=== PATIENT | female | born 1955 | race Caucasian/White ===

== ENCOUNTER 2020-10-19 23:10 | Inpatient (IN) | payer OTHER, SELFPAY ==
[2020-10-19 23:35] VITALS: BMI 30.2
--- NOTE | 2020-10-19 23:38 | P.HP_ITS ---
Providers/Chief Complaint Admitting Physician: Alexys Lopez MD Primary Care Provider: Maxine Pulido DO Chief Complaint: covid+ History of Present Illness Sj Singh is a 65 year old female who presented to our hospital from [facility] for chief complaint of worsening symptoms of COVID-19. 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 She has not noticed any diarrhea, she is endorsing constipation. She has not noticed orthopnea, PND, chest pain she is endorsing worsening of shortness of breath on exertion. She went to her PCP who recommended Z-Issac and prednisone which she completed. At [facility] she was given Levaquin for UTI which caused allergic reaction and was given ceftriaxone afterwards she was given normal saline, Decadron, she was saturating 75% on room air in the ER did well with 4 L nasal cannula to keep her saturation above 90. When she was evaluated in room 269 she was saturating well on 40 nasal cannula was experiencing excessive bouts of cough did not complain of active chest pain. Clinically no signs of fluid overload. I have requested D-dimer, troponin set. EKG at the other facility revealed T wave inversion lead I aVL, BNP 3000, potassium was repleted Magnesium 1.7 BNP 3000 TSH 1.9 Brown-colored urine White count UA 51-100 RBC greater than 100 3+ bacteria Yeast budding present 1+ glucose Proteinuria Sodium 135 Potassium 3.2 Creatinine 0.4 Bicarb 24 White count 10.6 Hemoglobin 13.1 Platelets 113 Absolute lymphocyte count 0.7 Chest x-ray revealed decreased lung volume with moderate ground glass attenuation/infiltrate of both lungs no large pleural effusion or pneumothorax noted Review of Systems Const: Reports: chills, body aches, change in appetite, fatigue and malaise Eyes: Denies: change in vision ENMT: Denies: throat pain Card: Reports: dyspnea on exertion; Denies: chest pain Resp: Reports: dyspnea, non-productive cough and chest congestion GI: Reports: constipation; Denies: abdominal pain : Denies: flank pain Musc: Denies: neck pain Skin/Breast: Denies: rash Neuro: Denies: headache(s) Psych: Denies: anxiety Endo: Denies: polyuria Damaso/Lymph: Denies: easy bruising All/Imm: Denies: urticaria PFSH Acute PFSH: Medical History Diabetes GERD (gastroesophageal reflux disease) Hypertension Hypothyroidism Surgical History H/O cataract removal with insertion of prosthetic lens H/O cystoscopy History of anterior repair with culdoplasty Family History (Updated 10/20/20 @ 00:39 by Alexys Lopez MD) Other Family history non-contributory Social History (Updated 10/20/20 @ 00:41 by Alexys Lopez MD) Smoking and tobacco status: never smoked Alcohol intake: never Substance/Drug Use: never Housing: House Physical Exam Narrative: EXAM NARRATIVE: Middle-age female who appears more than stated age Clinically looks dehydrated Currently on 4 L nasal cannula saturating over 90% Currently experiencing multiple bouts of cough, dry cough Expiratory wheezing diffuse more pronounced in the base of the lungs bilaterally S1, S2 no tachycardia or heart failure signs No extremity no edema gangrene ulcer Awake alert oriented x3 GCS 15 No neurological deficit Skin without any signs of ischemia gangrene or ulcer Irritable mood due to excessive coughing A&P Assessment and plan (1) UTI (urinary tract infection): Status: Acute (2) Hypoxia: Status: Acute (3) COVID-19: Status: Acute (4) Yeast UTI: Status: Acute Additional A&P Information Acute hypoxic respiratory failure secondary to COVID-19 pneumonia Start Decadron and remdesivir currently doing well on 4 L nasal cannula, BNP 3000 however clinically does not show signs of fluid overload, chest x-ray shows bibasilar groundglass opacities Ventolin as needed use We will check procalcitonin, D-dimer, ferritin and CRP Jose Silva for cough along Robitussin Yeast UTI Patient is not complaining of signs of UTI however complaining of black-colored urine She has been given Diflucan x1 I would continue ceftriaxone until tomorrow and probably will need to be discontinued afterwards, repeat UA Type 2 diabetes Keep her on moderate sliding scale to prevent steroid-induced hyperglycemia Hypothyroidism: Continue home regimen of levothyroxine High BNP This could be seen with PE, fluid overload, CHF however clinically does not look fluid overloaded, no previous history of coronary disease or CHF, will check D- dimer, EKG showing T wave inversion lead I aVL, we will keep her on telemetry for now patient is chest pain-free Full code Consistent carb diet DVT prophylaxis Lovenox 30mg twice daily because of hypercoagulable state of COVID-19 DIC pattern Attestations Medical Necessity Statement*: Anticipating stay in the hospital cross more than 2 midnights currently need management for COVID-19 pneumonia worsening symptoms and UTI Time Spent in Patient Care: (>than 50% of time spent in counselling and/or direct pt care on unit) . 50mins Coding Level of Care Code Acute Director Rehabilitation Program for [facility] Diagnoses UTI (urinary tract infection) N39.0 Hypoxia R09.02 COVID-19 U07.1 Yeast UTI B37.49
[2020-10-20] VITALS (28 sets, daily range): BP systolic 109–163; BP diastolic 66–99; PULSE 62–119; RESP 13–23; TEMP 37–37.2; O2SAT 85–98
--- NOTE | 2020-10-20 00:46 | ECG_ITS ---
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1955 Requested By: Alexys Lopez Order Number: [id number] Reading MD: ALEXYS BOWMAN Measurements Intervals [place] Rate: 99 P: 81 VA: 137 QRS: -38 QRSD: 99 T: 145 QT: 348 QTc: 448 Interpretive Statements SINUS RHYTHM MARKED LEFT AXIS DEVIATION [QRS AXIS < -30] PATTERN CONSISTENT WITH PULMONARY DISEASE LEFT VENTRICULAR HYPERTROPHY AND ST-T CHANGE [VOLTAGE CRITERIA PLUS ST/T ABNORMALITY] POSSIBLE SEPTAL MYOCARDIAL INFARCTION [30 ms Q WAVE IN V1/V2], PROBABLY OLD No previous ECG available for comparison Electronically Signed On 10-20-2020 18:54:55 MANAGER DRUG by ALEXYS BOWMAN [id number]
[2020-10-20] MEDS: remdesivir 200 MG in sodium chloride 0.9% (100 ml) 100 ML 100 MG IV (00:55)
[2020-10-20] MEDS: enoxaparin 30 mg/0.3 mL Syringe SUBCUT (01:43)
[2020-10-20] MEDS: lanolin oint 7 gm 1 APPLIC TOPICAL (01:47)
[2020-10-20 02:23] LABS: Troponin(5th) Baseline 663 ng/L (0-10)
--- NOTE | 2020-10-20 02:35 | USCV_ITS ---
Sj Singh Age: 65 Gender: F : 1955 Exam Date: 10/20/2020 14:45 Ordering Phys: Alexys Lopez MD Technologist: Diana Villalba [place] [facility] [place]: NSTEMI BP: 148 / 88 HR: 79 Rhythm: Sinus Technical Quality: Adequate MEASUREMENTS (Male / Female) Normal Values 2D ECHO LV Diastolic Diameter PLAX 4.4 cm 4.2 - 5.9 / 3.9 - 5.3 cm LV Systolic Diameter PLAX 3.7 cm LV Chamber Size 4.3 cm IVS Diastolic Thickness 1.6 cm 0.6 - 1.0 / 0.6 - 0.9 cm IVS Systolic Thickness 1.7 cm LVPW Diastolic Thickness 1.2 cm 0.6 - 1.0 / 0.6 - 0.9 cm LVPW Systolic Thickness 1.4 cm RV Chamber Size 3.4 cm LVOT Diameter 2.0 cm LV Ejection Fraction 2D Teich 33.8 % LV Ejection Fraction MOD 2C 63.4 % LV Ejection Fraction 2C AL 64.9 % LA Diameter 4.4 cm LA Width 3.9 cm LA Height 5.2 cm RA Width 3.3 cm RA Height 5.1 cm Aorta at Sinotubular Diameter 2.5 cm M-MODE LV Diastolic Diameter MM 5.9 cm 4.2 - 5.9 / 3.9 - 5.3 cm LV Systolic Diameter MM 4.5 cm LV Ejection Fraction MM Teich 48.3 % IVS Diastolic Thickness MM 1.0 cm 0.6 - 1.0 / 0.6 - 0.9 cm IVS Systolic Thickness MM 1.5 cm LVPW Diastolic Thickness MM 1.1 cm 0.6 - 1.0 / 0.6 - 0.9 cm LVPW Systolic Thickness MM 1.6 cm RV Diastolic Diameter MM 1.5 cm Aortic Annulus Diameter 2.9 cm LA Ao Ratio MM 1.6 MV E Point Septal Separation 0.5 cm DOPPLER AV Peak Velocity 88.0 cm/s LVOT Peak Velocity 64.0 cm/s AV Area Cont Eq vti 2.8 cm squared AV Area Cont Eq pk 2.2 cm squared MV Area PHT 5.9 cm squared Mitral E to A Ratio 1.2 MV E' Velocity 49.5 cm/s Mitral E to MV E' Ratio 20.1 Mitral E to LV E' Lateral Ratio 18.9 Mitral E to LV E' Septal Ratio 21.4 TR Peak Velocity 248.0 cm/s TR Peak Gradient 24.6 mmHg TR Mean Velocity 197.2 cm/s TR Mean Gradient 16.3 mmHg TR Velocity Time Integral 74.8 cm Right Atrial Pressure 15.0 mmHg Pulmonary Artery Systolic Pressu 39.6 mmHg PV Peak Velocity 55.0 cm/s RV Acceleration Time 0.1 s RV Ejection Time 0.3 s RV AcT/ET 0.2 FINDINGS Left Ventricle Normal left ventricular cavity size. Mildly decreased left ventricular systolic function. Global left ventricular hypokinesis. Left ventricular ejection fraction is estimated at 50 %. Grade II/IV diastolic dysfunction, moderately elevated filling pressures. Right Ventricle Normal right ventricular size. Moderate pulmonary hypertension, PASP 45 mmHg. Right Atrium The right atrium is normal in size. Left Atrium Mitral Valve Moderately thickened mitral valve. Mild mitral annular calcification. Severe mitral valve regurgitation. Aortic Valve Structurally normal aortic valve without significant sclerosis or stenosis. There is no aortic regurgitation. Tricuspid Valve [id number]-[id number] tricuspid valve regurgitation. Pulmonic Valve Structurally normal pulmonic valve without significant stenosis. There is no pulmonic regurgitation. Pericardium Normal pericardium without effusion. Aorta Normal ascending aorta dimension. CONCLUSIONS 1-Normal left ventricular cavity size. Mildly decreased left ventricular systolic function. Global left ventricular hypokinesis. Left ventricular ejection fraction is estimated at 50 %. Grade II/IV diastolic dysfunction, moderately elevated filling pressures. 2-Moderately increased left atrial size. 3-Normal right ventricular size. Moderate pulmonary hypertension, PASP 45 mmHg. 4-Moderately thickened mitral valve. Mild mitral annular calcification. Severe mitral valve regurgitation. 8-Gmmf-xu-moderate tricuspid valve regurgitation. 6-There is no pericardial effusion. 7-Right atrial pressure is around 20 mm of mercury. 8-There are no prior echocardiogram studies to compare. Alexys Zafar MD (Electronically Signed) Final Date: 20 October 2020 16:41 S
--- NOTE | 2020-10-20 02:46 | ECG_ITS ---
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: : 1955 Requested By: Alexys Lopez Order Number: [id number] Reading MD: ALEXYS BOWMAN Measurements Intervals [place] Rate: 95 P: 62 [place]: 126 QRS: -37 QRSD: 153 T: 146 QT: 368 QTc: 463 Interpretive Statements SINUS RHYTHM MARKED LEFT AXIS DEVIATION [QRS AXIS < -30] INTRAVENTRICULAR CONDUCTION DELAY [130+ ms QRS DURATION] Compared to ECG 10/20/2020 02:37:30 Intraventricular conduction delay now present Left ventricular hypertrophy no longer present ST (T wave) deviation no longer present Myocardial infarct finding no longer present Electronically Signed On 10-20-2020 18:55:48 DELIVERY MERCHANDISER by ALEXYS BOWMAN [email or web address]/[id number]
[2020-10-20] MEDS: clopidogrel 300 mg Tablet PO (03:27)
[2020-10-20] MEDS: aspirin 325 mg EC Tablet PO (03:27)
[2020-10-20] MEDS: metoprolol succinate ER (24 HR) 25 mg Tablet PO (03:27)
[2020-10-20] MEDS: acetaminophen 325 mg Tablet PO ×3 (03:27→20:16)
[2020-10-20] MEDS: enoxaparin 80 mg/0.8 mL Syringe SUBCUT ×2 (03:27→14:42)
[2020-10-20 03:50] LABS: Basophils % 0.5 %; Eosinophils # 0.1 10^3/uL (0.0-0.8); Eosinophils % 0.9 %; Lymphocytes # 0.6 10^3/uL (0.8-4.8); Lymphocytes % 7.1 %; Mean Corpuscular HGB Conc 31.4 g/dL (30.0-36.0); Mean Corpuscular Hemoglobin 28.4 pg (28.0-34.0); Mean Corpuscular Volume 90.4 fL (81-99); Mean Platelet Volume 11.3 fL (7.4-10.4); Monocytes # 0.4 10^3/uL (0.2-0.9); Monocytes % 4.6 %; Neutrophils # 7.64 10^3/uL (1.8-7.7); Nucleated Red Blood Cells % 0 %; Platelet Count 93 10^3/cmm (130-400); Red Blood Count 3.87 10^6/uL (4.1-5.3); Red Cell Distribution Width 12.6 % (12.1-15.1); White Blood Count 8.9 10^3/uL (4.0-10.0)
[2020-10-20 04:13] LABS: Alanine Aminotransferase 28 U/L (0-33); Albumin Level 2.7 g/dL (3.5-5.2); Alkaline Phosphatase 129 IU/L (35-105); Anion Gap 14.3 (5-19); Aspartate Amino Transferase 29 U/L (0-32); Blood Urea Nitrogen 13 mg/dL (8-23); Calcium 8.6 mg/dL (8.5-10.5); Carbon Dioxide 27 mmol/L (22-29); Chloride 101 mmol/L (98-107); Creatine Phosphokinase 73 U/L (26-192); Ferritin 587 ng/mL (15-150); Globulin 2.8 g/dL (1.3-4.6); Glomerular Filtration Rate 160.2 mL/min (90-130); Glucose 185 mg/dL (65-115); Lactate Dehydrogenase 604 U/L (135-214); Osmolality Calculated 293 mOsm/kg (285-295); Potassium 3.3 mmol/L (3.5-5.1); Sodium 139 mmol/L (136-145); Total Bilirubin 0.4 mg/dL (0.15-1.2); Total Protein 5.5 g/dL (6.6-8.7)
[2020-10-20 04:15] LABS: D Dimer >= 20.00 ug/mIFEU (0-0.59)
[2020-10-20 04:18] LABS: Troponin 5 2HR 673.4 ng/L (0-10); Troponin 5 2HR Delta 10.4 ABS# (0-10)
--- NOTE | 2020-10-20 04:22 | CTR_ITS ---
PROCEDURE INFORMATION: Exam: CT Angiography Chest With Contrast Exam date and time: 10/20/2020 4:26 AM Age: 65 years old Clinical indication: Patient HX: Cough. Covid+. D dimer of 20. ; Additional info: Pe TECHNIQUE: Imaging protocol: Computed tomographic angiography of the chest with intravenous contrast. 3D rendering (Not supervised by radiologist): MIP and/or 3D reconstructed images were created by the technologist. Radiation optimization: All CT scans at this facility use at least one of these dose optimization techniques: automated exposure control; mA and/or kV adjustment per patient size (includes targeted exams where dose is matched to clinical indication); or iterative reconstruction. Contrast material: OMNI 350; Contrast volume: 78 ml; Contrast route: INTRAVENOUS (IV); COMPARISON: No relevant prior studies available. RADIATION DOSE METRICS: Total DLP (mGy-cm): 490.95 FINDINGS: Pulmonary arteries: There are partial filling defects seen within segmental branches of the right lower lobe pulmonary artery. Aorta: Unremarkable. No aortic aneurysm. No aortic dissection. Lungs: There are patchy ground-glass opacities and some consolidation seen bilaterally, findings compatible with a patchy bilateral pneumonitis. Pleural space: Unremarkable. No pneumothorax. No pleural effusion. Heart: Unremarkable. No cardiomegaly. No pericardial effusion. Lymph nodes: Unremarkable. No enlarged lymph nodes. Stomach and bowel: There is a moderate hiatal hernia present containing a portion of the proximal stomach. It measures 6 cm transverse dimension. Bones/joints: Unremarkable. No acute fracture. Soft tissues: Unremarkable. CT/CT angio chest PE protcl [id number] IMPRESSION: 1. There are partial filling defect seen within segmental branches of the right lower lobe pulmonary artery compatible with nonocclusive pulmonary emboli. 2. Patchy ground-glass opacities and consolidation seen bilaterally, findings compatible with patchy bilateral pneumonitis. Imaging features can be seen with COVID-19 pneumonia, though are nonspecific and can occur with a variety of infectious and noninfectious processes. (Reference: Apolinar) 3. Moderate hiatal hernia containing a portion of the proximal stomach. REFERENCES: rosalva Knight al., Radiological Society of [place] Expert Consensus Statement on Reporting Chest CT Findings Related to COVID-19. Endorsed by the Society of Thoracic Radiology, the [place] [employer], and RSNA. Published February 01, 2020. Radiation Dose CTDIVOL = (mGy): DLP = 490.95 (mGy-cm)
[2020-10-20 04:52] LABS: Add Urine Microscopic? YES; Bilirubin Urine Neg (Negative); Blood Urine 3+ (Negative); Glucose Urine UA Norm (Normal); Ketones Urine 2+ (Negative); Leukocyte Esterase Urine 2+ (Negative); Nitrate Urine Negative (Negative); Protein Urine 2+ (Negative); Specific Gravity, Urine 1.014 (1.005-1.030); Urine Appearance Cloudy (CLEAR); Urine Color Amber (Yellow); Urobilinogen Urine Norm (Negative); pH Urine 7 (5-7)
[2020-10-20] MEDS: iohexol 350 mg/mL 100 mL Btl IV (04:54)
[2020-10-20 05:29] LABS: Add Urine Culture? Yes; Bacteria Urine 4+ /hpf; Mucus Urine 2+ /hpf; RBC Urine TOO NUMEROUS TO CNT /hpf (0-2); WBC Urine TOO NUMEROUS TO CNT /hpf (0-5)
[2020-10-20] MEDS: potassium chloride ER 20 mEq Tablet 40 MEQ PO ×2 (05:49→09:32)
[2020-10-20] MEDS: levothyroxine 88 mcg Tablet PO (05:49)
[2020-10-20 06:46] LABS: Glucose Point of Care 186 mg/dL (70-110)
--- NOTE | 2020-10-20 06:46 | ECG_ITS ---
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: : 1955 Requested By: Alexys Lopez Order Number: [id number] Reading MD: ALEXYS BOWMAN Measurements Intervals [place] Rate: 87 P: 2 TN: 145 QRS: -21 QRSD: 105 T: 176 QT: 377 QTc: 454 Interpretive Statements SINUS RHYTHM LEFT VENTRICULAR HYPERTROPHY AND ST-T CHANGE [VOLTAGE CRITERIA PLUS ST/T ABNORMALITY] POSSIBLE SEPTAL MYOCARDIAL INFARCTION [30 ms Q WAVE IN V1/V2], PROBABLY OLD Compared to ECG 10/20/2020 02:38:36 Left ventricular hypertrophy now present ST (T wave) deviation now present Myocardial infarct finding now present Left-axis deviation no longer present Intraventricular conduction delay no longer present Electronically Signed On 10-20-2020 18:55:43 EMERGENCY MEDICINE PHYSICIAN by ALEXYS BOWMAN [email or web address].e[employer]/store/[id number]
[2020-10-20 07:49] LABS: Erythrocyte Sedimentation Rate 14 mm/hr (0-15)
[2020-10-20] MEDS: albuterol 8 gm MDI 2 PUFF INHALATION (08:15)
[2020-10-20 08:19] LABS: NT Pro B Type Natriuretic Pept 2488 pg/mL (0-125); Procalcitonin 0.08 ng/mL (0-0.5)
[2020-10-20 08:22] LABS: Platelet Count 93 10^3/cmm (130-400)
--- NOTE | 2020-10-20 08:25 | PC.NURSE ---
Addendum entered by Amber Griffith RN 10/20/20 09:08: observed pt's dark, bloody urine at bedside. When asked about the color of her urine, the pt informed the RN, charger operator helper, and MD at bedside of black urine a couple of weeks prior to being admitted to the hospital. Pt did not seek care for black urine. Prior to black urine, pt stated her urine was dark nataliya. Pt was unaware of dark bloody urine output after roe catheter was placed. MD assessed bloody urine output and stated concern of trauma during roe placement. No new orders or consults at this time. Will continue to monitor the patient. Original Note: Pt transferred to VICU from [facility] unit. Pt transported in bed on non-rebreather with RT and RN at bedside. Pt placed on bus driver/monitor, pulse ox (99% on NRB and placed on 45%/35L HHFNC), and BP monitoring. Pt stable at this time with no c/o chest pain. EKG ordered due to elevated troponins and d-dimer. MD at bedside to assess and speak with pt. Pt complains of no pain at this time. MD ordered roe catheter for accurate I&O's. This RN and Sissy Montgomery, research instructor, went to place roe catheter and pt stated she has a history of bladder prolapse for years. MD notified and aware. MD stated to place roe if possible and suggested consult of urology due to prolapsed bladder. This RN and charger operator helper were able to place roe catheter with pt's prolapsed bladder. Blood return was observed after placement of roe. MD aware and assessed at bedside. No other new orders obtained at this time. Will continue to monitor the pt.
[2020-10-20 08:27] LABS: INR 1.36 (0.8-1.2)
[2020-10-20 08:28] LABS: Fibrinogen 214 mg/dL (174-498); Lactate (Lactic Acid level) 1.2 mmol/L (0.5-2.2); Partial Thromboplastin Time 39.7 SECONDS (23.9-36.7)
--- NOTE | 2020-10-20 08:34 | P.PN_ITS ---
Subjective Subjective: Interval history: Patient desaturated to 80s on 6 L by nasal cannula. She was transferred to VICU and started on high flow heated oxygen, 35 L 40% and her sats improved to high 90s. She denies chest pain or abdominal pain. She is diabetic for many years but denies previous history of heart disease. She stopped smoking many many years ago. She was found to have PE and her troponin significantly elevated and up to 800s this morning. Echocardiogram is pending. There is some minimal ST-T changes in the lateral leads but otherwise no evidence of ST elevation. Patient shows no evidence of lower extremity swelling. Erickson catheter was placed with approximately 500 mL very dark nataliya-colored urine out. She has 3+ blood on her UA with significant pyuria. No blood clots appreciated. Patient has bladder prolapse. Her platelets are 93 and hemoglobin 11. INR 1.36. Her kidney function is normal. Ferritin, LDH and D-dimer are elevated and suggestive of acute Covid 19 viral syndrome. Vitals/I&O/Wt Last Vital Signs Temp 98.8 F 10/20/20 04:00 Pulse 94 10/20/20 06:00 Resp 17 10/20/20 04:00 BP 148/88 10/20/20 04:00 Pulse Ox 91 10/20/20 04:00 10/19/20 10/20/20 10/20/20 22:59 06:59 14:59 Intake Total 100 / 100 Output Total 100 / 100 Balance -100 / -100 100 / 100 Weight last 48 hrs Weight 79.742 kg Physical Exam Const: COMMON NORMALS: no acute distress and patient oriented x3 Resp: COMMON NORMALS: normal respiratory effort and clear to auscultation bilaterally AUSCULTATION: clear to auscultation bilaterally Cardio: COMMON NORMALS: regular rate, regular rhythm and S2 normal heart sound present RATE: regular rate RHYTHM: regular rhythm HEART SOUNDS: S2 normal heart sound present OTHER: No lower extremity edema GI: COMMON NORMALS: Normal to inspection, nondistended, normoactive bowel sounds present, Soft to palpation and non-tender PALPATION: Yes Soft to palpation Neuro: COMMON NORMALS: patient oriented x3 and no focal motor deficits Data : 10/20/20 07:44 10/20/20 03:35 A&P Assessment and plan (1) UTI (urinary tract infection): Status: Acute (2) Yeast UTI: Status: Acute (3) Acute respiratory failure with hypoxia: Status: Acute (4) Pneumonia due to COVID-19 virus: Status: Acute (5) Diabetes mellitus type 2 in nonobese: Status: Acute (6) Acute myocarditis: And/or stress-induced cardiomyopathy. Non-ST elevation TN cannot be completely ruled out. Status: Acute (7) Thrombocytopenia: This is likely related to underlying infection. Status: Acute (8) Pulmonary embolism: Status: Acute Additional A&P Information Acute hypoxic respiratory failure secondary to COVID-19 pneumonia Start Decadron and remdesivir currently doing well on 4 L nasal cannula, BNP 3000 however clinically does not show signs of fluid overload, chest x-ray shows bibasilar groundglass opacities Ventolin as needed use We will check procalcitonin, D-dimer, ferritin and CRP Tessalon Perles for cough along Robitussin Yeast UTI Patient is not complaining of signs of UTI however complaining of black-colored urine She has been given Diflucan x1 I would continue ceftriaxone until tomorrow and probably will need to be discontinued afterwards, repeat UA Type 2 diabetes Keep her on moderate sliding scale to prevent steroid-induced hyperglycemia Hypothyroidism: Continue home regimen of levothyroxine High BNP This could be seen with PE, fluid overload, CHF however clinically does not look fluid overloaded, no previous history of coronary disease or CHF, will check D- dimer, EKG showing T wave inversion lead I aVL, we will keep her on telemetry for now patient is chest pain-free Full code Consistent carb diet DVT prophylaxis Lovenox 30mg twice daily because of hypercoagulable state of [place] VID-19 DIC pattern PLAN: Continue therapeutic anticoagulation, Plavix and aspirin. Continue ceftriaxone. We will need to call [facility] in several days to find out culture results. Continue dexamethasone and remdesivir as well as oxygen support. Awaiting echocardiogram and cardiology evaluation. There is no need for urgent cardiac intervention at this point. Will avoid IV fluids for now. Attestations Medical Necessity Statement*: Patient is critically ill requiring close ICU monitoring and treatment. Critical Care Time: Critical Care Time (min): 30 Coding Level of Care Code Acute Bioprocessing Manufacturing Technician for [facility] Fwd Diagnoses UTI (urinary tract infection) N39.0 Yeast UTI B37.49 Acute respiratory failure with hypoxia J96.01 Pneumonia due to COVID-19 virus U07.1; J12.89 Diabetes mellitus type 2 in nonobese E11.9 Acute myocarditis I40.9 Thrombocytopenia D69.6 Pulmonary embolism I26.99
[2020-10-20 08:35] LABS: Troponin 5 6HR 809.8 ng/L (0-10); Troponin 5 6HR Delta 146.8 ng/L (0-12)
--- NOTE | 2020-10-20 08:40 | PC.NURSE ---
Assumed patient care, introduced self, lab work drawn per doctors orders, patient short of breath, RT into see patient oxygen saturation 80% on high flow NC, increased per RT, Dr. Nayak notified and new orders for patient to be transferred to [facility]. Transferred via stretcher and bedside report given to Amber Griffith. Patient belongings taken with transfer including cell phone and junior underwriter, clothes, purse, package of incontinent briefs, kleenax box.
--- NOTE | 2020-10-20 08:52 | PC.RESP ---
Therapist walked into the room and checked vitals. Patient was sating 80% on 6LPM HFNC with a heart rate of 93 BPM. Therapist turned up O2 to 12LPM and patient sats only came up to 85% at this time. THerapist proceeded to give breathing treatment, then called Dr. Nayak. stated that she needs to be transferred to VICU at this time. Patient was transferred to VICU on a 15L NRB. sats were 98% with a heart rate of 91 BPM.
--- NOTE | 2020-10-20 08:55 | ECG_ITS ---
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 Measurements Intervals [place] Rate: 81 P: 12 MA: 141 QRS: -24 QRSD: 97 T: 120 QT: 383 QTc: 446 Interpretive Statements SINUS RHYTHM BORDERLINE LEFT AXIS DEVIATION [QRS AXIS < -20] LEFT VENTRICULAR HYPERTROPHY AND ST-T CHANGE [VOLTAGE CRITERIA PLUS ST/T ABNORMALITY] INTERPRETATION BASED ON A DEFAULT AGE OF 40 YEARS Compared to ECG 10/20/2020 06:44:52 Myocardial infarct finding no longer present ST (T wave) deviation still present Electronically Signed On 10-23-2020 19:55:53 LEI MAKER by Gilma Whipple M.D. [id number]
[2020-10-20 09:00] LABS: Glucose Point of Care 182 mg/dL (70-110)
[2020-10-20] MEDS: cefTRIAXone 1,000 MG in sodium chloride 0.9% (plus) 50 ML 100 MG IV (09:31)
[2020-10-20] MEDS: sennosides-docusate Tablet 1 TAB PO (09:32)
[2020-10-20] MEDS: aspirin 81 mg EC Tablet PO (09:32)
[2020-10-20] MEDS: clopidogrel 75 mg Tablet PO (09:32)
[2020-10-20] MEDS: dexamethasone 4 mg Tablet 6 MG PO (09:32)
[2020-10-20] MEDS: lisinopril 10 mg Tablet PO (11:25)
[2020-10-20 11:48] LABS: Glucose Point of Care 160 mg/dL (70-110)
[2020-10-20] MEDS: ondansetron 2 mg/ML SDV 2 mL 4 MG IVP (13:50)
--- NOTE | 2020-10-20 16:50 | PM.CONSULT ---
Providers/Reason For Consult Consulting Physican/Specialty*: Cardiology Reason for Consult*: Non-STEMI, acute heart failure, respiratory failure Attending Physician: Yifan Nayak MD Primary Care Provider: Maxine Pulido DO History of Present Illness History of Present Illness Sj Singh is a 65 year old female past medical history significant for pretension hyperlipidemia hypothyroidism was admitted with chest pain respiratory failure noted to be Covid positive. CTA of the chest was consistent with nonocclusive pulmonary embolism and groundglass appearance suspicious for Covid pneumonia. Patient continues to be short of breath and during investigation noted to have high cardiac markers consistent with non-ST elevation ID. Twelve-lead EKG was suggestive of ischemia in the high lateral wall. Echocardiogram is consistent with low normal ejection fraction, severe MR moderate TR and moderate pulmonary hypertension. Patient has global hypokinesis with possible regional lateral wall more hypokinetic than the rest of the freitas. I have been asked to assist in her care. Review of Systems Const: Reports: chills, body aches, change in appetite, fatigue and malaise Eyes: Denies: change in vision ENMT: Denies: throat pain Card: Reports: dyspnea on exertion; Denies: chest pain Resp: Reports: dyspnea, non-productive cough and chest congestion GI: Reports: constipation; Denies: abdominal pain : Denies: flank pain Musc: Denies: neck pain Skin/Breast: Denies: rash Neuro: Denies: headache(s) Psych: Denies: anxiety Endo: Denies: polyuria Dmaaso/Lymph: Denies: easy bruising All/Imm: Denies: urticaria Meds/Allergies Home Medications and Allergies Home Medications Medication Instructions Recorded Confirmed Last Taken Type acetaminophen [Tylenol Extra 1,000 mg PO PRN 10/20/20 10/20/20 Unknown History Strength] albuterol sulfate [ProAir HFA] 2 puff INHALATION Q6H PRN 10/20/20 10/20/20 Unknown History aspirin [Aspir-81] 81 mg PO DAILY@10/20/20 10/20/20 Unknown History cholecalciferol (vitamin D3) 25 mcg PO DAILY@10/20/20 10/20/20 Unknown History [Vitamin D3] cyclobenzaprine 5 - 10 mg PO TID PRN 10/20/20 10/20/20 Unknown History empagliflozin [Jardiance] 25 mg PO DAILY@10/20/20 10/20/20 Unknown History ibuprofen 800 mg PO PRN 10/20/20 10/20/20 Unknown History levothyroxine [Euthyrox] 88 mcg PO DAILY@10/20/20 10/20/20 Unknown History lisinopril 10 mg PO DAILY@10/20/20 10/20/20 Unknown History metformin 1,000 mg PO BID@10/20/20 10/20/20 Unknown History montelukast 10 mg PO DAILY@10/20/20 10/20/20 Unknown History multivitamin 1 tab PO DAILY@10/20/20 10/20/20 Unknown History omeprazole 40 mg PO DAILY@10/20/20 10/20/20 Unknown History simvastatin 40 mg PO DAILY@10/20/20 10/20/20 Unknown History Allergies Allergy/AdvReac Type Severity Reaction Status Date / Time Penicillins Allergy Severe ALGY-Hives Verified 10/20/20 10:03 levofloxacin [From Levaquin] Allergy ALGY-Rash Verified 10/20/20 10:03 Current Medications Current Medications Generic Name Dose Route Start Last Admin Trade Name Freq PRN Reason Stop Dose Admin Acetaminophen 325 - 650 mg 10/19/20 23:39 10/20/20 11:25 Acetaminophen 325 Mg Tablet PO 650 mg Q4H PRN Administration MILD PAIN OR INCREASE TEMP Albuterol Sulfate 2 puff 10/19/20 23:39 10/20/20 08:15 Albuterol 8 Gm Mdi INHALATION 2 puff Q4H.RESPIRATORY PRN Administration SHORTNESS OF BREATH Aspirin 81 mg 10/20/20 09:00 10/20/20 09:32 Aspirin 81 Mg Ec Tablet PO 81 mg DAILY MARIO Administration Clopidogrel Bisulfate 75 mg 10/20/20 09:00 10/20/20 09:32 Clopidogrel 75 Mg Tablet PO 75 mg DAILY MARIO Administration Dexamethasone 6 mg 10/20/20 09:00 10/20/20 09:32 Dexamethasone 4 Mg Tablet PO 6 mg DAILY MARIO Administration Enoxaparin Sodium 80 mg 10/20/20 15:30 10/20/20 14:42 Enoxaparin 80 Mg/0.8 Ml Syringe SUBCUT 80 mg Q12H MARIO Administration Ceftriaxone Sodium 1,000 mg/ 50 mls @ 100 mls/hr 10/20/20 08:15 10/20/20 10:32 Sodium Chloride IV Infused Q24H MARIO Infusion Protocol Insulin Aspart 0 unit 10/20/20 08:00 10/20/20 12:48 Insulin Aspart 100 Unit/1 Ml SUBCUT 4 unit WM&BEDTIME MARIO Administration Protocol Lanolin 1 applic 10/20/20 00:27 10/20/20 01:47 Lanolin Oint 7 Gm TOPICAL 1 dose PRN PRN Administration DRYNESS Levothyroxine Sodium 88 mcg 10/20/20 06:00 10/20/20 05:49 Levothyroxine 88 Mcg Tablet PO 88 mcg QAM MARIO Administration Lisinopril 10 mg 10/20/20 09:45 10/20/20 11:25 Lisinopril 10 Mg Tablet PO 10 mg DAILY MARIO Administration Metoprolol Succinate 25 mg 10/20/20 02:40 10/20/20 03:27 Metoprolol Succinate Er (24 Hr) 25 Mg Tablet PO 25 mg DAILY MARIO Administration Ondansetron HCl 4 mg 10/20/20 13:34 10/20/20 13:50 Ondansetron 2 Mg/Ml Sdv 2 Ml IVP 4 mg Q6H PRN Administration NAUSEA AND VOMITING Senna/Docusate Sodium 1 tab 10/20/20 09:00 10/20/20 09:32 Sennosides-Docusate Tablet PO 1 tab DAILY MARIO Administration PFSH Acute PFSH: Medical History Diabetes GERD (gastroesophageal reflux disease) Hypertension Hypothyroidism Surgical History H/O cataract removal with insertion of prosthetic lens H/O cystoscopy History of anterior repair with culdoplasty Family History Other Family history non-contributory Social History Smoking and tobacco status: never smoked Alcohol intake: never Substance/Drug Use: never Housing: House Vitals/I&O/Wt Last Vital Signs Temp 98.9 F 10/20/20 16:00 Pulse 76 10/20/20 15:11 Resp 18 10/20/20 15:11 BP 117/73 10/20/20 15:00 Pulse Ox 94 10/20/20 15:11 10/20/20 10/20/20 10/20/20 06:59 14:59 22:59 Intake Total 630 / 630 Output Total 100 / 100 Balance -100 / -100 630 / 630 Weight last 48 hrs Weight 175 lb 12.8 oz Physical Exam Narrative: EXAM NARRATIVE: Please note that I have not examined the patient personally history and physical examination is as per our colleagues note Urinary Catheter Management^: Erickson: Cath Placed During This Visit: yes Urinary Catheter Date of Insertion: 10/20/20 Urinary Catheter Time of Insertion: 08:45 A&P Assessment and plan (1) Pneumonia due to COVID-19 virus: Status: Acute (2) Non-ST elevation ID (NSTEMI): Patient presentation is most consistent with non-ST elevation ID mostly high lateral wall possible circumflex territory. She has been complicated with Covid pneumonia. For now we will continue to manage her medically until unless she is unstable such as arrhythmia or ST elevation ID. We agree to continue full dose anticoagulation with Lovenox, beta-abraham, statin, LA inhibitor aspirin and Plavix. Status: Acute (3) Systolic congestive heart failure with reduced left ventricular function, NYHA class 3: Patient is in decompensated acute systolic heart failure therefore recommend starting IV Lasix 40 mg IV twice a day, manage potassium to keep it around 4.0. We will start her on 20 mEq p.o. twice daily. Status: Acute (4) Hypoxia: Mixed picture due to Covid pneumonia and congestive heart failure Status: Acute (5) Pulmonary embolism: It is nonocclusive and small however she is on anticoagulation. Recommend continuing it. Status: Acute Qualifiers: Pulmonary embolism type: unspecified Chronicity: unspecified Acute cor pulmonale presence: without acute cor pulmonale Qualified Code(s): I26.99 - Other pulmonary embolism without acute cor pulmonale (6) Mitral valve regurgitation: Appear to be functional. We will continue to diurese hopefully it will improve Status: Acute Qualifiers: Cardiac valve disease etiology: nonrheumatic Qualified Code(s): I34.0 - Nonrheumatic mitral (valve) insufficiency (7) Tricuspid regurgitation: Secondary to high left side pressure once diuresed well and resolve with Covid pneumonia along with improvement in pulmonary pressure hopefully it will also improve. Status: Acute Qualifiers: Cardiac valve disease etiology: nonrheumatic Qualified Code(s): I36.1 - Nonrheumatic tricuspid (valve) insufficiency Consult Attestations Medical Necessity Statement: Expecting her stay to cross more than 2 midnights. Coding Level of Care Code New Pt Acute Savings Teller for [facility] Fwd Patient Type New History Comprehensive Exam Comprehensive Medical Decision Making High Complexity Diagnoses Pneumonia due to COVID-19 virus U07.1; J12.89 Non-ST elevation ID (NSTEMI) I21.4 Systolic congestive heart failure with reduced left ventricular function, NYHA class 3 I50.20 Hypoxia R09.02 Pulmonary embolism I26.99 Pulmonary embolism type: unspecified Chronicity: unspecified Acute cor pulmonale presence: without acute cor pulmonale Mitral valve regurgitation I34.0 Cardiac valve disease etiology: nonrheumatic Tricuspid regurgitation I36.1 Cardiac valve disease etiology: nonrheumatic
[2020-10-20 16:57] LABS: Glucose Point of Care 127 mg/dL (70-110)
[2020-10-20] MEDS: potassium chloride ER 20 mEq Tablet PO (17:34)
[2020-10-20] MEDS: FUROsemide 10 mg/mL SDV 4mL 40 MG IVP (17:34)
[2020-10-20] MEDS: remdesivir 100 MG in sodium chloride 0.9% (100 ml) 100 ML IV (17:46)
[2020-10-20] MEDS: atorvastatin 40 mg Tablet 80 MG PO (20:16)
[2020-10-20 20:22] LABS: Glucose Point of Care 198 mg/dL (70-110)
[2020-10-21] VITALS (28 sets, daily range): BP systolic 90–157; BP diastolic 56–98; PULSE 64–101; RESP 10–27; TEMP 36.6–36.9; O2SAT 89–99; BMI 29.7; BMI 30.2
[2020-10-21] MEDS: guaiFENesin-dextromethorphan UDC 10 mL PO ×2 (00:18→18:20)
[2020-10-21] MEDS: enoxaparin 80 mg/0.8 mL Syringe SUBCUT ×2 (04:09→14:37)
[2020-10-21] MEDS: acetaminophen 325 mg Tablet PO ×2 (04:14→12:41)
[2020-10-21] MEDS: ondansetron 2 mg/ML SDV 2 mL 4 MG IVP ×2 (04:14→13:04)
[2020-10-21] MEDS: FUROsemide 10 mg/mL SDV 4mL 40 MG IVP ×2 (04:32→16:57)
[2020-10-21] MEDS: levothyroxine 88 mcg Tablet PO (05:28)
[2020-10-21 07:52] LABS: Glucose Point of Care 208 mg/dL (70-110)
[2020-10-21] MEDS: dexamethasone 4 mg Tablet 6 MG PO (08:23)
[2020-10-21] MEDS: cefTRIAXone 1,000 MG in sodium chloride 0.9% (plus) 50 ML 100 MG IV (08:23)
[2020-10-21] MEDS: aspirin 81 mg EC Tablet PO (08:23)
[2020-10-21] MEDS: potassium chloride ER 20 mEq Tablet PO ×2 (08:23→17:08)
[2020-10-21] MEDS: sennosides-docusate Tablet 1 TAB PO (08:23)
[2020-10-21] MEDS: clopidogrel 75 mg Tablet PO (08:23)
[2020-10-21] MEDS: lisinopril 10 mg Tablet PO (08:24)
[2020-10-21] MEDS: albuterol 8 gm MDI 2 PUFF INHALATION ×2 (08:28→20:11)
[2020-10-21 09:40] LABS: Basophils % 0.3 %; Hematocrit 34.8 % (37.0-47.0); Hemoglobin 11.5 g/dL (11.5-15.3); Lymphocytes # 0.6 10^3/uL (0.8-4.8); Mean Corpuscular Hemoglobin 30.9 pg (28.0-34.0); Mean Corpuscular Volume 93.5 fL (81-99); Mean Platelet Volume 12.5 fL (7.4-10.4); Monocytes # 0.5 10^3/uL (0.2-0.9); Monocytes % 7.3 %; Neutrophils # 5.68 10^3/uL (1.8-7.7); Neutrophils % 81.5 %; Nucleated Red Blood Cells % 0 %; Platelet Count 133 10^3/cmm (130-400); Red Blood Count 3.72 10^6/uL (4.1-5.3); Red Cell Distribution Width 12.9 % (12.1-15.1)
[2020-10-21 09:44] LABS: Alanine Aminotransferase 78 U/L (0-33); Albumin Level 2.9 g/dL (3.5-5.2); Alkaline Phosphatase 183 IU/L (35-105); Aspartate Amino Transferase 51 U/L (0-32); Blood Urea Nitrogen 22 mg/dL (8-23); Calcium 9.1 mg/dL (8.5-10.5); Carbon Dioxide 24 mmol/L (22-29); Chloride 98 mmol/L (98-107); Globulin 3.1 g/dL (1.3-4.6); Glomerular Filtration Rate 160.2 mL/min (90-130); Glucose 194 mg/dL (65-115); Osmolality Calculated 293 mOsm/kg (285-295); Sodium 137 mmol/L (136-145); Total Bilirubin 0.4 mg/dL (0.15-1.2)
--- NOTE | 2020-10-21 09:50 | P.PN_ITS ---
Subjective Subjective: Interval history: Patient reports feeling much better this morning. Denies chest pain or abdominal pain. Her breathing is much improved. She had no bowel movement yet. She had good urinary output. Her oxygen requirement improved. She is on 50 L 50%. Her CBC shows improvement. Discussed with patient's brother at patient's request and updated. Patient was seen by Dr. Zafar yesterday. Patient met criteria for non-ST elevation [place]. Patient's picture was suggestive of heart failure and patient was given Lasix with good diuresis. Vitals/I&O/Wt Last Vital Signs Temp 98.9 F 10/20/20 16:00 Pulse 101 H 10/21/20 08:30 Resp 22 H 10/21/20 08:30 BP 147/85 10/21/20 04:00 Pulse Ox 96 10/21/20 08:30 10/20/20 10/21/20 10/21/20 22:59 06:59 14:59 Intake Total 240 / 870 100 / 970 Output Total 1100 / 1100 950 / 2050 Balance -860 / -230 -850 / -1080 Weight last 48 hrs Weight 78.426 kg Weight 79.742 kg Physical Exam Const: COMMON NORMALS: no acute distress and patient oriented x3 Resp: COMMON NORMALS: normal respiratory effort OTHER: Bibasilar Rales. Cardio: COMMON NORMALS: regular rate, regular rhythm and S2 normal heart sound present RATE: regular rate RHYTHM: regular rhythm HEART SOUNDS: S2 normal heart sound present OTHER: No lower extremity edema GI: COMMON NORMALS: Normal to inspection, nondistended, normoactive bowel sounds present, Soft to palpation and non-tender PALPATION: Yes Soft to palpation Neuro: COMMON NORMALS: patient oriented x3 and no focal motor deficits Urinary Catheter Management^: Erickson: Cath Placed During This Visit: yes Reason for Continuing Indwelling Catheter: Accurate Measurement of Urinary Output in Critically Ill Patients Urinary Catheter Date of Insertion: 10/20/20 Urinary Catheter Time of Insertion: 08:45 Data : 10/21/20 07:45 10/21/20 07:45 Micro: Microbiology 10/19/20 04:15 Urine Culture - Preliminary Urine,Clean Catch A&P Assessment and plan (1) UTI (urinary tract infection): Status: Acute (2) Yeast UTI: Status: Acute (3) Acute respiratory failure with hypoxia: Status: Acute (4) Pneumonia due to COVID-19 virus: Status: Acute (5) Diabetes mellitus type 2 in nonobese: Status: Acute (6) Acute myocarditis: And/or stress-induced cardiomyopathy. Non-ST elevation [place] cannot be completely ruled out. Status: Acute (7) Thrombocytopenia: This is likely related to underlying infection. Status: Acute (8) Pulmonary embolism: Status: Acute Qualifiers: Pulmonary embolism type: unspecified Chronicity: unspecified Acute cor pulmonale presence: without acute cor pulmonale Qualified Code(s): I26.99 - Other pulmonary embolism without acute cor pulmonale (9) Non-ST elevation [place] (NSTEMI): Appears to be type II Status: Acute (10) Systolic congestive heart failure with reduced left ventricular function, NYHA class 3: Status: Acute (11) Mitral valve regurgitation: Status: Acute Qualifiers: Cardiac valve disease etiology: nonrheumatic Qualified Code(s): I34.0 - Nonrheumatic mitral (valve) insufficiency (12) Tricuspid regurgitation: Status: Acute Qualifiers: Cardiac valve disease etiology: nonrheumatic Qualified Code(s): I36.1 - Nonrheumatic tricuspid (valve) insufficiency Additional A&P Information Acute hypoxic respiratory failure secondary to COVID-19 pneumonia Start Decadron and remdesivir currently doing well on 4 L nasal cannula, BNP 3000 however clinically does not show signs of fluid overload, chest x-ray shows bibasilar groundglass opacities Ventolin as needed use We will check procalcitonin, D-dimer, ferritin and CRP Tessalon Ricardo for cough along Robitussin Yeast UTI Patient is not complaining of signs of UTI however complaining of black-colored urine She has been given Diflucan x1 I would continue ceftriaxone until tomorrow and probably will need to be d iscontinued afterwards, repeat UA Type 2 diabetes Keep her on moderate sliding scale to prevent steroid-induced hyperglycemia Hypothyroidism: Continue home regimen of levothyroxine High BNP This could be seen with PE, fluid overload, CHF however clinically does not look fluid overloaded, no previous history of coronary disease or CHF, will check D- dimer, EKG showing T wave inversion lead I aVL, we will keep her on telemetry for now patient is chest pain-free Full code Consistent carb diet DVT prophylaxis Lovenox 30mg twice daily because of hypercoagulable state of COVID-19 DIC pattern PLAN: Continue current monitoring and treatment including therapeutic anticoagulation. Appreciate Dr. Zafar's help. Adjust oxygen as tolerated. Attestations Medical Necessity Statement*: Patient with acute hypoxic respiratory failure requires close ICU monitoring and treatment. 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 Instructor for [facility] Fwd Diagnoses UTI (urinary tract infection) N39.0 Yeast UTI B37.49 Acute respiratory failure with hypoxia J96.01 Pneumonia due to COVID-19 virus U07.1; J12.89 Diabetes mellitus type 2 in nonobese E11.9 Acute myocarditis I40.9 Thrombocytopenia D69.6 Pulmonary embolism I26.99 Pulmonary embolism type: unspecified Chronicity: unspecified Acute cor pulmonale presence: without acute cor pulmonale Non-ST elevation [place] (NSTEMI) I21.4 Systolic congestive heart failure with reduced left ventricular function, NYHA class 3 I50.20 Mitral valve regurgitation I34.0 Cardiac valve disease etiology: nonrheumatic Tricuspid regurgitation I36.1 Cardiac valve disease etiology: nonrheumatic
[2020-10-21] MEDS: bisacodyl 5 mg Tablet 10 MG PO (10:42)
[2020-10-21 11:48] LABS: Glucose Point of Care 258 mg/dL (70-110)
--- NOTE | 2020-10-21 15:06 | P.PN_ITS ---
Subjective Subjective: Interval history: Patient is feeling better had good urine output denies any chest pain. No significant overnight event. As per Dr. Nayak overall there is good improvement Vitals/I&O/Wt Last Vital Signs Temp 97.8 F 10/21/20 12:00 Pulse 80 10/21/20 14:00 Resp 18 10/21/20 14:00 BP 148/83 10/21/20 14:00 Pulse Ox 95 10/21/20 14:00 10/21/20 10/21/20 10/21/20 06:59 14:59 22:59 Intake Total 100 / 970 950 / 950 Output Total 950 / 2050 950 / 950 Balance -850 / -1080 0 / 0 Weight last 48 hrs Weight 172 lb 14.4 oz Weight 175 lb 12.8 oz Physical Exam Narrative: EXAM NARRATIVE: Please note that I have not examined the patient personally history and physical examination is as per our colleagues note Urinary Catheter Management^: Erickson: Cath Placed During This Visit: yes Reason for Continuing Indwelling Catheter: Accurate Measurement of Urinary Output in Critically Ill Patients Urinary Catheter Date of Insertion: 10/20/20 Urinary Catheter Time of Insertion: 08:45 Data : 10/21/20 07:45 10/21/20 07:45 Micro: Microbiology 10/21/20 08:30 Gram Stain - Final Sputum - Expectorated Sputum 10/19/20 04:15 Urine Culture - Preliminary Urine,Clean Catch A&P Assessment and plan (1) Pneumonia due to COVID-19 virus: Status: Acute (2) Non-ST elevation [place] (NSTEMI): Patient presentation is most consistent with non-ST elevation [place] mostly high lateral wall possible circumflex territory. She has been complicated with Covid pneumonia. For now we will continue to manage her medically until unless she is unstable such as arrhythmia or ST elevation [place]. We agree to continue full dose anticoagulation with Lovenox, beta-abraham, statin, LA inhibitor aspirin and Plavix. Stable denies any chest pain no arrhythmia continue medical management for now once Covid negative will recommend left and right heart cath Status: Acute (3) Systolic congestive heart failure with reduced left ventricular function, NYHA class 3: Patient is in decompensated acute systolic heart failure therefore recommend starting IV Lasix 40 mg IV twice a day, manage potassium to keep it around 4.0. We will start her on 20 mEq p.o. twice daily. Continue IV Lasix 40 mg twice daily for 1 more day will see tomorrow if we can back off to once a day once reach euvolemic status Status: Acute (4) Hypoxia: Improved Status: Acute (5) Pulmonary embolism: It is nonocclusive and small however she is on anticoagulation. Recommend continuing it. Status: Acute Qualifiers: Pulmonary embolism type: unspecified Chronicity: unspecified Acute cor pulmonale presence: without acute cor pulmonale Qualified Code(s): I26.99 - Other pulmonary embolism without acute cor pulmonale (6) Mitral valve regurgitation: Appear to be functional. We will continue to diurese hopefully it will i mprove Status: Acute Qualifiers: Cardiac valve disease etiology: nonrheumatic Qualified Code(s): I34.0 - Nonrheumatic mitral (valve) insufficiency (7) Tricuspid regurgitation: Secondary to high left side pressure once diuresed well and resolve with Covid pneumonia along with improvement in pulmonary pressure hopefully it will also improve. Status: Acute Qualifiers: Cardiac valve disease etiology: nonrheumatic Qualified Code(s): I36.1 - Nonrheumatic tricuspid (valve) insufficiency Attestations Medical Necessity Statement*: Require continuation hospitalization for above defined care Coding Level of Care Code Established Pt Acute Customer Leader for [facility] Fwd Patient Type Established History Detailed Exam Detailed Medical Decision Making Moderate Complexity Diagnoses Pneumonia due to COVID-19 virus U07.1; J12.89 Non-ST elevation [place] (NSTEMI) I21.4 Systolic congestive heart failure with reduced left ventricular function, NYHA class 3 I50.20 Hypoxia R09.02 Pulmonary embolism I26.99 Pulmonary embolism type: unspecified Chronicity: unspecified Acute cor pulmonale presence: without acute cor pulmonale Mitral valve regurgitation I34.0 Cardiac valve disease etiology: nonrheumatic Tricuspid regurgitation I36.1 Cardiac valve disease etiology: nonrheumatic
[2020-10-21 16:46] LABS: Glucose Point of Care 294 mg/dL (70-110)
[2020-10-21] MEDS: pantoprazole DR 40 mg Tablet PO (17:12)
[2020-10-21] MEDS: bisacodyl 5 mg Tablet PO (17:53)
[2020-10-21] MEDS: remdesivir 100 MG in sodium chloride 0.9% (100 ml) 100 ML IV (17:54)
[2020-10-21] MEDS: benzonatate 100 mg Capsule 200 MG PO (17:54)
[2020-10-21] MEDS: magnesium hydroxide 30 mL UDC PO (18:10)
[2020-10-21 20:55] LABS: Glucose Point of Care 156 mg/dL (70-110)
[2020-10-21] MEDS: atorvastatin 40 mg Tablet 80 MG PO (20:55)
--- NOTE | 2020-10-21 20:55 | PC.NURSE ---
Patients oxygen sats started dropping into the lower 80's. RT notified and patient was placed on HHFNC 35L 35%. Tolerating well.
[2020-10-22] VITALS (31 sets, daily range): BP systolic 87–151; BP diastolic 48–104; PULSE 67–107; RESP 9–30; TEMP 36.6–37.2; O2SAT 89–97
--- NOTE | 2020-10-22 02:30 | PC.NURSE ---
Patient up on side of bed coughing. Tessalon pearls given. Patient watching TV with no additional complaints voiced.
[2020-10-22] MEDS: benzonatate 100 mg Capsule 200 MG PO ×3 (02:53→17:01)
[2020-10-22] MEDS: enoxaparin 80 mg/0.8 mL Syringe SUBCUT ×2 (03:13→14:53)
[2020-10-22 04:16] LABS: Basophils % 0.1 %; Hematocrit 35.8 % (37.0-47.0); Hemoglobin 11.6 g/dL (11.5-15.3); Lymphocytes # 0.8 10^3/uL (0.8-4.8); Lymphocytes % 8.6 %; Mean Corpuscular HGB Conc 32.4 g/dL (30.0-36.0); Mean Corpuscular Hemoglobin 29.4 pg (28.0-34.0); Mean Corpuscular Volume 90.6 fL (81-99); Mean Platelet Volume 11.7 fL (7.4-10.4); Monocytes # 0.7 10^3/uL (0.2-0.9); Monocytes % 7.2 %; Neutrophils # 7.45 10^3/uL (1.8-7.7); Neutrophils % 82.3 %; Nucleated Red Blood Cells % 0 %; Platelet Count 200 10^3/cmm (130-400); Red Blood Count 3.95 10^6/uL (4.1-5.3); Red Cell Distribution Width 12.7 % (12.1-15.1); White Blood Count 9.1 10^3/uL (4.0-10.0)
[2020-10-22 04:43] LABS: Alanine Aminotransferase 65 U/L (0-33); Alkaline Phosphatase 166 IU/L (35-105); Anion Gap 14.9 (5-19); Aspartate Amino Transferase 32 U/L (0-32); Blood Urea Nitrogen 26 mg/dL (8-23); Calcium 9.3 mg/dL (8.5-10.5); Carbon Dioxide 27 mmol/L (22-29); Chloride 100 mmol/L (98-107); Glomerular Filtration Rate 123.8 mL/min (90-130); Glucose 163 mg/dL (65-115); Osmolality Calculated 294 mOsm/kg (285-295); Potassium 3.9 mmol/L (3.5-5.1); Sodium 138 mmol/L (136-145); Total Bilirubin 0.4 mg/dL (0.15-1.2)
[2020-10-22] MEDS: albuterol 8 gm MDI 2 PUFF INHALATION ×3 (05:00→14:49)
[2020-10-22] MEDS: levothyroxine 88 mcg Tablet PO (06:29)
[2020-10-22] MEDS: FUROsemide 10 mg/mL SDV 4mL 40 MG IVP ×2 (06:29→16:38)
[2020-10-22 07:38] LABS: Glucose Point of Care 160 mg/dL (70-110)
[2020-10-22] MEDS: cefTRIAXone 1,000 MG in sodium chloride 0.9% (plus) 50 ML 100 MG IV (08:00)
[2020-10-22] MEDS: dexamethasone 4 mg Tablet 6 MG PO (08:02)
[2020-10-22] MEDS: pantoprazole DR 40 mg Tablet PO ×2 (08:02→17:01)
[2020-10-22] MEDS: aspirin 81 mg EC Tablet PO (08:02)
[2020-10-22] MEDS: sennosides-docusate Tablet 1 TAB PO (08:02)
[2020-10-22] MEDS: lisinopril 10 mg Tablet PO (08:03)
[2020-10-22] MEDS: ondansetron 2 mg/ML SDV 2 mL 4 MG IVP (08:03)
[2020-10-22] MEDS: potassium chloride ER 20 mEq Tablet PO ×2 (08:03→17:01)
[2020-10-22] MEDS: bisacodyl 5 mg Tablet PO ×2 (08:03→20:50)
[2020-10-22] MEDS: clopidogrel 75 mg Tablet PO (08:03)
[2020-10-22] MEDS: polyethylene glycol 3350 Pkt 17 gm PO ×2 (08:33→18:30)
[2020-10-22] MEDS: insulin glargine 100 units/1 mL 20 UNIT SUBCUT (08:34)
--- NOTE | 2020-10-22 10:10 | P.PN_ITS ---
Subjective Subjective: Interval history: Patient overall reports getting better day by day but at times reports she gets anxious and short of breath. She is comfortable this morning. Her oxygen requirement slightly worsened and she is on 40 L at 45% heated high flow. She denies chest or abdominal pain. Her urine cleared up and she had approximately 1 L out there of urinary output overnight. Urine culture is showing yeast. Urine culture from outside facility is growing Aerococcus. Possibility of endocarditis were entertained and I have discussed with Dr. Zafar. Dr. Zafar reports that echocardiogram windows where good and there was no evidence of structural destruction of the mitral valve and that her regurgitation is likely because of dilated cardiomyopathy. Dr. Zafar will review imaging 1 more time but at this point THOMPSON is not recommended. I have called [facility] and discussed with Osbaldo who reviewed patient's labs and reports that no blood cultures were drawn and urine is growing Aerococcus. Vitals/I&O/Wt Last Vital Signs Temp 98.4 F 10/22/20 08:00 Pulse 104 H 10/22/20 09:00 Resp 15 10/22/20 09:00 BP 108/65 10/22/20 09:00 Pulse Ox 94 10/22/20 09:00 10/21/20 10/22/20 10/22/20 22:59 06:59 14:59 Intake Total 480 / 1430 333 / 1763 540 / 540 Output Total 2450 / 3400 900 / 4300 Balance -1970 / -1970 -567 / -2537 540 / 540 Weight last 48 hrs Weight 79.832 kg Weight 79.832 kg Weight 78.426 kg Physical Exam Const: COMMON NORMALS: no acute distress and patient oriented x3 Resp: COMMON NORMALS: normal respiratory effort OTHER: Bibasilar Rales. Cardio: COMMON NORMALS: regular rate, regular rhythm and S2 normal heart sound present RATE: regular rate RHYTHM: regular rhythm HEART SOUNDS: S2 normal heart sound present OTHER: No lower extremity edema GI: COMMON NORMALS: Normal to inspection, nondistended, normoactive bowel sounds present, Soft to palpation and non-tender PALPATION: Yes Soft to palpation Neuro: COMMON NORMALS: patient oriented x3 and no focal motor deficits Urinary Catheter Management^: Erickson: Cath Placed During This Visit: yes Reason for Continuing Indwelling Catheter: Accurate Measurement of Urinary Output in Critically Ill Patients Urinary Catheter Date of Insertion: 10/20/20 Urinary Catheter Time of Insertion: 08:45 Data : 10/22/20 03:30 10/22/20 03:30 Micro: Microbiology 10/21/20 08:30 Gram Stain - Final Sputum - Expectorated Sputum Sputum Culture - Preliminary 10/19/20 04:15 Urine Culture - Preliminary Urine,Clean Catch Yeast species A&P Assessment and plan (1) UTI (urinary tract infection): With culture growing Aerococcus Status: Acute (2) Yeast UTI: Status: Acute (3) Acute respiratory failure with hypoxia: Status: Acute (4) Pneumonia due to COVID-19 virus: Status: Acute (5) Diabetes mellitus type 2 in nonobese: Status: Acute (6) Acute myocarditis: And/or stress-induced cardiomyopathy. Non-ST elevation [place] cannot be completely ruled out. Status: Acute (7) Thrombocytopenia: This is likely related to underlying infection. Status: Acute (8) Pulmonary embolism: Status: Acute Qualifiers: Pulmonary embolism type: unspecified Chronicity: unspecified Acute cor pulmonale presence: without acute cor pulmonale Qualified Code(s): I26.99 - Other pulmonary embolism without acute cor pulmonale (9) Non-ST elevation [place] (NSTEMI): Appears to be type II Status: Acute (10) Systolic congestive heart failure with reduced left ventricular function, NYHA class 3: Status: Acute (11) Mitral valve regurgitation: Status: Acute Qualifiers: Cardiac valve disease etiology: nonrheumatic Qualified Code(s): I34.0 - Nonrheumatic mitral (valve) insufficiency (12) Tricuspid regurgitation: Status: Acute Qualifiers: Cardiac valve disease etiology: nonrheumatic Qualified Code(s): I36.1 - Nonrheumatic tricuspid (valve) insufficiency Additional A&P Information Acute hypoxic respiratory failure secondary to COVID-19 pneumonia Start Decadron and remdesivir currently doing well on 4 L nasal cannula, BNP 3000 however clinically does not show signs of fluid overload, chest x-ray shows bibasilar groundglass opacities Ventolin as needed use We will check procalcitonin, D-dimer, ferritin and CRP Tessalon Ricardo for cough along Robitussin Yeast UTI Patient is not complaining of signs of UTI however complaining of black-colored urine She has been given Diflucan x1 I would continue ceftriaxone until tomorrow and probably will need to be discontinued afterwards, repeat UA Type 2 diabetes Keep her on moderate sliding scale to prevent steroid-induced hyperglycemia Hypothyroidism: Continue home regimen of levothyroxine High BNP This could be seen with PE, fluid overload, CHF however clinically does not look fluid overloaded, no previous history of coronary disease or CHF, will check D- dimer, EKG showing T wave inversion lead I aVL, we will keep her on telemetry for now patient is chest pain-free Full code Consistent carb diet DVT prophylaxis Lovenox 30mg twice daily because of hypercoagulable state of COVID-19 DIC pattern PLAN: Continue current monitoring and treatment including therapeutic anticoagulation and Lasix. Will request blood cultures and continue close monitoring of vitals. Will start patient on hydroxyzine as needed for episodes of anxiety. Repeat chest x-ray in a.m. Keep Erickson catheter in. Attestations Medical Necessity Statement*: Patient with pneumonia as well as NJ and CHF requires close ICU monitoring and treatment. Time Spent in Patient Care: 16 - 35 minutes Coding Level of Care Code Acute Protection Officer for Chg Fwd Diagnoses UTI (urinary tract infection) N39.0 Yeast UTI B37.49 Acute respiratory failure with hypoxia J96.01 Pneumonia due to COVID-19 virus U07.1; J12.89 Diabetes mellitus type 2 in nonobese E11.9 Acute myocarditis I40.9 Thrombocytopenia D69.6 Pulmonary embolism I26.99 Pulmonary embolism type: unspecified Chronicity: unspecified Acute cor pulmonale presence: without acute cor pulmonale Non-ST elevation [place] (NSTEMI) I21.4 Systolic congestive heart failure with reduced left ventricular function, NYHA class 3 I50.20 Mitral valve regurgitation I34.0 Cardiac valve disease etiology: nonrheumatic Tricuspid regurgitation I36.1 Cardiac valve disease etiology: nonrheumatic
[2020-10-22 11:58] LABS: Glucose Point of Care 250 mg/dL (70-110)
[2020-10-22] MEDS: guaiFENesin-dextromethorphan UDC 10 mL PO (14:53)
[2020-10-22 16:14] LABS: Glucose Point of Care 283 mg/dL (70-110)
[2020-10-22] MEDS: remdesivir 100 MG in sodium chloride 0.9% (100 ml) 100 ML IV (17:02)
--- NOTE | 2020-10-22 18:25 | PC.PT ---
Patient has been instructed in progressive written home exercise program, verbalizes understanding of same, and requests to continue these independently; discharge physical therapy
--- NOTE | 2020-10-22 19:00 | PC.NURSE ---
Report received, care assumed,Monitor alarms, plan of care et previous orders reviewed. Patient currently sitting on side of bed on heated high flow O2, see RT flow sheet for details. Patient is able to answer all orientation questions et participate in exam. Please see physical assessment et vital sign flow sheets for details.
--- NOTE | 2020-10-22 19:54 | PM.PN ---
Subjective Subjective: Interval history: Patient continues to improve Vitals/I&O/Wt Last Vital Signs Temp 98.9 F 10/22/20 16:00 Pulse 90 10/22/20 18:00 Resp 22 H 10/22/20 18:00 BP 126/85 10/22/20 18:00 Pulse Ox 92 10/22/20 18:00 10/22/20 10/22/20 10/22/20 06:59 14:59 22:59 Intake Total 333 / 1763 780 / 780 700 / 1480 Output Total 900 / 4300 1050 / 1050 800 / 1850 Balance -567 / -2537 -270 / -270 -100 / -370 Weight last 48 hrs Weight 177 lb 4.8 oz Weight 176 lb Weight 176 lb Weight 172 lb 14.4 oz Physical Exam Narrative: EXAM NARRATIVE: Please note that I have not examined the patient Urinary Catheter Management^: Erickson: Cath Placed During This Visit: yes Reason for Continuing Indwelling Catheter: Accurate Measurement of Urinary Output in Critically Ill Patients Urinary Catheter Date of Insertion: 10/20/20 Urinary Catheter Time of Insertion: 08:45 Data : 10/22/20 03:30 10/22/20 03:30 Micro: Microbiology 10/22/20 11:30 Blood Culture - Preliminary Blood SPECIMEN COLLECTED 10/22/20 11:12 Blood Culture - Preliminary Blood SPECIMEN COLLECTED 10/21/20 08:30 Gram Stain - Final Sputum - Expectorated Sputum Sputum Culture - Preliminary 10/19/20 04:15 Urine Culture - Preliminary Urine,Clean Catch Yeast species A&P Assessment and plan (1) Systolic congestive heart failure with reduced left ventricular function, NYHA class 3: Stable and improving patient has been switched to p.o. diuretics. Status: Acute (2) Non-ST elevation [place] (NSTEMI): Continue current regimen. Once improved and recovered from Covid may will ask for right and left heart cath. Status: Acute (3) Mitral valve regurgitation: Most likely functional patient is growing bacteria continue antibiotics no significant at this point no vegetation was visualized. Status: Acute Qualifiers: Cardiac valve disease etiology: nonrheumatic Qualified Code(s): I34.0 - Nonrheumatic mitral (valve) insufficiency (4) Tricuspid regurgitation: Secondary to mitral regurg Status: Acute Qualifiers: Cardiac valve disease etiology: nonrheumatic Qualified Code(s): I36.1 - Nonrheumatic tricuspid (valve) insufficiency Attestations Medical Necessity Statement*: Require continuation hospitalization for above defined care. Coding Level of Care Code Established Pt Acute Labeling Machine Operator for Manas Sánchez Patient Type Established History Detailed Exam Detailed Medical Decision Making Moderate Complexity Diagnoses Systolic congestive heart failure with reduced left ventricular function, NYHA class 3 I50.20 Non-ST elevation [place] (NSTEMI) I21.4 Mitral valve regurgitation I34.0 Cardiac valve disease etiology: nonrheumatic Tricuspid regurgitation I36.1 Cardiac valve disease etiology: nonrheumatic
[2020-10-22] MEDS: atorvastatin 40 mg Tablet 80 MG PO (20:50)
[2020-10-22 20:59] LABS: Glucose Point of Care 199 mg/dL (70-110)
[2020-10-22] MEDS: magnesium hydroxide 30 mL UDC PO (22:39)
--- NOTE | 2020-10-22 23:52 | PC.NURSE ---
Patient has prolapsed bladder.
[2020-10-23] VITALS (35 sets, daily range): BP systolic 97–134; BP diastolic 53–89; PULSE 67–98; RESP 5–43; TEMP 36.4–37.1; O2SAT 91–98
[2020-10-23] MEDS: albuterol 8 gm MDI 2 PUFF INHALATION ×4 (02:10→15:07)
[2020-10-23] MEDS: enoxaparin 80 mg/0.8 mL Syringe SUBCUT ×2 (04:12→15:30)
[2020-10-23] MEDS: FUROsemide 10 mg/mL SDV 4mL 40 MG IVP ×2 (04:34→16:36)
[2020-10-23 04:53] LABS: Basophils % 0.1 %; Hematocrit 35.6 % (37.0-47.0); Hemoglobin 11.2 g/dL (11.5-15.3); Lymphocytes # 0.7 10^3/uL (0.8-4.8); Lymphocytes % 8.3 %; Mean Corpuscular HGB Conc 31.5 g/dL (30.0-36.0); Mean Corpuscular Hemoglobin 28.6 pg (28.0-34.0); Mean Platelet Volume 11.4 fL (7.4-10.4); Monocytes # 0.8 10^3/uL (0.2-0.9); Monocytes % 8.8 %; Neutrophils # 7.21 10^3/uL (1.8-7.7); Neutrophils % 81.6 %; Nucleated Red Blood Cells % 0 %; Platelet Count 221 10^3/cmm (130-400); Red Blood Count 3.91 10^6/uL (4.1-5.3); Red Cell Distribution Width 12.9 % (12.1-15.1); White Blood Count 8.8 10^3/uL (4.0-10.0)
[2020-10-23] MEDS: levothyroxine 88 mcg Tablet PO (05:18)
[2020-10-23 05:20] LABS: Alanine Aminotransferase 60 U/L (0-33); Albumin Level 2.7 g/dL (3.5-5.2); Alkaline Phosphatase 142 IU/L (35-105); Anion Gap 13.2 (5-19); Aspartate Amino Transferase 37 U/L (0-32); Blood Urea Nitrogen 20 mg/dL (8-23); Calcium 9.2 mg/dL (8.5-10.5); Carbon Dioxide 28 mmol/L (22-29); Chloride 99 mmol/L (98-107); Globulin 2.9 g/dL (1.3-4.6); Glomerular Filtration Rate 160.2 mL/min (90-130); Glucose 118 mg/dL (65-115); Magnesium 2.2 mg/dL (1.7-2.3); Osmolality Calculated 286 mOsm/kg (285-295); Potassium 4.2 mmol/L (3.5-5.1); Sodium 136 mmol/L (136-145); Total Bilirubin 0.4 mg/dL (0.15-1.2); Total Protein 5.6 g/dL (6.6-8.7)
--- NOTE | 2020-10-23 06:00 | XR_ITS ---
WS: [id number] XR chest 1V portable [id number] REASON FOR EXAM: Pneumonia, CHF FINDINGS: Compared to the previous examination of 10/19/2020 there has been some resolution of the multifocal i nfiltrative process in both lungs. No new findings. XR/XR chest 1V portable [id number] IMPRESSION: There is been some resolution of the multiple infiltrates. Significant abnormal ity remains.
[2020-10-23 07:20] LABS: Glucose Point of Care 111 mg/dL (70-110)
[2020-10-23] MEDS: cefTRIAXone 1,000 MG in sodium chloride 0.9% (plus) 50 ML 100 MG IV (08:53)
[2020-10-23] MEDS: sennosides-docusate Tablet 1 TAB PO (08:53)
[2020-10-23] MEDS: lisinopril 10 mg Tablet PO (08:54)
[2020-10-23] MEDS: aspirin 81 mg EC Tablet PO (08:54)
[2020-10-23] MEDS: bisacodyl 5 mg Tablet PO (08:54)
[2020-10-23] MEDS: clopidogrel 75 mg Tablet PO (08:54)
[2020-10-23] MEDS: polyethylene glycol 3350 Pkt 17 gm PO (08:54)
[2020-10-23] MEDS: pantoprazole DR 40 mg Tablet PO ×2 (08:54→17:02)
[2020-10-23] MEDS: dexamethasone 4 mg Tablet 6 MG PO (08:54)
[2020-10-23] MEDS: potassium chloride ER 20 mEq Tablet PO ×2 (08:54→17:02)
[2020-10-23] MEDS: insulin glargine 100 units/1 mL 20 UNIT SUBCUT (08:54)
[2020-10-23] MEDS: benzonatate 100 mg Capsule 200 MG PO ×2 (08:54→16:37)
--- NOTE | 2020-10-23 11:23 | P.PN_ITS ---
Subjective Subjective: Interval history: Patient reports feeling much better this morning. Her oxygen requirements significantly improved and she is saturating in the mid 90s on 4 L by nasal cannula. She denies chest pain or abdominal pain. She reports that her appetite is getting better. She had normal bowel movement. Vitals/I&O/Wt Last Vital Signs Temp 97.8 F 10/23/20 08:00 Pulse 94 10/23/20 11:15 Resp 18 10/23/20 11:13 BP 116/53 10/23/20 10:00 Pulse Ox 94 10/23/20 11:13 10/22/20 10/23/20 10/23/20 22:59 06:59 14:59 Intake Total 700 / 1480 450 / 1930 560 / 560 Output Total 1450 / 2500 950 / 3450 Balance -750 / -1020 -500 / -1520 560 / 560 Weight last 48 hrs Weight 80.83 kg Weight 80.422 kg Weight 79.832 kg Weight 79.832 kg Physical Exam Const: COMMON NORMALS: no acute distress and patient oriented x3 Resp: COMMON NORMALS: normal respiratory effort and clear to auscultation bilaterally AUSCULTATION: clear to auscultation bilaterally OTHER: Very minimal bibasilar Rales. Cardio: COMMON NORMALS: regular rate, regular rhythm and S2 normal heart sound present RATE: regular rate RHYTHM: regular rhythm HEART SOUNDS: S2 normal heart sound present OTHER: No lower extremity edema GI: COMMON NORMALS: Normal to inspection, nondistended, normoactive bowel sounds present, Soft to palpation and non-tender PALPATION: Yes Soft to palpation Neuro: COMMON NORMALS: patient oriented x3 and no focal motor deficits Urinary Catheter Management^: Erickson: Cath Placed During This Visit: yes Reason for Continuing Indwelling Catheter: Accurate Measurement of Urinary Output in Critically Ill Patients Urinary Catheter Date of Insertion: 10/20/20 Urinary Catheter Time of Insertion: 08:45 Data : 10/23/20 04:30 10/23/20 04:30 Micro: Microbiology 10/21/20 08:30 Gram Stain - Final Sputum - Expectorated Sputum Sputum Culture - Final 10/22/20 11:30 Blood Culture - Preliminary Blood SPECIMEN COLLECTED 10/22/20 11:12 Blood Culture - Preliminary Blood SPECIMEN COLLECTED 10/19/20 04:15 Urine Culture - Preliminary Urine,Clean Catch Yeast species A&P Assessment and plan (1) UTI (urinary tract infection): With culture from outside facility growing Aerococcus Status: Acute (2) Yeast UTI: Status: Acute (3) Acute respiratory failure with hypoxia: Status: Acute (4) Pneumonia due to COVID-19 virus: Status: Acute (5) Diabetes mellitus type 2 in nonobese: Status: Acute (6) Acute myocarditis: And/or stress-induced cardiomyopathy. Non-ST elevation [place] cannot be completely ruled out. Status: Acute (7) Thrombocytopenia: This is likely related to underlying infection. Resolved. Status: Acute (8) Pulmonary embolism: Status: Acute Qualifiers: Pulmonary embolism type: unspecified Chronicity: unspecified Acute cor pulmonale presence: without acute cor pulmonale Qualified Code(s): I26.99 - Other pulmonary embolism without acute cor pulmonale (9) Non-ST elevation [place] (NSTEMI): Appears to be type II Status: Acute (10) Systolic congestive heart failure with reduced left ventricular function, NYHA class 3: Status: Acute (11) Mitral valve regurgitation: Status: Acute Qualifiers: Cardiac valve disease etiology: nonrheumatic Qualified Code(s): I34.0 - Nonrheumatic mitral (valve) insufficiency (12) Tricuspid regurgitation: Status: Acute Qualifiers: Cardiac valve disease etiology: nonrheumatic Qualified Code(s): I36.1 - Nonrheumatic tricuspid (valve) insufficiency Additional A&P Information Acute hypoxic respiratory failure secondary to COVID-19 pneumonia Start Decadron and remdesivir currently doing well on 4 L nasal cannula, BNP 3000 however clinically does not show signs of fluid overload, chest x-ray shows bibasilar groundglass opacities Ventolin as needed use We will check procalcitonin, D-dimer, ferritin and CRP Tessalon Ricardo for cough along Robitussin Yeast UTI Patient is not complaining of signs of UTI however complaining of black-colored urine She has been given Diflucan x1 I would continue ceftriaxone until tomorrow and probably will need to be discontinued afterwards, repeat UA Type 2 diabetes Keep her on moderate sliding scale to prevent steroid-induced hyperglycemia Hypothyroidism: Continue home regimen of levothyroxine High BNP This could be seen with PE, fluid overload, CHF however clinically does not look fluid overloaded, no previous history of coronary disease or CHF, will check D- dimer, EKG showing T wave inversion lead I aVL, we will keep her on telemetry for now patient is chest pain-free Full code Consistent carb diet DVT prophylaxis Lovenox 30mg twice daily because of hypercoagulable state of COVID-19 DIC pattern PLAN: Continue current monitoring and treatment including therapeutic anticoagulation and Lasix. Continue ceftriaxone and dexamethasone. Once patient improves she will need to have further evaluation with coronary angiogram. Attestations Medical Necessity Statement*: Patient with respiratory failure requires close ICU monitoring and treatment. Time Spent in Patient Care: 16 - 35 minutes Coding Level of Care Code Acute Manager Agricultural for Chg Fwd Diagnoses UTI (urinary tract infection) N39.0 Yeast UTI B37.49 Acute respiratory failure with hypoxia J96.01 Pneumonia due to COVID-19 virus U07.1; J12.89 Diabetes mellitus type 2 in nonobese E11.9 Acute myocarditis I40.9 Thrombocytopenia D69.6 Pulmonary embolism I26.99 Pulmonary embolism type: unspecified Chronicity: unspecified Acute cor pulmonale presence: without acute cor pulmonale Non-ST elevation [place] (NSTEMI) I21.4 Systolic congestive heart failure with reduced left ventricular function, NYHA class 3 I50.20 Mitral valve regurgitation I34.0 Cardiac valve disease etiology: nonrheumatic Tricuspid regurgitation I36.1 Cardiac valve disease etiology: nonrheumatic
[2020-10-23 11:28] LABS: Glucose Point of Care 291 mg/dL (70-110)
--- NOTE | 2020-10-23 15:10 | PC.RESP ---
Dr. Naayk was called and he stated that she can have her inhaler at bedside. Patient was informed that she is not to take it no more than every four hours.
[2020-10-23 16:18] LABS: Glucose Point of Care 211 mg/dL (70-110)
[2020-10-23] MEDS: remdesivir 100 MG in sodium chloride 0.9% (100 ml) 100 ML IV (17:02)
--- NOTE | 2020-10-23 17:07 | DCPLANNER ---
Pg 2 of IM updated and explained to this pt. She just got medicare in June so of course she never heard of this. She gets a little emotional stating that she is so sick and says she's never felt so close to dying so she wants to make sure she is ready. Certified Surgical Assistant tells her that we will remind her of message often and will assist in appealing if needed. She appreciates that.
--- NOTE | 2020-10-23 18:18 | PM.PN ---
Subjective Subjective: Interval history: Continue to improve and feel better. Vitals/I&O/Wt Last Vital Signs Temp 98.6 F 10/23/20 16:00 Pulse 89 10/23/20 18:00 Resp 18 10/23/20 18:00 BP 112/62 10/23/20 18:00 Pulse Ox 95 10/23/20 18:00 10/23/20 10/23/20 10/23/20 06:59 14:59 22:59 Intake Total 450 / 1930 800 / 800 170 / 970 Output Total 950 / 3450 1650 / 1650 Balance -500 / -1520 800 / 800 -1480 / -680 Weight last 48 hrs Weight 178 lb 3.2 oz Weight 177 lb 4.8 oz Weight 176 lb Physical Exam Narrative: EXAM NARRATIVE: Please note that I have not examined the patient Urinary Catheter Management^: Erickson: Cath Placed During This Visit: yes Reason for Continuing Indwelling Catheter: Accurate Measurement of Urinary Output in Critically Ill Patients Urinary Catheter Date of Insertion: 10/20/20 Urinary Catheter Time of Insertion: 08:45 Data : 10/23/20 04:30 10/23/20 04:30 Micro: Microbiology 10/22/20 11:30 Blood Culture - Preliminary Blood NEGATIVE TO DATE 10/22/20 11:12 Blood Culture - Preliminary Blood NEGATIVE TO DATE 10/21/20 08:30 Gram Stain - Final Sputum - Expectorated Sputum Sputum Culture - Final A&P Assessment and plan (1) Systolic congestive heart failure with reduced left ventricular function, NYHA class 3: Continue current regimen and diuresis Status: Acute (2) Non-ST elevation [place] (NSTEMI): Stable continue to optimize Status: Acute (3) Mitral valve regurgitation: Most likely functional patient is growing bacteria continue antibiotics no significant at this point no vegetation was visualized. Status: Acute Qualifiers: Cardiac valve disease etiology: nonrheumatic Qualified Code(s): I34.0 - Nonrheumatic mitral (valve) insufficiency (4) Tricuspid regurgitation: Secondary to mitral regurg Status: Acute Qualifiers: Cardiac valve disease etiology: nonrheumatic Qualified Code(s): I36.1 - Nonrheumatic tricuspid (valve) insufficiency Attestations Medical Necessity Statement*: Patient require continuation hospitalization for above defined care. Coding Level of Care Code Established Pt Acute Main Entree Cook And Cashier for Chg Fwd Patient Type Established History Expanded Problem Focused Exam Expanded Problem Focused Medical Decision Making Moderate Complexity Diagnoses Systolic congestive heart failure with reduced left ventricular function, NYHA class 3 I50.20 Non-ST elevation [place] (NSTEMI) I21.4 Mitral valve regurgitation I34.0 Cardiac valve disease etiology: nonrheumatic Tricuspid regurgitation I36.1 Cardiac valve disease etiology: nonrheumatic
[2020-10-23 20:42] LABS: Glucose Point of Care 360 mg/dL (70-110)
[2020-10-23] MEDS: atorvastatin 40 mg Tablet 80 MG PO (21:01)
[2020-10-24] VITALS (20 sets, daily range): BP systolic 101–133; BP diastolic 61–84; PULSE 67–100; RESP 6–27; TEMP 35.7–36.9; O2SAT 90–98
[2020-10-24] MEDS: guaiFENesin-dextromethorphan UDC 10 mL PO ×5 (00:33→20:59)
[2020-10-24] MEDS: enoxaparin 80 mg/0.8 mL Syringe SUBCUT (03:24)
[2020-10-24] MEDS: levothyroxine 88 mcg Tablet PO (05:07)
[2020-10-24] MEDS: FUROsemide 10 mg/mL SDV 4mL 40 MG IVP (05:08)
[2020-10-24] MEDS: benzonatate 100 mg Capsule 200 MG PO ×2 (05:19→16:07)
[2020-10-24 05:55] LABS: Alanine Aminotransferase 51 U/L (0-33); Albumin Level 2.9 g/dL (3.5-5.2); Alkaline Phosphatase 147 IU/L (35-105); Aspartate Amino Transferase 22 U/L (0-32); Blood Urea Nitrogen 20 mg/dL (8-23); Calcium 9.4 mg/dL (8.5-10.5); Carbon Dioxide 30 mmol/L (22-29); Chloride 96 mmol/L (98-107); Glomerular Filtration Rate 160.2 mL/min (90-130); Glucose 133 mg/dL (65-115); Osmolality Calculated 287 mOsm/kg (285-295); Sodium 136 mmol/L (136-145); Total Bilirubin 0.4 mg/dL (0.15-1.2); Total Protein 5.9 g/dL (6.6-8.7)
[2020-10-24 06:27] LABS: Basophils % 0.1 %; Hemoglobin 12.2 g/dL (11.5-15.3); Lymphocytes # 0.8 10^3/uL (0.8-4.8); Lymphocytes % 10.3 %; Mean Corpuscular HGB Conc 32.1 g/dL (30.0-36.0); Mean Corpuscular Hemoglobin 29.7 pg (28.0-34.0); Mean Corpuscular Volume 92.5 fL (81-99); Mean Platelet Volume 12.1 fL (7.4-10.4); Monocytes # 0.8 10^3/uL (0.2-0.9); Monocytes % 9.7 %; Neutrophils # 6.15 10^3/uL (1.8-7.7); Neutrophils % 78.2 %; Nucleated Red Blood Cells % 0 %; Platelet Count 259 10^3/cmm (130-400); Red Blood Count 4.11 10^6/uL (4.1-5.3); Red Cell Distribution Width 12.8 % (12.1-15.1); White Blood Count 7.9 10^3/uL (4.0-10.0)
[2020-10-24 07:01] LABS: Glucose Point of Care 190 mg/dL (70-110)
[2020-10-24] MEDS: cefTRIAXone 1,000 MG in sodium chloride 0.9% (plus) 50 ML 100 MG IV (07:44)
[2020-10-24 07:45] LABS: Glucose Point of Care 181 mg/dL (70-110)
[2020-10-24] MEDS: pantoprazole DR 40 mg Tablet PO ×2 (08:22→17:57)
[2020-10-24] MEDS: sennosides-docusate Tablet 1 TAB PO (08:22)
[2020-10-24] MEDS: aspirin 81 mg EC Tablet PO (08:23)
[2020-10-24] MEDS: potassium chloride ER 20 mEq Tablet PO ×2 (08:23→17:57)
[2020-10-24] MEDS: bisacodyl 5 mg Tablet PO (08:23)
[2020-10-24] MEDS: dexamethasone 4 mg Tablet 6 MG PO (08:23)
[2020-10-24] MEDS: clopidogrel 75 mg Tablet PO (08:23)
[2020-10-24] MEDS: lisinopril 10 mg Tablet PO (08:29)
[2020-10-24] MEDS: insulin glargine 100 units/1 mL 20 UNIT SUBCUT (08:35)
--- NOTE | 2020-10-24 08:53 | P.PN_ITS ---
Subjective Subjective: Interval history: Patient reports feeling much better this morning. Reports that she continues to have some substernal chest discomfort whenever she breathes deeply. She had good bowel movements. Her oral intake is still poor but patient thinks it is improving. She is saturating 93% this morning on 1 L by nasal cannula. Vitals/I&O/Wt Last Vital Signs Temp 98.1 F 10/24/20 04:00 Pulse 92 10/24/20 08:19 Resp 18 10/24/20 08:19 BP 133/84 10/24/20 04:00 Pulse Ox 93 10/24/20 08:19 10/23/20 10/24/20 10/24/20 22:59 06:59 14:59 Intake Total 270 / 1070 Output Total 2450 / 2450 350 / 2800 Balance -2180 / -1380 -350 / -1730 Weight last 48 hrs Weight 76.067 kg Weight 80.83 kg Weight 80.422 kg Physical Exam Const: COMMON NORMALS: no acute distress and patient oriented x3 Resp: COMMON NORMALS: normal respiratory effort and clear to auscultation bilaterally AUSCULTATION: clear to auscultation bilaterally OTHER: Bibasilar Rales. Cardio: COMMON NORMALS: regular rate, regular rhythm and S2 normal heart sound present RATE: regular rate RHYTHM: regular rhythm HEART SOUNDS: S2 normal heart sound present OTHER: No lower extremity edema GI: COMMON NORMALS: Normal to inspection, nondistended, normoactive bowel sounds present, Soft to palpation and non-tender PALPATION: Yes Soft to palpation Neuro: COMMON NORMALS: patient oriented x3 and no focal motor deficits Urinary Catheter Management^: Erickson: Cath Placed During This Visit: yes Reason for Continuing Indwelling Catheter: Accurate Measurement of Urinary Output in Critically Ill Patients Urinary Catheter Date of Insertion: 10/20/20 Urinary Catheter Time of Insertion: 08:45 Data : 10/24/20 03:40 10/24/20 03:40 Micro: Microbiology 10/22/20 11:30 Blood Culture - Preliminary Blood NEGATIVE TO DATE 10/22/20 11:12 Blood Culture - Preliminary Blood NEGATIVE TO DATE 10/21/20 08:30 Gram Stain - Final Sputum - Expectorated Sputum Sputum Culture - Final A&P Assessment and plan (1) UTI (urinary tract infection): With culture from outside facility growing Aerococcus Status: Acute (2) Yeast UTI: Status: Acute (3) Acute respiratory failure with hypoxia: Status: Acute (4) Pneumonia due to COVID-19 virus: Status: Acute (5) Diabetes mellitus type 2 in nonobese: Status: Acute (6) Acute myocarditis: And/or stress-induced cardiomyopathy. Non-ST elevation [place] cannot be completely ruled out. Status: Acute (7) Thrombocytopenia: This is likely related to underlying infection. Resolved. Status: Acute (8) Pulmonary embolism: Status: Acute Qualifiers: Pulmonary embolism type: unspecified Chronicity: unspecified Acute cor pulmonale presence: without acute cor pulmonale Qualified Code(s): I26.99 - Other pulmonary embolism without acute cor pulmonale (9) Non-ST elevation [place] (NSTEMI): Appears to be type II Status: Acute (10) Systolic congestive heart failure with reduced left ventricular function, NYHA class 3: Status: Acute (11) Mitral valve regurgitation: Status: Acute Qualifiers: Cardiac valve disease etiology: nonrheumatic Qualified Code(s): I34.0 - Nonrheumatic mitral (valve) insufficiency (12) Tricuspid regurgitation: Status: Acute Qualifiers: Cardiac valve disease etiology: nonrheumatic Qualified Code(s): I36.1 - Nonrheumatic tricuspid (valve) insufficiency Additional A&P Information Acute hypoxic respiratory failure secondary to COVID-19 pneumonia Start Decadron and remdesivir currently doing well on 4 L nasal cannula, BNP 3000 however clinically does not show signs of fluid overload, chest x-ray shows bibasilar groundglass opacities Ventolin as needed use We will check procalcitonin, D-dimer, ferritin and CRP Jose Silva for cough along Robitussin Yeast UTI Patient is not complaining of signs of UTI however complaining of black-colored urine She has been given Diflucan x1 I would continue ceftriaxone until tomorrow and probably will need to be discontinued afterwards, repeat UA Type 2 diabetes Keep her on moderate sliding scale to prevent steroid-induced hyperglycemia Hypothyroidism: Continue home regimen of levothyroxine High BNP This could be seen with PE, fluid overload, CHF however clinically does not look fluid overloaded, no previous history of coronary disease or CHF, will check D- dimer, EKG showing T wave inversion lead I aVL, we will keep her on telemetry for now patient is chest pain-free Full code Consistent carb diet DVT prophylaxis Lovenox 30mg twice daily because of hypercoagulable state of COVID-19 DIC pattern PLAN: Continue ceftriaxone and dexamethasone. Transition patient to oral Eliquis. Transition patient to oral Lasix once daily Remove Erickson catheter make sure patient can urinate Transfer to cardiac stepdown unit. If continues to improve plan is to discharge patient home and Dr. Zafar will bring patient back in a week or 2 for further evaluation with coronary angiogram. Discussed with Dr. Zafar this morning who wants patient to be cleared from Covid 19 infection prior to procedure. Attestations Medical Necessity Statement*: Patient was hypoxic respite failure, COVID-19 infection and what appears to be heart failure with myocarditis requires close inpatient monitoring and treatment until deemed safe for discharge. Coding Level of Care Code Acute Senior Patient Account Representative for Chg Fwd Diagnoses UTI (urinary tract infection) N39.0 Yeast UTI B37.49 Acute respiratory failure with hypoxia J96.01 Pneumonia due to COVID-19 virus U07.1; J12.89 Diabetes mellitus type 2 in nonobese E11.9 Acute myocarditis I40.9 Thrombocytopenia D69.6 Pulmonary embolism I26.99 Pulmonary embolism type: unspecified Chronicity: unspecified Acute cor pulmonale presence: without acute cor pulmonale Non-ST elevation [place] (NSTEMI) I21.4 Systolic congestive heart failure with reduced left ventricular function, NYHA class 3 I50.20 Mitral valve regurgitation I34.0 Cardiac valve disease etiology: nonrheumatic Tricuspid regurgitation I36.1 Cardiac valve disease etiology: nonrheumatic
--- NOTE | 2020-10-24 11:28 | DCPLANNER ---
Called pt to complete IMM because pt is in VICU. Pt stated she is real happy with the hospital services and will do whatever the doctor says.
[2020-10-24 12:07] LABS: Glucose Point of Care 145 mg/dL (70-110)
[2020-10-24] MEDS: albuterol 8 gm MDI 2 PUFF INHALATION ×2 (14:48→20:36)
[2020-10-24] MEDS: FUROsemide 40 mg Tablet PO (16:05)
[2020-10-24 17:43] LABS: Glucose Point of Care 375 mg/dL (70-110)
[2020-10-24] MEDS: apixaban 5 mg Tablet 10 MG PO (17:56)
--- NOTE | 2020-10-24 19:15 | P.PN_ITS ---
Subjective Subjective: Interval history: Patient continues to improve. As per medicine note she appeared to be euvolemic Medications: Reviewed: Yes Vitals/I&O/Wt Last Vital Signs Temp 97.5 F L 10/24/20 16:00 Pulse 97 10/24/20 16:00 Resp 18 10/24/20 16:00 BP 129/78 10/24/20 16:00 Pulse Ox 97 10/24/20 16:00 10/24/20 10/24/20 10/24/20 06:59 14:59 22:59 Intake Total 1010 / 1010 240 / 1250 Output Total 350 / 2800 825 / 825 Balance -350 / -1730 185 / 185 240 / 425 Weight last 48 hrs Weight 167 lb 11.2 oz Weight 178 lb 3.2 oz Physical Exam 2 Narrative: EXAM NARRATIVE: Please note that I have not examined the patient Urinary Catheter Management^: Erickson: Cath Placed During This Visit: yes, but has since been removed by the nurse Reason for Continuing Indwelling Catheter: Decision to DC Catheter Urinary Catheter Date of Insertion: 10/20/20 Urinary Catheter Time of Insertion: 08:45 Date Urinary Catheter Removed: 10/24/20 Time Urinary Catheter Discontinued: 09:00 Data : 10/24/20 03:40 10/24/20 03:40 Micro: Microbiology 10/19/20 04:15 Urine Culture - Final Urine,Clean Catch Gabriella glabrata A&P Assessment and plan (1) Systolic congestive heart failure with reduced left ventricular function, NYHA class 3: Advised switching patient to 40 mg of Lasix daily and 20 mg of potassium chloride. Status: Acute (2) Non-ST elevation [place] (NSTEMI): Continue aspirin statin beta-abraham LA inhibitor. Once discharged from the hospital we will follow up over 1 to 2 weeks through telemetry visit. Once Covid negative will proceed with left heart cath Status: Acute (3) Mitral valve regurgitation: Most likely functional patient is growing bacteria continue antibiotics no significant at this point no vegetation was visualized. Status: Acute Qualifiers: Cardiac valve disease etiology: nonrheumatic Qualified Code(s): I34.0 - Nonrheumatic mitral (valve) insufficiency (4) Tricuspid regurgitation: Secondary to mitral regurg Status: Acute Qualifiers: Cardiac valve disease etiology: nonrheumatic Qualified Code(s): I36.1 - Nonrheumatic tricuspid (valve) insufficiency [facility] Necessity Statement*: Patient require continuation hospitalization for above defined care. Coding Level of Care Code Established Pt Acute Lime Burner for Chg Fwd Patient Type Established History Expanded Problem Focused Exam Expanded Problem Focused Medical Decision Making Moderate Complexity Diagnoses Systolic congestive heart failure with reduced left ventricular function, NYHA class 3 I50.20 Non-ST elevation [place] (NSTEMI) I21.4 Mitral valve regurgitation I34.0 Cardiac valve disease etiology: nonrheumatic Tricuspid regurgitation I36.1 Cardiac valve disease etiology: nonrheumatic
[2020-10-24 20:39] LABS: Glucose Point of Care 410 mg/dL (70-110)
[2020-10-24] MEDS: atorvastatin 40 mg Tablet 80 MG PO (20:55)
[2020-10-25] VITALS (15 sets, daily range): BP systolic 97–131; BP diastolic 57–82; PULSE 67–89; RESP 15–20; TEMP 36.2–36.7; O2SAT 93–99
[2020-10-25] MEDS: albuterol 8 gm MDI 2 PUFF INHALATION ×4 (03:05→20:25)
[2020-10-25] MEDS: guaiFENesin-dextromethorphan UDC 10 mL PO ×3 (03:17→17:03)
[2020-10-25 05:11] LABS: Basophils % 0.4 %; Eosinophils % 0.1 %; Hematocrit 41.9 % (37.0-47.0); Hemoglobin 13.3 g/dL (11.5-15.3); Lymphocytes # 1.1 10^3/uL (0.8-4.8); Lymphocytes % 13.7 %; Mean Corpuscular HGB Conc 31.7 g/dL (30.0-36.0); Mean Corpuscular Hemoglobin 28.5 pg (28.0-34.0); Mean Corpuscular Volume 89.7 fL (81-99); Mean Platelet Volume 11.2 fL (7.4-10.4); Monocytes # 0.8 10^3/uL (0.2-0.9); Monocytes % 9.1 %; Neutrophils # 6.18 10^3/uL (1.8-7.7); Neutrophils % 74.1 %; Nucleated Red Blood Cells % 0 %; Platelet Count 360 10^3/cmm (130-400); Red Blood Count 4.67 10^6/uL (4.1-5.3); Red Cell Distribution Width 12.9 % (12.1-15.1); White Blood Count 8.3 10^3/uL (4.0-10.0)
[2020-10-25] MEDS: levothyroxine 88 mcg Tablet PO (05:39)
[2020-10-25 05:41] LABS: Alanine Aminotransferase 58 U/L (0-33); Albumin Level 3.3 g/dL (3.5-5.2); Alkaline Phosphatase 162 IU/L (35-105); Anion Gap 11.2 (5-19); Aspartate Amino Transferase 26 U/L (0-32); Blood Urea Nitrogen 27 mg/dL (8-23); Calcium 9.9 mg/dL (8.5-10.5); Carbon Dioxide 33 mmol/L (22-29); Chloride 97 mmol/L (98-107); Glomerular Filtration Rate 100.3 mL/min (90-130); Glucose 98 mg/dL (65-115); Magnesium 2.1 mg/dL (1.7-2.3); Osmolality Calculated 289 mOsm/kg (285-295); Potassium 4.2 mmol/L (3.5-5.1); Sodium 137 mmol/L (136-145); Total Bilirubin 0.4 mg/dL (0.15-1.2); Total Protein 6.3 g/dL (6.6-8.7)
[2020-10-25 06:09] LABS: Troponin T (5th) Once 627 ng/L (0-10)
[2020-10-25 06:51] LABS: Glucose Point of Care 87 mg/dL (70-110)
[2020-10-25] MEDS: dexamethasone 4 mg Tablet 6 MG PO (07:25)
[2020-10-25] MEDS: benzonatate 100 mg Capsule 200 MG PO ×2 (07:25→17:03)
[2020-10-25] MEDS: sennosides-docusate Tablet 1 TAB PO (07:25)
[2020-10-25] MEDS: metoprolol succinate ER (24 HR) 25 mg Tablet PO (07:25)
[2020-10-25] MEDS: FUROsemide 40 mg Tablet PO ×2 (07:26→16:41)
[2020-10-25] MEDS: potassium chloride ER 20 mEq Tablet PO ×2 (07:26→17:03)
[2020-10-25] MEDS: aspirin 81 mg EC Tablet PO (07:26)
[2020-10-25] MEDS: pantoprazole DR 40 mg Tablet PO ×2 (07:26→17:03)
[2020-10-25] MEDS: clopidogrel 75 mg Tablet PO (07:26)
[2020-10-25] MEDS: hyDROXYzine 25 mg Capsule PO (07:26)
[2020-10-25] MEDS: lisinopril 10 mg Tablet PO (07:26)
[2020-10-25] MEDS: polyethylene glycol 3350 Pkt 17 gm PO ×2 (07:27→17:03)
[2020-10-25] MEDS: apixaban 5 mg Tablet 10 MG PO ×2 (07:27→17:02)
[2020-10-25] MEDS: insulin glargine 100 units/1 mL 20 UNIT SUBCUT (07:27)
[2020-10-25] MEDS: cefTRIAXone 1,000 MG in sodium chloride 0.9% (plus) 50 ML 100 MG IV (07:28)
[2020-10-25 11:12] LABS: Glucose Point of Care 325 mg/dL (70-110)
--- NOTE | 2020-10-25 12:11 | PM.PN ---
Subjective Subjective: Interval history: Patient reports that she is further improving but does not feel strong enough to be dismissed home. She gets quickly out of breath by just walking to the bathroom and back. She denies chest pain this morning. Denies abdominal pain. She continues to have significant elevation of troponin suggestive of underlying myocarditis. Medications: Reviewed: Yes Vitals/I&O/Wt Last Vital Signs Temp 97.2 F L 10/25/20 10:59 Pulse 71 10/25/20 10:59 Resp 16 10/25/20 10:59 BP 107/71 10/25/20 10:59 Pulse Ox 98 10/25/20 10:59 10/24/20 10/25/20 10/25/20 22:59 06:59 14:59 Intake Total 240 / 1250 240 / 1490 240 / 240 Output Total 400 / 1225 Balance 240 / 425 -160 / 265 240 / 240 Weight last 48 hrs Weight 78.154 kg Weight 76.067 kg Physical Exam Const: COMMON NORMALS: no acute distress and patient oriented x3 Resp: COMMON NORMALS: normal respiratory effort and clear to auscultation bilaterally AUSCULTATION: clear to auscultation bilaterally OTHER: Bibasilar Rales. Cardio: COMMON NORMALS: regular rate, regular rhythm and S2 normal heart sound present RATE: regular rate RHYTHM: regular rhythm HEART SOUNDS: S2 normal heart sound present OTHER: No lower extremity edema GI: COMMON NORMALS: Normal to inspection, nondistended, normoactive bowel sounds present, Soft to palpation and non-tender PALPATION: Yes Soft to palpation Neuro: COMMON NORMALS: patient oriented x3 and no focal motor deficits Urinary Catheter Management^: Erickson: Cath Placed During This Visit: yes, but has since been removed by the nurse Reason for Continuing Indwelling Catheter: Decision to DC Catheter Urinary Catheter Date of Insertion: 10/20/20 Urinary Catheter Time of Insertion: 08:45 Date Urinary Catheter Removed: 10/24/20 Time Urinary Catheter Discontinued: 09:00 Data : 10/25/20 04:33 10/25/20 04:33 Micro: Microbiology 10/19/20 04:15 Urine Culture - Final Urine,Clean Catch Gabreilla glabrata A&P Assessment and plan (1) UTI (urinary tract infection): With culture from outside facility growing Aerococcus Status: Acute (2) Yeast UTI: Status: Acute (3) Acute respiratory failure with hypoxia: Status: Acute (4) Pneumonia due to COVID-19 virus: Status: Acute (5) Diabetes mellitus type 2 in nonobese: Status: Acute (6) Acute myocarditis: And/or stress-induced cardiomyopathy. Non-ST elevation [place] cannot be completely ruled out. Status: Acute (7) Thrombocytopenia: This is likely related to underlying infection. Resolved. Status: Acute (8) Pulmonary embolism: Status: Acute Qualifiers: Pulmonary embolism type: unspecified Chronicity: unspecified Acute cor pulmonale presence: without acute cor pulmonale Qualified Code(s): I26.99 - Other pulmonary embolism without acute cor pulmonale (9) Non-ST elevation [place] (NSTEMI): Appears to be type II Status: Acute (10) Systolic congestive heart failure with reduced left ventricular function, NYHA class 3: Status: Acute (11) Mitral valve regurgitation: Status: Acute Qualifiers: Cardiac valve disease etiology: nonrheumatic Qualified Code(s): I34.0 - Nonrheumatic mitral (valve) insufficiency (12) Tricuspid regurgitation: Status: Acute Qualifiers: Cardiac valve disease etiology: nonrheumatic Qualified Code(s): I36.1 - Nonrheumatic tricuspid (valve) insufficiency Additional A&P Information Acute hypoxic respiratory failure secondary to COVID-19 pneumonia Start Decadron and remdesivir currently doing well on 4 L nasal cannula, BNP 3000 however clinically does not show signs of fluid overload, chest x-ray shows bibasilar groundglass opacities Ventolin as needed use We will check procalcitonin, D-dimer, ferritin and CRP Aion Ricardo for cough along Robitussin Yeast UTI Patient is not complaining of signs of UTI however complaining of black-colored urine She has been given Diflucan x1 I would continue ceftriaxone until tomorrow and probably will need to be discontinued afterwards, repeat UA Type 2 diabetes Keep her on moderate sliding scale to prevent steroid-induced hyperglycemia Hypothyroidism: Continue home regimen of levothyroxine High BNP This could be seen with PE, fluid overload, CHF however clinically does not look fluid overloaded, no previous history of coronary disease or CHF, will check D-dimer, EKG showing T wave inversion lead I aVL, we will keep her on telemetry for now patient is chest pain-free Full code Consistent carb diet DVT prophylaxis Lovenox 30mg twice daily because of hypercoagulable state of COVID-19 DIC pattern PLAN: We will continue current monitoring and treatment. Will discuss with Dr. Zafar once he is out of Ultrasound Supervisor. Would prefer patient to have coronary angiogram early as possible due to high risk of arrhythmia. Attestations Medical Necessity Statement*: Patient with COVID-19 related respiratory failure and myocarditis requires close inpatient monitoring and treatment until deemed safe for discharge. Coding Level of Care Code Acute Production Painter for g Fwd Diagnoses UTI (urinary tract infection) N39.0 Yeast UTI B37.49 Acute respiratory failure with hypoxia J96.01 Pneumonia due to COVID-19 virus U07.1; J12.89 Diabetes mellitus type 2 in nonobese E11.9 Acute myocarditis I40.9 Thrombocytopenia D69.6 Pulmonary embolism I26.99 Pulmonary embolism type: unspecified Chronicity: unspecified Acute cor pulmonale presence: without acute cor pulmonale Non-ST elevation [place] (NSTEMI) I21.4 Systolic congestive heart failure with reduced left ventricular function, NYHA class 3 I50.20 Mitral valve regurgitation I34.0 Cardiac valve disease etiology: nonrheumatic Tricuspid regurgitation I36.1 Cardiac valve disease etiology: nonrheumatic
[2020-10-25 16:15] LABS: Glucose Point of Care 290 mg/dL (70-110)
--- NOTE | 2020-10-25 18:48 | P.PN_ITS ---
Subjective Subjective: Interval history: Continues to be stable. Stays short of breath Medications: Reviewed: Yes Vitals/I&O/Wt Last Vital Signs Temp 97.9 F 10/25/20 14:49 Pulse 69 10/25/20 14:49 Resp 15 10/25/20 14:49 BP 97/57 10/25/20 14:49 Pulse Ox 98 10/25/20 14:49 10/25/20 10/25/20 10/25/20 06:59 14:59 22:59 Intake Total 240 / 1490 240 / 240 360 / 600 Output Total 400 / 1225 500 / 500 Balance -160 / 265 -260 / -260 360 / 100 Weight last 48 hrs Weight 172 lb 4.8 oz Weight 167 lb 11.2 oz Physical Exam Narrative: EXAM NARRATIVE: Please note that I have not examined the patient Urinary Catheter Management^: Erickson: Cath Placed During This Visit: yes, but has since been removed by the nurse Reason for Continuing Indwelling Catheter: Decision to DC Catheter Urinary Catheter Date of Insertion: 10/20/20 Urinary Catheter Time of Insertion: 08:45 Date Urinary Catheter Removed: 10/24/20 Time Urinary Catheter Discontinued: 09:00 Data : 10/25/20 04:33 10/25/20 04:33 Micro: Microbiology 10/19/20 04:15 Urine Culture - Final Urine,Clean Catch Gabriella glabrata A&P Assessment and plan (1) Systolic congestive heart failure with reduced left ventricular function, NYHA class 3: Continue current regimen continue diuretics Status: Acute (2) Non-ST elevation [place] (NSTEMI): Continue current regimen for non-ST elevation [place], once Covid negative will proceed with left heart cath Status: Acute (3) Mitral valve regurgitation: Most likely functional patient is growing bacteria continue antibiotics no significant at this point no vegetation was visualized. Status: Acute Qualifiers: Cardiac valve disease etiology: nonrheumatic Qualified Code(s): I34.0 - Nonrheumatic mitral (valve) insufficiency (4) Tricuspid regurgitation: Secondary to mitral regurg Status: Acute Qualifiers: Cardiac valve disease etiology: nonrheumatic Qualified Code(s): I36.1 - Nonrheumatic tricuspid (valve) insufficiency Attestations Medical Necessity Statement*: Continuation hospitalization for above defined care. Coding Level of Care Code Established Pt Acute Maintenance Groundskeeper for Bradyg Fwd Patient Type Established History Expanded Problem Focused Exam Expanded Problem Focused Medical Decision Making Moderate Complexity Diagnoses Systolic congestive heart failure with reduced left ventricular function, NYHA class 3 I50.20 Non-ST elevation [place] (NSTEMI) I21.4 Mitral valve regurgitation I34.0 Cardiac valve disease etiology: nonrheumatic Tricuspid regurgitation I36.1 Cardiac valve disease etiology: nonrheumatic
[2020-10-25 20:58] LABS: Glucose Point of Care 407 mg/dL (70-110)
[2020-10-25] MEDS: atorvastatin 40 mg Tablet 80 MG PO (21:28)
[2020-10-26] VITALS (15 sets, daily range): BP systolic 101–105; BP diastolic 65–70; PULSE 65–88; RESP 16–18; TEMP 36.3–36.8; O2SAT 87–98
[2020-10-26] MEDS: albuterol 8 gm MDI 2 PUFF INHALATION ×4 (02:15→20:16)
[2020-10-26] MEDS: guaiFENesin-dextromethorphan UDC 10 mL PO ×4 (02:35→22:27)
[2020-10-26 05:06] LABS: Basophils % 0.4 %; Eosinophils % 0.1 %; Hemoglobin 12.6 g/dL (11.5-15.3); Lymphocytes # 1.3 10^3/uL (0.8-4.8); Lymphocytes % 16.5 %; Mean Corpuscular HGB Conc 30.7 g/dL (30.0-36.0); Mean Corpuscular Hemoglobin 28.1 pg (28.0-34.0); Mean Corpuscular Volume 91.5 fL (81-99); Mean Platelet Volume 11.2 fL (7.4-10.4); Monocytes # 0.7 10^3/uL (0.2-0.9); Monocytes % 9.4 %; Neutrophils % 70.8 %; Nucleated Red Blood Cells % 0 %; Platelet Count 288 10^3/cmm (130-400); Red Blood Count 4.48 10^6/uL (4.1-5.3); Red Cell Distribution Width 13.1 % (12.1-15.1); White Blood Count 7.8 10^3/uL (4.0-10.0)
[2020-10-26 05:26] LABS: Alanine Aminotransferase 57 U/L (0-33); Albumin Level 3.1 g/dL (3.5-5.2); Alkaline Phosphatase 141 IU/L (35-105); Anion Gap 14.3 (5-19); Aspartate Amino Transferase 26 U/L (0-32); Blood Urea Nitrogen 22 mg/dL (8-23); Calcium 9.5 mg/dL (8.5-10.5); Carbon Dioxide 29 mmol/L (22-29); Chloride 97 mmol/L (98-107); Globulin 2.8 g/dL (1.3-4.6); Glomerular Filtration Rate 123.8 mL/min (90-130); Glucose 131 mg/dL (65-115); Osmolality Calculated 287 mOsm/kg (285-295); Potassium 4.3 mmol/L (3.5-5.1); Sodium 136 mmol/L (136-145); Total Bilirubin 0.4 mg/dL (0.15-1.2); Total Protein 5.9 g/dL (6.6-8.7)
[2020-10-26] MEDS: levothyroxine 88 mcg Tablet PO (05:37)
[2020-10-26 07:08] LABS: Glucose Point of Care 86 mg/dL (70-110)
[2020-10-26] MEDS: dexamethasone 4 mg Tablet 6 MG PO (08:49)
[2020-10-26] MEDS: metoprolol succinate ER (24 HR) 25 mg Tablet PO (08:50)
[2020-10-26] MEDS: pantoprazole DR 40 mg Tablet PO ×2 (08:50→17:38)
[2020-10-26] MEDS: lisinopril 10 mg Tablet PO (08:50)
[2020-10-26] MEDS: aspirin 81 mg EC Tablet PO (08:50)
[2020-10-26] MEDS: clopidogrel 75 mg Tablet PO (08:50)
[2020-10-26] MEDS: potassium chloride ER 20 mEq Tablet PO ×2 (08:50→17:38)
[2020-10-26] MEDS: apixaban 5 mg Tablet 10 MG PO (08:50)
[2020-10-26] MEDS: cefTRIAXone 1,000 MG in sodium chloride 0.9% (plus) 50 ML 100 MG IV (08:51)
[2020-10-26] MEDS: FUROsemide 40 mg Tablet PO ×2 (08:51→17:38)
[2020-10-26] MEDS: insulin glargine 100 units/1 mL 20 UNIT SUBCUT (08:51)
[2020-10-26 12:12] LABS: Glucose Point of Care 253 mg/dL (70-110)
[2020-10-26 13:34] LABS: Urine Appearance SL Hazy (CLEAR); Urine Color Dark Yellow (Yellow)
[2020-10-26 13:35] LABS: Add Urine Microscopic? YES; Bilirubin Urine Neg (Negative); Blood Urine 3+ (Negative); Glucose Urine UA Norm (Normal); Ketones Urine Negative (Negative); Leukocyte Esterase Urine 1+ (Negative); Nitrate Urine Negative (Negative); Protein Urine Trace (Negative); Urobilinogen Urine Norm (Negative)
[2020-10-26 14:01] LABS: Bacteria Urine 1+ /hpf; RBC Urine >100 /hpf (0-2); Squamous Epithelial Cell Urine 15-25 /hpf (0-5)
[2020-10-26 14:02] LABS: Add Urine Culture? No
--- NOTE | 2020-10-26 15:47 | PM.PN ---
Subjective Subjective: Interval history: Patient reports that she is feeling even better than yesterday. She still gets out of breath if ambulates without oxygen. She is saturating in the high 90s on 2 L by nasal cannula. She had normal bowel movement without evidence of melena or hematochezia. Reports that she started having burning on urination and she thinks that she had blood in her urine. I was able to see urine in the hat which looked dark nataliya in color and not grossly bloody. UA shows evidence of hematuria. Specimen was not clean and cannot comment on evidence of infection. Patient denies chest pain or abdominal pain. Medications: Reviewed: Yes Vitals/I&O/Wt Last Vital Signs Temp 97.7 F 10/26/20 15:27 Pulse 68 10/26/20 15:27 Resp 16 10/26/20 15:27 BP 101/67 10/26/20 15:27 Pulse Ox 98 10/26/20 15:27 10/26/20 10/26/20 10/26/20 06:59 14:59 22:59 Intake Total 480 / 1130 720 / 720 Output Total 625 / 1525 400 / 400 Balance -145 / -395 320 / 320 Weight last 48 hrs Weight 84.187 kg Weight 78.154 kg Physical Exam Const: COMMON NORMALS: no acute distress and patient oriented x3 Resp: COMMON NORMALS: normal respiratory effort and clear to auscultation bilaterally AUSCULTATION: clear to auscultation bilaterally OTHER: Further improved bibasilar Rales. Cardio: COMMON NORMALS: regular rate, regular rhythm and S2 normal heart sound present RATE: regular rate RHYTHM: regular rhythm HEART SOUNDS: S2 normal heart sound present OTHER: No lower extremity edema GI: COMMON NORMALS: Normal to inspection, nondistended, normoactive bowel sounds present, Soft to palpation and non-tender PALPATION: Yes Soft to palpation Neuro: COMMON NORMALS: patient oriented x3 and no focal motor deficits Urinary Catheter Management^: Erickson: Cath Placed During This Visit: yes, but has since been removed by the nurse Reason for Continuing Indwelling Catheter: Decision to DC Catheter Urinary Catheter Date of Insertion: 10/20/20 Urinary Catheter Time of Insertion: 08:45 Date Urinary Catheter Removed: 10/24/20 Time Urinary Catheter Discontinued: 09:00 Data : 10/26/20 03:59 12/18/20 03:59 A&P Assessment and plan (1) UTI (urinary tract infection): With culture from outside facility growing Aerococcus Status: Acute (2) Yeast UTI: Status: Acute (3) Acute respiratory failure with hypoxia: Status: Acute (4) Pneumonia due to COVID-19 virus: Status: Acute (5) Diabetes mellitus type 2 in nonobese: Status: Acute (6) Acute myocarditis: And/or stress-induced cardiomyopathy. Non-ST elevation [place] cannot be completely ruled out. Status: Acute (7) Thrombocytopenia: This is likely related to underlying infection. Resolved. Status: Acute (8) Pulmonary embolism: Status: Acute Qualifiers: Pulmonary embolism type: unspecified Chronicity: unspecified Acute cor pulmonale presence: without acute cor pulmonale Qualified Code(s): I26.99 - Other pulmonary embolism without acute cor pulmonale (9) Non-ST elevation [place] (NSTEMI): Appears to be type II Status: Acute (10) Systolic congestive heart failure with reduced left ventricular function, NYHA class 3: Status: Acute (11) Mitral valve regurgitation: Status: Acute Qualifiers: Cardiac valve disease etiology: nonrheumatic Qualified Code(s): I34.0 - Nonrheumatic mitral (valve) insufficiency (12) Tricuspid regurgitation: Status: Acute Qualifiers: Cardiac valve disease etiology: nonrheumatic Qualified Code(s): I36.1 - Nonrheumatic tricuspid (valve) insufficiency Additional A&P Information Acute hypoxic respiratory failure secondary to COVID-19 pneumonia Start Decadron and remdesivir currently doing well on 4 L nasal cannula, BNP 3000 however clinically does not show signs of fluid overload, chest x-ray shows bibasilar groundglass opacities Ventolin as needed use We will check procalcitonin, D-dimer, ferritin and CRP Tesgurwinderon Ricardo for cough along Robitussin Yeast UTI Patient is not complaining of signs of UTI however complaining of black-colored urine She has been given Diflucan x1 I would continue ceftriaxone until tomorrow and probably will need to be discontinued afterwards, repeat UA Type 2 diabetes Keep her on moderate sliding scale to prevent steroid-induced hyperglycemia Hypothyroidism: Continue home regimen of levothyroxine High BNP This could be seen with PE, fluid overload, CHF however clinically does not look fluid overloaded, no previous history of coronary disease or CHF, will check D-dimer, EKG showing T wave inversion lead I aVL, we will keep her on telemetry for now patient is chest pain-free Full code Consistent carb diet DVT prophylaxis Lovenox 30mg twice daily because of hypercoagulable state of COVID-19 DIC pattern PLAN: Since patient's respiratory status much improved I will change Eliquis to 5 mg twice daily and monitor patient for one more day. Would like to make sure she can urinate and does not develop gross hematuria before discharging. I will continue ceftriaxone for now. Patient's burning is likely related to hematuria. Should this continue will request evaluation by Dr. Mart. Attestations Medical Necessity Statement*: Patient with hematuria while anticoagulated requires close inpatient monitoring and treatment till deemed safe for discharge. Coding Level of Care Code Acute Refining Still Operator for g Fwd Diagnoses UTI (urinary tract infection) N39.0 Yeast UTI B37.49 Acute respiratory failure with hypoxia J96.01 Pneumonia due to COVID-19 virus U07.1; J12.89 Diabetes mellitus type 2 in nonobese E11.9 Acute myocarditis I40.9 Thrombocytopenia D69.6 Pulmonary embolism I26.99 Pulmonary embolism type: unspecified Chronicity: unspecified Acute cor pulmonale presence: without acute cor pulmonale Non-ST elevation [place] (NSTEMI) I21.4 Systolic congestive heart failure with reduced left ventricular function, NYHA class 3 I50.20 Mitral valve regurgitation I34.0 Cardiac valve disease etiology: nonrheumatic Tricuspid regurgitation I36.1 Cardiac valve disease etiology: nonrheumatic
[2020-10-26 16:20] LABS: Glucose Point of Care 469 mg/dL (70-110)
--- NOTE | 2020-10-26 17:12 | PC.NURSE ---
notified physician about blood sugar being 469, Dr. Nayak ordered 25 units of novolog to be given and blood sugar checked in 2 hours.
[2020-10-26] MEDS: apixaban 5 mg Tablet PO (17:38)
--- NOTE | 2020-10-26 18:18 | PC.NURSE ---
shift summary pt states she has a better appetite today then she has had, pt stated in the afternoon she is still getting worn out pretty easy, but she overall feels better. no other changes this shift.
--- NOTE | 2020-10-26 19:56 | PM.PN ---
Subjective Subjective: Interval history: Stable denies any complaint from a cardiovascular perspective Medications: Reviewed: Yes Vitals/I&O/Wt Last Vital Signs Temp 98.2 F 10/26/20 19:52 Pulse 88 10/26/20 19:52 Resp 18 10/26/20 19:52 BP 103/67 10/26/20 19:52 Pulse Ox 98 10/26/20 19:52 10/26/20 10/26/20 10/26/20 06:59 14:59 22:59 Intake Total 480 / 1130 720 / 720 240 / 960 Output Total 625 / 1525 400 / 400 Balance -145 / -395 320 / 320 240 / 560 Weight last 48 hrs Weight 185 lb 9.6 oz Weight 172 lb 4.8 oz Physical Exam Narrative: EXAM NARRATIVE: Please note that I have not examined the patient Urinary Catheter Management^: Erickson: Cath Placed During This Visit: yes, but has since been removed by the nurse Reason for Continuing Indwelling Catheter: Decision to DC Catheter Urinary Catheter Date of Insertion: 10/20/20 Urinary Catheter Time of Insertion: 08:45 Date Urinary Catheter Removed: 10/24/20 Time Urinary Catheter Discontinued: 09:00 Data : 10/26/20 03:59 10/26/20 03:59 A&P Assessment and plan (1) Systolic congestive heart failure with reduced left ventricular function, NYHA class 3: Continue current management Status: Acute (2) Non-ST elevation RI (NSTEMI): No change in the prior recommendation continue medical management left heart cath once Covid negative as an outpatient Status: Acute (3) Mitral valve regurgitation: Functional. Continue to monitor. Continue current regimen Status: Acute Qualifiers: Cardiac valve disease etiology: nonrheumatic Qualified Code(s): I34.0 - Nonrheumatic mitral (valve) insufficiency (4) Tricuspid regurgitation: Secondary to mitral regurg Status: Acute Qualifiers: Cardiac valve disease etiology: nonrheumatic Qualified Code(s): I36.1 - Nonrheumatic tricuspid (valve) insufficiency Attestations Medical Necessity Statement*: Patient require continuation hospitalization for above defined care. 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
[2020-10-26 20:14] LABS: Glucose Point of Care 473 mg/dL (70-110)
[2020-10-26] MEDS: atorvastatin 40 mg Tablet 80 MG PO (20:58)
[2020-10-27] VITALS (15 sets, daily range): BP systolic 100–117; BP diastolic 63–76; PULSE 60–87; RESP 16–22; TEMP 36.7–37.2; O2SAT 95–99
[2020-10-27] MEDS: albuterol 8 gm MDI 2 PUFF INHALATION ×5 (00:41→20:12)
[2020-10-27 04:41] LABS: Basophils % 0.2 %; Hematocrit 36.8 % (37.0-47.0); Hemoglobin 11.6 g/dL (11.5-15.3); Lymphocytes # 1.4 10^3/uL (0.8-4.8); Lymphocytes % 15.1 %; Mean Corpuscular HGB Conc 31.5 g/dL (30.0-36.0); Mean Corpuscular Hemoglobin 28.2 pg (28.0-34.0); Mean Corpuscular Volume 89.5 fL (81-99); Mean Platelet Volume 10.8 fL (7.4-10.4); Monocytes % 10.2 %; Neutrophils # 6.73 10^3/uL (1.8-7.7); Neutrophils % 72.1 %; Nucleated Red Blood Cells % 0 %; Platelet Count 317 10^3/cmm (130-400); Red Blood Count 4.11 10^6/uL (4.1-5.3); White Blood Count 9.3 10^3/uL (4.0-10.0)
[2020-10-27 05:11] LABS: Alanine Aminotransferase 50 U/L (0-33); Albumin Level 2.9 g/dL (3.5-5.2); Alkaline Phosphatase 133 IU/L (35-105); Anion Gap 12.2 (5-19); Aspartate Amino Transferase 20 U/L (0-32); Blood Urea Nitrogen 25 mg/dL (8-23); Calcium 8.8 mg/dL (8.5-10.5); Carbon Dioxide 27 mmol/L (22-29); Chloride 101 mmol/L (98-107); Globulin 2.4 g/dL (1.3-4.6); Glomerular Filtration Rate 123.8 mL/min (90-130); Glucose 155 mg/dL (65-115); Magnesium 1.8 mg/dL (1.7-2.3); Osmolality Calculated 290 mOsm/kg (285-295); Potassium 4.2 mmol/L (3.5-5.1); Sodium 136 mmol/L (136-145); Total Bilirubin 0.3 mg/dL (0.15-1.2); Total Protein 5.3 g/dL (6.6-8.7)
[2020-10-27] MEDS: levothyroxine 88 mcg Tablet PO (06:20)
[2020-10-27 06:38] LABS: Glucose Point of Care 147 mg/dL (70-110)
[2020-10-27] MEDS: cefTRIAXone 1,000 MG in sodium chloride 0.9% (plus) 50 ML 100 MG IV (08:17)
[2020-10-27] MEDS: aspirin 81 mg EC Tablet PO (08:18)
[2020-10-27] MEDS: potassium chloride ER 20 mEq Tablet PO ×2 (08:18→18:13)
[2020-10-27] MEDS: clopidogrel 75 mg Tablet PO (08:18)
[2020-10-27] MEDS: metoprolol succinate ER (24 HR) 25 mg Tablet PO (08:18)
[2020-10-27] MEDS: dexamethasone 4 mg Tablet 6 MG PO (08:18)
[2020-10-27] MEDS: lisinopril 10 mg Tablet PO (08:18)
[2020-10-27] MEDS: pantoprazole DR 40 mg Tablet PO ×2 (08:18→18:13)
[2020-10-27] MEDS: apixaban 5 mg Tablet PO (08:19)
[2020-10-27] MEDS: FUROsemide 40 mg Tablet PO ×2 (08:19→15:58)
[2020-10-27] MEDS: insulin glargine 100 units/1 mL 20 UNIT SUBCUT (08:20)
--- NOTE | 2020-10-27 10:18 | P.PN_ITS ---
Subjective Subjective: Interval history: Patient reports doing 100% better from breathing standpoint. She saturating 98% on 2 L by nasal cannula. Reports that it does not burn on urination as much as it did yesterday but her urine is much more hemorrhagic looking. She already received Eliquis this morning. Medications: Reviewed: Yes Vitals/I&O/Wt Last Vital Signs Temp 98.1 F 10/27/20 08:00 Pulse 64 10/27/20 08:00 Resp 16 10/27/20 08:00 BP 112/73 10/27/20 08:00 Pulse Ox 98 10/27/20 08:00 10/26/20 10/27/20 10/27/20 22:59 06:59 14:59 Intake Total 240 / 1010 1120 / 2130 480 / 480 Output Total 1000 / 1400 400 / 1800 Balance -760 / -390 720 / 330 480 / 480 Weight last 48 hrs Weight 85.457 kg Weight 84.187 kg Physical Exam 2 Const: COMMON NORMALS: no acute distress and patient oriented x3 Resp: COMMON NORMALS: normal respiratory effort and clear to auscultation bilaterally AUSCULTATION: clear to auscultation bilaterally OTHER: Minimal right basilar Rales. Cardio: COMMON NORMALS: regular rate, regular rhythm and S2 normal heart sound present RATE: regular rate RHYTHM: regular rhythm HEART SOUNDS: S2 n ormal heart sound present OTHER: No lower extremity edema GI: COMMON NORMALS: Normal to inspection, nondistended, normoactive bowel sounds present, Soft to palpation and non-tender PALPATION: Yes Soft to palpation Neuro: COMMON NORMALS: patient oriented x3 and no focal motor deficits Urinary Catheter Management^: Erickson: Cath Placed During This Visit: yes, but has since been removed by the nurse Reason for Continuing Indwelling Catheter: Decision to DC Catheter Urinary Catheter Date of Insertion: 10/20/20 Urinary Catheter Time of Insertion: 08:45 Date Urinary Catheter Removed: 10/24/20 Time Urinary Catheter Discontinued: 09:00 Data : 10/27/20 04:20 10/27/20 04:20 A&P Assessment and plan (1) UTI (urinary tract infection): With culture from outside facility growing Aerococcus Status: Acute (2) Yeast UTI: Status: Acute (3) Acute respiratory failure with hypoxia: Status: Acute (4) Pneumonia due to COVID-19 virus: Status: Acute (5) Diabetes mellitus type 2 in nonobese: Status: Acute (6) Acute myocarditis: And/or stress-induced cardiomyopathy. Non-ST elevation UT cannot be completely ruled out. Status: Acute (7) Thrombocytopenia: This is likely related to underlying infection. Resolved. Status: Acute (8) Pulmonary embolism: Status: Acute Qualifiers: Pulmonary embolism type: unspecified Chronicity: unspecified Acute cor pulmonale presence: without acute cor pulmonale Qualified Code(s): I26.99 - Other pulmonary embolism without acute cor pulmonale (9) Non-ST elevation UT (NSTEMI): Appears to be type II Status: Acute (10) Systolic congestive heart failure with reduced left ventricular function, NYHA class 3: Status: Acute (11) Mitral valve regurgitation: Status: Acute Qualifiers: Cardiac valve disease etiology: nonrheumatic Qualified Code(s): I34.0 - Nonrheumatic mitral (valve) insufficiency (12) Tricuspid regurgitation: Status: Acute Qualifiers: Cardiac valve disease etiology: nonrheumatic Qualified Code(s): I36.1 - Nonrheumatic tricuspid (valve) insufficiency Additional A&P Information Acute hypoxic respiratory failure secondary to COVID-19 pneumonia Start Decadron and remdesivir currently doing well on 4 L nasal cannula, BNP 3000 however clinically does not show signs of fluid overload, chest x-ray shows bibasilar groundglass opacities Ventolin as needed use We will check procalcitonin, D-dimer, ferritin and CRP Tessalon Perles for cough along Robitussin Yeast UTI Patient is not complaining of signs of UTI however complaining of black-colored urine She has been given Diflucan x1 I would continue ceftriaxone until tomorrow and probably will need to be discontinued afterwards, repeat UA Type 2 diabetes Keep her on moderate sliding scale to prevent steroid-induced hyperglycemia Hypothyroidism: Continue home regimen of levothyroxine High BNP This could be seen with PE, fluid overload, CHF however clinically does not look fluid overloaded, no previous history of coronary disease or CHF, will check D- dimer, EKG showing T wave inversion lead I aVL, we will keep her on telemetry for now patient is chest pain-free Hematuria. This appears to be a combination of anticoagulation and some minor Erickson catheter placement trauma. Full code Consistent carb diet DVT prophylaxis Lovenox 30mg twice daily because of hypercoagulable state of COVID-19 DIC pattern PLAN: Discussed briefly with Dr. Mart this morning. We will continue monitoring and consider placement of Erickson catheter in case if she has difficulty with urination which patient currently does not. I will go ahead and stop Eliquis for couple days to make sure hematuria resolves. If patient improves and discharge further urologic outpatient evaluation with cystoscopy is recommended. Continue monitoring cardiopulmonary status while off anticoagulation. Attestations Medical Necessity Statement*: Patient with respiratory failure as well as hematuria requires close inpatient monitoring and treatment while off anticoagulation. 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 UTI (urinary tract infection) N39.0 Yeast UTI B37.49 Acute respiratory failure with hypoxia J96.01 Pneumonia due to COVID-19 virus U07.1; J12.89 Diabetes mellitus type 2 in nonobese E11.9 Acute myocarditis I40.9 Thrombocytopenia D69.6 Pulmonary embolism I26.99 Pulmonary embolism type: unspecified Chronicity: unspecified Acute cor pulmonale presence: without acute cor pulmonale Non-ST elevation UT (NSTEMI) I21.4 Systolic congestive heart failure with reduced left ventricular function, NYHA class 3 I50.20 Mitral valve regurgitation I34.0 Cardiac valve disease etiology: nonrheumatic Tricuspid regurgitation I36.1 Cardiac valve disease etiology: nonrheumatic
[2020-10-27 10:50] LABS: Glucose Point of Care 351 mg/dL (70-110)
[2020-10-27 17:04] LABS: Glucose Point of Care 331 mg/dL (70-110)
[2020-10-27] MEDS: benzonatate 100 mg Capsule 200 MG PO (18:17)
--- NOTE | 2020-10-27 18:44 | PC.NURSE ---
shift summary pt has verbalized that she does not feel that well today, she states she has been coughing more and feels like she has more phlegm that needs to come out then she did yesterday. pt appetite has been good, and no other changes this shift.
[2020-10-27 20:06] LABS: Glucose Point of Care 396 mg/dL (70-110)
[2020-10-27] MEDS: atorvastatin 40 mg Tablet 80 MG PO (20:56)
[2020-10-27] MEDS: polyethylene glycol 3350 Pkt 17 gm PO (20:57)
[2020-10-27] MEDS: guaiFENesin-dextromethorphan UDC 10 mL PO (20:57)
[2020-10-28] VITALS: BP 138/75; PULSE 76; RESP 16; TEMP 36.8; O2SAT 98
[2020-10-28 04:00] VITALS: BP 118/75; PULSE 57; RESP 16; O2SAT 97
[2020-10-28] MEDS: levothyroxine 88 mcg Tablet PO (05:39)
[2020-10-28 06:00] VITALS: BMI 29.0
[2020-10-28 06:22] LABS: Glucose Point of Care 106 mg/dL (70-110)
[2020-10-28 06:53] VITALS: BP 109/68; PULSE 62; RESP 16; TEMP 36.4; O2SAT 97
[2020-10-28] MEDS: dexamethasone 4 mg Tablet 6 MG PO (09:00)
[2020-10-28] MEDS: cefTRIAXone 1,000 MG in sodium chloride 0.9% (plus) 50 ML 100 MG IV (09:00)
[2020-10-28] MEDS: sennosides-docusate Tablet 1 TAB PO (09:01)
[2020-10-28] MEDS: potassium chloride ER 20 mEq Tablet PO (09:01)
[2020-10-28] MEDS: lisinopril 10 mg Tablet PO (09:01)
[2020-10-28] MEDS: FUROsemide 40 mg Tablet PO (09:01)
[2020-10-28] MEDS: aspirin 81 mg EC Tablet PO (09:01)
[2020-10-28] MEDS: clopidogrel 75 mg Tablet PO (09:01)
[2020-10-28] MEDS: metoprolol succinate ER (24 HR) 25 mg Tablet PO (09:01)
[2020-10-28] MEDS: albuterol 8 gm MDI 2 PUFF INHALATION (09:08)
[2020-10-28 09:11] VITALS: PULSE 62; RESP 18; O2SAT 97
[2020-10-28] MEDS: insulin glargine 100 units/1 mL 20 UNIT SUBCUT (09:32)
[2020-10-28] MEDS: benzonatate 100 mg Capsule 200 MG PO (09:34)
[2020-10-28] MEDS: pantoprazole DR 40 mg Tablet PO (09:34)
[2020-10-28] MEDS: guaiFENesin-dextromethorphan UDC 10 mL PO (09:34)
--- NOTE | 2020-10-28 10:19 | PM.DCS ---
Discharge Providers Date of Admission: 10/19/20 23:10 Date of Discharge: October 28, 2020 Attending Provider at Admission: Alexys Lopez MD Attending Provider at Discharge: Yifan Nayak MD Primary Care Provider: Maxine Pulido DO Diagnoses at Discharge Discharge Diagnosis (1) UTI (urinary tract infection): Status: Acute (2) Yeast UTI: Status: Acute (3) Acute respiratory failure with hypoxia: Status: Acute (4) Pneumonia due to COVID-19 virus: Status: Acute (5) Diabetes mellitus type 2 in nonobese: Status: Acute (6) Acute myocarditis: Status: Acute (7) Thrombocytopenia: Status: Acute (8) Pulmonary embolism: Status: Acute Qualifiers: Acute cor pulmonale presence: without acute cor pulmonale Chronicity: unspecified Pulmonary embolism type: unspecified Qualified Code(s): I26.99 - Other pulmonary embolism without acute cor pulmonale (9) Non-ST elevation IA (NSTEMI): Status: Acute (10) Systolic congestive heart failure with reduced left ventricular function, NYHA class 3: Status: Acute (11) Mitral valve regurgitation: Status: Acute Qualifiers: Cardiac valve disease etiology: nonrheumatic Qualified Code(s): I34.0 - Nonrheumatic mitral (valve) insufficiency (12) Tricuspid regurgitation: Status: Acute Qualifiers: Cardiac valve disease etiology: nonrheumatic Qualified Code(s): I36.1 - Nonrheumatic tricuspid (valve) insufficiency (13) Hematuria: Status: Acute Permanent problem details: Likely combination of Erickson trauma and anticoagulation. Reason for Visit Reason for Visit: covid+ Hospital Course Hospital Course Patient presented with severe respiratory failure secondary to COVID-19 pneumonia as well as noted to have pulmonary emboli and what appears to be myocarditis. Patient met criteria for non-ST elevation IA and was in acute systolic heart failure. Patient was diuresed with Lasix as well as treated with remdesivir and dexamethasone and ceftriaxone and gradually improved and this morning reports feeling much better and strong enough to be dismissed home. 2 days ago she developed hematuria shortly after Erickson catheter was removed. Anticoagulation was stopped and patient today reports that her urine is lightening up and not as dark and hemorrhagic. Reports that she does not have any more burning on urination. Since patient's PE was nonocclusive and considering significant improvement of oxygen demand I think it is safe to hold Eliquis for couple of days to allow resolution of hematuria. Discussed with patient and she will restart in 2 to 3 days Eliquis at 5 mg twice daily once her hematuria resolves otherwise patient was told to present to ER especially if she develops shortness of breath or chest pain. We will make outpatient follow-up with Dr. Mart as patient also very interested in fixing bladder prolapse. Dr. Zafar will bring patient back for coronary angiogram once COVID-19 infection clears. I think it will be safe to do in couple of weeks. Patient had adequate treatment with dexamethasone and ceftriaxone therefore it will not be continued. Patient requested 3-week supply of her medications and this will be provided except for Plavix and Eliquis as treatment may be different post intervention. This morning patient denies shortness of breath or chest pain. Denies abdominal pain. She had normal bowel movement earlier today with no evidence of melena or hematochezia. Patient's oral intake much improved. She qualified for oxygen and this was prescribed. I will request CMP and CBC check in several days prior to primary care physician follow-up. Physical Exam Const: COMMON NORMALS: no acute distress and patient oriented x3 Resp: COMMON NORMALS: normal respiratory effort OTHER: Very minimal bibasilar Rales Cardio: COMMON NORMALS: regular rate, regular rhythm and S2 normal heart sound present RATE: regular rate RHYTHM: regular rhythm HEART SOUNDS: S2 normal heart sound present OTHER: No lower extremity edema GI: COMMON NORMALS: Normal to inspection, nondistended, normoactive bowel sounds present, Soft to palpation and non-tender PALPATION: Yes Soft to palpation Neuro: COMMON NORMALS: patient oriented x3 and no focal motor deficits Urinary Catheter Management^: Erickson: Cath Placed During This Visit: yes, but has since been removed by the nurse Reason for Continuing Indwelling Catheter: Decision to DC Catheter Urinary Catheter Date of Insertion: 10/20/20 Urinary Catheter Time of Insertion: 08:45 Date Urinary Catheter Removed: 10/24/20 Time Urinary Catheter Discontinued: 09:00 Discharge Data Data Completed and Pending: Completed Studies During Hospitalization Category Date Time Status CT angio chest PE protcl 06278 Stat Cat Scan 10/20/20 04:22 Completed XR chest 1V suzie ble 20286 Routine Exams 10/23/20 06:00 Completed CV echo complete* [id number] Routine Ultrasound 10/20/20 02:35 Completed Labs from last 24 hours 10/28/20 10/27/20 10/27/20 06:14 20:02 16:57 POC Glucose 106 396 H 331 H 10/27/20 10:41 POC Glucose 351 H Vitals: Last Vital Signs Temp 97.5 F L 10/28/20 06:53 Pulse 62 10/28/20 09:11 Resp 18 10/28/20 09:11 BP 109/68 10/28/20 06:53 Pulse Ox 97 10/28/20 09:11 Discharge Plan Discharge Patient Disposition: Home Condition: Stable Prescriptions: New metoprolol succinate 25 mg Tablet Extended Release 24 Hr 25 mg PO DAILY Qty: 90 RF: 0 sennosides-docusate sodium 8.6-50 mg Tablet 1 tab PO DAILY Qty: 90 RF: 0 clopidogrel 75 mg Tablet 75 mg PO DAILY Qty: 30 RF: 0 potassium chloride [Klor-Con M20] 20 mEq Tablet,Er Particles/Crystals 20 meq PO BID Qty: 180 RF: 0 furosemide 40 mg Tablet 40 mg PO BID@08,16 Qty: 180 RF: 0 Eliquis 5 mg Tablet 5 mg PO BID Qty: 60 RF: 0 Continued multivitamin Tablet 1 tab PO DAILY@07 RF: 0 cyclobenzaprine 10 mg tablet 5 - 10 mg PO TID PRN (Reason: Muscle Spasm) RF: 0 omeprazole 40 mg capsule,delayed release(DR/EC) 40 mg PO DAILY@07 RF: 0 Aspir-81 81 mg Tablet,Delayed Release (Dr/Ec) 81 mg PO DAILY@07 RF: 0 Tylenol Extra Strength 500 mg Tablet 1,000 mg PO PRN RF: 0 simvastatin 40 mg tablet 40 mg PO DAILY@21 RF: 0 Euthyrox 88 mcg tablet 88 mcg PO DAILY@07 RF: 0 metformin 1,000 mg tablet 1,000 mg PO BID@, RF: 0 lisinopril 10 mg tablet 10 mg PO DAILY@07 RF: 0 montelukast 10 mg tablet 10 mg PO DAILY@21 RF: 0 ProAir HFA 90 mcg/actuation HFA aerosol inhaler 2 puff INHALATION Q6H PRN (Reason: Shortness Of Breath) RF: 0 Vitamin D3 25 mcg (1,000 unit) Tablet 25 mcg PO DAILY@07 RF: 0 Jardiance 25 mg tablet 25 mg PO DAILY@07 RF: 0 Discontinued ibuprofen 200 mg Tablet 800 mg PO PRN RF: 0 Discharge Orders: Discharge Order (Routine); Ordered 10/28/20 Ordered By: Yifan Nayak Other Ambulatory Orders: Complete Blood Count w/Auto (Routine) Timeframe: 3 Days Location: Determined by Patient Ordered By: Yifan Nayak Comprehensive Metabolic Panel (Routine) Timeframe: 3 Days Facility: [facility] - Location: Lab - Main Lab Ordered By: Yifan Nayak DME: Oxygen (Order) Location: None Selected Ordered By: Yifan Nayak Referrals: [facility] [place] [Outside] Aaron Mart MD [Physician] - 2 weeks ([facility] will call you with an appointment. If you don't hear from them, please call [phone]) Alexys Zafar MD [Physician] - 7-10 days ([facility] will call you with an appointment. If you do not hear from them please call [phone].) Discharge Diet: Usual diet Discharge Activity: Increase activity as tolerated Activity Restrictions/Additional Instructions: Please call your doctor or present to emergency department if your condition worsens or you develop diarrhea, lightheadedness, fatigue or see blood in your stool or black stool. Please do not take Eliquis for the next couple of days until your urine further clears up. I expect you will be able to initiate Eliquis in 2 to 3 days otherwise please discuss with your doctor if you continue to have evidence of bleeding in your urine. Should you develop worsening shortness of breath or heart palpitations please present to emergency department soon as possible. 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 Detailed Diagnoses UTI (urinary tract infection) N39.0 Yeast UTI B37.49 Acute respiratory failure with hypoxia J96.01 Pneumonia due to COVID-19 virus U07.1; J12.89 Diabetes mellitus type 2 in nonobese E11.9 Acute myocarditis I40.9 Thrombocytopenia D69.6 Pulmonary embolism I26.99 Acute cor pulmonale presence: without acute cor pulmonale Chronicity: unspecified Pulmonary embolism type: unspecified Non-ST elevation IA (NSTEMI) I21.4 Systolic congestive heart failure with reduced left ventricular function, NYHA class 3 I50.20 Mitral valve regurgitation I34.0 Cardiac valve disease etiology: nonrheumatic Tricuspid regurgitation I36.1 Cardiac valve disease etiology: nonrheumatic Hematuria R31.9
[2020-10-28 10:49] LABS: Glucose Point of Care 301 mg/dL (70-110)
[2020-10-28 11:03] VITALS: BP 96/61; PULSE 66; RESP 17; TEMP 36.5; O2SAT 94
--- NOTE | 2020-10-28 11:55 | PC.SOCIAL ---
IMM Updated Updated pt on Pg 2 IMM, via phone. No questions voiced. Signed, dated, & timed copy in chart.
[2020-10-28 15:14] VITALS: BP 96/61; PULSE 66; RESP 17; TEMP 36.5; O2SAT 94
== END 2020-10-28 15:17 | disposition home or self-care (01) | DRG 177 ==
LOC: MEDSURG 10-20 08:03 → ICU 10-20 08:36 → MEDSURG 10-24 12:12
PROVIDERS: Admitting Provider Internal Medicine; PCP Family Medicine; Visit Provider Internal Medicine
DX: U07.1 COVID-19 (principal); J12.89 Other viral pneumonia; I26.99 Other pulmonary embolism without acute cor pulmonale; I50.21 Acute systolic (congestive) heart failure; J96.01 Acute respiratory failure with hypoxia; I21.4 Non-ST elevation (NSTEMI) myocardial infarction; B37.49 Other urogenital candidiasis; E11.9 Type 2 diabetes mellitus without complications; K21.9 Gastro-esophageal reflux disease without esophagitis; I11.0 Hypertensive heart disease with heart failure; E03.9 Hypothyroidism, unspecified; Z87.891 Personal history of nicotine dependence; N81.10 Cystocele, unspecified; D69.59 Other secondary thrombocytopenia; E78.5 Hyperlipidemia, unspecified; I08.1 Rheumatic disorders of both mitral and tricuspid valves; I27.20 Pulmonary hypertension, unspecified; B95.2 Enterococcus as the cause of diseases classified elsewhere; Z79.84 Long term (current) use of oral hypoglycemic drugs; Z79.82 Long term (current) use of aspirin; R31.9 Hematuria, unspecified
CPT/HCPCS: 12345; 36415; 36416; 51702; 71045; 71275; 80053; 81001; 82550; 82728; 82962; 83605; 83615; 83735; 83880; 84145; 84484; 85025; 85049; 85378; 85384; 85610; 85651; 85730; 87040; 87070; 87086; 87106; 87205; 93005; 93306; 94640; 96372; 96375; 97110; 97161; 97165; 97530; J0696; J1650; J1815 ×2; J1940; J2405; J3535; J8540; Q9967

== ENCOUNTER → 2020-11-13 13:32 | Outpatient (BNVA) | payer OTHER, BC, MEDICARE, SELFPAY | PROVIDERS: PCP Family Medicine; Visit Provider Nurse Practitioner Family | DX: I50.20 Unspecified systolic (congestive) heart failure (principal) | CPT/HCPCS: 80048 ==

== ENCOUNTER → 2020-12-18 11:45 | Outpatient (BNVA) | payer BC, SELFPAY | PROVIDERS: PCP Family Medicine; Visit Provider Urology | DX: R31.0 Gross hematuria (principal) | CPT/HCPCS: 81003; 87086 ==

== ENCOUNTER → 2021-01-01 12:28 | Outpatient (BNVA) | payer OTHER, BC, SELFPAY | PROVIDERS: PCP Family Medicine; Visit Provider Nurse Practitioner Family | DX: I11.0 Hypertensive heart disease with heart failure (principal); I50.20 Unspecified systolic (congestive) heart failure; R00.0 Tachycardia, unspecified; Z87.891 Personal history of nicotine dependence | CPT/HCPCS: 80048; 85025 ==

== ENCOUNTER → 2021-01-03 11:23 | Outpatient (BNVA) | payer OTHER, SELFPAY | PROVIDERS: PCP Family Medicine; Visit Provider Nurse Practitioner Family | DX: Z20.822 Contact with and (suspected) exposure to COVID-19 (principal); I50.20 Unspecified systolic (congestive) heart failure | CPT/HCPCS: 87635 ==

== ENCOUNTER → 2021-01-07 11:03 | Outpatient (BNVA) | payer BC, SELFPAY | PROVIDERS: PCP Family Medicine; Visit Provider Internal Medicine Cardiovascular Disease | DX: I11.0 Hypertensive heart disease with heart failure (principal); I50.20 Unspecified systolic (congestive) heart failure | CPT/HCPCS: 80048 ==

== ENCOUNTER 2021-01-22 11:36 | Outpatient (CLI) | payer BC, OTHER, SELFPAY ==
[2021-01-22 12:37] LABS: Anion Gap 14.9 (5-19); Blood Urea Nitrogen 15 mg/dL (8-23); Calcium 9.4 mg/dL (8.5-10.5); Carbon Dioxide 28 mmol/L (22-29); Chloride 99 mmol/L (98-107); Glucose 97 mg/dL (65-115); Osmolality Calculated 287 mOsm/kg (285-295); Potassium 3.9 mmol/L (3.5-5.1); Sodium 138 mmol/L (136-145)
== END 2021-01-22 11:37 | disposition home or self-care (01) ==
LOC: LAB 11:44
PROVIDERS: PCP Family Medicine; Visit Provider Internal Medicine Cardiovascular Disease
DX: I34.0 Nonrheumatic mitral (valve) insufficiency (principal); I50.20 Unspecified systolic (congestive) heart failure
CPT/HCPCS: 36415; 80048; 87635

== ENCOUNTER 2021-01-28 13:23 | Inpatient (IN) | payer BC, SELFPAY ==
[2021-01-28] VITALS (64 sets, daily range): BP systolic 96–125; BP diastolic 57–83; PULSE 72–98; RESP 6–29; TEMP 36.7–37; O2SAT 80–98; BMI 25.9
--- NOTE | 2021-01-28 09:10 | XACV_ITS ---
Ht: 163 cm Wt: 68 kg BSA: 1.77 m2 Gender: Female : 1955 Any Known Allergies: Other Exam Priority: Routine Procedure(s): Procedure Description: Diagnostic procedure Procedure Description: PCI procedure Procedure Description: Drug Eluting Coronary Stent Procedure Description: PTCA Procedure Description: Miscellaneous Procedure Description: ACT Procedure Description: Coronary Angiography Diagnostic Cath Status: Elective Diagnostic Findings * LM has 0% stenosis. * RCA has 0% stenosis. * Mid Left Anterior Descending Coronary Artery: Severe 90% stenosis, JUSTICE: 3 flow. * 1st Diagonal Coronary Artery: Severe 90% stenosis, JUSTICE: 3 flow. * pCIRC to mCIRC: Severe 100% stenosis, JUSTICE: 0 flow. * Coronary angiography shows right dominance. PCI Status: Elective PCI Indication: NSTE - ACS Interventional Findings * Mid Left Anterior Descending Coronary Artery: 90% stenosis treated with MDT R CHONG 3.0X22 FRAN and MDT NC EUPHORA RX [id number] BALLOON. 0% residual stenosis, JUSTICE: 3 flow. * 1st Diagonal Coronary Artery: 90% stenosis treated with AB MINI TREK 2.00X12 RX BALLOON and MDT R CHONG 2.0X12 FRAN. 0% residual stenosis, JUSTICE: 3 flow. Conclusions 1. There is severe coronary artery disease with two vessel disease. 2. Mid Left Anterior Descending Coronary Artery was treated with Drug Eluting Stent and Balloon. 3. 1st Diagonal Coronary Artery was treated with Balloon and Drug Eluting Stent. Recommendations * 1-Return to inpatient for close monitoring and routine cath care 2-Risk factor modification for secondary prevention 3-Statin and aspirin 81 mg life--long, if tolerated 4-Patient was pre-loaded with 600 mg of Plavix, continue Plavix 75mg p.o. daily for at least one year. We will assess at the end of one year again to continue if further or not 5-Continue optimal medical management 6-Follow up with cardiology in four weeks and your primary care in 10 days. Diagnostic RX Recommendation: PCI w/o planned CABG Pressures Phase:Rest AO : 108 / 57 ( 78 ) @ 7:07:00 AM 115 / 60 ( 83 ) @ 7:07:00 AM 76 / 47 ( 62 ) @ 7:09:00 AM 45 / 19 ( 30 ) @ 7:33:00 AM Clinical Evaluation EBL: 5mL-10mL Procedural Details Procedure Consent Obtained. Pre-Procedure Time Out. Identified patient by full name and date of as verbalized by the patient/guarantor. Does the consent match the physician's order: Yes. Accurate & Complete Informed Consent: Yes. Inpatient/Outpatient History & Physical on Chart: Yes. If H&P is completed, is and addenduem needed: No; If yes, is the addendum complete: N/A. Visualize and Verify Site with Patient/Guarantor: N/A. Relevant Radiology Images available: N/A. Pre-op teaching completed and patient verbalized understanding. The risks, benefits, and alternatives of sedation and/or procedure were discussed by physician. The patient agrees to continue. Procedure started. [facility] Clinical Fraility Score: 3: Managing Well. Golf Ball Cover Treater Indications: LV Dysfunction. Chest Pain Symptom Assessment: Asymptomatic. Correct patient, site and procedure confirmed by cath team. IV Site on Arrival: 20 gauge in the right anticubital. IV Fluids: 0.9% NaCl at KVO. 0 mL infused prior to pipelines laborer. Pre Procedural Pulses: bilateral dorsalis pedis was Doppled. Pre Procedural Pulses: bilateral posterior tibial was 2+. Pre Procedural Pulses: right radial was 1+. Pre Procedural Pulses: left radial was 2+. right groin was prepped with chloroprep then draped in the usual sterile fashion. right radial was prepped with chloroprep then draped in the usual sterile fashion. Physician notified. Baseline sample Acquired. HR: 75 BPM. Physician arrived. Physician scrubbed in. Immediate Pre-Procedure Time Out. Correct Patient: Yes; Correct Procedure: Yes; Correct Site: Yes; Correct Patient Position: Yes; Correct Supplies: Yes; Dried Flammable Prep: Yes; Blood Products Available: N/A;. Lidocaine 1% infiltrated to the right radial. Arterial access obtained. A 5 bangladeshi TIG catheter in over wire. Multiple views taken of left coronary artery. Catheter redirected to the RCA. Multiple views taken of right coronary artery. Catheter removed over the exchange wire. Inventory is CRD 6FR XB 3 GUIDE. 6 bangladeshi XB 3 guide catheter was inserted over the wire. Inventory is [employer] [place] XT .014 190cm Str[address] Guidewire. [place] guidewire was advanced through the guide catheter to lesion in the mid LAD. [place] guidewire was advanced through the guide catheter to lesion in the diaganol. Inflation number : 1 A AB MINI TREK 2.00X12 RX BALLOON was prepped and advanced across the 1st Diag , then inflated to 8 MARI for 0:21 seconds. Inflation number: 2 The AB MINI TREK 2.00X12 RX BALLOON was reinflated across the 1st Diag, to 8 MARI for 0:32 seconds. Inflation number: 3 The AB MINI TREK 2.00X12 RX BALLOON was reinflated across the 1st Diag, to 15 MARI for 0:15 seconds. Results checked. Balloon out. Inflation Number : 1 A MDT R CHONG 3.0X22 FRAN -Lot Number# [id number] exp date 09/25/2022 was prepped and advanced across the Mid LAD. The stent was deployed at 16 MARI for 0:59 seconds. Stent balloon out over wire. Inflation Number : 4 A MDT R CHONG 2.0X12 FRAN -Lot Number# [id number] exp date 04/24/2022 was prepped and advanced across the 1st Diag. The stent was deployed at 14 MARI for 0:33 seconds. Results checked. Stent balloon out over wire. Inflation number : 2 A MDMilla GASPAR EUPHORA RX [id number] BALLOON was prepped and advanced across the Mid LAD , then inflated to 12 MARI for 0:42 seconds. Balloon and wires out. ACT drawn. Results 381 seconds. Therapeutic limits - pre-heparin administration 90-150 seconds and monitoring heparin during a vascular procedure >250 seconds. ACT drawn. Results 181 seconds. Therapeutic limits - pre-heparin administration 90-150 seconds and monitoring heparin during a vascular procedure >250 seconds. Guide catheter out. Physician scrubbed out. A TR Band was successful obtaining hemostatsis at the Right Radial artery insertion site. TR band placed. Hemostasis obtained. Post Procedure: Pulses reassessed and unchanged. PERRLA. Strong, equal hand freight sales broker bilaterally. No VTE prophylaxis required. PCI Indication: NSTE. Post-op diagnosis: ACS, new onset CHF. Complications: none. Contrast type used: Visipaque 320 mgI/mL, 500 mL bottle. Medication's Wasted: Lidocaine 1% = 18 mL. Medication's Wasted: Nitro = 49.8 mg. Medication's Wasted: Heparin = 1000 units. Medication's Wasted: Other = aggrastat 216 mL. Total IV fluids: mL. Estimated blood loss: 5mL-10mL. Procedure completed. Patient transferred by bed to 1st floor. Vital chart was stopped. Access Site Site: Right Radial artery Sheath Size: 6 Fr Hemostasis Method: TR Band Hemostasis Success: Successful Procedure Medications Start: 11:44 AM Stop: 11:44 AM Medication: Versed Amount: 1 mg Route: I.V. Start: 11:44 AM Stop: 11:44 AM Medication: Fentanyl Amount: 50 mcg Start: 12:06 PM Stop: 12:06 PM Medication: Heparin Amount: 7000 units Route: I.V. Start: 12:06 PM Stop: 12:06 PM Medication: Versed Amount: 1 mg Route: I.V. Start: 12:06 PM Stop: 12:06 PM Medication: Fentanyl Amount: 50 mcg Start: 12:42 PM Stop: 12:42 PM Medication: Heparin Amount: 3000 units Route: I.V. Start: 12:42 PM Stop: 12:42 PM Medication: Aggrastat 12.5 mg/250 mL Amount: 34 ml Route: I.V. bolus Start: 12:42 PM Stop: 12:42 PM Medication: Plavix Amount: 600 mg Route: P.O. I, the attending physician, have reviewed and verified all procedure medications. Yes, all medications given per verbal order History/Risk Factors Hypertension: Yes Dyslipidemia: Yes Peripheral Arterial Disease (PAD): No Myocardial Infarction (GA): Yes Obesity: No Renal Disease: No Prior Interventions PCI: No CABG: No Valve Surgery: No Report Signatures Finalized by Alexys Zafar MD on 02/10/2021 08:57 PM
[2021-01-28] MEDS: diphenhydrAMINE 50 mg Capsule PO (09:54)
--- NOTE | 2021-01-28 11:31 | W.PM.OPSUD ---
Surgery/Procedure H&P Update DATE OF PROCEDURE: January 28, 2021 DATE H&P PERFORMED: 01/01/21 H&P UPDATE INFORMATION: I have reviewed H&P completed within last 30 days, I have examined patient prior to procedure and No changes to prior documentation PREOP DIAGNOSIS: New onset of heart failure, MT PLANNED PROCEDURE: Operation Date: 01/28/21 10:00 Proposed Procedures p left and right Cardiac Catheterization 88671 I50.20(Bilateral) - Alexys Zafar MD PATIENT REASSESSED PRIOR TO SEDATION, WITH NO CHANGE NOTED: Yes PHYSICAL EXAM: alert and oriented x 3 AIRWAY EVAL/ANESTHESIA PLAN: ASA II, Risks, benefits & alternatives of sedation and/or procedure discussed and Patient agrees to continue as planned
--- NOTE | 2021-01-28 13:44 | PC.NURSE ---
hematoma distal to wrist formation observed at this time second TR band placed attempt made to contact provider will notify
--- NOTE | 2021-01-28 13:59 | PC.NURSE ---
Dr bowen notified of hematoma no further instructions
[2021-01-28 17:11] LABS: Glucose Point of Care 91 mg/dL (70-110)
--- NOTE | 2021-01-28 19:06 | PC.NURSE ---
Received bedside report from Vianca Samuel RN. Patient resting in bed with eyes closed. Opens eyes spontaneously with verbal stimuli. Patient is s/p heart cath with PCIx2. Patient has TR band in place presently. Had hematoma formation which is currently resolving. Patient denies any pain or discomforts. No distress observed.
[2021-01-28 20:58] LABS: Glucose Point of Care 171 mg/dL (70-110)
[2021-01-28] MEDS: atorvastatin 40 mg Tablet 20 MG PO (21:01)
[2021-01-28] MEDS: montelukast sodium 10 mg Tablet PO (21:02)
--- NOTE | 2021-01-28 21:05 | PC.NURSE ---
pt sitting at side of bed. Denies pain.
[2021-01-28] MEDS: apixaban 5 mg Tablet PO (22:42)
[2021-01-29 04:13] VITALS: BP 105/78; PULSE 104; RESP 10; TEMP 36.7; O2SAT 92
[2021-01-29 04:56] LABS: Basophils % 0.4 %; Eosinophils # 0.1 10^3/uL (0.0-0.8); Eosinophils % 1.3 %; Hematocrit 37.7 % (37.0-47.0); Hemoglobin 11.7 g/dL (11.5-15.3); Lymphocytes # 0.8 10^3/uL (0.8-4.8); Mean Corpuscular Hemoglobin 29.8 pg (28.0-34.0); Mean Corpuscular Volume 95.9 fL (81-99); Mean Platelet Volume 9.9 fL (7.4-10.4); Monocytes # 0.6 10^3/uL (0.2-0.9); Monocytes % 10.4 %; Neutrophils # 3.91 10^3/uL (1.8-7.7); Neutrophils % 72.5 %; Nucleated Red Blood Cells % 0 %; Platelet Count 181 10^3/cmm (130-400); Red Blood Count 3.93 10^6/uL (4.1-5.3); Red Cell Distribution Width 14.4 % (12.1-15.1); White Blood Count 5.4 10^3/uL (4.0-10.0)
[2021-01-29 05:16] LABS: Anion Gap 11.8 (5-19); Blood Urea Nitrogen 14 mg/dL (8-23); Calcium 9.2 mg/dL (8.5-10.5); Carbon Dioxide 29 mmol/L (22-29); Chloride 104 mmol/L (98-107); Glomerular Filtration Rate 100.3 mL/min (90-130); Glucose 119 mg/dL (65-115); Osmolality Calculated 294 mOsm/kg (285-295); Potassium 3.8 mmol/L (3.5-5.1); Sodium 141 mmol/L (136-145)
[2021-01-29 06:00] VITALS: PULSE 85
[2021-01-29] MEDS: pantoprazole DR 40 mg Tablet PO (06:18)
[2021-01-29] MEDS: levothyroxine 88 mcg Tablet PO (06:18)
[2021-01-29] MEDS: lisinopril 5 mg Tablet PO (06:18)
[2021-01-29] MEDS: cholecalciferol (vitamin D3) 1,000 unit Tablet 1000 UNIT PO (06:18)
[2021-01-29 06:55] LABS: Glucose Point of Care 123 mg/dL (70-110)
[2021-01-29 07:09] VITALS: BP 104/73; PULSE 84; RESP 17; TEMP 37; O2SAT 96
[2021-01-29 07:19] VITALS: PULSE 85; RESP 17; O2SAT 90
[2021-01-29] MEDS: acetaminophen 500 mg Tablet 1000 MG PO (07:35)
[2021-01-29] MEDS: clopidogrel 75 mg Tablet PO (08:33)
[2021-01-29] MEDS: FUROsemide 40 mg Tablet PO (08:33)
[2021-01-29] MEDS: potassium chloride ER 20 mEq Tablet PO (08:33)
[2021-01-29] MEDS: metoprolol succinate ER (24 HR) 25 mg Tablet 12.5 MG PO (08:33)
[2021-01-29] MEDS: apixaban 5 mg Tablet PO (08:33)
[2021-01-29] MEDS: sodium chloride 0.9% 500 ML 200 ML IV (09:43)
--- NOTE | 2021-01-29 10:23 | PC.CHAP ---
Pastoral Care Encounter/Spiritual Assessment Type of Contact [] Declined sap bw bi developer visit [] Patient/Family/Request visit [] Outpatient visit [] Follow-up visit [] Physician referral [] Code/Alert [x] Routine visit [] Staff referral [] Actively dying [] Patient sleeping [] Family support [] [] Out of room [] Palliative care [] [] Receiving care in room [] Pre-surgical visit [] Trauma [] Long length of stay [] ICU visit [] Other: Relational/Emotional Strength [] Patient feels connected with others/family/visitors/staff [] Distress [] Loneliness/isolation [] Abandonment Spirituality of Patient [] Person of Nancie [] Attends Taoism of their Nancie [] Believes in Prayer [] Reads Bible or Tenriism materials [] There are Spiritual issues to be addressed Event Crew Technician Interventions [x] Prayer [x] Active listening [x] Non-anxious presence [x] Spiritual/emotional support [] Crisis/trauma care [] Spiritual counseling [] Bereavement support [] Provided bereavement packet [] Provided Bible/devotional materials [] Provided toy/stuffed animal, coloring book to patient or family member [] Provided Communion [] Anointing/[place] [] Salvation [x] Completed spiritual assessment [] Other: Impact on Illness or Injury [] Angry [] Fearful [] Anxious [] Often cries [] Exhaustion [] Unable to work [] Unable to attend taoist [] Unable to walk/stand [] Unable to read [] Unable to drive [] Unable to eat/drink [] Unable to sleep [] Unable to be with family [] Patient intubated [] Other: Summary patient feeling better... Time spent with patient 10 min
[2021-01-29 10:53] VITALS: BP 89/52; PULSE 87; RESP 17; TEMP 36.6; O2SAT 94
[2021-01-29 10:54] LABS: Glucose Point of Care 156 mg/dL (70-110)
--- NOTE | 2021-01-29 11:48 | P.SS_ITS ---
Short Stay Summary Providers Date of Admit/Discharge: 02/10/21 Attending Provider: Alexys Zafar MD Primary Care Provider: Maxine Pulido DO Chief Complaint: left and right heart cath HPI History of Present Illness Sj Singh is a 65 year old female past medical history significant for mitral and tricuspid regurgitation congestive heart failure recent non-ST elevation RI during Covid infection when she was discharged from the hospital underwent left heart cath after recovery yesterday. She was noted to have significant bifurcating LAD lesion treated with drug-eluting stent in both LAD and diagonal. Post PCI course remained uncomplicated no overnight event. Patient is doing fine from cardiovascular perspective and moving around. We will discharge patient to follow-up in the clinic. Advised to continue clopidogrel and aspirin Review of Systems Psych: Reports: sleeping more Home Meds/Allergies Home Medications and Allergies Home Medications Medication Instructions Recorded Confirmed Type Jardiance 25 mg PO DAILY@10/20/20 02/05/21 History acetaminophen [Tylenol Extra 1,000 mg PO PRN 10/20/20 02/05/21 History Strength] albuterol sulfate [ProAir HFA] 2 puff INHALATION Q6H PRN 10/20/20 02/05/21 History cholecalciferol (vitamin D3) 25 mcg PO DAILY@10/20/20 02/05/21 History [Vitamin D3] cyclobenzaprine 5 - 10 mg PO TID PRN 10/20/20 02/05/21 History levothyroxine [Euthyrox] 88 mcg PO DAILY@10/20/20 02/05/21 History metformin 1,000 mg PO BID@10/20/20 02/05/21 History montelukast 10 mg PO DAILY@10/20/20 02/05/21 History multivitamin 1 tab PO DAILY@10/20/20 02/05/21 History omeprazole 40 mg PO DAILY@10/20/20 02/05/21 History simvastatin 40 mg PO DAILY@10/20/20 02/05/21 History semaglutide 0.25 mg SUBCUT Q7D 12/18/20 02/05/21 History sennosides 8.6 mg-docusate sodium 1 tab PO DAILY PRN tab 12/18/20 02/05/21 History 50 mg tablet B12 10,000 mcg PO DAILY 01/09/21 02/05/21 History levothyroxine 88 mcg PO DAILY 01/09/21 02/05/21 History Allergies Allergy/AdvReac Type Severity Reaction Status Date / Time Penicillins Allergy Severe ALGY-Hives Verified 02/05/21 13:45 levofloxacin [From Levaquin] Allergy ALGY-Rash Verified 02/05/21 13:45 PFSH Acute PFSH: Medical History (Updated 02/05/21 @ 14:26 by AGATA Abrams) Atherosclerosis of coronary artery Diabetes GERD (gastroesophageal reflux disease) Gross hematuria Hypertension Hypothyroidism Presence of stent in LAD coronary artery Yeast UTI Surgical History (Updated 02/05/21 @ 13:47 by Denise Prince LPN) H/O cataract removal with insertion of prosthetic lens H/O cystoscopy History of anterior repair with culdoplasty Family History Other Chronic kidney disease (CKD) Dementia Diabetes Denies family history of Clotting disorder Hyperlipidemia Anesthesia complication Bleeding disorder Lung disease Cancer Hypertension Stroke Social History Smoking and tobacco status: former smoker Quit status (tobacco): has quit using tobacco Year quit tobacco: 1985 [id number] Second hand smoke exposure: Yes Smoking risk assessment/counseling performed?: Yes Alcohol intake: never Lives independently: Yes Household members: none Housing: House Marital status: / Current occupational status: employed Pets and animals: Yes History of recent travel: No Current gender identity: Female Dietary Habits: Current diet type/program: regular Caffeine: Yes Vitals/I&O/Wt Last Vital Signs Temp 97.8 F 01/29/21 10:53 Pulse 87 01/29/21 10:53 Resp 17 01/29/21 10:53 BP 89/52 01/29/21 10:53 Pulse Ox 94 01/29/21 10:53 01/28/21 01/29/21 01/29/21 22:59 06:59 14:59 Intake Total 240 / 240 150 / 390 240 / 240 Balance 240 / 240 150 / 390 240 / 240 Weight last 48 hrs Weight 151 lb Physical Exam Narrative: EXAM NARRATIVE: GENERAL: Patient is alert, awake and oriented x3. NECK: No jugular vein distension. HEENT: No cyanosis. No icterus. No pallor. HEART: Regular S1 and S2. No murmur, rub or gallop. LUNGS: Clear to auscultate bilaterally. ABDOMEN: Soft, nontender and nondistended. Positive bowel sounds. No guarding, rebound or tenderness. CENTRAL NERVOUS SYSTEM: Grossly nonfocal. EXTREMITIES: Lower extremities without edema bilaterally. Const: COMMON NORMALS: alert Neuro: SENSORIUM/ORIENTATION: Yes alert Hospital Course Hospital Course As above SSS Data Data Completed and Pending: Pending at discharge Category Date Time Status CORROSION CONTROL SPECIALIST request for service Routin e Exams 01/28/21 09:10 Taken Discharge Plan Discharge Patient Disposition: Home Condition: Stable Prescriptions: Continued sennosides-docusate sodium 8.6-50 mg tablet 1 tab PO DAILY PRN (Reason: Constipation) RF: 0 Ozempic 0.25 mg or 0.5 mg(2 mg/1.5 mL) pen injector 0.25 mg SUBCUT Q7D RF: 0 Klor-Con M20 20 mEq tablet,ER particles/crystals 20 meq PO DAILY Qty: 90 RF: 2 multivitamin Tablet 1 tab PO DAILY@07 RF: 0 cyclobenzaprine 10 mg tablet 5 - 10 mg PO TID PRN (Reason: Muscle Spasm) RF: 0 omeprazole 40 mg capsule,delayed release(DR/EC) 40 mg PO DAILY@07 RF: 0 acetaminophen [Tylenol Extra Strength] 500 mg Tablet 1,000 mg PO PRN RF: 0 simvastatin 40 mg tablet 40 mg PO DAILY@21 RF: 0 levothyroxine [Euthyrox] 88 mcg tablet 88 mcg PO DAILY@07 RF: 0 metformin 1,000 mg tablet 1,000 mg PO BID@, RF: 0 montelukast 10 mg tablet 10 mg PO DAILY@21 RF: 0 albuterol sulfate [ProAir HFA] 90 mcg/actuation HFA aerosol inhaler 2 puff INHALATION Q6H PRN (Reason: Shortness Of Breath) RF: 0 cholecalciferol (vitamin D3) [Vitamin D3] 25 mcg (1,000 unit) Tablet 25 mcg PO DAILY@07 RF: 0 Jardiance 25 mg tablet 25 mg PO DAILY@07 RF: 0 Eliquis 5 mg Tablet 5 mg PO BID Qty: 60 RF: 0 B12 10,000 mcg PO DAILY RF: 0 levothyroxine 88 mcg Tablet 88 mcg PO DAILY RF: 0 clopidogrel 75 mg Tablet 75 mg PO DAILY Qty: 90 RF: 4 Changed furosemide 40 mg tablet 20 mg PO DAILY Qty: 90 RF: 2 Discontinued lisinopril 5 mg tablet 5 mg PO DAILY@07 Qty: 90 RF: 3 No Action lisinopril 10 mg tablet 10 mg PO DAILY@07 Qty: 90 RF: 3 metoprolol succinate 25 mg tablet extended release 24 hr 25 mg PO DAILY Qty: 45 RF: 3 Discharge Orders: Discharge Order (Routine); Ordered 01/29/21 Ordered By: Alexys Zafar Referrals: Alexys Zafar MD [Physician] - 1 month (Please follow-up with Dr. Zafar on March 07 at 3:00P.M. If you have any questions or need to reschedule. Please call ) Lydia Jones FNP [Nurse Practitioner] - 1 week (Please follow-up with Lydia Jones on February 05 at 1:30P.M. If you have any questions or need to reschedule. Please call ) Discharge Diet: Cardiac Discharge Activity: Increase activity as tolerated Patient Instructions: Left Heart Catheterization (DC), Coronary Angioplasty (DC), Chest Pain Stoplight, Post Angiogram Home Care Instructions Activity Restrictions/Additional Instructions: Follow-up with Dr. Zafar in 6 to 8 weeks. Follow-up with Lydia Jones cardiology nurse practitioner in 7 to 10 days. Keep a log of blood pressure pulse daily weight. If you gain more than 3 pound in 2 consecutive days take extra water pill. Attestations Medical Necessity Statement*: Patient can be discharged home Time Spent in Patient Care*: less than 30 min Specific Discharge Activities: Specific discharge activities: educating patient Quality Metrics Clinical Quality Measures: During this hospital stay, did patient experience: None Coding Level of Care Code Acute Cable Installation Technician for Bradyg Fwd Exam Problem Focused
[2021-01-29 12:44] VITALS: BP 114/78; PULSE 77; RESP 18; TEMP 36.6; O2SAT 96
--- NOTE | 2021-01-29 13:30 | PC.NURSE ---
Discharge Discharge orders and new medication information explained to patient. Patient verbalized understanding. Pt discharged via wheelchair to [facility] waiting outside.
== END 2021-01-29 13:29 | disposition home or self-care (01) | DRG 247 ==
LOC: CSU 13:23
PROVIDERS: Admitting Provider Internal Medicine Cardiovascular Disease; PCP Family Medicine; Visit Provider Internal Medicine Cardiovascular Disease
PROC: 027135Z Dilation of Coronary Artery, Two Arteries with Two Drug-eluting Intraluminal Devices, Percutaneous Approach (ICD-10-PCS; principal; 2021-01-28 10:00)
PROC: 027135Z Dilation of Coronary Artery, Two Arteries with Two Drug-eluting Intraluminal Devices, Percutaneous Approach (ICD-10-PCS; 2021-01-28 10:00)
DX: I25.10 Atherosclerotic heart disease of native coronary artery without angina pectoris (principal); Z95.5 Presence of coronary angioplasty implant and graft; I25.2 Old myocardial infarction; I50.9 Heart failure, unspecified; I11.0 Hypertensive heart disease with heart failure; I08.1 Rheumatic disorders of both mitral and tricuspid valves; Z86.16 Personal history of COVID-19; E11.9 Type 2 diabetes mellitus without complications; K21.9 Gastro-esophageal reflux disease without esophagitis; E03.9 Hypothyroidism, unspecified; Z87.440 Personal history of urinary (tract) infections; Z87.891 Personal history of nicotine dependence; Z79.84 Long term (current) use of oral hypoglycemic drugs; Z79.01 Long term (current) use of anticoagulants; Z79.02 Long term (current) use of antithrombotics/antiplatelets
CPT/HCPCS: 36415; 36416; 80048; 82962; 85025; 85347; 93454; C1725; C1769; C1874; C1887; C1894; C9600; J1644; J2250; J3010; J3246; J3490; J7040; J7050; Q0163; Q9967

== ENCOUNTER 2021-02-05 06:00 | Outpatient (CLI) | payer OTHER, SELFPAY | END 2021-02-05 06:01 | disposition home or self-care (01) | LOC: LAB 01-09 13:05 | PROVIDERS: PCP Registered Nurse; Visit Provider Internal Medicine Pulmonary Disease | DX: Z95.5 Presence of coronary angioplasty implant and graft (principal); I25.10 Atherosclerotic heart disease of native coronary artery without angina pectoris | CPT/HCPCS: 80048 ==

== ENCOUNTER 2021-02-25 09:24 | Outpatient (CLI) | payer MEDICARE, SELFPAY ==
[2021-02-25 09:55] LABS: Add Urine Microscopic? YES; Bilirubin Urine Neg (Negative); Blood Urine 3+ (Negative); Glucose Urine UA 4+ (Normal); Ketones Urine Negative (Negative); Leukocyte Esterase Urine 2+ (Negative); Nitrate Urine Negative (Negative); Protein Urine Trace (Negative); Specific Gravity, Urine 1.005 (1.005-1.030); Urine Appearance Cloudy (CLEAR); Urine Color Yellow (Yellow); Urobilinogen Urine Norm (Negative); pH Urine 6.5 (5-7)
[2021-02-25 09:56] LABS: Add Urine Culture? Yes; Bacteria Urine 1+ /hpf; RBC Urine 15-25 /hpf (0-2); Squamous Epithelial Cell Urine 0-4 /hpf (0-5); WBC Urine TOO NUMEROUS TO CNT /hpf (0-5)
== END 2021-02-25 09:25 | disposition home or self-care (01) ==
PROVIDERS: PCP Family Medicine; Visit Provider Internal Medicine Cardiovascular Disease
DX: R31.9 Hematuria, unspecified (principal)
CPT/HCPCS: 81001; 87086

== ENCOUNTER 2021-03-06 08:02 | Outpatient (CLI) | payer MEDICARE, SELFPAY ==
[2021-03-06] MEDS: iohexol 300 mg/mL 100 mL Btl IV (08:29)
--- NOTE | 2021-03-06 08:30 | CT_ITS ---
WS: [id number] CT ABDOMEN AND PELVIS WITH AND WITHOUT CONTRAST HISTORY: R31.0 - Gross hematuria TECHNIQUE: Unenhanced 5 mm axial imaging first performed through the abdomen. Post contrast imaging t hrough the abdomen and pelvis. Oral contrast has not been provided. Sagittal and coronal reformats a re submitted. All CT scans at [facility] use at least one of these dose optimization tech niques: automated exposure control; mA and/or kV adjustment per patient size (includes targeted exams where dose is matched to clinical indication); or iterative reconstruction. CONTRAST: Omnipaque 300; 95 mL IV. DLP: 1659.39 mGy.cm COMPARISON: None available. Chronic emphysema at the lung bases and benign granuloma on the LEFT. Normal size heart. Large size h iatal hernia. Large portion of the stomach is intrathoracic. No ischemic changes. Normal appearance of the liver, spleen and adrenal glands. Pancreas is atrophied and poorly visualize d. Numerous stones within the gallbladder lumen without adjacent inflammation. Mild atherosclerosis o f the aorta. No aneurysm. RIGHT kidney: 11.2 cm in length with a 12 x 11 mm cyst in the renal pelvis. No hydronephrosis or calc ification. LEFT kidney: 9.4 cm in length. No obstruction or calcification. No enhancing solid mass. Prior appendectomy. Diffuse moderate constipation. No obstruction. There is marked thickening circumf erentially around the rectum and involving the perineum. There are loops of nondilated small bowel pr olapsing adjacent to the rectum. Mild thickening involving the stomach and proximal duodenum without adjacent inflammation. There is diffuse wall thickening involving the urinary bladder with enhancement. This wall thickening measures up to 2.2 cm. The area of abnormal thickening extends over length of at least 10 cm. The ut erus and ovaries are not identified as separate structures. No history of hysterectomy was provided. Severe RIGHT curvature of the lumbar spine with osteopenia. There is asymmetric disc space narrowing with marginal osteophytes along the concavity of the curvature. CT/CT abdomen pelvis wo/w [id number] IMPRESSION: 1. Severe diffuse bladder wall thickening measuring up to 2.2 cm with enhancem ent suspicious for tumor. No adjacent lymph nodes or ascites. 2. On the delayed imaging there is no contrast entering into the urinary bladd er. No hydronephrosis. 3. No renal mass or calcification. 4. Cholelithiasis without acute cholecystitis. 5. Diffuse rectal and peroneal soft tissue thickening with enterocele. There i s small bowel extending inferiorly into the rectum. Suspect on clinical exam th ere may be small bowel at the anus. 6. Large hiatal hernia. 7. Uterus and ovaries are not identified. No history of hysterectomy was provi ded.
== END 2021-03-06 08:03 | disposition home or self-care (01) ==
LOC: CT 08:04
PROVIDERS: PCP Registered Nurse; Visit Provider Urology
DX: R31.0 Gross hematuria (principal); K44.9 Diaphragmatic hernia without obstruction or gangrene; K80.20 Calculus of gallbladder without cholecystitis without obstruction
CPT/HCPCS: 74178; 81003; 87086

== ENCOUNTER → 2021-04-03 12:00 | Outpatient (BNVA) | payer MEDICARE, SELFPAY | PROVIDERS: PCP Registered Nurse; Visit Provider Obstetrics & Gynecology | DX: N81.3 Complete uterovaginal prolapse (principal); Z01.818 Encounter for other preprocedural examination; N81.9 Female genital prolapse, unspecified; Z20.822 Contact with and (suspected) exposure to COVID-19 | CPT/HCPCS: 87635 ==

== ENCOUNTER → 2021-04-03 13:41 | Day surgery (SDC) | payer MEDICARE, OTHER, SELFPAY | PROVIDERS: PCP Registered Nurse; Visit Provider Obstetrics & Gynecology | DX: Z01.818 Encounter for other preprocedural examination (principal); N81.3 Complete uterovaginal prolapse; N81.9 Female genital prolapse, unspecified; Z20.822 Contact with and (suspected) exposure to COVID-19 | CPT/HCPCS: 80048; 85025; 87635; 93005 ==

== ENCOUNTER → 2021-08-16 15:02 | Outpatient (BNVA) | payer MEDICARE, SELFPAY | PROVIDERS: PCP Registered Nurse; Visit Provider Obstetrics & Gynecology | DX: R30.0 Dysuria (principal); E11.9 Type 2 diabetes mellitus without complications | CPT/HCPCS: 81000; 83036; 87086 ==

== ENCOUNTER 2021-10-26 16:50 | Inpatient (IN) | payer MEDICARE, SELFPAY ==
[2021-10-26 17:02] VITALS: BP 110/74; PULSE 132; RESP 16; TEMP 36.7; O2SAT 95
[2021-10-26 17:04] VITALS: BP 110/74; PULSE 110; RESP 20; TEMP 36.7; O2SAT 96
[2021-10-26 17:39] LABS: Basophils # 0.1 10^3/uL (0.0-0.1); Basophils % 0.6 %; Eosinophils # 0.1 10^3/uL (0.0-0.8); Eosinophils % 1.1 %; Hematocrit 36.7 % (37.0-47.0); Hemoglobin 11.5 g/dL (11.5-15.3); Lymphocytes # 1.8 10^3/uL (0.8-4.8); Lymphocytes % 16.2 %; Mean Corpuscular HGB Conc 31.3 g/dL (30.0-36.0); Mean Corpuscular Hemoglobin 28.9 pg (28.0-34.0); Mean Corpuscular Volume 92.2 fl (81-99); Mean Platelet Volume 9.3 fL (7.4-10.4); Monocytes # 0.7 10^3/uL (0.2-0.9); Neutrophils # 8.33 10^3/uL (1.8-7.7); Neutrophils % 75.2 %; Nucleated Red Blood Cells % 0 %; Platelet Count 303 10^3/cmm (130-400); Red Blood Count 3.98 10^6/uL (4.1-5.3); Red Cell Distribution Width 13.2 % (12.1-15.1); White Blood Count 11.1 10^3/uL (4.0-10.0)
[2021-10-26 17:41] VITALS: RESP 20; O2SAT 94
[2021-10-26] MEDS: morphine 4 mg/mL SDV 1 mL IVP (17:41)
[2021-10-26] MEDS: sodium chloride 0.9% 1,000 ML 999 ML IV (17:42)
--- NOTE | 2021-10-26 17:44 | CTR_ITS ---
PROCEDURE INFORMATION: Exam: CTA Abdomen and Pelvis Without And With Contrast Exam date and time: 10/26/2021 5:44 PM Age: 66 years old Clinical indication: Abdominal pain; Acute; Prior surgery; Surgery date: 6+ months; Patient HX: Bladder pain x 1 day; Additional info: Eval for active pelvic bleeding TECHNIQUE: Imaging protocol: Computed tomographic angiography of the abdomen and pelvis without and with contrast. 3D rendering (Not supervised by radiologist): MIP and/or 3D reconstructed images were created by the technologist. Radiation optimization: All CT scans at this facility use at least one of these dose optimization techniques: automated exposure control; mA and/or kV adjustment per patient size (includes targeted exams where dose is matched to clinical indication); or iterative reconstruction. Contrast material: VISIPAQUE 320; Contrast volume: 95 ml; Contrast route: INTRAVENOUS (IV); COMPARISON: CT abdomen pelvis wo/w [id number] 03/06/2021 8:41 AM RADIATION DOSE METRICS: Total DLP (mGy-cm): 1281.92 FINDINGS: Mediastinal space: Moderate hiatal hernia. Aorta: No aortic aneurysm. No aortic dissection. Celiac trunk and mesenteric arteries: No occlusion or significant stenosis. Renal arteries: No occlusion or significant stenosis. Right iliac arteries: No occlusion or significant stenosis. Left iliac arteries: No occlusion or significant stenosis. Liver: No mass. Gallbladder and bile ducts: Cholelithiasis. Pancreas: Unremarkable. No mass. No ductal dilation. Spleen: Unremarkable. No splenomegaly. Adrenal glands: Unremarkable. No mass. Kidneys and ureters: Severe bilateral hydronephrosis and hydroureter without focal obstructing lesion. Stomach and bowel: Constipation. Prominent fluid in the small bowel may reflect an ileus. Appendix: No evidence of appendicitis. Intraperitoneal space: Unremarkable. No free air. No significant fluid collection. Lymph nodes: Unremarkable. No enlarged lymph nodes. Urinary bladder: See below. Reproductive: Large hematoma measuring up to 10 cm in size seen in the vaginal area/deep pelvis with a 4.4 mm focal area of prominent contrast enhancement seen anteriorly, series 5, image 251 suggestive of a small area of active bleeding within this hematoma. Bleeding may actually be within a prolapsed urinary bladder. Bones/joints: No acute fracture. No dislocation. Soft tissues: Unremarkable. CT/CT angio chest abdomen pelvis IMPRESSION: 1. Large hematoma measuring up to 10 cm in size seen in the vaginal area/deep pelvis with a 4.4 mm focal area of prominent contrast enhancement seen anteriorly, series 5, image 251 suggestive of a small area of active bleeding within this hematoma. Bleeding may actually be within a prolapsed urinary bladder. 2. Moderate hiatal hernia. 3. Severe bilateral hydronephrosis and hydroureter without focal obstructing lesion. 4. Constipation. 5. Cholelithiasis. 6. Prominent fluid in the small bowel may reflect an ileus.
[2021-10-26 17:47] LABS: INR 0.92 (0.8-1.2)
[2021-10-26 17:48] LABS: Partial Thromboplastin Time 28.9 SECONDS (23.9-36.7)
[2021-10-26 17:52] LABS: Alanine Aminotransferase 14 U/L (0-33); Alkaline Phosphatase 131 IU/L (35-105); Anion Gap 21.7 (5-19); Aspartate Amino Transferase 13 U/L (0-32); Blood Urea Nitrogen 32 mg/dL (8-23); Calcium 9.3 mg/dL (8.5-10.5); Carbon Dioxide 18 mmol/L (22-29); Chloride 101 mmol/L (98-107); Globulin 2.7 g/dL (1.3-4.6); Glomerular Filtration Rate 49.7 mL/min (90-130); Glucose 370 mg/dL (65-115); Lipase 30 U/L (13-60); Osmolality Calculated 304 mOsm/kg (285-295); Potassium 4.7 mmol/L (3.5-5.1); Sodium 136 mmol/L (136-145); Total Bilirubin 0.2 mg/dL (0.15-1.2); Total Protein 6.7 g/dL (6.6-8.7)
[2021-10-26] MEDS: iodixanol 320 mg/mL 100mL Btl IV (18:06)
--- NOTE | 2021-10-26 19:46 | ED_ITS ---
HPI - General Adult General: Chief complaint: Urogenital-Female Stated complaint: Bladder bleeding Time Seen by Provider: 10/26/21 17:07 History of Present Illness: HPI narrative: Pt is a 66-year-old female with history of incomplete prolapsed bladder followed Dr. Sofia presenting to emergency room complaints of worsening bladder prolapse. Patient tells me that her dog jumped on her earlier today and she fell to the ground. Since then, she noticed that she had significant pain and bleeding from her vaginal vault and she is unable to reduce her prolapsed bladder. Is on Plavix currently. Onset: 1 hr ago Duration:1 hr Location:home Severity:severe Review of Systems Narrative: Constitutional: No fever, no chills. HEENT: No vision changes CV: No chest pain, no palpitations PULM: no cough, no dyspnea. GI: No abdominal pain, no N/V/D. : No dysuria, +prolapsed bladder/+vaginal bleeding MSKEL: No muscle pain SKIN: No new rashes, no lesions. NEURO: No headache, no focal weakness. HEME: No visible bruises PSYCH: Normal mood PFSH ED PFSH: Medical History Atherosclerosis of coronary artery Bilateral hydronephrosis Secondary to distal ureteral kinking from severe prolapse with cystocele Bladder outlet obstruction Secondary to severe cystocele Chronic cystitis Diabetes GERD (gastroesophageal reflux disease) Gross hematuria Hypertension Hypothyroidism Presence of stent in LAD coronary artery Vaginal vault prolapse Yeast UTI Surgical History H/O cataract removal with insertion of prosthetic lens H/O cystoscopy History of anterior repair with culdoplasty Hx of heart artery stent Family History Brother Thyroid disease Other Chronic kidney disease (CKD) Dementia Diabetes Denies family history of Ovarian cyst Clotting disorder Hyperlipidemia Anesthesia complication Bleeding disorder Lung disease Cancer Hypertension Stroke Physical Exam Narrative: EXAM NARRATIVE: Head: Atraumatic Eyes: PERRL, conjunctiva without injection ENT: Mucous membrane moist NECK: Supple, ROM intact LUNGS: LCTAB, no crackles/rhonchi CV: RRR ABDOMEN: Soft, nontender in all quadrants EXTREMITY: Normal ROM SKIN: No rash or erythema NEURO: Awake and alert, no focal motor deficits PSYCH: Normal mood and affect : Exam supervised by Stephani - non-reducible protruding bladder mass with mild mucosal bleeding, +moderate urine/blood in vaginal vault. Procedures Procedural Sedation Indication: other (roe placement in prolapsed bladder) ASA Class: II Time of Last PO Intake: 04:00 Preparation: barrel washer machine applied, pulse oximeter, capnometry used, supplemental O2 applied, reversal agents at bedside, suction/airway equipment at bedside and IV secured Ketamine: IV Ketamine dose (mg): 120 IV Propofol dose (mg): 45 Complications: none Interventions: oxygen applied Course Vital Signs: Vital signs: Vital Signs Temperature 98.6 F 10/26/21 20:45 Pulse Rate 98 10/26/21 20:45 Respiratory Rate 20 H 10/26/21 20:45 Blood Pressure 108/59 10/26/21 20:45 Pulse Oximetry 95 10/26/21 20:45 MDM - General Adult MDM Narrative: Medical decision making narrative: 66-year-old female with history of incomplete bladder prolapse presents emergency room with acute pain and worsening prolapse. Exam, patient has not reducible complete bladder prolapse with area of bleeding from the vaginal vault and mucosal bleeding from the bladder. Hemoglobin of 11.5 Case was discussed wth Dr. Galvan. I performed procedural sedation and Dr. Galvan placed a roe with return of gross hematuria. However, blood was noted from the bladder. CT the abdomen pelvis showed area of foci of active bleeding internally in the bladder with 10 cm hematoma. Case was discussed with Dr. Mart who recommended OR. Disposition: OR Lab Data: Labs: Lab Results 10/26/21 10/26/21 10/26/21 17:25 17:25 17:25 WBC 11.1 10^3/uL H 10 ^3/uL (4.0-10.0) RBC 3.98 10^6/uL L 10 ^6/uL (4.1-5.3) Hgb 11.5 g/dL g/dL (11.5-15.3) Hct 36.7 % L % (37.0-47.0) MCV 92.2 fl fl (81-99) MCH 28.9 pg pg (28.0-34.0) MCHC 31.3 g/dL g/dL (30.0-36.0) RDW 13.2 % % (12.1-15.1) Plt Count 303 10^3/cmm 10^3 /cmm (130-400) MPV 9.3 fL fL (7.4-10.4) Neut % (Auto) 75.2 % % Lymph % (Auto) 16.2 % % Dickenson % (Auto) 6.0 % % Eos % (Auto) 1.1 % % Baso % (Auto) 0.6 % % Neut # (Auto) 8.33 10^3/uL H 10 ^3/uL (1.8-7.7) Lymph # (Auto) 1.8 10^3/uL 10^3/ uL (0.8-4.8) Dickenson # (Auto) 0.7 10^3/uL 10^3/ uL (0.2-0.9) Eos # (Auto) 0.1 10^3/uL 10^3/ uL (0.0-0.8) Baso # (Auto) 0.1 10^3/uL 10^3/ uL (0.0-0.1) Nucleated RBC % (a uto) 0 % % Nucleated RBCs # 0.0 /100WBC /100W BC PT 12.70 SECONDS SEC ONDS (12.1-14.9) INR 0.92 (0.8-1.2) APTT 28.9 SECONDS SECO NDS (23.9-36.7) Sodium 136 mmol/L mmol/L (136-145) Potassium 4.7 mmol/L mmol/L (3.5-5.1) Chloride 101 mmol/L mmol/L (98-107) Carbon Dioxide 18 mmol/L L mmol/ L (22-29) Anion Gap 21.7 H (5-19) BUN 32 mg/dL H mg/dL (8-23) Creatinine 1.1 mg/dL H mg/dL (0.5-0.9) GFR Calculation 49.7 mL/min L mL/ min (90-130) Glucose 370 mg/dL H mg/dL (65-115) Calculated Osmolal ity 304 mOsm/kg H mOs m/kg (285-295) Calcium 9.3 mg/dL mg/dL (8.5-10.5) Total Bilirubin 0.2 mg/dL mg/dL (0.15-1.2) AST 13 U/L U/L (0-32) ALT 14 U/L U/L (0-33) Alkaline Phosphata se 131 IU/L H IU/L (35-105) Total Protein 6.7 g/dL g/dL (6.6-8.7) Albumin 4.0 g/dL g/dL (3.5-5.2) Globulin 2.7 g/dL g/dL (1.3-4.6) Lipase 30 U/L U/L (13-60) Blood Type Rho(D) Type Antibody Screen Crossmatch 10/26/21 19:44 WBC RBC Hgb Hct MCV MCH MCHC RDW Plt Count MPV Neut % (Auto) Lymph % (Auto) Dickenson % (Auto) Eos % (Auto) Baso % (Auto) Neut # (Auto) Lymph # (Auto) Dickenson # (Auto) Eos # (Auto) Baso # (Auto) Nucleated RBC % (a uto) Nucleated RBCs # PT INR APTT Sodium Potassium Chloride Carbon Dioxide Anion Gap BUN Creatinine GFR Calculation Glucose Calculated Osmolal ity Calcium Total Bilirubin AST ALT Alkaline Phosphata se Total Protein Albumin Globulin Lipase Blood Type O Positive Rho(D) Type Positive Antibody Screen Negative Crossmatch See Detail Imaging Data^: Other Imaging: Radiologist's impression: [address] [id number] Scan ReportSigned Patient: Sj Singh #: [id number]: 5Acct#:[id number]/Sex: 66 / FADM Date: 10/26/21Loc: ERRoom/Bed:Attending Dr: Ordering Provider/Ordering MD: Trice Davila MD Date of Service: 10/26/21 Procedure(s): CT angio chest abdomen pelvis Accession Number(s): [id number] Report Number: [id number] PROCEDURE INFORMATION: Exam: CTA Abdomen and Pelvis Without And With Contrast Exam date and time: 10/26/2021 5:44 PM Age: 66 years old Clinical indication: Abdominal pain; Acute; Prior surgery; Surgery date: 6+ months; Patient HX: Bladder pain x 1 day; Additional info: Eval for active pelvic bleeding TECHNIQUE: Imaging protocol: Computed tomographic angiography of the abdomen and pelvis without and with contrast. 3D rendering (Not supervised by radiologist): MIP and/or 3D reconstructed images were created by the technologist. Radiation optimization: All CT scans at this facility use at least one of these dose optimization techniques: automated exposure control; mA and/or kV adjustment per patient size (includes targeted exams where dose is matched to clinical indication); or iterative reconstruction. Contrast material: VISIPAQUE 320; Contrast volume: 95 ml; Contrast route: INTRAVENOUS (IV); COMPARISON: CT abdomen pelvis wo/w [id number] 03/06/2021 8:41 AM RADIATION DOSE METRICS: Total DLP (mGy-cm): 1281.92 FINDINGS: Mediastinal space: Moderate hiatal hernia. Aorta: No aortic aneurysm. No aortic dissection. Celiac trunk and mesenteric arteries: No occlusion or significant stenosis. Renal arteries: No occlusion or significant stenosis. Right iliac arteries: No occlusion or significant stenosis. Left iliac arteries: No occlusion or significant stenosis. Liver: No mass. Gallbladder and bile ducts: Cholelithiasis. Pancreas: Unremarkable. No mass. No ductal dilation. Spleen: Unremarkable. No splenomegaly. Adrenal glands: Unremarkable. No mass. Kidneys and ureters: Severe bilateral hydronephrosis and hydroureter without focal obstructing lesion. Stomach and bowel: Constipation. Prominent fluid in the small bowel may reflect an ileus. Appendix: No evidence of appendicitis. Intraperitoneal space: Unremarkable. No free air. No significant fluid collection. Lymph nodes: Unremarkable. No enlarged lymph nodes. Urinary bladder: See below. Reproductive: Large hematoma measuring up to 10 cm in size seen in the vaginal area/deep pelvis with a 4.4 mm focal area of prominent contrast enhancement seen anteriorly, series 5, image 251 suggestive of a small area of active bleeding within this hematoma. Bleeding may actually be within a prolapsed urinary bladder. Bones/joints: No acute fracture. No dislocation. Soft tissues: Unremarkable. CT/CT angio chest abdomen pelvis IMPRESSION: 1. Large hematoma measuring up to 10 cm in size seen in the vaginal area/deep pelvis with a 4.4 mm focal area of prominent contrast enhancement seen anteriorly, series 5, image 251 suggestive of a small area of active bleeding within this hematoma. Bleeding may actually be within a prolapsed urinary bladder. 2. Moderate hiatal hernia. 3. Severe bilateral hydronephrosis and hydroureter without focal obstructing lesion. 4. Constipation. 5. Cholelithiasis. 6. Prominent fluid in the small bowel may reflect an ileus. Dictated By:Crow Agee MDSigned By:Crow Agee MDSigned Date/Time:10/26/211899DD/ 1744 Discharge Plan Discharge Patient Disposition: Admitted As Inpatient Clinical Impression: Bladder prolapse, Internal bleeding Condition: Stable Coding Level of Care Code ED Video Poker Floorman for Manas Sánchez
--- NOTE | 2021-10-26 20:32 | PM.OBGYCN ---
Providers/Reason for Consult Consulting Physican/Specialty*: obstetrics gyn physician Reason for Consult*: acute pelvic pain, pelvic prolapse with urinary retension and inability to reduce the prolapse Attending Physician: Bj Obregon MD Primary Care Provider: AGATA Gutierres ARTIST AND REPERTOIRE MANAGER Consult HPI History of Present Illness Sj Singh is a 66 year old female who reports chronic issues with prolapse and is scheduled for la forte colpocleisis with Dr. Sofia in january. She has had a prior vaginal vault suspension that wan not successful several years ago and pessary was not helpful. She is on plavix for cad. She reports that today she fell over her dog and landed on her bottom/prolapsed bladder forcefully. She reported pain at the time and continued to worsen and be unreducable so she came to the ed. Review of Systems General: Reports: 10 or more systems reviewed and unremarkable except in HPI and below : Reports: difficulty voiding, urinary incontinence, hematuria, pelvic pain and prolapse symptoms Psych: Reports: depression Meds/Allergies Home Medications and Allergies Home Medications Medication Instructions Recorded Confirmed Last Taken Type Jardiance 25 mg PO DAILY@10/20/20 09/04/21 01/27/21 07:00 History acetaminophen [Tylenol Extra 1,000 mg PO PRN 10/20/20 09/04/21 Unknown History Strength] albuterol sulfate [ProAir HFA] 2 puff INHALATION Q6H PRN 10/20/20 09/04/21 Unknown History cholecalciferol (vitamin D3) 25 mcg PO DAILY@10/20/20 09/04/21 01/27/21 07:00 History [Vitamin D3] cyclobenzaprine 5 - 10 mg PO TID PRN 10/20/20 09/04/21 Unknown History metformin 1,000 mg PO BID@10/20/20 09/04/21 01/27/21 07:00 History montelukast 10 mg PO DAILY@10/20/20 09/04/21 01/27/21 21:00 History multivitamin 1 tab PO DAILY@10/20/20 09/04/21 01/27/21 07:00 History omeprazole 40 mg PO DAILY@10/20/20 09/04/21 01/27/21 07:00 History sennosides 8.6 mg-docusate sodium 1 tab PO DAILY PRN tab 12/18/20 09/04/21 Unknown History 50 mg tablet potassium chloride 20 mEq 20 meq PO DAILY #90 tab 01/01/21 09/04/21 01/27/21 07:00 Rx tablet,extended release(part/cryst) B12 10,000 mcg PO DAILY 01/09/21 09/04/21 01/27/21 07:00 History levothyroxine 88 mcg PO DAILY 01/09/21 09/04/21 01/27/21 07:00 History clopidogrel 75 mg PO DAILY #90 tab 01/29/21 09/04/21 01/26/21 07:00 Rx furosemide 20 mg PO DAILY #90 tab 01/29/21 09/04/21 01/27/21 07:00 Rx lisinopril 10 mg tablet 10 mg PO DAILY@07 #90 tab 02/05/21 09/04/21 Unknown Rx atorvastatin 40 mg tablet 40 mg PO DAILY 03/12/21 09/04/21 Unknown History scopolamine base 1 mg over 3 days 1 patch TRANSDERMAL Q3D PRN #1 ea 04/03/21 09/04/21 Unknown Rx transdermal patch aspirin 81 mg tablet,delayed 81 mg PO DAILY #30 tab 05/08/21 09/04/21 Unknown Rx release amlodipine 5 mg tablet 5 mg PO DAILY #90 tab 07/24/21 09/04/21 Unknown Rx metoprolol succinate 25 mg 25 mg PO DAILY #90 tab 07/26/21 09/04/21 Unknown Rx tablet,extended release 24 hr ascorbic acid (vitamin C) [Vitamin 500 mg PO DAILY 10/27/21 10/27/21 Unknown History C] cranberry 400 mg PO DAILY 10/27/21 10/27/21 Unknown History Allergies Allergy/AdvReac Type Severity Reaction Status Date / Time Penicillins Allergy Severe ALGY-Hives Verified 08/19/21 10:06 levofloxacin [From Levaquin] Allergy ALGY-Rash Verified 08/19/21 10:06 Current Medications Current Medications Generic Name Dose Route Start Last Admin Trade Name Freq PRN Reason Stop Dose Admin Amlodipine Besylate 5 mg 10/27/21 09:00 10/27/21 09:00 Amlodipine 5 Mg Tablet PO Not Given DAILY MARIO Aspirin 81 mg 10/27/21 09:45 10/27/21 10:07 Aspirin 81 Mg Ec Tablet PO 81 mg DAILY MARIO Administration Atorvastatin Calcium 40 mg 10/27/21 09:00 10/27/21 08:59 Atorvastatin 40 Mg Tablet PO 40 mg DAILY MARIO Administration Sodium Chloride 1,000 mls @ 30 mls/hr 10/26/21 21:00 10/27/21 08:06 Sodium Chloride 0.9% IV 10/27/21 20:59 Not Given .Q24H MARIO Norepinephrine Bitartrate 4 mg 254 mls @ 0 mls/hr 10/26/21 22:30 10/27/21 02:00 / Dextrose IV 4 mcg/min .Q0M MARIO 15.24 mls/hr Titration Protocol Per Protocol Sodium Chloride 1,000 mls @ 50 mls/hr 10/26/21 22:34 10/27/21 08:06 Sodium Chloride 0.9% IV Not Given .Q20H MARIO Insulin Human Lispro 0 unit 10/27/21 08:00 10/27/21 08:59 Insulin Lispro 100 Unit/1 Ml SUBCUT 2 unit WM&BEDTIME MARIO Administration Protocol Levothyroxine Sodium 88 mcg 10/27/21 09:00 10/27/21 08:59 Levothyroxine 88 Mcg Tablet PO 88 mcg DAILY MARIO Administration Metoprolol Succinate 25 mg 10/27/21 09:00 10/27/21 09:00 Metoprolol Succinate Er (24 Hr) 25 Mg Tablet PO Not Given DAILY MARIO Pantoprazole Sodium 40 mg 10/27/21 09:00 10/27/21 08:[address] 40 Mg Tablet PO 40 mg DAILY MARIO Administration Potassium Chloride 20 meq 10/27/21 09:00 10/27/21 08:59 Potassium Chloride Er 20 Meq Tablet PO 20 meq DAILY MARIO Administration PFSH ARTIST AND REPERTOIRE MANAGER PFSH: Medical History Atherosclerosis of coronary artery Bilateral hydronephrosis Secondary to distal ureteral kinking from severe prolapse with cystocele Bladder outlet obstruction Secondary to severe cystocele Chronic cystitis Diabetes GERD (gastroesophageal reflux disease) Gross hematuria Hypertension Hypothyroidism Presence of stent in LAD coronary artery Vaginal vault prolapse Yeast UTI Surgical History H/O cataract removal with insertion of prosthetic lens H/O cystoscopy History of anterior repair with culdoplasty Hx of heart artery stent Family History Brother Thyroid disease Other Chronic kidney disease (CKD) Dementia Diabetes Denies family history of Ovarian cyst Clotting disorder Hyperlipidemia Anesthesia complication Bleeding disorder Lung disease Cancer Hypertension Stroke Other Female Reproductive History: Hx Age of Menarche: 13 Vitals/I&O/Wt Last Vital Signs Temp 98.4 F 10/27/21 04:00 Pulse 79 10/27/21 08:30 Resp 15 10/27/21 08:30 BP 98/51 10/27/21 08:30 Pulse Ox 98 10/27/21 08:30 10/26/21 10/27/21 10/27/21 22:59 06:59 14:59 Intake Total 52 / 52 16.764 / 68.764 240 / 240 Output Total 300 / 300 Balance -248 / -248 16.764 / -231.236 240 / 240 Weight last 48 hrs Weight 135 lb Physical Exam Narrative: EXAM NARRATIVE: alert and oriented x 3, moderate distress noted d/t pain and urinary retention Const: GENERAL APPEARANCE: cooperative and well kempt ORIENTATION/CONSCIOUSNESS: Yes awake, Yes oriented to person, Yes oriented to place and Yes oriented to time HENMT: COMMON NORMALS: normocephalic, hearing grossly normal bilaterally and moist oral mucous membranes HEAD & SCALP: normocephalic MOUTH: Normal oral and palatal mucosa present, lip normal and tongue normal Eye: COMMON NORMALS: conjunctivae normal and no scleral icterus GENERAL EYE: appearance normal, both eyes and all related structures CONJUNCTIVA: Yes conjunctivae normal Neck/C-Spine: COMMON NORMALS: no JVD and Thyroid normal GENERAL: Yes normal visual inspection and Yes trachea midline THYROID: Thyroid normal Lymph: LYMPHATIC: no lymphadenopathy noted Resp: COMMON NORMALS: normal respiratory effort, No retractions and No use of accessory muscles EFFORT & INSPECTION: Yes able to speak in complete sentences Cardio: COMMON NORMALS: no JVD, regular rate and regular rhythm RATE: regular rate RHYTHM: regular rhythm GI: COMMON NORMALS: Soft to palpation, non-tender and No hepatosplenomegaly present INSPECTION: Yes normal to inspection PALPATION: Yes Soft to palpation, Yes No hepatosplenomegaly present and Yes Bladder palpation abnormal (complete prolapse, tensely distended and not reducable) : BLADDER/KIDNEY EXAM: Yes Bladder palpation abnormal (complete prolapse, tensely distended and not reducable) Back/Pelvis: PELVIS: Yes buttocks normal OTHER: complete bladder/vaginal prolapse, not reducable Extremity: COMMON NORMALS: normal to inspection, full ROM and no clubbing, cyanosis or edema Neuro: COMMON NORMALS: moves all extremities, no focal motor deficits and no sensory deficits noted SENSORIUM/ORIENTATION: Yes oriented to person, Yes oriented to place and Yes oriented to time GAIT: Yes Unable to assess gait Psych: COMMON NORMALS: mental status grossly normal, Normal thought process present, cooperative, normal affect, speech normal and activity/motor behavior normal APPEARANCE: Yes well kempt ATTITUDE: Yes calm ACTIVITY/MOTOR BEHAVIOR: Yes appropriate eye contact SPEECH: Yes normal speech MOOD & AFFECT: Yes anxious (due to fear of pain) THOUGHT PROCESS: Normal thought process present Skin: COMMON NORMALS: no rashes or lesions noted, turgor normal and no mottling GENERAL SKIN EXAM: no rashes or lesions noted and turgor normal Urinary Catheter Management^: Roe: Cath Placed During This Visit: yes, but has since been removed by the nurse Reason for Continuing Indwelling Catheter: Chronic Indwelling Urinary Catheter on Admission Urinary Catheter Date of Insertion: 10/26/21 Urinary Catheter Time of Insertion: 21:21 Date Urinary Catheter Removed: 10/26/21 Time Urinary Catheter Discontinued: 21:10 Sepsis: Is patient septic: No A&P Additional A&P Information acute urinary retention due to blood clot within the bladder complete prolapse of the bladder and vaginal vault, not reducible history of chronic uti with macrobid 100 mg bid started for e coli on pm of 10/23 on plavix for anticoagulation d/t cad pt given iv conscious sedation per protocol by Dr. Davila. I then placed a roe catheter with some difficulty due to the urethra being obstructed by the large prolapse. Moderate amount of bloody urine leaked out of the urethra with pressure on the prolapse. Roe drained about 400 ml of frankly bloody urine and would not drain further. Pelvic prolapse remained not reducible. CT results called to Dr. Davila during the procedure show a large blood clot within the bladder and kinking of the ureters. The roe was left in place and the pt was awakened without complication. Consult was placed to Dr. Mart for evacuation of the clot and further evaluation of the bladder. Consult Attestations Medical Necessity Statement: acute pelvic pain acute urinary retension complete prolapse of the vaginal vault and bladder, not reducable Time Spent in Patient Care: Greater than 35 minutes (90 minutes) Coding Level of Care Code Acute Professor Of Historical Theology for Chg Fwd Exam Comprehensive
[2021-10-26] MEDS: ondansetron 2 mg/ML SDV 2 mL 4 MG IVP (20:35)
--- NOTE | 2021-10-26 20:38 | PM.CONSULT ---
Providers/Reason For Consult Consulting Physician/Specialty*: Nhung Villatoro MD Reason for Consult*: management of medical comorbidities Attending Physician: Nhung Villatoro MD Primary Care Provider: AGATA Gutierres History of Present Illness History of Present Illness Sj Singh is a 66 year old female with PMH CAD s/p LAD and diagnol stenting 01/2021 currently on DAPT with ASA, Plavix, h/o PE 09/2020 post COVID pneumonia, CHF, DM, hypothyroidism presneted today with accidental fall when her dog jumped on her causing her to have a mechanical fall. She has a h/o bladder prolapse and shortly afterwards atarted to have profuse bleeding. CT in the ER showed large blood in the prolapsed bladder, planned to be taken to OR for urgent surgery with urology now. Jb any chest pain, dyspnea, palpitations, syncope. For h/o CHF, takes lasix 20mg po daily. Has not needed supplemental 02 since her covid diagnosis. Off eliquis for over 6 months now. Review of Systems General: Reports: 10 or more systems reviewed and unremarkable except in HPI and below Const: Denies: fever(s), chills or body aches Eyes: Denies: change in vision, blurry vision or photophobia ENMT: Reports: hoarseness; Denies: throat pain, enlarged tonsils, odynophagia or nasal congestion Card: Denies: chest pain, palpitations, irregular heart rhythm, edema, swelling of feet/ankles, lightheadedness, pre-syncope, dyspnea on exertion or orthopnea Resp: Denies: dyspnea, productive cough, non-productive cough, wheezing, stridor, pain on inspiration, change in phlegm color, hemoptysis or chest congestion GI: Denies: abdominal pain, nausea, vomiting, hematemesis, coffee ground emesis, dysphagia, heartburn, diarrhea, constipation, GI cramping, change in stool character, hematochezia or melena : Denies: flank pain, difficulty voiding, dysuria, urinary frequency, urinary urgency, urinary hesitancy or hematuria Musc: Denies: neck pain, back pain, extremity pain, joint swelling, joint warmth or deformity Neuro: Denies: headache(s), numbness in extremities, weakness in extremities, sensory changes, difficulty walking, frequent falls, dizziness, vertigo, behavioral changes, Slurred speech present or seizure-like activity Psych: Denies: anxiety, depression, suicidal ideation or homicidal ideation Endo: Denies: polyuria, polydipsia, tired all the time, cold intolerance or hot flashes Damaso/Lymph: Denies: easy bruising or easy bleeding Meds/Allergies Home Medications and Allergies Home Medications Medication Instructions Recorded Confirmed Last Taken Type Jardiance 25 mg PO DAILY@10/20/20 09/04/21 01/27/21 07:00 History acetaminophen [Tylenol Extra 1,000 mg PO PRN 10/20/20 09/04/21 Unknown History Strength] albuterol sulfate [ProAir HFA] 2 puff INHALATION Q6H PRN 10/20/20 09/04/21 Unknown History cholecalciferol (vitamin D3) 25 mcg PO DAILY@10/20/20 09/04/21 01/27/21 07:00 History [Vitamin D3] cyclobenzaprine 5 - 10 mg PO TID PRN 10/20/20 09/04/21 Unknown History metformin 1,000 mg PO BID@10/20/20 09/04/21 01/27/21 07:00 History montelukast 10 mg PO DAILY@10/20/20 09/04/21 01/27/21 21:00 History multivitamin 1 tab PO DAILY@10/20/20 09/04/21 01/27/21 07:00 History omeprazole 40 mg PO DAILY@10/20/20 09/04/21 01/27/21 07:00 History sennosides 8.6 mg-docusate sodium 1 tab PO DAILY PRN tab 12/18/20 09/04/21 Unknown History 50 mg tablet potassium chloride 20 mEq 20 meq PO DAILY #90 tab 01/01/21 09/04/21 01/27/21 07:00 Rx tablet,extended release(part/cryst) B12 10,000 mcg PO DAILY 01/09/21 09/04/21 01/27/21 07:00 History levothyroxine 88 mcg PO DAILY 01/09/21 09/04/21 01/27/21 07:00 History clopidogrel 75 mg PO DAILY #90 tab 01/29/21 09/04/21 01/26/21 07:00 Rx furosemide 20 mg PO DAILY #90 tab 01/29/21 09/04/21 01/27/21 07:00 Rx lisinopril 10 mg tablet 10 mg PO DAILY@07 #90 tab 02/05/21 09/04/21 Unknown Rx atorvastatin 40 mg tablet 40 mg PO DAILY 03/12/21 09/04/21 Unknown History scopolamine base 1 mg over 3 days 1 patch TRANSDERMAL Q3D PRN #1 ea 04/03/21 09/04/21 Unknown Rx transdermal patch aspirin 81 mg tablet,delayed 81 mg PO DAILY #30 tab 05/08/21 09/04/21 Unknown Rx release amlodipine 5 mg tablet 5 mg PO DAILY #90 tab 07/24/21 09/04/21 Unknown Rx metoprolol succinate 25 mg 25 mg PO DAILY #90 tab 07/26/21 09/04/21 Unknown Rx tablet,extended release 24 hr Allergies Allergy/AdvReac Type Severity Reaction Status Date / Time Penicillins Allergy Severe ALGY-Hives Verified 08/19/21 10:06 levofloxacin [From Levaquin] Allergy ALGY-Rash Verified 08/19/21 10:06 PFSH Acute PFSH: Medical History Atherosclerosis of coronary artery Bilateral hydronephrosis Secondary to distal ureteral kinking from severe prolapse with cystocele Bladder outlet obstruction Secondary to severe cystocele Chronic cystitis Diabetes GERD (gastroesophageal reflux disease) Gross hematuria Hypertension Hypothyroidism Presence of stent in LAD coronary artery Vaginal vault prolapse Yeast UTI Surgical History H/O cataract removal with insertion of prosthetic lens H/O cystoscopy History of anterior repair with culdoplasty Hx of heart artery stent Family History Brother Thyroid disease Other Chronic kidney disease (CKD) Dementia Diabetes Denies family history of Ovarian cyst Clotting disorder Hyperlipidemia Anesthesia complication Bleeding disorder Lung disease Cancer Hypertension Stroke Vitals/I&O/Wt Last Vital Signs Temp 98.0 F 10/26/21 17:04 Pulse 110 H 10/26/21 17:04 Resp 20 H 10/26/21 17:41 BP 110/74 10/26/21 17:04 Pulse Ox 94 10/26/21 17:41 10/26/21 10/26/21 10/26/21 06:59 14:59 22:59 Output Total 300 / 300 Balance -300 / -300 Weight last 48 hrs Weight 61.235 kg Physical Exam Narrative: EXAM NARRATIVE: GEN: Awake, alert and oriented, no acute distress CVS: S1S2 N RS: CTA B/L all areas Abd: Soft, nt/nd , bs+ 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 transplanted heart: [place] heart Associated angina: with unspecified angina Qualified Code(s): I25.119 - Atherosclerotic heart disease of [place] coronary artery with unspecified angina pectoris (4) Mitral valve regurgitation: Status: Acute Qualifiers: Cardiac valve disease etiology: nonrheumatic Qualified Code(s): I34.0 - Nonrheumatic mitral (valve) insufficiency (5) Systolic congestive heart failure with reduced left ventricular function, NYHA class 3: Status: Acute Additional A&P Information - No contraindication from medicine standpoint to proceed with urgent surgery - Hold ASA and plavix post operatively until bleeding resolved, plan to re check serial H& H post op and monitor hematuria prior to resuming antiplatelets - Pre op HB 11.5, will check additional post op - CBI per urology - Continue metoprolol, statin, amlodipine - holding Lasix, lisniopril for now given GABINO - clinically appears to be euvolemic at this time, holding lasix, ongoing need for fluids at this time Coding Level of Care Code 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 transplanted heart: [place] heart Associated angina: with unspecified angina Mitral valve regurgitation I34.0 Cardiac valve disease etiology: nonrheumatic Systolic congestive heart failure with reduced left ventricular function, NYHA class 3 I50.20
--- NOTE | 2021-10-26 20:43 | PM.HP ---
Providers/Chief Complaint Admitting Physician: Brittny Primary Care Provider: AGATA Gutierres Chief Complaint: Bladder bleeding History of Present Illness Sj Singh is a 66 year old female who I have seen remotely. She presented to the emergency department today with a history of chronic severe bladder prolapse being worked up for repair. Her chronic condition was exacerbated by a fall and traumatically sitting on the prolapsed bladder. She had increasing pain and trying to push the prolapse back into the vaginal vault but could not. She noticed some bleeding but was unclear exactly where it was coming from. She presented to the emergency department for evaluation. Attempts at replacement of the prolapse were unsuccessful. Gynecology was consulted and attempted reduction of the prolapse but also unsuccessfully. A Erickson catheter was placed and carlitos blood was returned but would not drain significantly. A CT scan was obtained and demonstrated a large clot in the bladder basically filling the entire bladder. I could not see any evidence of bleeding outside of the bladder and the perivesical tissues. She also demonstrated chronic BILATERAL HYDRONEPHROSIS likely from kinking of the distal ureters from chronic prolapse. She has tried pessaries in the past but unsuccessfully. All of this was complicated by her being on chronic Plavix for coronary artery disease with stenting done in January of this year. She follows with Dr. Zafar regularly and tentative plans for prolapse repair have been made for January 2022. She follows regularly with Dr. Sofia. The patient is in a lot of pain because of the distended bladder. Hemodynamically she is stable. She has a couple units of blood available. Because of the Plavix though she is at high risk of bleeding for open surgery. Platelets have been ordered but are not available currently. I have recommended a cystoscopy and clot evacuation if possible. Hopefully we will have a better assessment of the site of bleeding and hopefully can manage it with cautery. If there is an extensive traumatic rent that would require open surgery the procedure will be abandoned until her coagulation status would be safer. She did admit though before the fall she had had some intermittent blood in the urine that she just associated in her mind with the prolapse. I did review her CT scan personally. The bladder is fully prolapsed. There appears to be no active bleeding in the pelvic area. The bladder is full of clot. The introitus opening appears to be much smaller than the clot volume. That would explain the inability to reduce the prolapse. Recommendations: 1. To the operating room emergently for cystoscopy, clot evacuation, possible fulguration. We had talked about exploratory laparotomy but given the likelihood of significant bleeding I have recommended against that until platelets can be transfused and risks better assessed. 2. I have explained that this is a very delicate situation with lots of potential morbidity and even potential mortality given her bleeding risk. I have also explained that if I cannot successfully clear the clot that that procedure will be terminated and she will be put on hold for more definitive treatment until safer. In that timeframe she is likely to experience the same kind of pain she is experiencing now and potentially exacerbation the effect of bilateral hydronephrosis but that short-term risk is outweighed by the extensive risk of surgical intervention in such dubious conditions Review of Systems Const: Reports: malaise; Denies: fever(s) or chills Eyes: Denies: change in vision ENMT: Denies: hoarseness Card: Denies: chest pain or palpitations Resp: Denies: dyspnea or productive cough GI: Reports: abdominal pain and bloating : Reports: urinary urgency, oliguria, hematuria and other (Intermittent hematuria with onset of clot retention tonight) Musc: Reports: joint redness Skin/Breast: Denies: erythema or changes in skin color Neuro: Denies: confusion or Slurred speech present Psych: Denies: anxiety or memory loss Endo: Denies: flushing Damaso/Lymph: Reports: easy bruising and easy bleeding; Denies: enlarged lymph nodes All/Imm: Denies: urticaria or acute wheezing Medications/Allergies Home Medications Medication Instructions Recorded Confirmed Last Taken Type Jardiance 25 mg PO DAILY@10/20/20 09/04/21 01/27/21 07:00 History acetaminophen [Tylenol Extra 1,000 mg PO PRN 10/20/20 09/04/21 Unknown History Strength] albuterol sulfate [ProAir HFA] 2 puff INHALATION Q6H PRN 10/20/20 09/04/21 Unknown History cholecalciferol (vitamin D3) 25 mcg PO DAILY@10/20/20 09/04/21 01/27/21 07:00 History [Vitamin D3] cyclobenzaprine 5 - 10 mg PO TID PRN 10/20/20 09/04/21 Unknown History metformin 1,000 mg PO BID@10/20/20 09/04/21 01/27/21 07:00 History montelukast 10 mg PO DAILY@10/20/20 09/04/21 01/27/21 21:00 History multivitamin 1 tab PO DAILY@10/20/20 09/04/21 01/27/21 07:00 History omeprazole 40 mg PO DAILY@07 10/20/20 09/04/21 01/27/21 07:00 History sennosides 8.6 mg-docusate sodium 1 tab PO DAILY PRN tab 12/18/20 09/04/21 Unknown History 50 mg tablet potassium chloride 20 mEq 20 meq PO DAILY #90 tab 01/01/21 09/04/21 01/27/21 07:00 Rx tablet,extended release(part/cryst) B12 10,000 mcg PO DAILY 01/09/21 09/04/21 01/27/21 07:00 History levothyroxine 88 mcg PO DAILY 01/09/21 09/04/21 01/27/21 07:00 History clopidogrel 75 mg PO DAILY #90 tab 01/29/21 09/04/21 01/26/21 07:00 Rx furosemide 20 mg PO DAILY #90 tab 01/29/21 09/04/21 01/27/21 07:00 Rx lisinopril 10 mg tablet 10 mg PO DAILY@07 #90 tab 02/05/21 09/04/21 Unknown Rx atorvastatin 40 mg tablet 40 mg PO DAILY 03/12/21 09/04/21 Unknown History scopolamine base 1 mg over 3 days 1 patch TRANSDERMAL Q3D PRN #1 ea 04/03/21 09/04/21 Unknown Rx transdermal patch aspirin 81 mg tablet,delayed 81 mg PO DAILY #30 tab 05/08/21 09/04/21 Unknown Rx release amlodipine 5 mg tablet 5 mg PO DAILY #90 tab 07/24/21 09/04/21 Unknown Rx metoprolol succinate 25 mg 25 mg PO DAILY #90 tab 07/26/21 09/04/21 Unknown Rx tablet,extended release 24 hr Allergies Allergy/AdvReac Type Severity Reaction Status Date / Time Penicillins Allergy Severe ALGY-Hives Verified 08/19/21 10:06 levofloxacin [From Levaquin] Allergy ALGY-Rash Verified 08/19/21 10:06 PFSH Acute PFSH: Medical History Atherosclerosis of coronary artery Bilateral hydronephrosis Secondary to distal ureteral kinking from severe prolapse with cystocele Bladder outlet obstruction Secondary to severe cystocele Chronic cystitis Diabetes GERD (gastroesophageal reflux disease) Gross hematuria Hypertension Hypothyroidism Presence of stent in LAD coronary artery Vaginal vault prolapse Yeast UTI Surgical History H/O cataract removal with insertion of prosthetic lens H/O cystoscopy History of anterior repair with culdoplasty Hx of heart artery stent Family History Brother Thyroid disease Other Chronic kidney disease (CKD) Dementia Diabetes Denies family history of Ovarian cyst Clotting disorder Hyperlipidemia Anesthesia complication Bleeding disorder Lung disease Cancer Hypertension Stroke Vitals/I&O/Wt Last Vital Signs Temp 98.0 F 10/26/21 17:04 Pulse 110 H 10/26/21 17:04 Resp 20 H 10/26/21 17:41 BP 110/74 10/26/21 17:04 Pulse Ox 94 10/26/21 17:41 10/26/21 10/26/21 10/26/21 06:59 14:59 22:59 Output Total 300 / 300 Balance -300 / -300 Weight last 48 hrs Weight 135 lb Physical Exam Const: COMMON NORMALS: no acute distress, alert and well nourished GENERAL APPEARANCE: well kempt and well developed ORIENTATION/CONSCIOUSNESS: not confused HENMT: HEAD & SCALP: normocephalic and atraumatic Eye: COMMON NORMALS: conjunctivae normal and no scleral icterus Neck/C-Spine: COMMON NORMALS: full ROM Lymph: LYMPHATIC: no lymphadenopathy noted Resp: COMMON NORMALS: normal respiratory effort EFFORT & INSPECTION: No labored and No Actively coughing AUSCULTATION: clear to auscultation bilaterally Cardio: COMMON NORMALS: regular rate GI: COMMON NORMALS: Soft to palpation and no masses : OTHER: Marked prolapse of bladder. Vaginal vault prolapse is about the size of a cabbage ball. Tense from distention via clot. Some blood in the vaginal area. Erickson catheter draining grossly bloody urine Back/Pelvis: COMMON NORMALS: no CVA tenderness Extremity: OTHER: Mild edema lower extremities no deformity noted Neuro: COMMON NORMALS: no focal motor deficits SENSORIUM/ORIENTATION: Yes alert Psych: COMMON NORMALS: mental status grossly normal APPEARANCE: Yes grossly normal and Yes well kempt ATTITUDE: Yes calm and Yes engaged Skin: COMMON NORMALS: no rashes or lesions noted and no jaundice Data : 10/26/21 17:25 10/26/21 17:25 A&P Assessment and plan (1) Bladder prolapse: Chronic with difficulty maintaining in place. Potential surgery planned for January 2022. Status: Acute (2) Clot retention of urine: Secondary to acute trauma with active intravesical bleeding (sitting on the protruding bladder) Status: Acute (3) Vaginal vault prolapse: Enterocele also seen on CT scan Status: Acute (4) Gross hematuria: Developed CLOT RETENTION Status: Acute (5) Bilateral hydronephrosis: Secondary to distal ureteral kinking from her severe chronic prolapse. Was not present in February of this year although her bladder was clearly thickened consistent with its prolapsing state intermittently. 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
[2021-10-26 20:45] VITALS: BP 108/59; PULSE 98; RESP 20; TEMP 37; O2SAT 95
--- NOTE | 2021-10-26 20:52 | ANES.PREANE2 ---
Pre-Anesthetic Assessment Pre-Anesthetic Assessment: Height/Weight: Height 1.6 m Weight 61.235 kg Temp Pulse Resp BP Pulse Ox 98.0 F 110 H 20 H 110/74 94 10/26/21 17:04 10/26/21 17:04 10/26/21 17:41 10/26/21 17:04 10/26/21 17:41 Preop Diagnosis: vaginal vault prolapse, bladder outlet obstruction, short perineal body Proposed Procedure: Operation Date: 10/26/21 21:00 Proposed Procedures p Cystoscopy(Not Applicable) - Aaron Mart MD s Clot Evacuation Fulguration(Not Applicable) - Aaron Mart MD Was Beta Alvaro taken within 24 hours: Yes Was Clonidine taken within 24 hours: N/A Social: Social History: No alcohol and No tobacco Exam: Pre-Anes Outpt Exam: alert, oriented x 3 and clear to auscultation bilaterally Additional Exam Findings (including area of procedure): tachy, no murmur Airway: Submandibular: WNL Cervical ROM: WNL MP: 2 Dentition: Chipped CV/HEM: CV/HEM: CAD (2 stents this past year), DVT (h/o PE), HTN and VT Comments: H/O MR/TR GI: GI: GERD Metabolic: Metabolic: DM, Hyperlipidemia and Thyroid Anesthetic Plan: ASA status: 3E Anesthesia: General (RSI) Other: PONV Risk of > 500 ml blood loss (7ml/kg in children): No PFSH Anesthesia PFSH: Medical History Atherosclerosis of coronary artery Bladder outlet obstruction Chronic cystitis Diabetes GERD (gastroesophageal reflux disease) Gross hematuria Hypertension Hypothyroidism Presence of stent in LAD coronary artery Vaginal vault prolapse Yeast UTI Surgical History H/O cataract removal with insertion of prosthetic lens H/O cystoscopy History of anterior repair with culdoplasty Hx of heart artery stent Family History Brother Thyroid disease Other Chronic kidney disease (CKD) Dementia Diabetes Denies family history of Ovarian cyst Clotting disorder Hyperlipidemia Anesthesia complication Bleeding disorder Lung disease Cancer Hypertension Stroke Data Anesthesia CBC & Chem 7: 10/26/21 17:25 10/26/21 17:25 Other Labs: Laboratory Results - last 48 hr 10/26/21 10/26/21 10/26/21 17:25 17:25 17:25 WBC 11.1 H RBC 3.98 L Hgb 11.5 Hct 36.7 L MCV 92.2 MCH 28.9 MCHC 31.3 RDW 13.2 Plt Count 303 MPV 9.3 Neut % (Auto) 75.2 Lymph % (Auto) 16.2 [place] % (Auto) 6.0 Eos % (Auto) 1.1 Baso % (Auto) 0.6 Neut # (Auto) 8.33 H Lymph # (Auto) 1.8 [place] # (Auto) 0.7 Eos # (Auto) 0.1 Baso # (Auto) 0.1 Nucleated RBC % (auto) 0 Nucleated RBCs # 0.0 PT 12.70 INR 0.92 APTT 28.9 Sodium 136 Potassium 4.7 Chloride 101 Carbon Dioxide 18 L Anion Gap 21.7 H BUN 32 H Creatinine 1.1 H GFR Calculation 49.7 L Glucose 370 H Calculated Osmolality 304 H Calcium 9.3 Total Bilirubin 0.2 AST 13 ALT 14 Alkaline Phosphatase 131 H Total Protein 6.7 Albumin 4.0 Globulin 2.7 Lipase 30 Cardiac Studies: No Data to Display
--- NOTE | 2021-10-26 22:12 | PM.OP ---
Operative Report Date of procedure: October 26, 2021 Pre-op Diagnosis: vaginal vault prolapse, clot urinary retention Post-op diagnosis: same Post-op Findings: Approximately 800 cc of clot in the bladder. Completely evacuated. No severe bleeding. Fulguration of small oozing areas Procedure Done: 1. Cystoscopy with clot evacuation 2. Fulguration of bladder hemorrhage Implants: 20 [place] three-way Erickson catheter with 30 cc in the balloon Pathology: none sent Surgeon: Brittny Anesthesia: General Estimated blood loss: No active bleeding. About 800 cc of old clot removed Urine output: Not measured Complications: None Findings: 1. Vaginal vault prolapse the size of a cabbage ball. Tense consistent with clot retention and clot distention. 2. About 800 cc of clot evacuated with combination of manual pressure, cystoscope sheath, resectoscope with Ellik evacuator, 24 [place] hematuria catheter barbotage 3. A few small areas of active oozing were easily controlled with fulguration Erickson catheter left in place: 20 [place] three-way light CBI running Condition: stable Disposition: ICU Brief History: `Mrs. 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 She has been on Plavix since cardiac event in January 2021 which has delayed anticipated surgical repair. It was tentatively scheduled with Dr. Sofia in January 2022. Tonight she was playing with her dog who apparently knocked her over and she landed on her very distended prolapsed bladder fairly traumatically and developed gross hematuria and inability to reduce the prolapse. Evaluation in the emergency department revealed a tense distended vaginal vault prolapse that was not reducible. CT scan confirmed that the prolapsed bladder was full of clot, completely. There was no evidence of bladder rupture or pelvic bleeding. Complicated by Plavix on board. She was hemodynamically stable and attempt was planned for cystoscopy clot evacuation if possible. Procedure: After emergent evaluation examination and obtaining of informed consent she was taken to the operating suite on 10/26 where general anesthesia was administered without difficulty after appropriate timeout was performed, SCDs confirmed to be functioning, preoperative antibiotics administered, beta-abraham protocol confirmed. She was prepped and draped in usual sterile fashion in dorsolithotomy position paying careful attention to avoiding pressure points. Exam under anesthesia revealed about a cabbage ball sized vaginal vault prolapse. It was tense consistent with a large amount of clot in the bladder. With some pressure on the prolapsed bladder there was efflux of bloody urine and even some clot through the urethral meatus. A 21 [place] cystoscope was passed but was a very awkward angle it essentially vertical position which was not helpful for drainage of the bladder. A 24 [place] Demetria Couvelaire hematuria catheter was then advanced and the balloon inflated and a large amount of manually barbotaged was then conducted clearing out a large amount of clot. Ultimately this led to enough decompression of the bladder where the prolapse could be reduced which allowed facilitation of passage of a resectoscope sheath and with an Ellik evacuator the remainder of the clot was removed. Once all the clot was removed the bladder was carefully inspected. There were several areas of active oozing and these were easily controlled with fulguration with the super loop. Bladder was heavily trabeculated there was no evidence of any kind of neoplastic process. She had had a CT scan done previously that showed a very thickened bladder wall but I think that was more anatomic change related to her chronic prolapse and again no evidence of a neoplastic process that would explain hematuria beyond the trauma. The bladder was carefully inspected for a bit after fulguration and after confirmation of meticulous hemostasis the bladder was drained with a 20 [place] three-way Erickson catheter 30 cc placed in the balloon and very light CBI was initiated it remained clear. A vaginal pack with Kerlix gauze was utilized to try to keep her vaginal vault prolapse reduced. She was awakened in the operating room and transported to the ICU in stable condition. PLANS: 1. Continue bladder irrigation with light CBI 2. Instructions given to nursing staff in the ICU regarding reduction of the prolapse if it occurs and it is likely to do so again. In the absence of any significant amount of blood clot in the bladder reduction is fairly routine for her and that prolapse occurs essentially daily.
--- NOTE | 2021-10-26 22:19 | PC.NURSE ---
2200 PATIENT TRANSFERRED TO ICU 6, VSS, MILD HYPOTENSIVE. YELLOW URINE TO DEPENDENT DRAINAGE WITH STERILE WATER CBI.
[2021-10-26 22:34] VITALS: BP 88/51; PULSE 91; RESP 16; TEMP 36.9; O2SAT 94
[2021-10-26 23:08] VITALS: PULSE 91; RESP 16; O2SAT 92
[2021-10-26] MEDS: sodium chloride 0.9% 1,000 ML 75 ML IV (23:11)
[2021-10-27] VITALS (48 sets, daily range): BP systolic 89–120; BP diastolic 51–70; PULSE 56–83; RESP 10–23; TEMP 36.7–37; O2SAT 90–99
[2021-10-27 01:10] LABS: Basophils % 0.3 %; Eosinophils % 0.1 %; Hematocrit 28.8 % (37.0-47.0); Hemoglobin 8.8 g/dL (11.5-15.3); Lymphocytes # 1.2 10^3/uL (0.8-4.8); Lymphocytes % 9.9 %; Mean Corpuscular HGB Conc 30.6 g/dL (30.0-36.0); Mean Corpuscular Hemoglobin 28.8 pg (28.0-34.0); Mean Corpuscular Volume 94.1 fl (81-99); Mean Platelet Volume 9.1 fL (7.4-10.4); Monocytes # 0.6 10^3/uL (0.2-0.9); Neutrophils # 9.99 10^3/uL (1.8-7.7); Neutrophils % 84.1 %; Nucleated Red Blood Cells % 0 %; Platelet Count 218 10^3/cmm (130-400); Red Blood Count 3.06 10^6/uL (4.1-5.3); Red Cell Distribution Width 13.4 % (12.1-15.1); White Blood Count 11.9 10^3/uL (4.0-10.0)
[2021-10-27 01:30] LABS: Anion Gap 16.1 (5-19); Blood Urea Nitrogen 28 mg/dL (8-23); Calcium 7.8 mg/dL (8.5-10.5); Carbon Dioxide 19 mmol/L (22-29); Chloride 109 mmol/L (98-107); Glomerular Filtration Rate 55.5 mL/min (90-130); Glucose 232 mg/dL (65-115); Osmolality Calculated 301 mOsm/kg (285-295); Potassium 5.1 mmol/L (3.5-5.1); Sodium 139 mmol/L (136-145)
[2021-10-27 01:32] LABS: Creatinine Clr Calc Pharmacy 48.8646
[2021-10-27 01:48] LABS: Bilirubin Urine Neg (Negative); Blood Urine 3+ (Negative); Glucose Urine UA 4+ (Normal); Ketones Urine Negative (Negative); Leukocyte Esterase Urine Negative (Negative); Nitrate Urine Negative (Negative); Protein Urine Trace (Negative); Specific Gravity, Urine 1.005 (1.005-1.030); Urine Appearance Clear (CLEAR); Urine Color Yellow (Yellow); Urobilinogen Urine Norm (Negative); pH Urine 5 (5-7)
[2021-10-27 01:49] LABS: Add Urine Microscopic? YES
[2021-10-27 01:51] LABS: RBC Urine >100 /hpf (0-2); WBC Urine 15-25 /hpf (0-5)
[2021-10-27 01:52] LABS: Squamous Epithelial Cell Urine 0-4 /hpf (0-5)
[2021-10-27 01:53] LABS: Add Urine Culture? Yes; Amorphous Sediment Urine 2+ /hpf; Bacteria Urine 2+ /hpf
--- NOTE | 2021-10-27 05:53 | ANE.PACU2 ---
Inpatient post-anesthesia follow up: Airway intact: Yes Vital signs: Temperature 98.4 F Pulse Rate 69 Respiratory Rate 14 Blood Pressure 111/61 Pulse Oximetry 99 Oxygen Delivery Me thod Nasal Cannula Oxygen Flow Rate 2 Fraction of Inspir ed Oxygen Hydration adequate: Yes Nausea and vomiting: No Pain level: 2 Mental status: Baseline
[2021-10-27 06:15] LABS: Basophils # 0.1 10^3/uL (0.0-0.1); Basophils % 0.6 %; Eosinophils # 0.1 10^3/uL (0.0-0.8); Eosinophils % 1.2 %; Hematocrit 28.2 % (37.0-47.0); Hemoglobin 8.6 g/dL (11.5-15.3); Lymphocytes # 1.9 10^3/uL (0.8-4.8); Lymphocytes % 22.4 %; Mean Corpuscular HGB Conc 30.5 g/dL (30.0-36.0); Mean Corpuscular Hemoglobin 28.6 pg (28.0-34.0); Mean Corpuscular Volume 93.7 fl (81-99); Mean Platelet Volume 9.2 fL (7.4-10.4); Monocytes # 0.7 10^3/uL (0.2-0.9); Monocytes % 8.3 %; Neutrophils # 5.64 10^3/uL (1.8-7.7); Nucleated Red Blood Cells % 0 %; Platelet Count 218 10^3/cmm (130-400); Red Blood Count 3.01 10^6/uL (4.1-5.3); Red Cell Distribution Width 13.3 % (12.1-15.1); White Blood Count 8.4 10^3/uL (4.0-10.0)
[2021-10-27 07:07] LABS: Alanine Aminotransferase 10 U/L (0-33); Albumin Level 3.1 g/dL (3.5-5.2); Alkaline Phosphatase 70 IU/L (35-105); Anion Gap 13.6 (5-19); Aspartate Amino Transferase 9 U/L (0-32); Blood Urea Nitrogen 23 mg/dL (8-23); Calcium 7.9 mg/dL (8.5-10.5); Carbon Dioxide 21 mmol/L (22-29); Chloride 112 mmol/L (98-107); Globulin 1.9 g/dL (1.3-4.6); Glomerular Filtration Rate 62.6 mL/min (90-130); Glucose 163 mg/dL (65-115); Osmolality Calculated 301 mOsm/kg (285-295); Potassium 4.6 mmol/L (3.5-5.1); Sodium 142 mmol/L (136-145); Total Bilirubin 0.2 mg/dL (0.15-1.2)
--- NOTE | 2021-10-27 07:12 | PC.NURSE ---
Pt arrived to unti unit, direct admit from OR. Pt recovered in ICU. Pt arrived on 6 L oxy mask. BP was low, with MAPs in the 40s and 50s. Pt was receiving second liter bolus of NS. Hospitalist notified and levophed ordered and titratable gtt started shortly after. CBI was in place and continued throughout the shift, with no evidence of bleeding or clots.
[2021-10-27] MEDS: atorvastatin 40 mg Tablet PO (08:59)
[2021-10-27] MEDS: pantoprazole DR 40 mg Tablet PO (08:59)
[2021-10-27] MEDS: levothyroxine 88 mcg Tablet PO (08:59)
[2021-10-27] MEDS: insulin lispro 100 unit/1 mL SUBCUT ×3 (08:59→20:44)
[2021-10-27] MEDS: potassium chloride ER 20 mEq Tablet PO (08:59)
--- NOTE | 2021-10-27 09:20 | P.PN_ITS ---
Subjective Subjective: Interval history: Urology postop day #1: Feeling much better. Bladder has stayed reduced with vaginal packing in place. Urine has remained clear and the CBI has been weaned off with no recurrent hematuria. Feeling much better. Denies shortness of breath, chest pain, mental status changes, increasing abdominal pain etc. No flank pain renal colic etc. No recurrent bleeding. Much reduced anxiety after improvement in her pelvic floor prolapse and overall status. She still is at risk for rebleeding given her anticoagulants up till yesterday. I will restart her aspirin today and probably the Plavix tomorrow if she remains clear. We will keep her inpatient and if all goes well, remove the Erickson catheter for voiding trial tomorrow and potentially discharge. I reviewed all of the above with the patient and with hospitalist Dr. Obregon. She is anemic but tolerating it well and is having no further bleeding so I do not think she needs a transfusion now. Her creatinine is 0.9 and I expect that her upper urinary tracts are draining better with her bladder reduced. We will place her on Septra DS to cover her instrumentation risks, her history of recurrent UTIs, poor emptying, and upper urinary tract dilation. Vitals/I&O/Wt Last Vital Signs Temp 98.4 F 10/27/21 04:00 Pulse 79 10/27/21 08:30 Resp 15 10/27/21 08:30 BP 98/51 10/27/21 08:30 Pulse Ox 98 10/27/21 08:30 10/26/21 10/27/21 10/27/21 22:59 06:59 14:59 Intake Total 52 / 52 16.764 / 68.764 240 / 240 Output Total 300 / 300 Balance -248 / -248 16.764 / -231.236 240 / 240 Weight last 48 hrs Weight 135 lb Physical Exam Const: COMMON NORMALS: no acute distress, alert and well nourished GENERAL APPEARANCE: well kempt and well developed ORIENTATION/CONSCIOUSNESS: not confused HENMT: COMMON NORMALS: normocephalic and atraumatic HEAD & SCALP: normocephalic and atraumatic Neck/C-Spine: COMMON NORMALS: full ROM Resp: COMMON NORMALS: normal respiratory effort EFFORT & INSPECTION: No labored and No Actively coughing : OTHER: No recurrent prolapse. Urine clear yellow without CBI running. Neuro: COMMON NORMALS: no focal motor deficits SENSORIUM/ORIENTATION: Yes alert Psych: COMMON NORMALS: mental status grossly normal APPEARANCE: Yes grossly normal and Yes well kempt ATTITUDE: Yes calm and Yes engaged Skin: COMMON NORMALS: no rashes or lesions noted and no jaundice GENERAL SKIN EXAM: no rashes or lesions noted Urinary Catheter Management^: Erickson: Cath Placed During This Visit: yes, but has since been removed by the nurse Reason for Continuing Indwelling Catheter: Chronic Indwelling Urinary Catheter on Admission Urinary Catheter Date of Insertion: 10/26/21 Urinary Catheter Time of Insertion: 21: Date Urinary Catheter Removed: 10/26/21 Time Urinary Catheter Discontinued: 21:10 Data : 10/27/21 06:05 10/27/21 06:05 A&P Assessment and plan (1) Clot retention of urine: Secondary to acute trauma with active intravesical bleeding (sitting on the protruding bladder) Catheter functioning well with clear yellow urine Status: Resolved (2) Vaginal vault prolapse: Enterocele also seen on CT scan Chronic with difficulty maintaining in place. Potential surgery planned for January 2022. Will probably need to be moved up if risk assessment via cardiology would allow that. Status: Acute (3) Gross hematuria: Developed CLOT RETENTION Status: Resolved (4) Bilateral hydronephrosis: Secondary to distal ureteral kinking from her severe chronic prolapse. Was not present in February of this year although her bladder was clearly thickened consistent with its prolapsing state intermittently. Creatinine is better today. I expect with her bladder and pelvic floor prolapse reduced the overall renal function will be better Status: Chronic Attestations Medical Necessity Statement*: Still high risk for bleeding. So far doing well. Hopefully can do a voiding trial tomorrow and if no recurrent bleeding discharge tomorrow afternoon. 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
[2021-10-27 09:33] LABS: Glucose Point of Care 144 mg/dL (70-110)
[2021-10-27] MEDS: aspirin 81 mg EC Tablet PO (10:07)
[2021-10-27] MEDS: guaiFENesin 600 mg Tablet PO ×2 (10:24→17:53)
[2021-10-27] MEDS: acetaminophen 325 mg Tablet 650 MG PO (12:20)
[2021-10-27 12:45] LABS: Glucose Point of Care 153 mg/dL (70-110)
--- NOTE | 2021-10-27 14:11 | PM.PN ---
Subjective Subjective: Interval history: Patient was seen this morning, Dr. Mart is at bedside, denies any chest pain, no palpitations, no lightheadedness, no dizziness, no nausea, vomiting, no abdominal pain complaints Vitals/I&O/Wt Last Vital Signs Temp 98.4 F 10/27/21 04:00 Pulse 75 10/27/21 12:00 Resp 15 10/27/21 12:00 BP 114/68 10/27/21 12:00 Pulse Ox 96 10/27/21 12:00 10/26/21 10/27/21 10/27/21 22:59 06:59 14:59 Intake Total 52 / 52 16.764 / 68.764 480 / 480 Output Total 300 / 300 Balance -248 / -248 16.764 / -231.236 480 / 480 Weight last 48 hrs Weight 61.235 kg Physical Exam Const: COMMON NORMALS: no acute distress and patient oriented x3 HENMT: COMMON NORMALS: normocephalic HEAD & SCALP: normocephalic Resp: COMMON NORMALS: normal respiratory effort, No retractions, No use of accessory muscles and clear to auscultation bilaterally AUSCULTATION: clear to auscultation bilaterally Cardio: COMMON NORMALS: regular rate, regular rhythm, S1 normal heart sound present and S2 normal heart sound present RATE: regular rate RHYTHM: regular rhythm HEART SOUNDS: S1 normal heart sound present and S2 normal heart sound present GI: COMMON NORMALS: Normal to inspection, nondistended, normoactive bowel sounds present, Soft to palpation and non-tender PALPATION: Yes Soft to palpation Extremity: COMMON NORMALS: no pedal edema Neuro: COMMON NORMALS: patient oriented x3 Psych: COMMON NORMALS: mental status grossly normal Urinary Catheter Management^: Erickson: Cath Placed During This Visit: yes, but has since been removed by the nurse Reason for Continuing Indwelling Catheter: Chronic Indwelling Urinary Catheter on Admission Urinary Catheter Date of Insertion: 10/26/21 Urinary Catheter Time of Insertion: 21:21 Date Urinary Catheter Removed: 10/26/21 Time Urinary Catheter Discontinued: 21:10 Data : 10/27/21 06:05 10/27/21 06:05 A&P Assessment and plan (1) Bladder prolapse: -Status post cystoscopy with clot evacuation, fulguration of bladder hemorrhage -Bladder has stayed reduced, vaginal packing in place -CBI has been discontinued -Resume aspirin, monitor for bleeding, monitor for bloody urine output, tomorrow consider reinstituting Plavix -Monitor hemoglobin, hemoglobin 8.6, monitor this evening monitor blood pressures, wean off Levophed -Continue Bactrim -Start midodrine 5 mg 3 times daily -Moved to general medical floors Status: Acute (2) Clot retention of urine: Status: Resolved (3) Atherosclerosis of coronary artery: Status: Acute Qualifiers: Coronary Disease-Associated Artery/Lesion type: [place] artery [place] vs. transplanted heart: [place] heart Associated angina: with unspecified angina Qualified Code(s): I25.119 - Atherosclerotic heart disease of [place] coronary artery with unspecified angina pectoris (4) Mitral valve regurgitation: Status: Acute Qualifiers: Cardiac valve disease etiology: nonrheumatic Qualified Code(s): I34.0 - Nonrheumatic mitral (valve) insufficiency (5) Systolic congestive heart failure with reduced left ventricular function, NYHA class 3: Status: Acute Additional A&P Information - CBI per urology - Continue metoprolol, statin, amlodipine - holding Lasix, lisniopril for now given GABINO - clinically appears to be euvolemic at this time, holding lasix, ongoing need for fluids at this time Attestations Medical Necessity Statement*: Continue hospitalization for bladder prolapse, urinary tract infection, anemia, low blood pressure Coding Level of Care Code 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 transplanted heart: [place] heart Associated angina: with unspecified angina Mitral valve regurgitation I34.0 Cardiac valve disease etiology: nonrheumatic Systolic congestive heart failure with reduced left ventricular function, NYHA class 3 I50.20
[2021-10-27 14:28] LABS: Basophils # 0.1 10^3/uL (0.0-0.1); Basophils % 0.8 %; Eosinophils # 0.1 10^3/uL (0.0-0.8); Eosinophils % 1.6 %; Hematocrit 26.8 % (37.0-47.0); Hemoglobin 8.1 g/dL (11.5-15.3); Lymphocytes # 1.8 10^3/uL (0.8-4.8); Lymphocytes % 24.2 %; Mean Corpuscular HGB Conc 30.2 g/dL (30.0-36.0); Mean Corpuscular Hemoglobin 28.3 pg (28.0-34.0); Mean Corpuscular Volume 93.7 fl (81-99); Mean Platelet Volume 9.6 fL (7.4-10.4); Monocytes # 0.6 10^3/uL (0.2-0.9); Monocytes % 7.5 %; Neutrophils # 4.77 10^3/uL (1.8-7.7); Neutrophils % 65.2 %; Nucleated Red Blood Cells % 0 %; Platelet Count 208 10^3/cmm (130-400); Red Blood Count 2.86 10^6/uL (4.1-5.3); Red Cell Distribution Width 13.6 % (12.1-15.1); White Blood Count 7.3 10^3/uL (4.0-10.0)
[2021-10-27] MEDS: midodrine 5 mg TABLET PO ×2 (16:03→22:50)
[2021-10-27] MEDS: phenazopyridine 100 mg Tablet 200 MG PO (17:53)
[2021-10-27] MEDS: sulfamethoxazole-trimeth DS 160-800 mg Tablet 1 TAB PO (17:53)
[2021-10-27 19:27] LABS: Glucose Point of Care 131 mg/dL (70-110)
[2021-10-27 20:07] LABS: Glucose Point of Care 179 mg/dL (70-110)
[2021-10-27] MEDS: montelukast sodium 10 mg Tablet PO (20:44)
[2021-10-28] VITALS (119 sets, daily range): BP systolic 89–154; BP diastolic 41–89; PULSE 55–97; RESP 0–28; TEMP 36.9; O2SAT 81–99
[2021-10-28] MEDS: acetaminophen 325 mg Tablet 650 MG PO ×2 (03:42→15:20)
[2021-10-28 05:24] LABS: Basophils # 0.1 10^3/uL (0.0-0.1); Basophils % 0.9 %; Eosinophils # 0.2 10^3/uL (0.0-0.8); Eosinophils % 3.3 %; Hematocrit 26.8 % (37.0-47.0); Hemoglobin 8.2 g/dL (11.5-15.3); Lymphocytes # 1.6 10^3/uL (0.8-4.8); Lymphocytes % 28.6 %; Mean Corpuscular HGB Conc 30.6 g/dL (30.0-36.0); Mean Corpuscular Hemoglobin 28.9 pg (28.0-34.0); Mean Corpuscular Volume 94.4 fl (81-99); Mean Platelet Volume 9.6 fL (7.4-10.4); Monocytes # 0.4 10^3/uL (0.2-0.9); Monocytes % 7.9 %; Neutrophils # 3.21 10^3/uL (1.8-7.7); Neutrophils % 58.9 %; Nucleated Red Blood Cells % 0 %; Platelet Count 178 10^3/cmm (130-400); Red Blood Count 2.84 10^6/uL (4.1-5.3); Red Cell Distribution Width 13.5 % (12.1-15.1); White Blood Count 5.5 10^3/uL (4.0-10.0)
[2021-10-28] MEDS: midodrine 5 mg TABLET PO (05:35)
[2021-10-28 05:47] LABS: Alanine Aminotransferase 9 U/L (0-33); Albumin Level 2.9 g/dL (3.5-5.2); Alkaline Phosphatase 60 IU/L (35-105); Anion Gap 14.4 (5-19); Aspartate Amino Transferase 10 U/L (0-32); Blood Urea Nitrogen 14 mg/dL (8-23); Calcium 8.3 mg/dL (8.5-10.5); Carbon Dioxide 20 mmol/L (22-29); Chloride 109 mmol/L (98-107); Globulin 2.2 g/dL (1.3-4.6); Glomerular Filtration Rate 71.8 mL/min (90-130); Glucose 106 mg/dL (65-115); Magnesium 1.6 mg/dL (1.7-2.3); Osmolality Calculated 289 mOsm/kg (285-295); Potassium 4.4 mmol/L (3.5-5.1); Sodium 139 mmol/L (136-145); Total Bilirubin 0.2 mg/dL (0.15-1.2); Total Protein 5.1 g/dL (6.6-8.7)
--- NOTE | 2021-10-28 06:31 | PC.NURSE ---
Frequent safety and comfort rounds preformed. Pt slept well throughout the night. Pt complained of some chest pain from where dog had jumped on her, see MAR. Pt CBI was stopped at 0300. Dr. Mart arrived at 0615 and removed the vaginal packing and instructed me to remove catheter. Catheter was removed at [address] Mart instructed patient that if bladder prolapses again to put it back like normal and that some blood in the urine is acceptable.
--- NOTE | 2021-10-28 06:44 | PM.PN ---
Subjective Subjective: Interval history: Did well overnight. Urine is slightly darker but no significant hematuria. Tolerating catheter well. Very anxious about plans related to pelvic floor prolapse treatment. Vaginal pack removed, Erickson catheter removed. Will observe over the day and if she does well then discharge this afternoon or evening. Can restart Plavix today. Still some risk for bleeding though. Medications: Reviewed: Yes Vitals/I&O/Wt Last Vital Signs Temp 98.0 F 10/27/21 19:30 Pulse 63 10/28/21 05:57 Resp 12 10/28/21 04:30 BP 109/62 10/28/21 04:30 Pulse Ox 95 10/28/21 04:30 10/27/21 10/27/21 10/28/21 14:59 22:59 06:59 Intake Total 556.2 / 556.2 788.58 / 1344.78 780 / 2124.78 Output Total 1450 / 1450 Balance 556.2 / 556.2 788.58 / 1344.78 -670 / 674.78 Weight last 48 hrs Weight 134 lb 6.4 oz Weight 135 lb Physical Exam Const: COMMON NORMALS: no acute distress, alert and well nourished GENERAL APPEARANCE: well kempt and well developed ORIENTATION/CONSCIOUSNESS: not confused HENMT: COMMON NORMALS: normocephalic and atraumatic HEAD & SCALP: normocephalic and atraumatic Eye: COMMON NORMALS: conjunctivae normal and no scleral icterus CONJUNCTIVA: Yes conjunctivae normal Neck/C-Spine: COMMON NORMALS: full ROM GENERAL: Yes normal visual inspection Resp: COMMON NORMALS: normal respiratory effort EFFORT & INSPECTION: No labored and No Actively coughing : OTHER: No vaginal bleeding. Pack removed without difficulty. No blood around the catheter. Plan for Erickson catheter removal. Neuro: COMMON NORMALS: no focal motor deficits SENSORIUM/ORIENTATION: Yes alert Psych: COMMON NORMALS: mental status grossly normal APPEARANCE: Yes grossly normal and Yes well kempt ATTITUDE: Yes calm and Yes engaged Skin: COMMON NORMALS: no rashes or lesions noted and no jaundice GENERAL SKIN EXAM: no rashes or lesions noted Urinary Catheter Management^: Erickson: Cath Placed During This Visit: yes, but has since been removed by the nurse Reason for Continuing Indwelling Catheter: Accurate Measurement of Urinary Output in Critically Ill Patients Urinary Catheter Date of Insertion: 10/26/21 Urinary Catheter Time of Insertion: 21:21 Date Urinary Catheter Removed: 10/28/21 Time Urinary Catheter Discontinued: 06:31 Data : 10/28/21 04:44 10/28/21 04:44 Attestations Medical Necessity Statement*: Hopefully can be discharged later today if no recurrent bleeding once starting Plavix back up. 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
[2021-10-28 08:00] LABS: Glucose Point of Care 131 mg/dL (70-110)
[2021-10-28] MEDS: pantoprazole DR 40 mg Tablet PO (08:44)
[2021-10-28] MEDS: levothyroxine 88 mcg Tablet PO (08:44)
[2021-10-28] MEDS: atorvastatin 40 mg Tablet PO (08:45)
[2021-10-28] MEDS: sennosides-docusate Tablet 1 TAB PO (08:45)
[2021-10-28] MEDS: guaiFENesin 600 mg Tablet PO (08:45)
[2021-10-28] MEDS: aspirin 81 mg EC Tablet PO (08:45)
[2021-10-28] MEDS: potassium chloride ER 20 mEq Tablet PO (08:45)
[2021-10-28] MEDS: sulfamethoxazole-trimeth DS 160-800 mg Tablet 1 TAB PO (08:46)
--- NOTE | 2021-10-28 09:15 | PC.CHAP ---
Pastoral Care Encounter/Spiritual Assessment Type of Contact [] Declined aeronautical engineering teacher visit [] Patient/Family/Request visit [] Outpatient visit [] Follow-up visit [] Physician referral [] Code/Alert [x] Routine visit [] Staff referral [] Actively dying [] Patient sleeping [] Family support [] [] Out of room [] Palliative care [] [] Receiving care in room [] Pre-surgical visit [] Trauma [] Long length of stay [x] ICU visit [] Other: Relational/Emotional Strength [] Patient feels connected with others/family/visitors/staff [] Distress [] Loneliness/isolation [] Abandonment Spirituality of Patient [] Person of Nancie [] Attends Sikh of their Nancie [] Believes in Prayer [] Reads Bible or Presybeterian materials [] There are Spiritual issues to be addressed Tenant Selector Interventions [x] Prayer [x] Active listening [x] Non-anxious presence [x] Spiritual/emotional support [] Crisis/trauma care [] Spiritual counseling [] Bereavement support [] Provided bereavement packet [] Provided Bible/devotional materials [] Provided toy/stuffed animal, coloring book to patient or family member [] Provided Communion [] Anointing/[place] [] Salvation [x] Completed spiritual assessment [] Other: Impact on Illness or Injury [] Angry [] Fearful [] Anxious [] Often cries [] Exhaustion [] Unable to work [] Unable to attend latter-day [] Unable to walk/stand [] Unable to read [] Unable to drive [] Unable to eat/drink [] Unable to sleep [] Unable to be with family [] Patient intubated [] Other: Summary patient sitting up in chair.. cold Time spent with patient 5 min
[2021-10-28 11:22] LABS: Glucose Point of Care 180 mg/dL (70-110)
[2021-10-28] MEDS: insulin lispro 100 unit/1 mL SUBCUT (12:31)
--- NOTE | 2021-10-28 13:06 | PM.PN ---
Subjective Subjective: Interval history: Patient was seen and examined this morning, deny any hematuraia, SOB,Chest pain.Overall she is doing fine.No active complain. Vitals and labs have been reviewed. H&H is stable Medications: Reviewed: Yes Vitals/I&O/Wt Last Vital Signs Temp 98.0 F 10/27/21 19:30 Pulse 74 10/28/21 10:20 Resp 17 10/28/21 10:20 BP 117/64 10/28/21 10:10 Pulse Ox 96 10/28/21 10:20 10/27/21 10/28/21 10/28/21 22:59 06:59 14:59 Intake Total 788.58 / 1344.78 780 / 2124.78 Output Total 1450 / 1450 100 / 100 Balance 788.58 / 1344.78 -670 / 674.78 -100 / -100 Weight last 48 hrs Weight 60.963 kg Weight 61.235 kg Physical Exam Const: COMMON NORMALS: patient oriented x3 HENMT: COMMON NORMALS: normocephalic and atraumatic HEAD & SCALP: normocephalic and atraumatic Resp: COMMON NORMALS: clear to auscultation bilaterally EFFORT & INSPECTION: Yes symmetric chest movement AUSCULTATION: clear to auscultation bilaterally Cardio: COMMON NORMALS: regular rate, regular rhythm, S1 normal heart sound present, S2 normal heart sound present, No gallops present (Cardio), No murmurs present (Cardio), No rub (Cardio) and Peripheral pulses 2+ throughout RATE: regular rate RHYTHM: regular rhythm HEART SOUNDS: S1 normal heart sound present and S2 normal heart sound present PERIPHERAL PULSES: Peripheral pulses 2+ throughout GI: COMMON NORMALS: Normal to inspection, nondistended, normoactive bowel sounds present, Soft to palpation, non-tender, No hepatosplenomegaly present and no masses AUSCULTATION: Yes normoactive bowel sounds PALPATION: Yes Soft to palpation and Yes No hepatosplenomegaly present RECTAL EXAM: deferred Extremity: COMMON NORMALS: no clubbing, cyanosis or edema and no pedal edema Neuro: COMMON NORMALS: patient oriented x3 Urinary Catheter Management^: Erickson: Cath Placed During This Visit: yes, but has since been removed by the nurse Reason for Continuing Indwelling Catheter: Accurate Measurement of Urinary Output in Critically Ill Patients Urinary Catheter Date of Insertion: 10/26/21 Urinary Catheter Time of Insertion: 21:21 Date Urinary Catheter Removed: 10/28/21 Time Urinary Catheter Discontinued: 06:31 Data : 10/28/21 04:44 10/28/21 04:44 Micro: Microbiology 10/27/21 01:05 Urine Culture - Preliminary Urine,Clean Catch A&P Assessment and plan (1) Bladder prolapse: -Status post cystoscopy with clot evacuation, fulguration of bladder hemorrhage -Bladder has stayed reduced, vaginal packing in place -CBI has been discontinued -Ok to Resume aspirin, -Ok to resume Plavix by 10/30. -Monitor hemoglobin -Continue Bactrim -On midodrine 5 mg 3 times daily prn -Moved to general medical floors Status: Acute (2) Clot retention of urine: Status: Resolved (3) Atherosclerosis of coronary artery: Status: Acute Qualifiers: Associated angina: with unspecified angina Coronary Disease-Associated Artery/Lesion type: [place] artery [place] vs. transplanted heart: [place] heart Qualified Code(s): I25.119 - Atherosclerotic heart disease of [place] coronary artery with unspecified angina pectoris (4) Mitral valve regurgitation: Status: Acute Qualifiers: Cardiac valve disease etiology: nonrheumatic Qualified Code(s): I34.0 - Nonrheumatic mitral (valve) insufficiency (5) Systolic congestive heart failure with reduced left ventricular function, NYHA class 3: Status: Acute Additional A&P Information - Off CBI - holding Lasix, lisniopril for now given GABINO - clinically appears to be euvolemic at this time, holding lasix, ongoing need for fluids at this time Attestations Medical Necessity Statement*: Per Primary Team Coding Level of Care Code Acute 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 transplanted heart: [place] heart Mitral valve regurgitation I34.0 Cardiac valve disease etiology: nonrheumatic Systolic congestive heart failure with reduced left ventricular function, NYHA class 3 I50.20
--- NOTE | 2021-10-28 15:17 | ECG_ITS ---
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: : 1955 Requested By: Edward Kerns Order Number: [id number] Reading MD: MAC BOWMAN Measurements Intervals Celestine Rate: 71 P: 47 MN: 163 QRS: -25 QRSD: 99 T: 66 QT: 380 QTc: 415 Interpretive Statements SINUS RHYTHM WITH OCCASIONAL SUPRAVENTRICULAR PREMATURE COMPLEXES BORDERLINE LEFT AXIS DEVIATION [QRS AXIS < -20] NONSPECIFIC T-WAVE ABNORMALITY Compared to ECG 04/03/2021 13:54:51 T-wave abnormality now present Left ventricular hypertrophy no longer present ST (T wave) deviation no longer present Myocardial infarct finding no longer present Electronically Signed On 10-28-2021 18:58:09 SANDER MACHINE by MAC BOWMAN [id number]
--- NOTE | 2021-10-28 15:39 | PM.DCS ---
Discharge Providers Date of Admission: 10/26/21 22:56 Date of Discharge: October 28, 2021 Attending Provider at Admission: Aaron Mart MD Attending Provider at Discharge: Edward Kerns MD Primary Care Provider: AGATA Gutierres Diagnoses at Discharge Discharge Diagnosis (1) Bladder prolapse: Status: Acute (2) Clot retention of urine: Status: Resolved Permanent problem details: Secondary to trauma of the bladder by falling and sitting abruptly and squarely on the prolapsed bladder leading to bleeding that was much more severe because of her chronic anticoagulation. (3) Atherosclerosis of coronary artery: Status: Acute Qualifiers: Coronary Disease-Associated Artery/Lesion type: [place] artery [place] vs. transplanted heart: [place] heart Associated angina: with unspecified angina Qualified Code(s): I25.119 - Atherosclerotic heart disease of [place] coronary artery with unspecified angina pectoris (4) Mitral valve regurgitation: Status: Acute Qualifiers: Cardiac valve disease etiology: nonrheumatic Qualified Code(s): I34.0 - Nonrheumatic mitral (valve) insufficiency (5) Systolic congestive heart failure with reduced left ventricular function, NYHA class 3: Status: Acute Reason for Visit Reason for Visit: Bladder bleeding Hospital Course Hospital Course Admitted through the ER for severe bladder pain with complete vaginal vault prolapse. CT scan demonstrated huge amount of clot in the bladder that was too large to pull out without anesthesia. Taken emergently to the operating room for clot evacuation which was successful although very tenuous prolonged procedure. There were a couple areas of minor oozing which were fulgurated. Postoperatively she did well. Was weaned off of CBI by postoperative day #1 and her urine remained clear. She was started on aspirin on postop day #1 with plans to restart her Plavix on postop day #3 at home. Discharged on postoperative day #2 in stable condition with clear urine. Plans were made for consultation with Dr. Zafar and Dr. Sofia for expediting her pelvic floor surgery Physical Exam Const: COMMON NORMALS: no acute distress, alert and well nourished GENERAL APPEARANCE: well kempt and well developed ORIENTATION/CONSCIOUSNESS: not confused Eye: COMMON NORMALS: conjunctivae normal and no scleral icterus CONJUNCTIVA: Yes conjunctivae normal Neck/C-Spine: COMMON NORMALS: full ROM GENERAL: Yes normal visual inspection Resp: COMMON NORMALS: normal respiratory effort EFFORT & INSPECTION: No labored and No Actively coughing : OTHER: Vaginal packing was removed on day of discharge. No active bleeding in the vagina. Bladder state and during the short period of examination. Neuro: COMMON NORMALS: no focal motor deficits SENSORIUM/ORIENTATION: Yes alert Psych: COMMON NORMALS: mental status grossly normal APPEARANCE: Yes grossly normal and Yes well kempt ATTITUDE: Yes calm and Yes engaged Skin: COMMON NORMALS: no rashes or lesions noted and no jaundice GENERAL SKIN EXAM: no rashes or lesions noted Urinary Catheter Management^: Erickson: Cath Placed During This Visit: yes, but has since been removed by the nurse Reason for Continuing Indwelling Catheter: Accurate Measurement of Urinary Output in Critically Ill Patients Urinary Catheter Date of Insertion: 10/26/21 Urinary Catheter Time of Insertion: : Date Urinary Catheter Removed: 10/28/21 Time Urinary Catheter Discontinued: 06:31 Discharge Data Data Completed and Pending: Completed Studies During Hospitalization Category Date Time Status CT angio chest ab domen pelvis Urgen t Cat Scan 10/26/21 17:44 Completed Pending at discharge Category Date Time Status ABO/Rh Type Stat Lab 10/26/21 19:44 Results Complete Blood Co unt w/Auto AM LABS Lab 10/29/21 04:00 Ordered Complete Crossmat ch Stat Lab 10/26/21 19:44 Results Comprehensive Met abolic Panel AM LA BS Lab 10/29/21 04:00 Ordered Comprehensive Met abolic Panel AM LA BS Lab 10/30/21 04:00 Ordered Leukocyte Reduced RBC Stat Lab 10/26/21 19:44 Results Magnesium AM LABS Lab 10/29/21 04:00 Ordered Magnesium AM LABS Lab 10/30/21 04:00 Ordered Platelets Leuko-R educed Stat Lab 10/26/21 19:44 Results Type and Screen S tat Lab 10/26/21 19:44 Results Urine Culture Sta t Lab 10/27/21 01:05 Results Labs from last 24 hours 10/28/21 10/28/21 10/28/21 11:00 07:55 04:44 WBC RBC Hgb Hct MCV MCH MCHC RDW Plt Count MPV Neut % (Auto) Lymph % (Auto) [place] % (Auto) Eos % (Auto) Baso % (Auto) Neut # (Auto) Lymph # (Auto) [place] # (Auto) Eos # (Auto) Baso # (Auto) Nucleated RBC % (a uto) Nucleated RBCs # Sodium 139 Potassium 4.4 Chloride 109 H Carbon Dioxide 20 L Anion Gap 14.4 BUN 14 Creatinine 0.8 GFR Calculation 71.8 L Glucose 106 POC Glucose 180 H 131 H Calculated Osmolal ity 289 Calcium 8.3 L Magnesium 1.6 L Total Bilirubin 0.2 AST 10 ALT 9 Alkaline Phosphata se 60 Total Protein 5.1 L Albumin 2.9 L Globulin 2.2 10/28/21 10/27/21 10/27/21 04:44 20:01 17:35 WBC 5.5 RBC 2.84 L Hgb 8.2 L Hct 26.8 L MCV 94.4 MCH 28.9 MCHC 30.6 RDW 13.5 Plt Count 178 MPV 9.6 Neut % (Auto) 58.9 Lymph % (Auto) 28.6 [place] % (Auto) 7.9 Eos % (Auto) 3.3 Baso % (Auto) 0.9 Neut # (Auto) 3.21 Lymph # (Auto) 1.6 [place] # (Auto) 0.4 Eos # (Auto) 0.2 Baso # (Auto) 0.1 Nucleated RBC % (a uto) 0 Nucleated RBCs # 0.0 Sodium Potassium Chloride Carbon Dioxide Anion Gap BUN Creatinine GFR Calculation Glucose POC Glucose 179 H 131 H Calculated Osmolal ity Calcium Magnesium Total Bilirubin AST ALT Alkaline Phosphata se Total Protein Albumin Globulin Vitals: Last Vital Signs Temp 98.0 F 10/27/21 19:30 Pulse 70 10/28/21 15:15 Resp 13 10/28/21 15:15 BP 90/49 10/28/21 15:15 Pulse Ox 96 10/28/21 15:15 Discharge Plan Discharge Patient Disposition: Home Condition: Stable Prescriptions: Continued sennosides-docusate sodium 8.6-50 mg tablet 2 tab PO DAILY RF: 0 aspirin 81 mg tablet,delayed release (DR/EC) 81 mg PO DAILY Qty: 30 RF: 3 atorvastatin 40 mg tablet 40 mg PO DAILY RF: 0 scopolamine base 1 mg over 3 days patch 3 day 1 patch transdermal Q3D PRN (Reason: nausea and vomiting) Qty: 1 RF: 0 multivitamin Tablet 1 tab PO DAILY@07 RF: 0 cyclobenzaprine 10 mg tablet 5 - 10 mg PO TID PRN (Reason: Muscle Spasm) RF: 0 omeprazole 40 mg capsule,delayed release(DR/EC) 40 mg PO DAILY@07 RF: 0 acetaminophen [Tylenol Extra Strength] 500 mg Tablet 1,000 mg PO Q6H PRN (Reason: Pain) RF: 0 metformin 1,000 mg tablet 1,000 mg PO BID@08, RF: 0 montelukast 10 mg tablet 10 mg PO DAILY@21 RF: 0 albuterol sulfate [ProAir HFA] 90 mcg/actuation HFA aerosol inhaler 2 puff INHALATION Q6H PRN (Reason: Shortness Of Breath) RF: 0 cholecalciferol (vitamin D3) [Vitamin D3] 25 mcg (1,000 unit) Tablet 25 mcg PO DAILY@07 RF: 0 Jardiance 25 mg tablet 25 mg PO DAILY@07 RF: 0 B12 10,000 mcg PO DAILY RF: 0 levothyroxine 88 mcg Tablet 88 mcg PO DAILY RF: 0 Vitamin C 500 mg Tablet 500 mg PO DAILY RF: 0 cranberry 400 mg Capsule 400 mg PO DAILY RF: 0 Held Klor-Con M20 20 mEq tablet,ER particles/crystals 20 meq PO DAILY Qty: 90 RF: 2 Hold Instructions: Resume on 11/01/21. lisinopril 10 mg tablet 10 mg PO DAILY@07 Qty: 90 RF: 3 Hold Instructions: Resume on 11/01/21. amlodipine 5 mg tablet 5 mg PO DAILY Qty: 90 RF: 4 Hold Instructions: Resume on 11/01/21. metoprolol succinate 25 mg tablet extended release 24 hr 25 mg PO DAILY Qty: 90 RF: 2 Hold Instructions: Resume on 11/01/21. furosemide 40 mg tablet 20 mg PO DAILY Qty: 90 RF: 2 Hold Instructions: Resume on 11/01/21. clopidogrel 75 mg Tablet 75 mg PO DAILY Qty: 90 RF: 4 Hold Instructions: Resume on 10/29/21. Discharge Orders: Discharge Order (Routine); Ordered 10/28/21 Ordered By: Aaron Mart Referrals: Aaron Mart MD [Physician] - Alexys Zafar MD [Physician] - 2 weeks (Well-known to you for history of atherosclerotic coronary vascular disease status post stenting in January 2021. Was tentatively scheduled for bladder repair January 2022. Required emergency surgery for clot evacuation of the bladder after she traumatized the prolapsed bladder. Recommend clearance as soon as possible so that she can have this repaired to avoid another near catastrophe.) Hilary Sofia MD [Physician] - 2 weeks (Preparation for surgical repair of pelvic floor prolapse. Status post emergency clot evacuation for trauma to the bladder (prolapsed) leading to clot retention. Resolved with clot evacuation) Charissa Archibald, AGATA [Primary Care Provider] - Discharge Diet: Usual diet and Diabetic Discharge Activity: Resume usual activity and Limit activity as instructed Patient Instructions: Opioid Safety Activity Restrictions/Additional Instructions: Avoid strenuous activity. I have sent a consult to both Dr. Zafar and Dr. Sofia to try to speed up the process for evaluation of pelvic floor prolapse. If you have not heard from their offices by early next week please call. I will be available if you have any trouble with urination or recurrent bleeding causing difficulty voiding. Try your best to keep the bladder and vaginal vault reduced. You do not need a scheduled appointment with me unless those things happen. Discharge Attestations Time Spent in Discharge Care*: less than 30 min Specific Discharge Activities: educating patient, discussing with pcp/other providers, documenting/other paperwork and evaluating patient/reviewing data Quality Metrics Clinical Quality Measures During this hospital stay, did patient experience: None Coding Level of Care Code Acute g [facility] note Diagnoses Bladder prolapse Clot retention of urine R33.8 Atherosclerosis of coronary artery I25.119 Coronary Disease-Associated Artery/Lesion type: [place] artery [place] vs. transplanted heart: [place] heart Associated angina: with unspecified angina Mitral valve regurgitation I34.0 Cardiac valve disease etiology: nonrheumatic Systolic congestive heart failure with reduced left ventricular function, NYHA class 3 I50.20
--- NOTE | 2021-10-28 18:50 | PC.NURSE ---
Pt was discharged to personal vehicle at 1730 with belongings and gun.
--- NOTE | 2021-10-28 18:55 | PC.NURSE ---
All discharge instructions were given to patient and all questions were answered.
== END 2021-10-28 17:30 | disposition home or self-care (01) | DRG 669 ==
LOC: ER 19:43 → OR 20:07 → ICU 22:58
PROVIDERS: Family Medicine; Student in an Organized Health Care Education/Training Program; Admitting Provider Urology; Emergency Provider Emergency Medicine; PCP Registered Nurse; Visit Provider Internal Medicine
PROC: 0TJB8ZZ Inspection of Bladder, Via Natural or Artificial Opening Endoscopic (ICD-10-PCS; CPT 52000; principal; 2021-10-26 21:00)
PROC: 0T5B8ZZ Destruction of Bladder, Via Natural or Artificial Opening Endoscopic (ICD-10-PCS; 2021-10-26 21:00)
DX: N32.89 Other specified disorders of bladder (principal); N13.1 Hydronephrosis with ureteral stricture, not elsewhere classified; I50.20 Unspecified systolic (congestive) heart failure; N81.10 Cystocele, unspecified; I25.10 Atherosclerotic heart disease of native coronary artery without angina pectoris; Z95.5 Presence of coronary angioplasty implant and graft; N30.21 Other chronic cystitis with hematuria; E11.9 Type 2 diabetes mellitus without complications; K21.9 Gastro-esophageal reflux disease without esophagitis; I11.0 Hypertensive heart disease with heart failure; E03.9 Hypothyroidism, unspecified; Z87.440 Personal history of urinary (tract) infections; F32.9 Major depressive disorder, single episode, unspecified; R33.9 Retention of urine, unspecified; Z86.16 Personal history of COVID-19; Z79.84 Long term (current) use of oral hypoglycemic drugs; Z79.82 Long term (current) use of aspirin; I34.0 Nonrheumatic mitral (valve) insufficiency; W01.0XXA Fall on same level from slipping, tripping and stumbling without subsequent striking against object, initial encounter
CPT/HCPCS: 12345; 36415; 36416; 71275; 74174; 80048; 80053; 81001; 82962; 83690; 83735; 85025; 85610; 85730; 86850; 86900; 86920; 87086; 93005; 96361; 96365; 96372; 96374; 96375; 99285; 99291; J1200; J1580; J1815; J2270; J2405; J2704; J3010; J3490; J7030; Q9967

== ENCOUNTER → 2022-01-09 10:35 | Outpatient (BNVA) | payer MEDICARE, SELFPAY | PROVIDERS: PCP Registered Nurse; Visit Provider Obstetrics & Gynecology | DX: R30.9 Painful micturition, unspecified (principal); E11.9 Type 2 diabetes mellitus without complications; R30.0 Dysuria | CPT/HCPCS: 81000; 83036; 87077; 87086; 87184 ==

== ENCOUNTER → 2022-01-22 09:02 | Day surgery (SDC) | payer MEDICARE, SELFPAY | PROVIDERS: PCP Registered Nurse; Visit Provider Obstetrics & Gynecology | DX: Z01.818 Encounter for other preprocedural examination (principal) | CPT/HCPCS: 80048; 85025; 93005 ==

== ENCOUNTER → 2022-01-23 14:38 | Outpatient (BNVA) | payer MEDICARE, SELFPAY | PROVIDERS: PCP Registered Nurse; Visit Provider Obstetrics & Gynecology | DX: Z20.822 Contact with and (suspected) exposure to COVID-19 (principal); N39.3 Stress incontinence (female) (male); N81.9 Female genital prolapse, unspecified; R31.9 Hematuria, unspecified | CPT/HCPCS: 87635; 88112 ==

== ENCOUNTER 2022-01-28 12:20 | Observation (INO) | payer MEDICARE, SELFPAY ==
[2022-01-22 13:02] VITALS: BMI 23.9
--- NOTE | 2022-01-22 13:07 | ECG_ITS ---
[facility] Test Date: 2022-01-22 Pat Name: Sj Singh Department: Room: Gender: Female Inside Tester: : 1955 Requested By: Jeannine Yi Order Number: [id number] Marcelo MD: Live Sosa M.D. Measurements Intervals [place] Rate: 73 P: 36 VA: 147 QRS: -31 QRSD: 110 T: 99 QT: 376 QTc: 415 Interpretive Statements SINUS RHYTHM LEFT AXIS DEVIATION [QRS AXIS < -30] PATTERN CONSISTENT WITH PULMONARY DISEASE MODERATE VOLTAGE CRITERIA FOR LVH, CONSIDER NORMAL VARIANT [MEETS CRITERIA IN ONE OF: R(aVL), S(V1), R(V5), R(V5/V6)+S(V1)] POSSIBLE SEPTAL MYOCARDIAL INFARCTION , PROBABLY OLD [30 ms Q WAVE IN V1/V2] Compared to ECG 10/28/2021 15:49:56 Myocardial infarct finding now present T-wave abnormality no longer present Electronically Signed On 01-22-2022 18:51:56 CDT by Live Sosa M.D. [id number]
--- NOTE | 2022-01-22 13:35 | ANES.PREANE2 ---
Pre-Anesthetic Assessment Height/Weight: Height 1.6 m Weight 61.235 kg Preop Diagnosis: vaginal vault prolapse, clot urinary retention Operation Date: 01/28/22 09:35 Proposed Procedures p Colpocleisis [id number]/10951/n81.9/n39.3(Not Applicable) - Hilary Sofia MD s Sling(Not Applicable) - Hilary Sofia MD s Perineorrhaphy(Not Applicable) - Hilary Sofia MD Familial anesthetic complications: Occassional PONV - has scopolamine patch Social No alcohol and No tobacco Exam alert, oriented x 3, clear to auscultation bilaterally and regular rate & rhythm Airway Mallampati: Class II Dentition: other (4 missing teeth) Pulmonary albuterol was given after getting covid CV/HEM Coronary Artery Disease (stents > 1 year ago), Congestive Heart Failure, Hypertension and Myocardial Infarction 2019 echo CONCLUSIONS ?1-Normal left ventricular cavity size. Mildly decreased left ?ventricular systolic function. Global left ventricular ?hypokinesis. Left ventricular ejection fraction is estimated at ?50 %. Grade II/IV diastolic dysfunction, moderately elevated ?filling pressures. ?2-Moderately increased left atrial size. ?3-Normal right ventricular size. Moderate pulmonary ?hypertension, PASP 45 mmHg. ?4-Moderately thickened mitral valve. Mild mitral annular ?calcification. Severe mitral valve regurgitation. ?4-Llbp-he-moderate tricuspid valve regurgitation. ?6-There is no pericardial effusion. ?7-Right atrial pressure is around 20 mm of mercury. 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 1. There is severe coronary artery disease with two vessel disease. ? 2. Mid Left Anterior Descending Coronary Artery was treated with Drug Eluting Stent and Balloon. ? 3. 1st Diagonal Coronary Artery was treated with Balloon and Drug Eluting Stent. None reported Hepatic None reported GI Gastroesophageal Reflux Disease Metabolic Diabetes Mellitus and Thyroid Disease [facility] None reported Neuropsych None reported Anesthetic Plan ASA status: 3 Anesthesia: General Risk of > 500 ml blood loss (7ml/kg in children): No Medications/Allergies Home Medications Medication Instructions Recorded Confirmed Last Taken Type acetaminophen 500 mg tablet 1,000 mg PO Q6H PRN 10/20/20 01/22/22 Unknown History (Tylenol Extra Strength) albuterol sulfate 90 mcg/actuation 2 puff INHALATION Q6H PRN 10/20/20 01/22/22 Unknown History aerosol inhaler (ProAir HFA) cholecalciferol (vitamin D3) 25 25 mcg PO DAILY@10/20/20 01/22/22 01/27/21 07:00 History mcg (1,000 unit) tablet (Vitamin D3) cyclobenzaprine 10 mg tablet 5 - 10 mg PO TID PRN 10/20/20 01/22/22 Unknown History empagliflozin 25 mg tablet 25 mg PO DAILY@10/20/20 01/22/22 01/27/21 07:00 History (Jardiance) metformin 1,000 mg tablet 1,000 mg PO BID@10/20/20 01/22/22 01/27/21 07:00 History montelukast 10 mg tablet 10 mg PO DAILY@10/20/20 01/22/22 01/27/21 21:00 History multivitamin 1 tab PO DAILY@10/20/20 01/22/22 01/27/21 07:00 History omeprazole 40 mg capsule,delayed 40 mg PO DAILY@10/20/20 01/22/22 01/27/21 07:00 History release sennosides 8.6 mg-docusate sodium 2 tab PO DAILY tab 12/18/20 01/22/22 Unknown History 50 mg tablet potassium chloride 20 mEq 20 meq PO DAILY #90 tab 01/01/21 01/22/22 01/27/21 07:00 Rx tablet,extended release(part/cryst) (Klor-Con M) B12 10,000 mcg PO DAILY 01/09/21 01/22/22 01/27/21 07:00 History levothyroxine 88 mcg tablet 88 mcg PO DAILY 01/09/21 01/22/22 01/27/21 07:00 History clopidogrel 75 mg tablet 75 mg PO DAILY #90 tab 01/29/21 01/22/22 01/26/21 07:00 Rx furosemide 40 mg tablet 20 mg PO DAILY #90 tab 01/29/21 01/22/22 01/27/21 07:00 Rx atorvastatin 40 mg tablet 40 mg PO BEDTIME 03/12/21 01/22/22 Unknown History scopolamine base 1 mg over 3 days 1 patch TRANSDERMAL Q3D PRN #1 ea 04/03/21 01/22/22 Unknown Rx transdermal patch aspirin 81 mg tablet,delayed 81 mg PO DAILY #30 tab 05/08/21 01/22/22 Unknown Rx release amlodipine 5 mg tablet 5 mg PO DAILY #90 tab 07/24/21 01/22/22 Unknown Rx metoprolol succinate 25 mg 25 mg PO DAILY #90 tab 07/26/21 01/22/22 Unknown Rx tablet,extended release 24 hr ascorbic acid (vitamin C) 500 mg 500 mg PO DAILY 10/27/21 01/22/22 Unknown History tablet (Vitamin C) cranberry 400 mg capsule 400 mg PO DAILY 10/27/21 01/22/22 Unknown History lisinopril 20 mg tablet 20 mg PO DAILY 01/22/22 01/22/22 Unknown History Allergies Allergy/AdvReac Type Severity Reaction Status Date / Time Penicillins Allergy Severe ALGY-Hives Verified 01/09/22 10:30 levofloxacin [From Levaquin] Allergy ALGY-Rash Verified 01/09/22 10:30 [facility] Anesthesia Medical History Atherosclerosis of coronary artery Bilateral hydronephrosis Secondary to distal ureteral kinking from severe prolapse with cystocele Bladder outlet obstruction Secondary to severe cystocele Chronic cystitis Diabetes GERD (gastroesophageal reflux disease) Gross hematuria Hypertension Hypothyroidism Presence of stent in LAD coronary artery Vaginal vault prolapse Yeast UTI Surgical History H/O cataract removal with insertion of prosthetic lens H/O cystoscopy History of anterior repair with culdoplasty Hx of heart artery stent Family History Brother Thyroid disease Other Chronic kidney disease (CKD) Dementia Diabetes Denies family history of Ovarian cyst Clotting disorder Hyperlipidemia Anesthesia complication Bleeding disorder Lung disease Cancer Hypertension Stroke Data Anesthesia : 01/22/22 13:20 01/22/22 13:20 Cardiac Studies: Echocardiogram Ultrasound 10/20/20
[2022-01-22 13:40] LABS: Basophils # 0.1 10^3/uL (0.0-0.1); Basophils % 1.1 %; Eosinophils # 0.1 10^3/uL (0.0-0.8); Eosinophils % 0.8 %; Hematocrit 25.7 % (37.0-47.0); Hemoglobin 7.5 g/dL (11.5-15.3); Lymphocytes # 1.8 10^3/uL (0.8-4.8); Lymphocytes % 26.9 %; Mean Corpuscular HGB Conc 29.2 g/dL (30.0-36.0); Mean Corpuscular Hemoglobin 24.8 pg (28.0-34.0); Mean Corpuscular Volume 84.8 fl (81-99); Monocytes # 0.5 10^3/uL (0.2-0.9); Monocytes % 7.2 %; Neutrophils # 4.15 10^3/uL (1.8-7.7); Neutrophils % 63.7 %; Nucleated Red Blood Cells % 0 %; Platelet Count 279 10^3/cmm (130-400); Red Blood Count 3.03 10^6/uL (4.1-5.3); Red Cell Distribution Width 14.3 % (12.1-15.1); White Blood Count 6.5 10^3/uL (4.0-10.0)
[2022-01-22 14:03] LABS: Anion Gap 15.7 (5-19); Blood Urea Nitrogen 26 mg/dL (8-23); Calcium 9.9 mg/dL (8.5-10.5); Carbon Dioxide 24 mmol/L (22-29); Chloride 99 mmol/L (98-107); Creatinine Clr Calc Pharmacy 61.0807; Glomerular Filtration Rate 71.8 mL/min (90-130); Glucose 102 mg/dL (65-115); Osmolality Calculated 283 mOsm/kg (285-295); Potassium 4.7 mmol/L (3.5-5.1); Sodium 134 mmol/L (136-145)
[2022-01-28] VITALS (20 sets, daily range): BP systolic 74–105; BP diastolic 35–66; PULSE 68–91; RESP 11–20; TEMP 36.1–36.9; O2SAT 87–100
[2022-01-28] MEDS: CELEcoxib 200 mg Capsule 400 MG PO (08:48)
[2022-01-28] MEDS: phenazopyridine 100 mg Tablet 200 MG PO ×3 (08:49→21:15)
[2022-01-28] MEDS: gabapentin 300 mg Capsule PO (08:49)
--- NOTE | 2022-01-28 08:53 | P.ANESUD_ITS ---
Pre-Anesthetic Update Pre-Anesthetic Assessment: Date of Surgery/Procedure: 01/28/22 Preop Kristie gnosis: vaginal vault prolapse, bladder outlet obstruction Proposed Procedure: Operation Date: 01/28/22 09:35 Proposed Procedures p Colpocleisis 84994/[id number]/39565/n81.9/n39.3(Not Applicable) - Hilary Sofia MD s Sling(Not Applicable) - Hilary Sofia MD s Perineorrhaphy(Not Applicable) - Hilary Sofia MD Any changes to Pre-Anesthetic Assessment?: No Last Intake: Intake Last Liquid Date 01/28/22 Last Liquid Time 21:00 Last Solid Date 01/28/22 Last Solid Time 18:00 Vitals: Temperature 97.2 F L 01/28/22 08:21 Temperature Source Temporal Artery S can 01/28/22 08:21 Pulse Rate 77 01/28/22 08:21 Respiratory Rate 18 01/28/22 08:21 Blood Pressure 105/66 01/28/22 08:21 Blood Pressure Lilia n 79 01/28/22 08:21 Pulse Oximetry 100 01/28/22 08:21 Oxygen Delivery Me thod 01/28/22 08:24 Exam: Pre-Anes Outpt Exam: alert, oriented x 3, clear to auscultation bilat erally and regular rate & rhythm Cardiac Studies: Echocardiogram Ultrasound 10/20/20
[2022-01-28 09:11] LABS: Glucose Point of Care 117 mg/dL (70-110)
[2022-01-28] MEDS: acetaminophen 1,000 MG/100 ML PIGGYBACK 400 MG IV (09:18)
[2022-01-28] MEDS: ketorolac 30 mg/mL INJ IVP ×2 (09:21→16:12)
[2022-01-28] MEDS: sodium chloride 0.9% 1,000 ML 30 ML IV (09:21)
--- NOTE | 2022-01-28 10:04 | W.PM.OPSUD ---
Surgery/Procedure H&P Update DATE OF PROCEDURE: January 28, 2022 DATE H&P PERFORMED: 01/23/22 H&P UPDATE INFORMATION: I have reviewed H&P completed within last 30 days, I have examined patient prior to procedure and No changes to prior documentation PREOP DIAGNOSIS: vaginal vault prolapse, bladder outlet obstruction PLANNED PROCEDURE: Operation Date: 01/28/22 09:35 Proposed Procedures p Colpocleisis 15517/[id number]/31640/n81.9/n39.3(Not Applicable) - Hilary Sofia MD s Sling(Not Applicable) - Hilary Sofia MD s Perineorrhaphy(Not Applicable) - Hilary Sofia MD Related Problem List Diagnoses (1) Bladder prolapse: (2) Vaginal vault prolapse:
[2022-01-28] MEDS: vasopressin 20 unit/mL INJ 4 UNIT INJECTION (11:05)
--- NOTE | 2022-01-28 12:12 | P.OP_ITS ---
Operative Report Date of procedure: January 28, 2022 Pre-op diagnosis: Preop Diagnosis vaginal vault prolapse, bladder outlet obstruction Post-op diagnosis: same Post-op findings: repair of procidencia Procedure done: sub urethral sling, perineorrhaphy, colpocliesis Implants: mid urethral sling Specimens removed/disposition: none Pathology: none sent Surgeon: Hilary Sofia Anesthesia: General Estimated blood loss (mL): 50 IV fluids (mL): 1,100 Urine output (mL): 400 Complications: none Condition: stable Disposition: PACU Procedure: The patient was taken to the operating room where general anesthesia was administered and found to be adequate. She was prepped and draped in the normal sterile fashion in the dorsal lithotomy position in [facility]. A roe catheter was placed. There was complete procidentia. An Allis clamp was placed approximately 2 cm below the urethra and another placed approximately 3 cm distal from that. An incision was made between the 2. The tissue was sharply and bluntly dissected along the pubic ramus bilaterally. The sling was placed on the left first by going through the incision and attaching the sling to the obturator foramen membrane . The right side was performed in a similar fashion, placing the applicator through the incision and attaching to the obturator foramen membrane. The Roe catheter was removed and the cystoscope advanced into the bladder. Pyridium was given in preop. and bilateral spill of orang fluid was noted from both ureteral orifices. There was no mesh noted to be in the bladder. The vagina was packed back in and there was constant flow. The sling was tightened until there was minimal leakage with valsalva. The tag of suture was trimmed. The incision was repaired with 2-0 Vicryl in a running locked fashion. Attention was then turned to the colpocliesis portion. A square was marked on the anterior and posterior. Using a 15 blade knife, an incision was made posteriorly and the vaginal tissue elevated. The rectum was resected off of the vaginal mucosa. The incision was continued around the previously marked area resecting the rectum as I went, until the tissue was removed. Attention was then turned anteriorly. In the same fashion, the tissue was removed after the bladder was resected away from it. The anterior and posterior tissues were then reapproximated and four pursestring sutures were placed around the remaining vaginal mucosa. The sutures were then tightened, pushing the vaginal mucosa inside of the sutures, essentially tying it behind each suture. Once the final suture was tied, the vagina was completely back inside and stable. Attention was then turned to the perineorrhphy. Allis clamps were placed on the posterior fourchette. A 3 cm wedge of the fourchette was removed. This was repaired in the usual fashion with O-vicryl. There was excellent hemostasis The patient tolerated the procedure well. Sponge, lap and needle counts were correct times three. She was taken to the recovery room in stable condition.
--- NOTE | 2022-01-28 13:54 | ANE.PACU2 ---
Inpatient post-anesthesia follow up: Airway intact: Yes Vital signs: Temperature 98.5 F Pulse Rate 72 Respiratory Rate 12 Blood Pressure 88/55 Pulse Oximetry 90 Oxygen Delivery Me thod Simple Mask Oxygen Flow Rate 10 Fraction of Inspir ed Oxygen Hydration adequate: Yes Nausea and vomiting: No Pain level: 2 Mental status: Baseline
[2022-01-28] MEDS: dextrose 5%-lactated ringers 1,000 ML 125 ML IV (16:12)
[2022-01-28] MEDS: metformin 500 mg Tablet 1000 MG PO (18:14)
[2022-01-28] MEDS: docusate sodium 100 mg Capsule PO (18:14)
[2022-01-28] MEDS: montelukast sodium 10 mg Tablet PO (21:15)
[2022-01-28] MEDS: atorvastatin 40 mg Tablet PO (21:15)
[2022-01-29] VITALS (12 sets, daily range): BP systolic 97–120; BP diastolic 5–75; PULSE 59–85; RESP 16–18; TEMP 36.3–36.4; O2SAT 99
[2022-01-29] MEDS: dextrose 5%-lactated ringers 1,000 ML 125 ML IV (03:39)
[2022-01-29] MEDS: alum-mag-hydroxide-sime 30 mL UDC PO ×2 (04:33→10:20)
[2022-01-29 05:16] LABS: Mean Corpuscular HGB Conc 28.9 g/dL (30.0-36.0); Mean Corpuscular Hemoglobin 24.5 pg (28.0-34.0); Mean Corpuscular Volume 84.7 fl (81-99); Mean Platelet Volume 10.5 fL (7.4-10.4); Platelet Count 225 10^3/cmm (130-400); Red Blood Count 2.29 10^6/uL (4.1-5.3); Red Cell Distribution Width 14.9 % (12.1-15.1); White Blood Count 6.6 10^3/uL (4.0-10.0)
[2022-01-29 05:24] LABS: Hematocrit 19.4 % (37.0-47.0); Hemoglobin 5.6 g/dL (11.5-15.3)
--- NOTE | 2022-01-29 07:25 | PC.NURSE ---
patient voided 100ml. This nurse performed a bladder scan that showed approximately 240ml left in the bladder.
--- NOTE | 2022-01-29 07:27 | PM.DCS ---
Discharge Providers Date of Admission: 01/28/22 12:20 Date of Discharge: January 29, 2022 Attending Provider at Admission: Hilary Sofia MD Attending Provider at Discharge: Hilary Sofia MD Primary Care Provider: AGATA Gutierres Diagnoses at Discharge Discharge Diagnosis (1) Bladder prolapse: Status: Acute (2) Vaginal vault prolapse: Status: Acute Reason for Visit Reason for Visit: vaginal vault prolapse,TONJA Hospital Course Hospital Course The patient was admitted for surgery. She was very anemic prior to surgery and on postop day #1 she was 5.6 from 7.2. She was given 2 units of blood. She did well postoperatively and was ready for discharge. Her roe catheter was removed. She was able to void with post void residual in the acceptable range. Physical Exam Narrative: Doing well postoperatively. Pain from prior to surgery has resolved. Const: COMMON NORMALS: no acute distress, average body habitus, patient oriented x3, no limitations and healthy appearing GENERAL APPEARANCE: cooperative, comfortable, well kempt and well developed ORIENTATION/CONSCIOUSNESS: Yes awake, Yes oriented to person, Yes oriented to place and Yes oriented to time Resp: COMMON NORMALS: normal respiratory effort EFFORT & INSPECTION: Yes able to speak in complete sentences GI: COMMON NORMALS: Soft to palpation and non-tender PALPATION: Yes Soft to palpation Extremity: COMMON NORMALS: no calf tenderness Neuro: COMMON NORMALS: patient oriented x3 SENSORIUM/ORIENTATION: Yes oriented to person, Yes oriented to place and Yes oriented to time Psych: APPEARANCE: Yes well kempt Urinary Catheter Management: Roe: Cath Placed During This Visit: yes, but has since been removed by the nurse Reason for Continuing Indwelling Catheter: Decision to DC Catheter Urinary Catheter Date of Insertion: 01/28/22 Urinary Catheter Time of Insertion: 10:40 Date Urinary Catheter Removed: 01/29/22 Time Urinary Catheter Discontinued: 04:42 Discharge Data Studies Completed and Pending Pending at discharge Category Date Time Status ES surgery / GI images Routine Exams 01/28/22 09:34 Ordered Leukocyte Reduced RBC Routine Lab 01/29/22 07:12 Received Type and Screen Stat Lab 01/29/22 07:12 Received Urine Culture Routine Lab 01/28/22 10:41 Received Laboratory Results WBC 6.6 10^3/uL (4.0-10.0) 01/29/22 04:45 RBC 2.29 10^6/uL (4.1-5.3) L 01/29/22 04:45 Hgb 5.6 g/dL (11.5-15.3) L* 01/29/22 04:45 Hct 19.4 % (37.0-47.0) L* 01/29/22 04:45 MCV 84.7 fl (81-99) 01/29/22 04:45 MCH 24.5 pg (28.0-34.0) L 01/29/22 04:45 MCHC 28.9 g/dL (30.0-36.0) L 01/29/22 04:45 RDW 14.9 % (12.1-15.1) 01/29/22 04:45 Plt Count 225 10^3/cmm (130-400) 01/29/22 04:45 MPV 10.5 fL (7.4-10.4) H 01/29/22 04:45 Neut % (Auto) 63.7 % 01/22/22 13:20 Lymph % (Auto) 26.9 % 01/22/22 13:20 [place] % (Auto) 7.2 % 01/22/22 13:20 Eos % (Auto) 0.8 % 01/22/22 13:20 Baso % (Auto) 1.1 % 01/22/22 13:20 Neut # (Auto) 4.15 10^3/uL (1.8-7.7) 01/22/22 13:20 Lymph # (Auto) 1.8 10^3/uL (0.8-4.8) 01/22/22 13:20 [place] # (Auto) 0.5 10^3/uL (0.2-0.9) 01/22/22 13:20 Eos # (Auto) 0.1 10^3/uL (0.0-0.8) 01/22/22 13:20 Baso # (Auto) 0.1 10^3/uL (0.0-0.1) 01/22/22 13:20 Nucleated RBC % (auto) 0 % 01/22/22 13:20 Nucleated RBCs # 0.0 /100WBC 01/22/22 13:20 Sodium 134 mmol/L (136-145) L 01/22/22 13:20 Potassium 4.7 mmol/L (3.5-5.1) 01/22/22 13:20 Chloride 99 mmol/L (98-107) 01/22/22 13:20 Carbon Dioxide 24 mmol/L (22-29) 01/22/22 13:20 Anion Gap 15.7 (5-19) 01/22/22 13:20 BUN 26 mg/dL (8-23) H 01/22/22 13:20 Creatinine 0.8 mg/dL (0.5-0.9) 01/22/22 13:20 GFR Calculation 71.8 mL/min (90-130) L 01/22/22 13:20 Glucose 102 mg/dL (65-115) 01/22/22 13:20 POC Glucose 117 mg/dL (70-110) H 01/28/22 09:06 Calculated Osmolality 283 mOsm/kg (285-295) L 01/22/22 13:20 Calcium 9.9 mg/dL (8.5-10.5) 01/22/22 13:20 Vitals Last Vital Signs Temp 97.4 F L 01/29/22 04:00 Pulse 78 01/29/22 04:00 Resp 16 01/28/22 18:25 BP 97/5 01/29/22 04:00 Pulse Ox 94 01/28/22 21:30 Discharge Plan Discharge Patient Disposition: Home Condition: Stable Prescriptions: New hydrocodone-acetaminophen 5-325 mg Tablet 1 tab PO Q4H PRN (Reason: Moderate To Severe Pain) Qty: 30 0RF docusate sodium 100 mg Capsule 100 mg PO BID Qty: 60 0RF ibuprofen 800 mg Tablet 800 mg PO Q8H Qty: 40 0RF Continued sennosides-docusate sodium 8.6-50 mg tablet 2 tab PO DAILY 0RF Klor-Con M20 20 mEq tablet,ER particles/crystals 20 meq PO DAILY Qty: 90 2RF Hold Instructions: Resume on 11/01/21. aspirin 81 mg tablet,delayed release (DR/EC) 81 mg PO DAILY Qty: 30 3RF atorvastatin 40 mg tablet 40 mg PO BEDTIME 0RF scopolamine base 1 mg over 3 days patch 3 day 1 patch transdermal Q3D PRN (Reason: nausea and vomiting) Qty: 1 0RF amlodipine 5 mg tablet 5 mg PO DAILY Qty: 90 4RF Hold Instructions: Resume on 11/01/21. metoprolol succinate 25 mg tablet extended release 24 hr 25 mg PO DAILY Qty: 90 2RF Hold Instructions: Resume on 11/01/21. multivitamin Tablet 1 tab PO DAILY@07 0RF cyclobenzaprine 10 mg tablet 5 - 10 mg PO TID PRN (Reason: Muscle Spasm) 0RF omeprazole 40 mg capsule,delayed release(DR/EC) 40 mg PO DAILY@07 0RF acetaminophen [Tylenol Extra Strength] 500 mg Tablet 1,000 mg PO Q6H PRN (Reason: Pain) 0RF metformin 1,000 mg tablet 1,000 mg PO BID@, 0RF montelukast 10 mg tablet 10 mg PO DAILY@21 0RF albuterol sulfate [ProAir HFA] 90 mcg/actuation HFA aerosol inhaler 2 puff INHALATION Q6H PRN (Reason: Shortness Of Breath) 0RF cholecalciferol (vitamin D3) [Vitamin D3] 25 mcg (1,000 unit) Tablet 25 mcg PO DAILY@07 0RF Jardiance 25 mg tablet 25 mg PO DAILY@07 0RF B12 10,000 mcg PO DAILY 0RF levothyroxine 88 mcg Tablet 88 mcg PO DAILY 0RF furosemide 40 mg tablet 20 mg PO DAILY Qty: 90 2RF Hold Instructions: Resume on 11/01/21. clopidogrel 75 mg Tablet 75 mg PO DAILY Qty: 90 4RF Hold Instructions: Resume on 10/29/21. ascorbic acid (vitamin C) [Vitamin C] 500 mg Tablet 500 mg PO DAILY 0RF cranberry 400 mg Capsule 400 mg PO DAILY 0RF lisinopril 20 mg Tablet 20 mg PO DAILY 0RF Discharge Orders: Discharge Order (Routine); Ordered 01/29/22 Ordered By: Hilary Sofia Referrals: Hilary Sofia MD [Physician] - 02/06/22 10:00 am (Your 1 week post-operative appointment is scheduled for 02/06/22 @10:00. Your 6 week post-operative appointment is scheduled for 03/10/22 @8:30. ) Patient Instructions: Bladder Sling for Women (DC), Colpocleisis (DC), Anterior Vaginal Repair (DC), OB Discharge Report, OB Food/Drug Interaction Guide, Opioid Safety Discharge Attestations Time Spent in Discharge Care*: less than 30 min Quality Metrics Clinical Quality Measures [ No reported AMI, CVA or VTE this stay] Coding Level of Care Code Acute Chg FW DC note Exam Expanded Problem Focused Diagnoses Bladder prolapse Vaginal vault prolapse N81.9
[2022-01-29] MEDS: amlodipine 5 mg Tablet PO (08:30)
[2022-01-29] MEDS: docusate sodium 100 mg Capsule PO (08:30)
[2022-01-29] MEDS: lisinopril 20 mg Tablet PO (08:30)
[2022-01-29] MEDS: metformin 500 mg Tablet 1000 MG PO (08:30)
[2022-01-29] MEDS: potassium chloride ER 20 mEq Tablet PO (08:31)
[2022-01-29] MEDS: metoprolol succinate ER (24 HR) 25 mg Tablet PO (08:32)
[2022-01-29] MEDS: FUROsemide 20 mg Tablet PO (08:32)
[2022-01-29] MEDS: levothyroxine 88 mcg Tablet PO (08:32)
[2022-01-29] MEDS: phenazopyridine 100 mg Tablet 200 MG PO (08:34)
[2022-01-29] MEDS: pantoprazole DR 40 mg Tablet PO (08:36)
[2022-01-29] MEDS: HYDROcodone-acetaminophen 5-325 mg Tablet PO (11:15)
[2022-01-29] MEDS: ibuprofen 800 mg tablet PO (12:56)
[2022-01-29 14:05] LABS: Hematocrit 29.2 % (37.0-47.0); Hemoglobin 8.9 g/dL (11.5-15.3)
--- NOTE | 2022-01-29 20:28 | PC.NURSE ---
1335 HH DRAWN PER VENOUS STICK FROM LEFT AC SPACE. PT TOLERATED WELL.
--- NOTE | 2022-01-29 20:29 | PC.NURSE ---
VOIDS AND BLADDER SCAN TOTALS 0830 100 OUT 330 RESIDUAL 0900 200 OUT 30 RESIDUAL [address] ARELLANO AND SHE WANTS ANOTHER RESIDUAL DONE AND LET HER KNOW 1015 100 OUT 330 1030 100 OUT 395 RESIDUAL 1100 200 OUT 30 RESIDUAL 1115 50 OUT 1130 150 OUT 2275 773 1563 200 UNABLE TO SCAN SINCE 1115 BECAUSE MED SURG TOOK SCANNER AND WE COULD NOT GET IT BACK. TALKED WITH DR. ARELLANO AND SHE WAS GOOD WITH STOPPING BLADDER SCANNING AND OK FOR HER TO GO HOME AFTER 2 UNITS OF BLOOD GIVEN. DR. ARELLANO WAS ASKED IF SHE WANTED HH AFTER BLOOD AND SHE SAID YES AND THAT WE COULD DRAW IT RIGHT AFTER BLOOD DONE AND THEN SHE COULD GO HOME 1335 HH DONE PER VENOUS STICK LEFT AND SENT LAB. 1340 WENT OVER DISCAHRGE PAPERWORK WITH HER. [address] ARELLANO AND OK FOR HER TO GO HOME.
== END 2022-01-29 14:45 | disposition home or self-care (01) ==
LOC: OBGYN 12:20
PROVIDERS: Anesthesiology; Admitting Provider Obstetrics & Gynecology; PCP Registered Nurse; Visit Provider Obstetrics & Gynecology
PROC: (CPT 57120; principal; 2022-01-28 09:25)
PROC: (CPT 57288; 2022-01-28 09:25)
PROC: 0HQ9XZZ Repair Perineum Skin, External Approach (ICD-10-PCS; CPT 12002; 2022-01-28 09:25)
DX: N81.9 Female genital prolapse, unspecified (principal); I25.10 Atherosclerotic heart disease of native coronary artery without angina pectoris; Z95.5 Presence of coronary angioplasty implant and graft; I11.0 Hypertensive heart disease with heart failure; I50.9 Heart failure, unspecified; I25.2 Old myocardial infarction; Z86.16 Personal history of COVID-19; K21.9 Gastro-esophageal reflux disease without esophagitis; E11.9 Type 2 diabetes mellitus without complications; E03.9 Hypothyroidism, unspecified
CPT/HCPCS: 12002; 57120; 57288; 36415; 36416; 36430; 82962; 85014; 85018; 85027; 86850; 86900; 86920; 87077; 87086; 87186; C1713; G0378; J0690; J1100; J1885; J2250; J2405; J2704; J3010; J3490; J7030; P9016; P9040

== ENCOUNTER → 2022-06-09 11:01 | Outpatient (BNVA) | payer MEDICARE, SELFPAY | PROVIDERS: PCP Registered Nurse; Visit Provider Internal Medicine Cardiovascular Disease | DX: R06.02 Shortness of breath (principal); M79.89 Other specified soft tissue disorders; I50.33 Acute on chronic diastolic (congestive) heart failure; Z79.01 Long term (current) use of anticoagulants; N18.9 Chronic kidney disease, unspecified; I25.10 Atherosclerotic heart disease of native coronary artery without angina pectoris; Z87.891 Personal history of nicotine dependence; I13.0 Hypertensive heart and chronic kidney disease with heart failure and stage 1 through stage 4 chronic kidney disease, or unspecified chronic kidney disease; I08.1 Rheumatic disorders of both mitral and tricuspid valves | CPT/HCPCS: 36415; 80048; 83880; 84443; 85025; 99214; 99215 ==

== ENCOUNTER 2022-06-10 09:57 | Observation (INO) | payer MEDICARE, SELFPAY ==
[2022-06-10] VITALS (15 sets, daily range): BP systolic 99–147; BP diastolic 59–89; PULSE 54–68; RESP 12–20; TEMP 36.4–36.7; O2SAT 89–100; BMI 27.4
[2022-06-10 10:18] LABS: Basophils % 1.1 %; Eosinophils # 0.1 10^3/uL (0.0-0.8); Eosinophils % 3.4 %; Lymphocytes # 1.1 10^3/uL (0.8-4.8); Mean Corpuscular HGB Conc 28.1 g/dL (30.0-36.0); Mean Corpuscular Hemoglobin 19.7 pg (28.0-34.0); Mean Platelet Volume 10.4 fL (7.4-10.4); Monocytes # 0.4 10^3/uL (0.2-0.9); Monocytes % 11.3 %; Neutrophils # 1.88 10^3/uL (1.8-7.7); Neutrophils % 52.9 %; Nucleated Red Blood Cells % 0 %; Platelet Count 215 10^3/cmm (130-400); White Blood Count 3.6 10^3/uL (4.0-10.0)
[2022-06-10 10:25] LABS: Hemoglobin 5.9 g/dL (11.5-15.3)
[2022-06-10 10:39] LABS: Alanine Aminotransferase 124 U/L (0-33); Albumin Level 3.5 g/dL (3.5-5.2); Alkaline Phosphatase 149 IU/L (35-105); Anion Gap 17.3 (5-19); Aspartate Amino Transferase 128 U/L (0-32); Blood Urea Nitrogen 18 mg/dL (8-23); Calcium 8.6 mg/dL (8.5-10.5); Carbon Dioxide 22 mmol/L (22-29); Chloride 101 mmol/L (98-107); Globulin 2.3 g/dL (1.3-4.6); Glomerular Filtration Rate 62.6 mL/min (90-130); Glucose 135 mg/dL (65-115); Osmolality Calculated 284 mOsm/kg (285-295); Potassium 5.3 mmol/L (3.5-5.1); Sodium 135 mmol/L (136-145); Total Bilirubin 0.2 mg/dL (0.15-1.2); Total Protein 5.8 g/dL (6.6-8.7)
--- NOTE | 2022-06-10 10:41 | CT_ITS ---
WS: [id number] CT ABDOMEN PELVIS TECHNIQUE: Contrast-enhanced CT of the abdomen and pelvis with coronal and sagittal reformatted image s. CLINICAL INFORMATION: abd pain COMPARISON: October 26, 2021 And March 06, 2021 DLP: 648.[address] scans at [facility] use at least one of these dose optimization techniques: automated e xposure control; mA and/or kV adjustment per patient size (includes targeted exams where dose is matc hed to clinical indication); or iterative reconstruction. FINDINGS: Diffuse bladder wall thickening with enhancement and lobulation compatible with cystitis. Bilateral p elvocaliectasis and ureterectasis likely due to UTI with poor bladder emptying Mild diffuse fatty infiltration of the liver. Mild intrahepatic biliary duct dilatation. Cholelithias is. Small amount of fluid in the gallbladder fossa. This could be further evaluated with ultrasound. No significant gallbladder wall thickening. Moderate esophageal hiatal hernia. Trace RIGHT pleural fl uid with slight atelectasis RIGHT lower lobe. Mild diffuse body wall anasarca. Adrenal glands are nor mal. Normal spleen. Fatty atrophy of the pancreas. Normal caliber abdominal aorta. Mild aortic calcif ication. No evidence of high-grade small or large bowel obstruction. Small cystocele. Lumbar scoliosis. CT/CT abdomen pelvis w con* [id number] IMPRESSION: 1. Irregular bladder with diffuse bladder wall thickening and enhancement comp atible with cystitis. Associated small cystocele. 2. Bilateral pelvocaliectasis and ureterectasis compatible with poor bladder e mptying and probable ascending urinary tract infection. 3. Diffuse fatty infiltration the liver with mild intrahepatic biliary ductal dilatation. Small amount of fluid in the gallbladder fossa. Cholelithiasis. Thi s can be further evaluated ultrasound. No gallbladder wall thickening. 4. Moderate esophageal hiatal hernia unchanged. 5. Diffuse body wall anasarca.
--- NOTE | 2022-06-10 11:03 | ED_ITS ---
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 She was seen by the cardiology yesterday and lab work drawn. Her hemoglobin came back at 6 yesterday. Patient reports that she has had a prolapsed bladder and has been bleeding for months from her urinary tract system she denies any medic easy melena hematemesis coffee-ground emesis she has had a large hematoma that was noted on CT within the last year. She had surgery for this but states she has continued to have bleeding she has seen urology for this. She was previously on Eliquis and then on Plavix she has a history of coronary stents she stopped both of those medic ations its been 2 years since her stents were placed. Relieving factors: none Exacerbating factors: none Associated symptoms: Reports dyspnea, malaise, short of breath and weakness; Deny chest pain, confusion, cough, diaphoresis, decreased appetite, fevers/chills, headache(s), nausea, rash, palpitations, seizures, syncope or vomiting Treatments prior to arrival: none Review of Systems Const: Reports: malaise; Denies: fever(s), chills, fatigue or diaphoresis ENMT: Denies: throat pain, ear or mastoid pain, nasal discharge or nasal congestion Card: Denies: chest pain, palpitations or syncope Resp: Reports: dyspnea GI: Denies: abdominal pain, nausea, vomiting, hematemesis, coffee ground emesis or hematochezia : Denies: flank pain, difficulty voiding, dysuria, urinary frequency or urinary urgency Skin/Breast: Denies: rash Neuro: Denies: headache(s) or confusion PFSH ED PFSH: Medical History Atherosclerosis of coronary artery Bilateral hydronephrosis Secondary to distal ureteral kinking from severe prolapse with cystocele Bladder outlet obstruction Secondary to severe cystocele; persistent even after repair Chronic cystitis COVID-19 (10/2020) Had associated PE (completed 6 months of anticoagulation post COVID), my ocarditis; systolic heart failure and NSTEMI also noted for first time during this hospital stay Diabetes Dyslipidemia GERD (gastroesophageal reflux disease) Gross hematuria history of recurrent gross hematuria, usually associated with infections Hypertension Hypothyroidism Mitral valve regurgitation Presence of stent in LAD coronary artery Tricuspid regurgitation Vaginal vault prolapse surgically addressed 01/28 Surgical History H/O cataract removal with insertion of prosthetic lens H/O cystoscopy History of anterior repair with culdoplasty History of bladder suspension procedure (01/28/22) mid urethral sling History of colpocleisis (01/28/22) with perineorrhaphy Hx of appendectomy Hx of heart artery stent LAD and 1st diagonal, both placed 01/2021 Hx of hysterectomy Hx of tubal ligation Family History Brother Thyroid disease Diabetes Mother CAD (coronary artery disease) of [place] at 61, problems started mid 50s Diabetes Sister Chronic kidney disease (CKD) Diabetes Family/Other Diabetes Brother Diabetes Family/Other Diabetes Denies family history of Ovarian cyst Clotting disorder Dementia Hyperlipidemia Suicide Anesthesia complication Bleeding disorder Lung disease Cancer Hypertension Stroke Physical Exam Const: GENERAL APPEARANCE: cooperative and comfortable ORIENTATION/CONSCIOUSNESS: Yes awake, Yes oriented to person, Yes oriented to place and Yes oriented to time HENMT: COMMON NORMALS: normocephalic, atraumatic and hearing grossly normal bilaterally HEAD & SCALP: normocephalic and atraumatic Resp: COMMON NORMALS: normal respiratory effort, No retractions, No use of accessory muscles and clear to auscultation bilaterally AUSCULTATION: clear to auscultation bilaterally Cardio: COMMON NORMALS: regular rate, regular rhythm and No murmurs present (Cardio) RATE: regular rate RHYTHM: regular rhythm GI: COMMON NORMALS: Soft to palpation and No hepatosplenomegaly present AUSCULTATION: Yes normoactive bowel sounds PALPATION: Yes Soft to palpation, No Tenderness to palpation present (GI), No Guarding due to palpation present (GI) and Yes No hepatosplenomegaly present Extremity: COMMON NORMALS: normal to inspection, capillary refill normal, no clubbing, cyanosis or edema, no calf tenderness and no pedal edema Neuro: SENSORIUM/ORIENTATION: Yes oriented to person, Yes oriented to place and Yes oriented to time Skin: COMMON NORMALS: no rashes or lesions noted GENERAL SKIN EXAM: no rashes or lesions noted Course Vital Signs: Vital signs: Vital Signs Temperature 98.2 F 06/11/22 15:41 Pulse Rate 60 06/11/22 15:41 Respiratory Rate 16 06/11/22 15:41 Blood Pressure 117/72 06/11/22 15:41 Pulse Oximetry 97 06/11/22 15:41 Oxygen Delivery Me thod 06/11/22 15:41 MDM - General Adult Medical Decision Making Labs and imaging reviewed discussed with hospitalist. Patient has had fairly significant anemia we will go ahead and admit for consult for transfusion. She will require careful monitoring during transfusion to present to prevent heart failure. She also has some other issues pending including bladder outlet obstruction and some chronic leg swelling which will need to be evaluated. Discussed with hospitalist orders are written Medical Records I reviewed the patient's medical records. Lab Data I reviewed the patient's lab results. : 06/11/22 02:44 06/11/22 02:44 Radiology Impressions Abdomen/Pelvis CT 06/10/22 10:41 IMPRESSION: 1. Irregular bladder with diffuse bladder wall thickening and enhancement compatible with cystitis. Associated small cystocele. 2. Bilateral pelvocaliectasis and ureterectasis compatible with poor bladder emptying and probable ascending urinary tract infection. 3. Diffuse fatty infiltration the liver with mild intrahepatic biliary ductal dilatation. Small amount of fluid in the gallbladder fossa. Cholelithiasis. This can be further evaluated ultrasound. No gallbladder wall thickening. 4. Moderate esophageal hiatal hernia unchanged. 5. Diffuse body wall anasarca. Laboratory Results WBC 3.6 10^3/uL (4.0-10.0) L 06/10/22 10:07 RBC 3.00 10^6/uL (4.1-5.3) L 06/10/22 10:07 Hgb 5.9 g/dL (11.5-15.3) L* 06/10/22 10:07 Hct 21.0 % (37.0-47.0) L 06/10/22 10:07 MCV 70.0 fl (81-99) L D 06/10/22 10:07 MCH 19.7 pg (28.0-34.0) L 06/10/22 10:07 MCHC 28.1 g/dL (30.0-36.0) L D 06/10/22 10:07 RDW 17.0 % (12.1-15.1) H 06/10/22 10:07 Plt Count 215 10^3/cmm (130-400) 06/10/22 10:07 MPV 10.4 fL (7.4-10.4) 06/10/22 10:07 Neut % (Auto) 52.9 % 06/10/22 10:07 Lymph % (Auto) 31.0 % 06/10/22 10:07 [place] % (Auto) 11.3 % 06/10/22 10:07 Eos % (Auto) 3.4 % 06/10/22 10:07 Baso % (Auto) 1.1 % 06/10/22 10:07 Neut # (Auto) 1.88 10^3/uL (1.8-7.7) 06/10/22 10:07 Lymph # (Auto) 1.1 10^3/uL (0.8-4.8) 06/10/22 10:07 [place] # (Auto) 0.4 10^3/uL (0.2-0.9) 06/10/22 10:07 Eos # (Auto) 0.1 10^3/uL (0.0-0.8) 06/10/22 10:07 Baso # (Auto) 0.0 10^3/uL (0.0-0.1) 06/10/22 10:07 Nucleated RBC % (auto) 0 % 06/10/22 10:07 Nucleated RBCs # 0.0 /100WBC 06/10/22 10:07 PT 13.70 SECONDS (12.1-14.9) 06/10/22 10:07 INR 1.02 (0.8-1.2) 06/10/22 10:07 APTT 31.4 SECONDS (23.9-36.7) 06/10/22 10:07 Sodium 135 mmol/L (136-145) L 06/10/22 10:07 Potassium 5.3 mmol/L (3.5-5.1) H 06/10/22 10:07 Chloride 101 mmol/L (98-107) 06/10/22 10:07 Carbon Dioxide 22 mmol/L (22-29) 06/10/22 10:07 Anion Gap 17.3 (5-19) 06/10/22 10:07 BUN 18 mg/dL (8-23) 06/10/22 10:07 Creatinine 0.9 mg/dL (0.5-0.9) 06/10/22 10:07 GFR Calculation 62.6 mL/min (90-130) L 06/10/22 10:07 Glucose 135 mg/dL (65-115) H 06/10/22 10:07 Calculated Osmolality 284 mOsm/kg (285-295) L 06/10/22 10:07 Calcium 8.6 mg/dL (8.5-10.5) 06/10/22 10:07 Total Bilirubin 0.2 mg/dL (0.15-1.2) 06/10/22 10:07 AST 128 U/L (0-32) H 06/10/22 10:07 ALT 124 U/L (0-33) H 06/10/22 10:07 Alkaline Phosphatase 149 IU/L (35-105) H 06/10/22 10:07 Total Protein 5.8 g/dL (6.6-8.7) L 06/10/22 10:07 Albumin 3.5 g/dL (3.5-5.2) 06/10/22 10:07 Globulin 2.3 g/dL (1.3-4.6) 06/10/22 10:07 Blood Type O Positive 06/10/22 10:07 Rho(D) Type Positive 06/10/22 10:07 Antibody Screen Negative 06/10/22 10:07 Crossmatch See Detail 06/10/22 10:07 Discharge Plan Discharge Patient Disposition: Admitted As Inpatient Admit Provider: Tammy Rodriguez Clinical Impression: Blood loss anemia, Chronic cystitis, Bladder outlet obstruction, Systolic congestive heart failure with reduced left ventricular function, NYHA class 3 Condition: Stable Coding Level of Care Code ED Railroad Shop Inspector for Chg Fwd Exam Detailed
[2022-06-10 11:13] LABS: INR 1.02 (0.8-1.2)
[2022-06-10 11:14] LABS: Partial Thromboplastin Time 31.4 SECONDS (23.9-36.7)
[2022-06-10] MEDS: iohexol 350 mg/mL 100 mL Btl IV (11:28)
--- NOTE | 2022-06-10 13:00 | PC.NURSE ---
PHYSICIAN GAVE VERBAL ORDERS FOR [address] [place] CATH FOR PREPARATION OF BLADDER IRRIGATION IF NEEDED.
--- NOTE | 2022-06-10 13:53 | P.HP_ITS ---
Providers/Chief Complaint Admitting Physician: Tammy Rodriguez MD Primary Care Provider: AGATA Gutierres Chief Complaint: abnormal labs History of Present Illness Sj Singh is a 66 year old female who presented to the emergency room with chief complaint of abnormal labs. She had been seen at cardiology clinic yesterday. She told them that she thought she was dying. She had been having significant malaise, fatigue, difficulty breathing with minimal exertion. She described herself as fading and unable to walk. No actual syncope. This has been progressively worsening over several week timeframe. Denies any chest pain. No fevers. She has had some upper respiratory congestion. No significant sputum production. In addition she is noted lower extremity edema. It has been so bad some days that she is swelled up to her stomach by the end of the day. 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 Her symptoms had started impeding her ability to work. Laboratory work-up was done through the cardiology clinic and came back demonstrating significant drop in hemoglobin. Mrs. Singh was called and told to come to the emergency room. Repeat blood work showed hemoglobin of 5.9. Last comparable hemoglobin from January of this year was 8.9. Patient underwent suburethral sling, perineorrhaphy and colpocleisis by Dr. Sofia for cystocele with vaginal vault prolapse and bladder outlet obstruction. Postoperatively hemoglobin had been as low as 5.6 and she did require transfusion at that time. She followed with Dr. Sofia through March of this year and was doing well. She says a month or 2 ago she had sudden appearance of gross hematuria that persisted for a few days. She had had issues with this previously usually treated with antibiotics. She again took a course of Keflex for about 10 days. The hematuria resolved but since then she has had which she describes as persistent dark urine . When shown urine currently in a Erickson bag she states that her urine has been similar and sometimes even darker. Current urine is what I would described as pink-tinged dark yellow light brown coloration. She has not noted any recent clots. She indicates that she has had persistent protrusion in her genitourinary area that is significantly smaller than what it had been in the past but still may be half dollar size hanging down an inch or so. When it hangs down she is physically unable to urinate. She describes straining to try to urinate during the day. She has been having increasing swelling in her lower extremities including in this region at times. She finds that when she lies down at the end of the day after a few minutes she will feel things shift and then be able to get up and urinate. She denies any incontinence or overflow of urine. She knows that she has to go frequently but simply cannot. No recent fevers. She does not think she has had completely yellow urine since not too long after she last saw Dr. Sofia in March. She has been typed and crossed and 1 unit of packed red blood cells initiated. CT of the abdomen and pelvis showed diffuse bladder wall thickening with enhancement and lobulation compatible with cystitis along with bilateral pelvocaliectasis and ureterectasis suggesting chronic poor bladder emptying. Erickson catheter was placed and patient received a dose of Rocephin. Hospitalist were contacted for admission. Review of Systems Const: Reports: change in weight (Reports wide fluctuations in weight on a day-to-day basis), fatigue and malaise; Denies: fever(s) or chills Eyes: Denies: change in vision ENMT: Denies: throat pain or nasal congestion Card: Reports: palpitations, edema, lightheadedness and dyspnea on exertion; Denies: chest pain, syncope, orthopnea or leg pain with exertion Resp: Reports: dyspnea, non-productive cough and chest congestion; Denies: productive cough, pain on inspiration or hemoptysis GI: Reports: constipation; Denies: abdominal pain, nausea, vomiting, diarrhea or hematochezia : Reports: difficulty voiding, dysuria, urinary frequency, urinary urgency (But unable to urinate), urinary hesitancy and hematuria; Denies: flank pain or urinary incontinence Musc: Reports: muscle weakness Skin/Breast: Denies: rash or pruritus Neuro: Reports: weakness in extremities (Generalized weakness all over) and di fficulty walking (Due to weakness); Denies: headache(s) or numbness in extremities Psych: Reports: anxiety (About what is going on and feeling that she is dying) Damaso/Lymph: Reports: easy bleeding (Urinary occasionally with clots); Denies: easy bruising Medications/Allergies Home Medications Medication Instructions Recorded Confirmed Last Taken Type acetaminophen 500 mg tablet 1,000 mg PO Q6H PRN Pain 10/20/20 06/10/22 01/27/22 History (Tylenol Extra Strength) albuterol sulfate 90 mcg/actuation 2 puff inhalation Q6H PRN 10/20/20 06/10/22 Unknown History aerosol inhaler (ProAir HFA) Shortness Of Breath cholecalciferol (vitamin D3) 25 25 mcg PO DAILY@10/20/20 06/10/22 06/10/22 History mcg (1,000 unit) tablet (Vitamin D3) cyclobenzaprine 10 mg tablet 5 - 10 mg PO TID PRN Muscle Spasm 10/20/20 06/10/22 Unknown History empagliflozin 25 mg tablet 25 mg PO DAILY@10/20/20 06/10/22 06/10/22 History (Jardiance) metformin 1,000 mg tablet 1,000 mg PO BID@10/20/20 06/10/22 06/10/22 History montelukast 10 mg tablet 10 mg PO DAILY@10/20/20 06/10/22 06/09/22 History multivitamin 1 tab PO DAILY@10/20/20 06/10/22 06/10/22 History omeprazole 40 mg capsule,delayed 40 mg PO DAILY@10/20/20 06/10/22 06/10/22 History release sennosides 8.6 mg-docusate sodium 2 tab PO DAILY 12/18/20 06/10/22 06/10/22 History 50 mg tablet potassium chloride 20 mEq 20 meq PO DAILY #90 tabs 01/01/21 06/10/22 06/10/22 Rx tablet,extended release(part/cryst) (Klor-Con M) cyanocobalamin (vitamin B-12) 2,000 mcg PO DAILY ##0 01/09/21 06/10/22 06/10/22 History 2,000 mcg tablet,extended release (Vitamin B-12 ER) furosemide 40 mg tablet 20 mg PO DAILY #90 tabs 01/29/21 06/10/22 06/10/22 Rx atorvastatin 40 mg tablet 40 mg PO BEDTIME 03/12/21 06/10/22 06/09/22 History aspirin 81 mg tablet,delayed 81 mg PO DAILY #30 tabs 05/08/21 06/10/22 06/10/22 Rx release amlodipine 5 mg tablet 5 mg PO DAILY #90 tabs 07/24/21 06/10/22 06/10/22 Rx ascorbic acid (vitamin C) 500 mg 500 mg PO DAILY 10/27/21 06/10/22 06/10/22 History tablet (Vitamin C) lisinopril 20 mg tablet 20 mg PO DAILY 01/22/22 06/10/22 06/10/22 History docusate sodium 100 mg capsule 100 mg PO BID #60 caps 01/29/22 06/10/22 06/10/22 Rx hydrocodone 5 mg-acetaminophen 325 1 tab PO Q4H PRN Moderate To 01/29/22 06/10/22 Unknown Rx mg tablet Severe Pain #30 tabs metoprolol succinate 25 mg 25 mg PO DAILY #90 tabs 04/21/22 06/10/22 06/10/22 Rx tablet,extended release 24 hr levothyroxine 100 mcg tablet 100 mcg PO DAILY #90 tabs 06/09/22 06/10/22 06/10/22 Rx Allergies Allergy/AdvReac Type Severity Reaction Status Date / Time Penicillins Allergy Severe ALGY-Hives Verified 06/10/22 12:45 levofloxacin [From Levaquin] Allergy ALGY-Rash Verified 06/10/22 12:45 PFSH Acute PFSH: Medical History (Updated 06/10/22 @ 21:15 by Tammy Rodriguez MD) Atherosclerosis of coronary artery Bilateral hydronephrosis Secondary to distal ureteral kinking from severe prolapse with cystocele Bladder outlet obstruction Secondary to severe cystocele; persistent even after repair Chronic cystitis COVID-19 (10/2020) Had associated PE (completed 6 months of anticoagulation post COVID), myocarditis; systolic heart failure and NSTEMI also noted for first time during this hospital stay Diabetes Dyslipidemia GERD (gastroesophageal reflux disease) Gross hematuria history of recurrent gross hematuria, usually associated with infections Hypertension Hypothyroidism Mitral valve regurgitation Presence of stent in LAD coronary artery Tricuspid regurgitation Vaginal vault prolapse surgically addressed 01/28 Surgical History H/O cataract removal with insertion of prosthetic lens H/O cystoscopy History of anterior repair with culdoplasty History of bladder suspension procedure (01/28/22) mid urethral sling History of colpocleisis (01/28/22) with perineorrhaphy Hx of appendectomy Hx of heart artery stent LAD and 1st diagonal, both placed 01/2021 Hx of hysterectomy Hx of tubal ligation Family History Brother Thyroid disease Diabetes Mother CAD (coronary artery disease) of [place] at 61, problems started mid 50s Diabetes Sister Chronic kidney disease (CKD) Diabetes Family/Other Diabetes Brother Diabetes Family/Other Diabetes Denies family history of Ovarian cyst Clotting disorder Dementia Hyperlipidemia Suicide Anesthesia complication Bleeding disorder Lung disease Cancer Hypertension Stroke Social History (Updated 06/10/22 @ 21:11 by Tammy Rodriguez MD) Smoking and tobacco status: former smoker Alcohol intake: never Substance/Drug Use: never Vitals/I&O/Wt Last Vital Signs Temp 97.8 F 06/10/22 13:00 Pulse 54 L 06/10/22 13:00 Resp 15 06/10/22 13:00 BP 145/89 06/10/22 13:00 Pulse Ox 98 06/10/22 13:00 O2 Del Method 06/10/22 13:00 06/09/22 06/10/22 06/10/22 22:59 06:59 14:59 Intake Total 0 / 0 Balance 0 / 0 Weight last 48 hrs Weight 72.575 kg Physical Exam Narrative: Constitutional: Awake and alert, cooperative, looks like she does not feel well HEENT: Normocephalic, atraumatic, conjunctiva are pale, oropharynx with pale membranes Neck: Supple Respiratory: Clear to auscultation anteriorly, faint crackles at bases, no wheezes, occasional nonproductive cough during exam Cardiovascular: Regular rate and rhythm, flow murmur noted, no gallops or rubs Abdomen: Soft, nontender, positive bowel sounds : Erickson catheter is in place; urine is pink-tinged; did not do extensive exam otherwise given nature of surgery earlier this year Extremities: 2+ edema bilateral lower extremities, 1+ pulses, no calf tenderness or cyanosis Skin: Dry, pale, no large bruises noted Neuro: Speech clear, face symmetric, moves all extremities Psych: Normal affect Data : 06/10/22 10:07 06/10/22 10:07 Other Labs: Radiology Impressions Abdomen/Pelvis CT 06/10/22 10:41 IMPRESSION: 1. Irregular bladder with diffuse bladder wall thickening and enhancement compatible with cystitis. Associated small cystocele. 2. Bilateral pelvocaliectasis and ureterectasis compatible with poor bladder emptying and probable ascending urinary tract infection. 3. Diffuse fatty infiltration the liver with mild intrahepatic biliary ductal dilatation. Small amount of fluid in the gallbladder fossa. Cholelithiasis. This can be further evaluated ultrasound. No gallbladder wall thickening. 4. Moderate esophageal hiatal hernia unchanged. 5. Diffuse body wall anasarca. Laboratory Results WBC 3.6 10^3/uL (4.0-10.0) L 06/10/22 10:07 RBC 3.00 10^6/uL (4.1-5.3) L 06/10/22 10:07 Hgb 5.9 g/dL (11.5-15.3) L* 06/10/22 10:07 Hct 21.0 % (37.0-47.0) L 06/10/22 10:07 MCV 70.0 fl (81-99) L D 06/10/22 10:07 MCH 19.7 pg (28.0-34.0) L 06/10/22 10:07 MCHC 28.1 g/dL (30.0-36.0) L D 06/10/22 10:07 RDW 17.0 % (12.1-15.1) H 06/10/22 10:07 Plt Count 215 10^3/cmm (130-400) 06/10/22 10:07 MPV 10.4 fL (7.4-10.4) 06/10/22 10:07 Neut % (Auto) 52.9 % 06/10/22 10:07 Lymph % (Auto) 31.0 % 06/10/22 10:07 [place] % (Auto) 11.3 % 06/10/22 10:07 Eos % (Auto) 3.4 % 06/10/22 10:07 Baso % (Auto) 1.1 % 06/10/22 10:07 Neut # (Auto) 1.88 10^3/uL (1.8-7.7) 06/10/22 10:07 Lymph # (Auto) 1.1 10^3/uL (0.8-4.8) 06/10/22 10:07 [place] # (Auto) 0.4 10^3/uL (0.2-0.9) 06/10/22 10:07 Eos # (Auto) 0.1 10^3/uL (0.0-0.8) 06/10/22 10:07 Baso # (Auto) 0.0 10^3/uL (0.0-0.1) 06/10/22 10:07 Nucleated RBC % (auto) 0 % 06/10/22 10:07 Nucleated RBCs # 0.0 /100WBC 06/10/22 10:07 PT 13.70 SECONDS (12.1-14.9) 06/10/22 10:07 INR 1.02 (0.8-1.2) 06/10/22 10:07 APTT 31.4 SECONDS (23.9-36.7) 06/10/22 10:07 Sodium 135 mmol/L (136-145) L 06/10/22 10:07 Potassium 5.3 mmol/L (3.5-5.1) H 06/10/22 10:07 Chloride 101 mmol/L (98-107) 06/10/22 10:07 Carbon Dioxide 22 mmol/L (22-29) 06/10/22 10:07 Anion Gap 17.3 (5-19) 06/10/22 10:07 BUN 18 mg/dL (8-23) 06/10/22 10:07 Creatinine 0.9 mg/dL (0.5-0.9) 06/10/22 10:07 GFR Calculation 62.6 mL/min (90-130) L 06/10/22 10:07 Glucose 135 mg/dL (65-115) H 06/10/22 10:07 Calculated Osmolality 284 mOsm/kg (285-295) L 06/10/22 10:07 Calcium 8.6 mg/dL (8.5-10.5) 06/10/22 10:07 Total Bilirubin 0.2 mg/dL (0.15-1.2) 06/10/22 10:07 AST 128 U/L (0-32) H 06/10/22 10:07 ALT 124 U/L (0-33) H 06/10/22 10:07 Alkaline Phosphatase 149 IU/L (35-105) H 06/10/22 10:07 Total Protein 5.8 g/dL (6.6-8.7) L 06/10/22 10:07 Albumin 3.5 g/dL (3.5-5.2) 06/10/22 10:07 Globulin 2.3 g/dL (1.3-4.6) 06/10/22 10:07 Blood Type O Positive 06/10/22 10:07 Rho(D) Type Positive 06/10/22 10:07 Antibody Screen Negative 06/10/22 10:07 Crossmatch See Detail 06/10/22 10:07 A&P Assessment and plan (1) Blood loss anemia: Urinary source of blood loss by description. Has chronic cystitis with recent gross hematuria with significant clots noted suggestive of acute on chronic cystitis and gradual clinical decline since then as blood counts have dropped further. Quite symptomatic from the anemia. Status: Acute (2) Bladder outlet obstruction: From persistent though significantly smaller prolaspe related to cystocele. Had colpocleisis in January of this year so pessary not a clinical option in this case. Clearly describes being unable to urinate despite feeling fullness in bladder that is relieved after she has laid supine for a while, allowing her to urinate. Status: Chronic (3) Chronic cystitis: With acute cystitis recently when she developed recurrent gross hematuria, now with persistent pink tinge or darker urine despite treatment with oral antibiotics outpatient Status: Chronic (4) Leg swelling: Increasing lower extremity edema lately to the extent that it is also causing swelling in the genitourinary area contributing to bladder outlet obstruction further. Suspect related to chronic diagnosis of CHF though there could be a mechanical component from overdistention of the bladder exacerbating poor venous return after she has been on her legs throughout the day at work. Status: Acute (5) Systolic congestive heart failure with reduced left ventricular function, NYHA class 3: Last echocardiogram from October 2020, taken when patient had COVID, demonstrated ejection fraction at 50%, grade 2/4 diastolic dysfunction along with at least mild systolic dysfunction global left ventricular hypokinesis. Arteriogram several months later demonstrated evidence of severe two-vessel disease for which patient had stents placed. Chronically on Lasix 20 mg daily with potassium supplementation BNP noted to be elevated at cardiology clinic yesterday Status: Chronic (6) Atherosclerosis of coronary artery: Severe two-vessel disease at the LAD and first diagonal, both underwent an gioplasty and drug-eluting stent placement in January 2021. With gross hematuria issues lately, patient has come off of her Plavix. She is about a year and a half out from her stent placements. Does not really describe chest pain specifically. She does describe dyspnea that is concerning for potential anginal equivalent although acute on chronic CHF or even symptomatic anemia could present similarly. Chronically on aspirin and metoprolol succinate Status: Chronic Qualifiers: Coronary Disease-Associated Artery/Lesion type: [place] artery [place] vs. transplanted heart: [place] heart Associated angina: without angina Qualified Code(s): I25.10 - Atherosclerotic heart disease of [place] coronary artery without angina pectoris (7) Hypertension: Chronically on amlodipine, lisinopril in addition to beta-blockade and diuretic therapy already mentioned Status: Chronic Qualifiers: Hypertension type: primary hypertension Qualified Code(s): I10 - Essential (primary) hypertension (8) Diabetes mellitus, type II: Chronically on metformin and Jardiance A1c 6.6 in 01/2022 Status: Chronic Qualifiers: Diabetes mellitus longterm insulin use: without ad terminal makeup operator use Diabetes mellitus complication status: with kidney complications Diabetes mellitus complication detail: with chronic kidney disease Chronic kidney disease stage: stage 2 (mild) Qualified Code(s): E11.22 - Type 2 diabetes mellitus with diabetic chronic kidney disease; N18.2 - Chronic kidney disease, stage 2 (mild) (9) Dyslipidemia: Chronically on statin therapy Status: Chronic (10) Hypothyroidism: Chronically on levothyroxine Status: Chronic Plan Currently with hyperkalemia or at least potassium at upper limits of normal range Elevated transaminases, suggesting hepatic congestion Inpatient admission Repeat H&H after initial transfusion Given history of cardiac issues and symptoms, along with persistent evidence of hematuria, will transfuse an additional unit if hemoglobin remains 7 or lower, monitor if greater than 7 Check iron level, expect to be quite low Erickson catheter is in place with ability to irrigate if necessary Continue Rocephin for now Follow up pending urine culture Spoke with Dr. Mart who recommended maintaining Erickson catheter for now along with antibiotic therapy for coverage of cystitis and outpatient follow-up to him for cystoscopy. We discussed the possibility of adding alpha-abraham but with the persistent physical obstruction from remnant of cystocele that remains, not likely to add much at this time. Have consulted Dr. Sofia to evaluate if there is anything that we can do to help with the bladder outlet obstruction aspect of things, she will see patient in the morning IV diuresis for now Strict I&Os Hold potassium supplementation until value normalizes Recheck echocardiogram EKG and cardiac enzymes Half usual dose of lisinopril Hold amlodipine Continue home aspirin, statin, beta-blockade Continue home levothyroxine Hold oral hypoglycemic agents, sliding scale currently with consitent carbohydrate diet Continue home stool softners/laxatives Check TSH in am Lipid panel in am PPI for GI prophylaxis, is on chronically at home SCDs for DVT prophylaxis Findings, concerns and plans were discussed with patient and she was given an opportunity to ask questions Anticipate outpatient follow-up with Dr. Mart in a couple weeks in regards to gross hematuria and bladder abnormalities in the setting of acute on chronic cystitis. Additionally her outpatient follow-up with CREDIT ADMINISTRATOR or even potentially urogynecology depending on clinical course and CREDIT ADMINISTRATOR findings. Patient is eager to return to work and would require a leg bag for Erickson catheter maintenance in that setting along with appropriate instruction. Currently anticipate patient will be discharged home. Supportive care otherwise Full code Attestations Medical Necessity Statement*: Anticipated stay greater than two midnights in this patient presenting because of what appears to be quite symptomatic anemia with a hemoglobin of 5.9. Source of bleeding is urinary in nature by history and previously has always been related to infection. Infection has been a recurrent issue and even known to have chronic cystitis related to bladder outlet obstruction from cystocele. The cystocele has persisted, though at a much smaller degree, since procedure earlier this year and continues to obstruct urinary outflow for extended periods of time. In addition to urogenital issues described, there is concern for anginal equivalent and acute CHF contributing as described above. Plans are as indicated. Coding Level of Care Code Acute Composite Layup Worker for Chg Fwd Diagnoses Blood loss anemia D50.0 Bladder outlet obstruction N32.0 Chronic cystitis N30.20 Leg swelling M79.89 Systolic congestive heart failure with reduced left ventricular function, NYHA class 3 I50.20 Atherosclerosis of coronary artery I25.10 Coronary Disease-Associated Artery/Lesion type: [place] artery [place] vs. transplanted heart: [place] heart Associated angina: without angina Hypertension I10 Hypertension type: primary hypertension Diabetes mellitus, type II E11.22; N18.2 Diabetes mellitus longterm insulin use: without ad terminal makeup operator use Diabetes mellitus complication status: with kidney complications Diabetes mellitus complication detail: with chronic kidney disease Chronic kidney disease stage: stage 2 (mild) Dyslipidemia E78.5 Hypothyroidism E03.9
[2022-06-10 14:25] LABS: Bilirubin Urine Neg (Negative); Blood Urine 3+ (Negative); Glucose Urine UA Norm (Normal); Ketones Urine Negative (Negative); Leukocyte Esterase Urine Trace (Negative); Nitrate Urine Negative (Negative); Protein Urine 1+ (Negative); RBC Urine TOO NUMEROUS TO CNT /hpf (0-2); Specific Gravity, Urine 1.005 (1.005-1.030); Squamous Epithelial Cell Urine 0-4 /hpf (0-5); Urine Appearance Cloudy (CLEAR); Urine Color Red (Yellow); Urobilinogen Urine Norm (Negative); pH Urine 7 (5-7)
[2022-06-10 14:26] LABS: Add Urine Culture? Yes
[2022-06-10 17:02] LABS: Hematocrit 27.7 % (37.0-47.0)
[2022-06-10] MEDS: docusate sodium 100 mg Capsule PO (18:13)
[2022-06-10] MEDS: cefTRIAXone 1,000 MG in sodium chloride 0.9% (plus) 50 ML 100 MG IV (18:14)
[2022-06-10] MEDS: atorvastatin 40 mg Tablet PO (20:13)
[2022-06-10] MEDS: montelukast sodium 10 mg Tablet PO (20:13)
--- NOTE | 2022-06-10 20:34 | USCV_ITS ---
Sj Singh Age: 66 Gender: F : 1955 Exam Date: 06/10/2022 21:58 Ordering Phys: Tammy Rodriguez MD Technologist: MARY [place] [facility] [place]: History of CAD s/p cardiac stents 2019. c/o SOB, LE edema BP: 135 / 75 HR: 67 Rhythm: Sinus Technical Quality: Good MEASUREMENTS (Male / Female) Normal Values 2D ECHO LV Diastolic Diameter PLAX 3.9 cm 4.2 - 5.9 / 3.9 - 5.3 cm LV Systolic Diameter PLAX 2.6 cm IVS Diastolic Thickness 1.6 cm 0.6 - 1.0 / 0.6 - 0.9 cm IVS Systolic Thickness 2.2 cm LVPW Diastolic Thickness 1.2 cm 0.6 - 1.0 / 0.6 - 0.9 cm LVPW Systolic Thickness 1.6 cm LVOT Diameter 2.0 cm LV Ejection Fraction 2D Teich 63.6 % LV Ejection Fraction MOD 2C 70.4 % LV Ejection Fraction 2C AL 71.4 % LA Diameter 4.0 cm LA Width 4.8 cm LA Height 5.4 cm RA Width 3.2 cm RA Height 4.5 cm Aorta at Sinotubular Diameter 2.9 cm IVC Diameter 2.1 cm M-MODE Aortic Annulus Diameter 3.1 cm LA Ao Ratio MM 1.2 MV E Point Septal Separation 0.2 cm DOPPLER AV Peak Velocity 98.0 cm/s LVOT Peak Velocity 95.0 cm/s AV Area Cont Eq vti 3.0 cm squared AV Area Cont Eq pk 3.2 cm squared MV Peak Velocity 121.0 cm/s MV Area PHT 4.1 cm squared Mitral E to A Ratio 1.3 MV E' Velocity 64.5 cm/s Mitral E to MV E' Ratio 12.0 Mitral E to LV E' Lateral Ratio 11.1 Mitral E to LV E' Septal Ratio 13.0 TR Peak Velocity 269.0 cm/s TR Peak Gradient 28.9 mmHg TV Peak E Velocity 57.0 cm/s Right Atrial Pressure 10.0 mmHg Pulmonary Artery Systolic Pressu 38.9 mmHg PV Peak Velocity 88.0 cm/s RV Acceleration Time 0.1 s RV Ejection Time 0.4 s RV AcT/ET 0.3 FINDINGS Left Ventricle Normal left ventricular size, systolic function and wall thickness, with no regional wall motion abnormalities. Left ventricular ejection fraction is estimated at 65 %. Normal diastolic function. Right Ventricle Normal right ventricular size and systolic function. Right ventricular systolic pressure 34 mmHg. Right Atrium Normal right atrial size. Right atrial pressure estimated at 3 mm Hg. Left Atrium Mildly increased left atrial size. Mitral Valve Mildly thickened mitral valve. Mild mitral annular calcification. No mitral valve stenosis. Mild mitral valve regurgitation. Aortic Valve Structurally normal trileaflet aortic valve. No aortic valve stenosis. No aortic valve regurgitation. Tricuspid Valve Structurally normal tricuspid valve. No tricuspid valve stenosis. Mild tricuspid valve regurgitation. Pulmonic Valve Structurally normal pulmonic valve. No pulmonary valve stenosis. Trace pulmonary valve regurgitation. Pericardium No pericardial effusion. Aorta Normal size aortic root and proximal ascending aorta. IVC Normal IVC dimension with >50% respiratory change of the inferior vena cava. CONCLUSIONS 1. Normal left ventricular size, systolic function and wall thickness, with no regional wall motion abnormalities. Left ventricular ejection fraction is estimated at 65 %. Normal diastolic function. 2. Pulmonary artery pressure estimated at 34 mm Hg. 3. Mild mitral and tricupid valve regurgitation. 4. When compared to study 10/20/2020, LV function seems to have improved. Gilma Whipple MD (Electronically Signed) Final Date: 11 June 2022 12:31 S
--- NOTE | 2022-06-10 20:54 | ECG_ITS ---
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 Measurements Intervals [place] Rate: 62 P: 176 NM: 171 QRS: 219 QRSD: 102 T: 168 QT: 428 QTc: 435 Interpretive Statements SINUS RHYTHM POSSIBLE RIGHT VENTRICULAR HYPERTROPHY [SOME/ALL OF: PROMINENT R IN V1, LATE TRANSITION, RAD, AARON, SSS] SEPTAL MYOCARDIAL INFARCTION , PROBABLY OLD [40+ ms Q WAVE IN V1/V2] Compared to ECG 01/22/2022 13:30:03 Left-axis deviation no longer present Myocardial infarct finding still present Electronically Signed On 06-11-2022 6:36:44 CDT by Amanda Garcia M.D. [id number]
[2022-06-10] MEDS: FUROsemide 10 mg/mL SDV 2mL 20 MG IVP (21:47)
[2022-06-10 22:16] LABS: Troponin(5th) Baseline 15 ng/L (0-10)
[2022-06-10 22:29] LABS: Glucose Point of Care 150 mg/dL (70-110)
--- NOTE | 2022-06-10 22:54 | ECG_ITS ---
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 Measurements Intervals [place] Rate: 58 P: 58 [place]: 166 QRS: -33 QRSD: 107 T: 15 QT: 445 QTc: 441 Interpretive Statements SINUS BRADYCARDIA LEFT AXIS DEVIATION [QRS AXIS < -30] Compared to ECG 06/10/2022 21:29:30 Left-axis deviation now present Sinus rhythm no longer present Myocardial infarct finding no longer present Electronically Signed On 06-11-2022 19:50:39 CDT by Gilma Whipple M.D. [id number]
[2022-06-10 23:32] LABS: Troponin 5 2HR 15.06 ng/L (0-10)
[2022-06-10 23:39] LABS: Troponin 5 2HR Delta 0.06 ABS# (0-10)
[2022-06-11] VITALS (7 sets, daily range): BP systolic 117–142; BP diastolic 64–80; PULSE 57–69; RESP 12–18; TEMP 36.2–36.8; O2SAT 91–97
[2022-06-11] MEDS: sodium chloride 0.9% 100 mL Bag 50 ML IV (00:36)
[2022-06-11 02:21] LABS: Cholesterol 99 mg/dL (0-200); HDL Cholesterol 43 mg/dL (60-100); LDL Cholesterol Calculated 42 mg/dL (50-129); LDL HDL Ratio 0.98 RATIO (0.00-3.22); NT Pro B Type Natriuretic Pept 1411 pg/mL (0-125); Triglycerides 68 mg/dL (0-150)
[2022-06-11 02:36] LABS: Iron 14 ug/dL (37-145); Percent Saturation 7.6 % (20-50); Total Iron Binding Capacity 184 mcg/dl; Unsaturated Iron Binding 170 ug/dL (112-347)
--- NOTE | 2022-06-11 02:54 | ECG_ITS ---
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 Measurements Intervals [place] Rate: 67 P: 78 MS: 166 QRS: -34 QRSD: 105 T: 55 QT: 435 QTc: 462 Interpretive Statements SINUS RHYTHM WITH OCCASIONAL VENTRICULAR PREMATURE COMPLEXES LEFT AXIS DEVIATION [QRS AXIS < -30] Compared to ECG 06/10/2022 23:14:53 Ventricular premature complex(es) now present Sinus bradycardia no longer present Electronically Signed On 06-11-2022 19:49:45 CDT by Gilma Whipple M.D. [id number]
[2022-06-11 03:06] LABS: Basophils # 0.1 10^3/uL (0.0-0.1); Basophils % 1.3 %; Eosinophils # 0.1 10^3/uL (0.0-0.8); Eosinophils % 3.7 %; Hematocrit 25.7 % (37.0-47.0); Hemoglobin 7.4 g/dL (11.5-15.3); Lymphocytes # 1.3 10^3/uL (0.8-4.8); Lymphocytes % 33.5 %; Mean Corpuscular HGB Conc 28.8 g/dL (30.0-36.0); Mean Corpuscular Hemoglobin 20.9 pg (28.0-34.0); Mean Corpuscular Volume 72.6 fl (81-99); Mean Platelet Volume 10.6 fL (7.4-10.4); Monocytes # 0.5 10^3/uL (0.2-0.9); Monocytes % 11.9 %; Neutrophils # 1.88 10^3/uL (1.8-7.7); Neutrophils % 49.6 %; Nucleated Red Blood Cells % 0 %; Platelet Count 194 10^3/cmm (130-400); Red Blood Count 3.54 10^6/uL (4.1-5.3); Red Cell Distribution Width 17.6 % (12.1-15.1); White Blood Count 3.8 10^3/uL (4.0-10.0)
[2022-06-11 03:37] LABS: Alanine Aminotransferase 92 U/L (0-33); Albumin Level 3.1 g/dL (3.5-5.2); Alkaline Phosphatase 126 IU/L (35-105); Anion Gap 16.3 (5-19); Aspartate Amino Transferase 53 U/L (0-32); Blood Urea Nitrogen 15 mg/dL (8-23); Carbon Dioxide 25 mmol/L (22-29); Chloride 100 mmol/L (98-107); Creatinine Clr Calc Pharmacy 67.5411; Globulin 2.4 g/dL (1.3-4.6); Glomerular Filtration Rate 83.7 mL/min (90-130); Glucose 96 mg/dL (65-115); Magnesium 1.9 mg/dL (1.7-2.3); Osmolality Calculated 285 mOsm/kg (285-295); Phosphorus 4.5 mg/dL (2.5-4.5); Potassium 4.3 mmol/L (3.5-5.1); Sodium 137 mmol/L (136-145); Total Bilirubin 0.6 mg/dL (0.15-1.2); Total Protein 5.5 g/dL (6.6-8.7)
[2022-06-11 04:18] LABS: Troponin 5 6HR 14.06 ng/L (0-10); Troponin 5 6HR Delta -0.94 ng/L (0-12)
[2022-06-11 06:29] LABS: Glucose Point of Care 100 mg/dL (70-110)
[2022-06-11] MEDS: cholecalciferol (vitamin D3) 1,000 unit Tablet 1000 UNIT PO (06:35)
[2022-06-11] MEDS: HYDROcodone-acetaminophen 5-325 mg Tablet 1 TAB PO (06:38)
[2022-06-11] MEDS: aspirin 81 mg EC Tablet PO (08:56)
[2022-06-11] MEDS: sennosides-docusate Tablet 2 TAB PO (08:56)
[2022-06-11] MEDS: cyanocobalamin 1,000 mcg Tablet 2000 MCG PO (08:56)
[2022-06-11] MEDS: levothyroxine 100 mcg Tablet PO (08:56)
[2022-06-11] MEDS: metoprolol succinate ER (24 HR) 25 mg Tablet PO (08:56)
[2022-06-11] MEDS: docusate sodium 100 mg Capsule PO (08:56)
[2022-06-11] MEDS: pantoprazole DR 40 mg Tablet PO (08:56)
--- NOTE | 2022-06-11 10:23 | PC.CHAP ---
Pastoral Care Encounter/Spiritual Assessment Type of Contact [] Declined web production artist visit [] Patient/Family/Request visit [] Outpatient visit [] Follow-up visit [] Physician referral [] Code/Alert [x] Routine visit [] Staff referral [] Actively dying [] Patient sleeping [] Family support [] [] Out of room [] Palliative care [] [x] Receiving care in room [] Pre-surgical visit [] Trauma [] Long length of stay [] ICU visit [] Other: Relational/Emotional Strength [] Patient feels connected with others/family/visitors/staff [] Distress [] Loneliness/isolation [] Abandonment Spirituality of Patient [] Person of Nancie [] Attends Synagogue of their Nancie [] Believes in Prayer [] Reads Bible or Holiness materials [] There are Spiritual issues to be addressed Pediatric Radiologist Interventions [] Prayer [] Active listening [] Non-anxious presence [] Spiritual/emotional support [] Crisis/trauma care [] Spiritual counseling [] Bereavement support [] Provided bereavement packet [] Provided Bible/devotional materials [] Provided toy/stuffed animal, coloring book to patient or family member [] Provided Communion [] Anointing/[place] [] Salvation [] Completed spiritual assessment [] Other: Impact on Illness or Injury [] Angry [] Fearful [] Anxious [] Often cries [] Exhaustion [] Unable to work [] Unable to attend pentecostalism [] Unable to walk/stand [] Unable to read [] Unable to drive [] Unable to eat/drink [] Unable to sleep [] Unable to be with family [] Patient intubated [] Other: Summary Time spent with patient
[2022-06-11 11:24] LABS: Glucose Point of Care 125 mg/dL (70-110)
--- NOTE | 2022-06-11 14:16 | PM.OBGYCN ---
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 Rodriguez Attending Physician: Aly Brian Primary RN FORENSIC: Dr. Hilary Sofia Primary Care Provider: AGATA Gutierres RN FORENSIC Consult HPI History of Present Illness Sj Singh is a 66 year old female who had surgery on 01/28/22. She had a colposcliesis performed that was very technically difficult due to her over abundance of bladder. She also had a sling placed for urinary incontinence. She was doing well when I saw her may for her final post op exam. She reports that not long after she saw me, she started feeling like something was starting to protrude. She now reports that when she is up during the day, she is unable to void. When she lays down at night, her bladder relaxes and then she can void. This is the only way now that she can void according to her. She started feeling badly and went to cardiology. She was found to have profound anemia. She was told to go to the ER and she was admitted from there. She reports that she had some blood in her urine, about a month ago. She took antibiotics and it resolved. She has an outpatient appointment to follow up with Dr. Mart. Review of Systems General: Reports: 10 or more systems reviewed and unremarkable except in HPI and below Medications/Allergies Home Medications Medication Instructions Recorded Confirmed Last Taken Type acetaminophen 500 mg tablet 1,000 mg PO Q6H PRN Pain 10/20/20 06/10/22 01/27/22 History (Tylenol Extra Strength) albuterol sulfate 90 mcg/actuation 2 puff inhalation Q6H PRN 10/20/20 06/10/22 Unknown History aerosol inhaler (ProAir HFA) Shortness Of Breath cholecalciferol (vitamin D3) 25 25 mcg PO DAILY@10/20/20 06/10/22 06/10/22 History mcg (1,000 unit) tablet (Vitamin D3) cyclobenzaprine 10 mg tablet 5 - 10 mg PO TID PRN Muscle Spasm 10/20/20 06/10/22 Unknown History empagliflozin 25 mg tablet 25 mg PO DAILY@10/20/20 06/10/22 06/10/22 History (Jardiance) metformin 1,000 mg tablet 1,000 mg PO BID@10/20/20 06/10/22 06/10/22 History montelukast 10 mg tablet 10 mg PO DAILY@10/20/20 06/10/22 06/09/22 History multivitamin 1 tab PO DAILY@10/20/20 06/10/22 06/10/22 History omeprazole 40 mg capsule,delayed 40 mg PO DAILY@10/20/20 06/10/22 06/10/22 History release sennosides 8.6 mg-docusate sodium 2 tab PO DAILY 12/18/20 06/10/22 06/10/22 History 50 mg tablet potassium chloride 20 mEq 20 meq PO DAILY #90 tabs 01/01/21 06/10/22 06/10/22 Rx tablet,extended release(part/cryst) (Klor-Con M) cyanocobalamin (vitamin B-12) 2,000 mcg PO DAILY ##0 01/09/21 06/10/22 06/10/22 History 2,000 mcg tablet,extended release (Vitamin B-12 ER) furosemide 40 mg tablet 20 mg PO DAILY #90 tabs 01/29/21 06/10/22 06/10/22 Rx atorvastatin 40 mg tablet 40 mg PO BEDTIME 03/12/21 06/10/22 06/09/22 History aspirin 81 mg tablet,delayed 81 mg PO DAILY #30 tabs 05/08/21 06/10/22 06/10/22 Rx release amlodipine 5 mg tablet 5 mg PO DAILY #90 tabs 07/24/21 06/10/22 06/10/22 Rx ascorbic acid (vitamin C) 500 mg 500 mg PO DAILY 10/27/21 06/10/22 06/10/22 History tablet (Vitamin C) lisinopril 20 mg tablet 20 mg PO DAILY 01/22/22 06/10/22 06/10/22 History docusate sodium 100 mg capsule 100 mg PO BID #60 caps 01/29/22 06/10/22 06/10/22 Rx hydrocodone 5 mg-acetaminophen 325 1 tab PO Q4H PRN Moderate To 01/29/22 06/10/22 Unknown Rx mg tablet Severe Pain #30 tabs metoprolol succinate 25 mg 25 mg PO DAILY #90 tabs 04/21/22 06/10/22 06/10/22 Rx tablet,extended release 24 hr levothyroxine 100 mcg tablet 100 mcg PO DAILY #90 tabs 06/09/22 06/10/22 06/10/22 Rx Allergies Allergy/AdvReac Type Severity Reaction Status Date / Time Penicillins Allergy Severe ALGY-Hives Verified 06/10/22 12:45 levofloxacin [From Levaquin] Allergy ALGY-Rash Verified 06/10/22 12:45 Current Medications Generic Name Dose Route Start Last Admin Trade Name Freq PRN Reason Stop Dose Admin Hydrocodone Bitart/Acetaminophen 1 tab 06/10/22 16:24 06/11/22 06:38 Hydrocodone-Acetaminophen 5-325 Mg Tablet PO 1 tab Q4H PRN Administration Moderate To Severe Pain Aspirin 81 mg 06/11/22 09:00 06/11/22 08:56 Aspirin 81 Mg Ec Tablet PO 81 mg DAILY MARIO Administration Atorvastatin Calcium 40 mg 06/10/22 21:00 06/10/22 20:13 Atorvastatin 40 Mg Tablet PO 40 mg BEDTIME MARIO Administration Cyanocobalamin 2,000 mcg 06/11/22 09:00 06/11/22 08:56 Cyanocobalamin 1,000 Mcg Tablet PO 2,000 mcg DAILY MARIO Administration Docusate Sodium 100 mg 06/10/22 18:00 06/11/22 08:56 Docusate Sodium 100 Mg Capsule PO 100 mg BID MARIO Administration Furosemide 20 mg 06/10/22 21:00 06/10/22 21:47 Furosemide 10 Mg/Ml Sdv 2ml IVP 20 mg Q24H MARIO Administration Insulin Human Lispro 0 unit 06/10/22 21:00 06/10/22 22:42 Insulin Lispro 100 Unit/1 Ml SUBCUT Not Given BEDTIME MARIO Protocol Insulin Human Lispro 0 unit 06/11/22 08:00 06/11/22 11:41 Insulin Lispro 100 Unit/1 Ml SUBCUT Not Given TIDWM MARIO Protocol Levothyroxine Sodium 100 mcg 06/11/22 09:00 06/11/22 08:56 Levothyroxine 100 Mcg Tablet PO 100 mcg DAILY MARIO Administration Metoprolol Succinate 25 mg 06/11/22 09:00 06/11/22 08:56 Metoprolol Succinate Er (24 Hr) 25 Mg Tablet PO 25 mg DAILY MARIO Administration Montelukast Sodium 10 mg 06/10/22 21:00 06/10/22 20:13 Montelukast Sodium 10 Mg Tablet PO 10 mg DAILY@21 MARIO Administration Pantoprazole Sodium 40 mg 06/11/22 09:00 06/11/22 08:[address] 40 Mg Tablet PO 40 mg DAILY MARIO Administration Senna/Docusate Sodium 2 tab 06/11/22 09:00 06/11/22 08:56 Sennosides-Docusate Tablet PO 2 tab DAILY MARIO Administration Vitamin D 1,000 unit 06/11/22 07:00 06/11/22 06:35 Cholecalciferol (Vitamin D3) 1,000 Unit Tablet PO 1,000 unit DAILY@07 MARIO Administration PFSH RN FORENSIC PFSH: Medical History (Updated 06/11/22 @ 15:16 by Hilary Sofia MD) Atherosclerosis of coronary artery Bilateral hydronephrosis Secondary to distal ureteral kinking from severe prolapse with cystocele Bladder outlet obstruction Secondary to severe cystocele; persistent even after repair Chronic cystitis COVID-19 (10/2020) Had associated PE (completed 6 months of anticoagulation post COVID), myocarditis; systolic heart failure and NSTEMI also noted for first time during this hospital stay Diabetes Dyslipidemia GERD (gastroesophageal reflux disease) Gross hematuria history of recurrent gross hematuria, usually associated with infections Hypertension Hypothyroidism Mitral valve regurgitation Presence of stent in LAD coronary artery Tricuspid regurgitation Vaginal vault prolapse surgically addressed 01/28 Surgical History H/O cataract removal with insertion of prosthetic lens H/O cystoscopy History of anterior repair with culdoplasty History of bladder suspension procedure (01/28/22) mid urethral sling History of colpocleisis (01/28/22) with perineorrhaphy Hx of appendectomy Hx of heart artery stent LAD and 1st diagonal, both placed 01/2021 Hx of hysterectomy Hx of tubal ligation Family History Brother Thyroid disease Diabetes Mother CAD (coronary artery disease) of [place] at 61, problems started mid 50s Diabetes Sister Chronic kidney disease (CKD) Diabetes Family/Other Diabetes Brother Diabetes Family/Other Diabetes Denies family history of Ovarian cyst Clotting disorder Dementia Hyperlipidemia Suicide Anesthesia complication Bleeding disorder Lung disease Cancer Hypertension Stroke Social History (Updated 06/10/22 @ 21:11 by Tammy Rodriguez MD) Smoking and tobacco status: former smoker Alcohol intake: never Substance/Drug Use: never Other Female Reproductive History: Hx Age of Menarche: 13 Vitals/I&O/Wt Last Vital Signs Temp 97.8 F 06/11/22 11:41 Pulse 59 L 06/11/22 11:41 Resp 16 06/11/22 11:41 BP 129/68 06/11/22 11:41 Pulse Ox 97 06/11/22 11:41 O2 Del Method 06/11/22 11:41 06/10/22 06/11/22 06/11/22 22:59 06:59 14:59 Intake Total 390 / 740 450 / 1190 600 / 600 Output Total 1999 Balance 390 / 740 -1550 / -810 600 / 600 Weight last 48 hrs Weight 160 lb Physical Exam Narrative: The patient reports that she is feeling ok today. She has received a unit of blood and is feeling a little better. Const: COMMON NORMALS: no acute distress, average body habitus, patient oriented x3, no limitations, healthy appearing, alert and well nourished GENERAL APPEARANCE: cooperative, comfortable, well kempt and well developed ORIENTATION/CONSCIOUSNESS: Yes awake, Yes oriented to person, Yes oriented to place and Yes oriented to time Resp: COMMON NORMALS: normal respiratory effort EFFORT & INSPECTION: Yes able to speak in complete sentences GI: COMMON NORMALS: Soft to palpation and non-tender PALPATION: Yes Soft to palpation : COMMON NORMALS: Yes normal external appearance OTHER: bimanual exam performed. Small cystocele is present. Grade 2. Colpocliesis has broken down and vaginal vault is normal in length and caliber. Essentially, there has been an adequate anterior/posterior repair and no obliteration of the vaginal vault. I performed the surgery, which was VERY difficult due to the overabundance of bladder tissue. It was difficult to perform the colpocliesis without pinching the bladder between the sutures because the bladder was so chronically over distended. Extremity: COMMON NORMALS: no calf tenderness Neuro: COMMON NORMALS: patient oriented x3 SENSORIUM/ORIENTATION: Yes alert, Yes oriented to person, Yes oriented to place and Yes oriented to time Psych: APPEARANCE: Yes well kempt Urinary Catheter Management: 3-way Urethral CBI: Cath Placed During This Visit: yes Reason for Continuing Indwelling Catheter: Other Urinary Catheter Date of Insertion: 06/10/22 Urinary Catheter Time of Insertion: 14:00 Data : 06/11/22 02:44 06/11/22 02:44 Micro: Microbiology 06/10/22 14:08 Urine Culture - Preliminary Urine,Clean Catch A&P Assessment and plan (1) Cystocele: I will see the patient in the office. I recommend a consult with urogyn who can possibly perform a sacral colpopexy or attempt another colpocliesis. The sling is working and the patient has not had incontinence. She is having hematuria again and urinary retention. she has an outpatient consult with Dr. Mart to follow up. Status: Acute Coding Level of Care Code Acute Oil Well Services Dispatcher for Manas Sánchez Diagnoses Cystocele
--- NOTE | 2022-06-11 16:28 | P.DS_ITS ---
Discharge Providers Date of Admission: 06/10/22 13:29 Date of Discharge: June 11, 2022 Attending Provider at Admission: Tammy Rodriguez MD Attending Provider at Discharge: Aly Brian Primary Care Provider: AGATA Gutierres Diagnoses at Discharge Discharge Diagnosis (1) Cystocele: Status: Acute Reason for Visit Reason for Visit: abnormal labs Brief History: Sj Singh is a 66 year old female who presented to the emergency room with chief complaint of abnormal labs.? She had been seen at cardiology clinic yesterday.? She told them that she thought she was dying.? She had been having significant malaise, fatigue, difficulty breathing with minimal exertion.? She described herself as fading and unable to walk.? No actual syncope.? This has been progressively worsening over several week timeframe.? Denies any chest pain.? No fevers.? She has had some upper respiratory congestion.? No significant sputum production.? In addition she is noted lower extremity edema.? It has been so bad some days that she is swelled up to her stomach by the end of the day.? 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 Her symptoms had started impeding her ability to work.? Laboratory work-up was done through the cardiology clinic and came back demonstrating significant drop in hemoglobin.? Mrs. Singh was called and told to come to the emergency room.? Repeat blood work showed hemoglobin of 5.9.? Last comparable hemoglobin from January of this year was 8.9.? Patient underwent suburethral sling, perineorrhaphy and colpocleisis by Dr. 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 Postoperatively hemoglobin had been as low as 5.6 and she did require transfusion at that time.? She followed with Dr. Sofia through March of this year and was doing well.? She says a month or 2 ago she had sudden appearance of gross hematuria that persisted for a few days.? She had had issues with this previously usually treated with antibiotics.? She again took a course of Keflex for about 10 days.? The hematuria resolved but since then she has had which she describes as persistent dark urine .? When shown urine currently in a Erickson bag she states that her urine has been similar and sometimes even darker.? Current urine is what I would described as pink-tinged dark yellow light brown coloration.? She has not noted any recent clots.? She indicates that she has had persistent protrusion in her genitourinary area that is significantly smaller than what it had been in the past but still may be half dollar size hanging down an inch or so.? When it hangs down she is physically unable to urinate.? She describes straining to try to urinate during the day.? She has been having increasing swelling in her lower extremities including in this region at times.? She finds that when she lies down at the end of the day after a few minutes she will feel things shift and then be able to get up and urinate.? She denies any incontinence or overflow of urine.? She knows that she has to go frequently but simply cannot.? No recent fevers.? She does not think she has had completely yellow urine since not too long after she last saw Dr. Sofia in March.? She has been typed and crossed and 1 unit of packed red blood cells initiated.? CT of the abdomen and pelvis showed diffuse bladder wall thickening with enhancement and lobulation compatible with cystitis along with bilateral pelvocaliectasis and ureterectasis suggesting chronic poor bladder emptying.? Erickson catheter was placed and patient received a dose of Rocephin.? Hospitalist were contacted for admission. Hospital Course Hospital Course While monitored in the hospital, hematuria has resolved. Erickson catheter draining well. She is feeling much better. Hemoglobin with response to RBC transfusion up from 5.9 to 7.4. She has continued on Rocephin. So far there is no growth on urine culture. She was assessed by gynecology with recommendation for follow-up in office for reassessment and consideration of consultation with [place]. Consideration of sacral colpopexy or attempt another colpocleisis. Follow-up is also set up for her with urology. She is discharging with Erickson in place. Please follow-up blood count in office. She is also discharged with iron supplementation due to deficiency. She will for now continue on cefdinir for urinary tract infection. Urine culture is pending, please follow-up final results. Due to cystitis/urinary tract infection, Jardiance for now is held. Please reassess if this medication is right for her. Please follow-up regarding congestive heart failure, coronary artery disease. Please follow-up also regarding hypothyroidism. TSH noted mildly elevated at 4.27. Due to transient hyperkalemia, potassium up to 5.3 during hospitalization, she is asked for now to decrease potassium and lisinopril doses. Physical Exam Const: COMMON NORMALS: patient oriented x3 and alert GENERAL APPEARANCE: cooperative ORIENTATION/CONSCIOUSNESS: Yes awake HENMT: COMMON NORMALS: oropharynx normal Neck/C-Spine: COMMON NORMALS: no JVD Resp: COMMON NORMALS: normal respiratory effort and clear to auscultation bilaterally AUSCULTATION: clear to auscultation bilaterally Cardio: COMMON NORMALS: no JVD, regular rhythm, S1 normal heart sound present, S2 normal heart sound present and No murmurs present (Cardio) RHYTHM: regular rhythm HEART SOUNDS: S1 normal heart sound present and S2 normal heart sound present GI: COMMON NORMALS: Normal to inspection, nondistended, normoactive bowel sounds present, Soft to palpation and non-tender PALPATION: Yes Soft to palpation Extremity: COMMON NORMALS: no joint enlargement and no pedal edema Neuro: COMMON NORMALS: patient oriented x3 and moves all extremities SENSORIUM/ORIENTATION: Yes alert Skin: COMMON NORMALS: no rashes or lesions noted GENERAL SKIN EXAM: no rashes or lesions noted Urinary Catheter Management: 3-way Urethral CBI: Cath Placed During This Visit: yes Reason for Continuing Indwelling Catheter: Other Urinary Catheter Date of Insertion: 06/10/22 Urinary Catheter Time of Insertion: 14:00 Discharge Data Studies Completed and Pending Completed Studies During Hospitalization Category Date Time Status CT abdomen pelvis w con* [id number] Stat Cat Scan 06/10/22 10:41 Completed US echo complete [CV. echo complete* [id number]] Routine Ultrasound 06/10/22 20:34 Completed Pending at discharge Category Date Time Status Urine Culture Stat Lab 06/10/22 14:08 Results Radiology Impressions Abdomen/Pelvis CT 06/10/22 10:41 IMPRESSION: 1. Irregular bladder with diffuse bladder wall thickening and enhancement compatible with cystitis. Associated small cystocele. 2. Bilateral pelvocaliectasis and ureterectasis compatible with poor bladder emptying and probable ascending urinary tract infection. 3. Diffuse fatty infiltration the liver with mild intrahepatic biliary ductal dilatation. Small amount of fluid in the gallbladder fossa. Cholelithiasis. This can be further evaluated ultrasound. No gallbladder wall thickening. 4. Moderate esophageal hiatal hernia unchanged. 5. Diffuse body wall anasarca. Laboratory Results WBC 3.8 10^3/uL (4.0-10.0) L 06/11/22 02:44 RBC 3.54 10^6/uL (4.1-5.3) L 06/11/22 02:44 Hgb 7.4 g/dL (11.5-15.3) L 06/11/22 02:44 Hct 25.7 % (37.0-47.0) L 06/11/22 02:44 MCV 72.6 fl (81-99) L 06/11/22 02:44 MCH 20.9 pg (28.0-34.0) L 06/11/22 02:44 MCHC 28.8 g/dL (30.0-36.0) L 06/11/22 02:44 RDW 17.6 % (12.1-15.1) H 06/11/22 02:44 Plt Count 194 10^3/cmm (130-400) 06/11/22 02:44 MPV 10.6 fL (7.4-10.4) H 06/11/22 02:44 Neut % (Auto) 49.6 % 06/11/22 02:44 Lymph % (Auto) 33.5 % 06/11/22 02:44 [place] % (Auto) 11.9 % 06/11/22 02:44 Eos % (Auto) 3.7 % 06/11/22 02:44 Baso % (Auto) 1.3 % 06/11/22 02:44 Neut # (Auto) 1.88 10^3/uL (1.8-7.7) 06/11/22 02:44 Lymph # (Auto) 1.3 10^3/uL (0.8-4.8) 06/11/22 02:44 [place] # (Auto) 0.5 10^3/uL (0.2-0.9) 06/11/22 02:44 Eos # (Auto) 0.1 10^3/uL (0.0-0.8) 06/11/22 02:44 Baso # (Auto) 0.1 10^3/uL (0.0-0.1) 06/11/22 02:44 Nucleated RBC % (auto) 0 % 06/11/22 02:44 Nucleated RBCs # 0.0 /100WBC 06/11/22 02:44 PT 13.70 SECONDS (12.1-14.9) 06/10/22 10:07 INR 1.02 (0.8-1.2) 06/10/22 10:07 APTT 31.4 SECONDS (23.9-36.7) 06/10/22 10:07 Sodium 137 mmol/L (136-145) 06/11/22 02:44 Potassium 4.3 mmol/L (3.5-5.1) 06/11/22 02:44 Chloride 100 mmol/L (98-107) 06/11/22 02:44 Carbon Dioxide 25 mmol/L (22-29) 06/11/22 02:44 Anion Gap 16.3 (5-19) 06/11/22 02:44 BUN 15 mg/dL (8-23) 06/11/22 02:44 Creatinine 0.7 mg/dL (0.5-0.9) 06/11/22 02:44 GFR Calculation 83.7 mL/min (90-130) L 06/11/22 02:44 Glucose 96 mg/dL (65-115) 06/11/22 02:44 POC Glucose 125 mg/dL (70-110) H 06/11/22 11:05 Calculated Osmolality 285 mOsm/kg (285-295) 06/11/22 02:44 Calcium 9.0 mg/dL (8.5-10.5) 06/11/22 02:44 Phosphorus 4.5 mg/dL (2.5-4.5) 06/11/22 02:44 Phosphorus Cancelled 06/11/22 02:44 Magnesium 1.9 mg/dL (1.7-2.3) 06/11/22 02:44 Magnesium Cancelled 06/11/22 02:44 Iron 14 ug/dL (37-145) L 06/10/22 21:15 TIBC 184 mcg/dl 06/10/22 21:15 % Saturation 7.6 % (20-50) L 06/10/22 21:15 Unsat Iron Binding 170 ug/dL (112-347) 06/10/22 21:15 Total Bilirubin 0.6 mg/dL (0.15-1.2) 06/11/22 02:44 AST 53 U/L (0-32) H 06/11/22 02:44 ALT 92 U/L (0-33) H 06/11/22 02:44 Alkaline Phosphatase 126 IU/L (35-105) H 06/11/22 02:44 Troponin T Baseline 15 ng/L (0-10) H 06/10/22 21:15 Troponin T 120 Minute 15.06 ng/L (0-10) H 06/10/22 22:56 Delta Troponin T 0.06 ABS# (0-10) 06/10/22 22:56 Troponin T Hi Sens 6Hr 14.06 ng/L (0-10) H 06/11/22 02:44 Troponin T Hi Sens 6Hr Delta -0.94 ng/L (0-12) L 06/11/22 02:44 NT-Pro-B Natriuret Pep 1411 pg/mL (0-125) H 06/10/22 21:15 Total Protein 5.5 g/dL (6.6-8.7) L 06/11/22 02:44 Albumin 3.1 g/dL (3.5-5.2) L 06/11/22 02:44 Globulin 2.4 g/dL (1.3-4.6) 06/11/22 02:44 Triglycerides 68 mg/dL (0-150) 06/10/22 21:15 Cholesterol 99 mg/dL (0-200) 06/10/22 21:15 LDL Cholesterol, Calc 42 mg/dL (50-129) L 06/10/22 21:15 HDL Cholesterol 43 mg/dL (60-100) L 06/10/22 21:15 LDL/HDL Ratio 0.98 RATIO (0.00-3.22) 06/10/22 21:15 Cholesterol/HDL Ratio 2.30 mg/dL (0.0-4.40) 06/10/22 21:15 Urine Color Red (Yellow) 06/10/22 14:08 Urine Appearance Cloudy (CLEAR) 06/10/22 14:08 Urine pH 7 (5-7) 06/10/22 14:08 Ur Specific [place] 1.005 (1.005-1.030) 06/10/22 14:08 Urine Protein 1+ (Negative) H 06/10/22 14:08 Urine Glucose (UA) Norm (Normal) 06/10/22 14:08 Urine Ketones Negative (Negative) 06/10/22 14:08 Urine Blood 3+ (Negative) H 06/10/22 14:08 Urine Nitrate Negative (Negative) 06/10/22 14:08 Urine Bilirubin Neg (Negative) 06/10/22 14:08 Urine Urobilinogen Norm mg/dL (Negative) 06/10/22 14:08 Ur Leukocyte Esterase Trace (Negative) H 06/10/22 14:08 Urine RBC Too numerous to cnt /hpf (0-2) H 06/10/22 14:08 Urine WBC 5-10 /hpf (0-5) H 06/10/22 14:08 Ur Squamous Epith Cells 0-4 /hpf (0-5) H 06/10/22 14:08 Amorphous Sediment Not Reportable 06/10/22 14:08 Urine Bacteria None /hpf (NONE) 06/10/22 14:08 Blood Type O Positive 06/10/22 10:07 Rho(D) Type Positive 06/10/22 10:07 Antibody Screen Negative 06/10/22 10:07 Crossmatch See Detail 06/10/22 10:07 Vitals Last Vital Signs Temp 98.2 F 06/11/22 15:41 Pulse 60 06/11/22 15:41 Resp 16 06/11/22 15:41 BP 117/72 06/11/22 15:41 Pulse Ox 97 06/11/22 15:41 O2 Del Method 06/11/22 15:41 Discharge Plan Discharge Patient Disposition: Home Condition: Stable Prescriptions: New cefdinir 300 mg capsule 300 mg PO BID 10 Days Qty: 20 0RF ferrous sulfate 325 mg (65 mg iron) tablet 325 mg PO EVERY OTHER DAY Qty: 90 0RF Continued sennosides-docusate sodium 8.6-50 mg tablet 2 tab PO DAILY aspirin 81 mg tablet,delayed release (DR/EC) 81 mg PO DAILY Qty: 30 3RF atorvastatin 40 mg tablet 40 mg PO BEDTIME levothyroxine 100 mcg tablet 100 mcg PO DAILY Qty: 90 1RF amlodipine 5 mg tablet 5 mg PO DAILY Qty: 90 4RF Hold Instructions: Resume on 11/01/21. metoprolol succinate 25 mg tablet extended release 24 hr 25 mg PO DAILY Qty: 90 2RF Hold Instructions: Resume on 11/01/21. multivitamin Tablet 1 tab PO DAILY@07 cyclobenzaprine 10 mg tablet 5 - 10 mg PO TID PRN (Reason: Muscle Spasm) omeprazole 40 mg capsule,delayed release(DR/EC) 40 mg PO DAILY@07 acetaminophen [Tylenol Extra Strength] 500 mg Tablet 1,000 mg PO Q6H PRN (Reason: Pain) metformin 1,000 mg tablet 1,000 mg PO BID@, montelukast 10 mg tablet 10 mg PO DAILY@ albuterol sulfate [ProAir HFA] 90 mcg/actuation HFA aerosol inhaler 2 puff INHALATION Q6H PRN (Reason: Shortness Of Breath) cholecalciferol (vitamin D3) [Vitamin D3] 25 mcg (1,000 unit) Tablet 25 mcg PO DAILY@07 cyanocobalamin (vitamin B-12) [Vitamin B-12] 2,000 mcg Tablet Extended Release 2,000 mcg PO DAILY Qty: 0 furosemide 40 mg tablet 20 mg PO DAILY Qty: 90 2RF Hold Instructions: Resume on 11/01/21. ascorbic acid (vitamin C) [Vitamin C] 500 mg Tablet 500 mg PO DAILY hydrocodone-acetaminophen 5-325 mg Tablet 1 tab PO Q4H PRN (Reason: Moderate To Severe Pain) Qty: 30 0RF docusate sodium 100 mg Capsule 100 mg PO BID Qty: 60 0RF Changed lisinopril 20 mg Tablet 10 mg PO DAILY Qty: 1 0RF Klor-Con M20 20 mEq tablet,ER particles/crystals 10 meq PO DAILY Qty: 90 2RF Held Jardiance 25 mg tablet 25 mg PO DAILY@07 Hold Instructions: Resume on 06/25/22. Discharge Orders: Discharge Order (Routine); Ordered 06/11/22 Ordered By: Aly Brian Referrals: Aaron Mart MD [Physician] - 1 week (will call pt with appointment information ) Hilary Sofia MD [Physician] - 06/18/22 3:15 am Charissa Archibald FNP [Primary Care Provider] - 4-7 days (office closed. faxed info should call pt with appointment information ) Patient Instructions: Cefdinir (By mouth), Urinary Tract Infection in Women (GEN), Erickson Catheter Placement and Care (GEN), Cystocele (GEN), Hematuria (GEN), Acute Urinary Retention in Women (GEN), Urinary Leg Bag (GEN), How to Change a Catheter Drainage Bag (GEN), Opioid Safety Activity Restrictions/Additional Instructions: Keep Erickson in place. Please provide leg bag. Follow-up with urology and gynecology. Please have your primary doctor recheck hemoglobin in office at next visit for anemia. Please have your primary provider follow-up urine culture collected in the hospital. This is still pending, so far without growth. Your antibiotic may need to be adjusted depending on results. Please hold and discuss Jardiance with your primary doctor as it can cause urinary infection, kidney infection, sepsis and other comorbidities. Please discuss whether this medication is right for you. Please note your TSH was mildly elevated, 4.27, please have your primary doctor follow-up your thyroid function. Please continue follow-up with regards to congestive heart failure. Please have your primary doctor also recheck your potassium level. Your potassium level was seen mildly transiently increased up to 5.3. Please decrease lisinopril dose and potassium supplement in half. Please follow-up with your primary doctor and websphere commerce architect regarding coronary artery disease. Discharge Attestations Time Spent in Discharge Care*: greater than 30 min Quality Metrics Clinical Quality Measures [ No reported AMI, CVA or VTE this stay] Coding Level of Care Code Acute Chg DC note Diagnoses Cystocele
[2022-06-11 17:26] LABS: Glucose Point of Care 126 mg/dL (70-110)
== END 2022-06-11 18:10 | disposition home or self-care (01) ==
LOC: ER 13:28 → MEDSURG 06-11 01:17
PROVIDERS: Physician Assistant; Admitting Provider Hospitalist; Emergency Provider Family Medicine; PCP Registered Nurse; Visit Provider Internal Medicine
DX: N81.10 Cystocele, unspecified (principal); I11.0 Hypertensive heart disease with heart failure; I50.9 Heart failure, unspecified; I25.10 Atherosclerotic heart disease of native coronary artery without angina pectoris; E03.9 Hypothyroidism, unspecified; Z79.82 Long term (current) use of aspirin; Z86.16 Personal history of COVID-19; K21.9 Gastro-esophageal reflux disease without esophagitis; Z87.891 Personal history of nicotine dependence; R00.1 Bradycardia, unspecified; E11.9 Type 2 diabetes mellitus without complications; Z79.84 Long term (current) use of oral hypoglycemic drugs; E78.5 Hyperlipidemia, unspecified; Z86.711 Personal history of pulmonary embolism; Z95.5 Presence of coronary angioplasty implant and graft
CPT/HCPCS: 36415; 36416; 36430; 51702; 74177; 80048; 80053; 80061; 81001; 82962; 83540; 83550; 83735; 83880; 84100; 84443; 84484; 85014; 85018; 85025; 85610; 85730; 86850; 86900; 86920; 87086; 93005; 93306; 94760; 96360; 96361; 99215; 99285; G0378; J0696; J1940; J7040; P9016; Q9967

== ENCOUNTER → 2022-06-25 15:16 | Outpatient (BNVA) | payer MEDICARE, SELFPAY | PROVIDERS: PCP Registered Nurse; Visit Provider Nurse Practitioner Family | DX: N32.0 Bladder-neck obstruction (principal); N81.10 Cystocele, unspecified | CPT/HCPCS: 51702; 99213 ==

== ENCOUNTER → 2022-07-23 14:20 | Outpatient (BNVA) | payer MEDICARE, SELFPAY | PROVIDERS: PCP Registered Nurse; Visit Provider Nurse Practitioner Family | DX: N30.20 Other chronic cystitis without hematuria (principal) | CPT/HCPCS: 51702 ==

== ENCOUNTER → 2022-08-25 11:03 | Outpatient (BNVA) | payer MEDICARE, SELFPAY | PROVIDERS: PCP Registered Nurse; Visit Provider Nurse Practitioner Family | DX: N32.0 Bladder-neck obstruction (principal) | CPT/HCPCS: 51702 ==

== ENCOUNTER → 2022-08-28 06:52 | Outpatient (BNVA) | payer MEDICARE, SELFPAY | PROVIDERS: PCP Registered Nurse; Visit Provider Student in an Organized Health Care Education/Training Program | DX: S42.201A Unspecified fracture of upper end of right humerus, initial encounter for closed fracture (principal); X58.XXXA Exposure to other specified factors, initial encounter; M25.411 Effusion, right shoulder | CPT/HCPCS: 73030; 99203 ==

== ENCOUNTER 2022-08-28 13:11 | Outpatient (CLI) | payer MEDICARE, SELFPAY ==
[2022-08-28] MEDS: iohexol 350 mg/mL 100 mL Btl IV (14:14)
--- NOTE | 2022-08-28 15:00 | CT_ITS ---
WS: [id number] CT RIGHT SHOULDER, with contrast. HISTORY: fracture Technique: All CT scans at [facility] use at least one of these dose optimization techniques: automated exposure control; mA and/or kV adjustment per patient size (includes targeted exams where dose is matched to clinical indication); or iterative reconstruction. Contrast: Omnipaque 350 95 mL IV. DLP: 715.29 mGy.cm COMPARISON: RIGHT shoulder radiographs 08/28/2022 Acute nondisplaced minimally impacted fracture extends through the RIGHT humeral neck and head. No di splacement from the glenohumeral joint. The glenoid is intact. No loose bodies identified. Clavicle and scapula are intact. Very mild narrowing of the AC joint. The visualized ribs are normal. There is a small joint effusion surrounding the humeral head. No enhancing masses are identified. CT/CT shoulder RT w con [id number] IMPRESSION: 1. Mildly impacted but nondisplaced RIGHT humeral neck and head fracture. 2. No additional fractures and no dislocation. 3. Small effusion RIGHT glenohumeral joint.
== END 2022-08-28 13:12 | disposition home or self-care (01) ==
LOC: RAD 13:13
PROVIDERS: PCP Registered Nurse; Visit Provider Student in an Organized Health Care Education/Training Program
DX: S42.201A Unspecified fracture of upper end of right humerus, initial encounter for closed fracture (principal); X58.XXXA Exposure to other specified factors, initial encounter; M25.411 Effusion, right shoulder
CPT/HCPCS: 73030; 73201; 99203

== ENCOUNTER → 2022-09-11 06:59 | Outpatient (BNVA) | payer MEDICARE, SELFPAY | PROVIDERS: PCP Registered Nurse; Visit Provider Student in an Organized Health Care Education/Training Program | DX: S42.201A Unspecified fracture of upper end of right humerus, initial encounter for closed fracture (principal); X58.XXXA Exposure to other specified factors, initial encounter | CPT/HCPCS: 73030; 99213 ==

== ENCOUNTER → 2022-09-25 13:49 | Outpatient (BNVA) | payer MEDICARE, SELFPAY | PROVIDERS: PCP Registered Nurse; Visit Provider Urology | DX: N32.0 Bladder-neck obstruction (principal); R33.9 Retention of urine, unspecified | CPT/HCPCS: 51702; 99213 ==

== ENCOUNTER → 2022-10-09 07:01 | Outpatient (BNVA) | payer MEDICARE, SELFPAY | PROVIDERS: PCP Registered Nurse; Visit Provider Student in an Organized Health Care Education/Training Program | DX: S42.201A Unspecified fracture of upper end of right humerus, initial encounter for closed fracture (principal) | CPT/HCPCS: 73030; 99213 ==

== ENCOUNTER → 2022-10-22 12:29 | Outpatient (BNVA) | payer MEDICARE, SELFPAY | PROVIDERS: PCP Registered Nurse; Visit Provider Urology | DX: R33.9 Retention of urine, unspecified (principal); N39.9 Disorder of urinary system, unspecified | CPT/HCPCS: 51702 ==

== ENCOUNTER → 2023-02-06 09:39 | Outpatient (BNVA) | payer MEDICARE, SELFPAY | PROVIDERS: PCP Registered Nurse; Visit Provider Nurse Practitioner Family | DX: I11.0 Hypertensive heart disease with heart failure (principal); I50.20 Unspecified systolic (congestive) heart failure; I25.10 Atherosclerotic heart disease of native coronary artery without angina pectoris | CPT/HCPCS: 99214 ==

== ENCOUNTER 2023-04-03 08:24 | Outpatient (CLI) | payer MEDICARE, SELFPAY ==
--- NOTE | 2023-04-03 08:52 | MM_ITS ---
WS: [id number] BILATERAL SCREENING DIGITAL TOMOSYNTHESIS MAMMOGRAM WITH CAD HISTORY: SCREEN COMPARISON: None available. Bilateral CC and MLO views with tomosynthesis and synthetic mammography submitted. Computer aided det ection analyzed. Breast composition: There are scattered areas of fibroglandular density. No suspicious masses, microc alcifications or architectural distortion. Scattered benign calcifications within each breast. MM/[place] [id number] IMPRESSION: BI-RADS: 2-Benign FOLLOW UP: 1 Year Follow-up
== END 2023-04-03 08:25 | disposition home or self-care (01) ==
LOC: RAD 08:25
PROVIDERS: PCP Registered Nurse; Visit Provider Registered Nurse
DX: Z12.31 Encounter for screening mammogram for malignant neoplasm of breast (principal)
CPT/HCPCS: 77063; 77067

== ENCOUNTER → 2023-05-05 09:50 | Outpatient (BNVA) | payer MEDICARE, SELFPAY | PROVIDERS: PCP Registered Nurse; Visit Provider Podiatrist Foot & Ankle Surgery | DX: E11.8 Type 2 diabetes mellitus with unspecified complications (principal); L60.3 Nail dystrophy; M21.611 Bunion of right foot; M21.612 Bunion of left foot; M21.621 Bunionette of right foot; M21.622 Bunionette of left foot; E11.21 Type 2 diabetes mellitus with diabetic nephropathy; M21.41 Flat foot [pes planus] (acquired), right foot; M21.42 Flat foot [pes planus] (acquired), left foot; Z79.84 Long term (current) use of oral hypoglycemic drugs | CPT/HCPCS: 11721; 99204 ==

== ENCOUNTER → 2023-08-24 08:53 | Outpatient (BNVA) | payer MEDICARE, SELFPAY | PROVIDERS: PCP Registered Nurse; Visit Provider Internal Medicine Cardiovascular Disease | DX: I11.0 Hypertensive heart disease with heart failure (principal); I50.20 Unspecified systolic (congestive) heart failure; E03.9 Hypothyroidism, unspecified; I34.0 Nonrheumatic mitral (valve) insufficiency; I36.1 Nonrheumatic tricuspid (valve) insufficiency; Z79.82 Long term (current) use of aspirin | CPT/HCPCS: 99214 ==

== ENCOUNTER 2023-09-02 13:13 | Outpatient (CLI) | payer MEDICARE, SELFPAY ==
--- NOTE | 2023-09-02 13:30 | USCV_ITS ---
Sj Singh Age: 68 Gender: F : 1955 Exam Date: 09/02/2023 13:45 Ordering Phys: Amanda Garcia MD ([email or web address]) Technologist: [place] [facility] [place]: BP: 130 / 80 HR: 72 Rhythm: Sinus Technical Quality: Adequate MEASUREMENTS (Male / Female) Normal Values 2D ECHO LV Chamber Size 4.1 cm RV Chamber Size 3.6 cm LVOT Diameter 2.1 cm LV Ejection Fraction MOD 2C 59.9 % LV Ejection Fraction 2C AL 59.8 % LA Diameter 2.7 cm LA Width 3.8 cm LA Height 4.8 cm RA Width 3.8 cm RA Height 4.6 cm Aorta at Sinotubular Diameter 2.0 cm IVC Diameter 1.4 cm M-MODE Aortic Annulus Diameter 2.6 cm LA Ao Ratio MM 1.1 MV E Point Septal Separation 0.6 cm DOPPLER AV Peak Velocity 118.0 cm/s LVOT Peak Velocity 95.0 cm/s AV Area Cont Eq vti 3.2 cm squared AV Area Cont Eq pk 2.8 cm squared MV E' Velocity 10.0 cm/s TR Peak Velocity 252.3 cm/s TR Peak Gradient 25.5 mmHg TV Peak E Velocity 53.0 cm/s Right Atrial Pressure 3.0 mmHg Pulmonary Artery Systolic Pressu 28.5 mmHg PV Peak Velocity 89.0 cm/s FINDINGS Left Ventricle Normal left ventricular size, systolic function and wall thickness, with no regional wall motion abnormalities. Left ventricular ejection fraction is estimated at 65-70 %. Grade II diastolic dysfunction, moderately elevated filling pressures. Right Ventricle Normal right ventricular size and systolic function. Right ventricular systolic pressure 28.5 mmHg. Right Atrium Normal right atrial size. Left Atrium Mildly increased left atrial size. Mitral Valve Mild mitral annular calcification. Structurally normal mitral valve. No mitral valve stenosis. Trace mitral valve regurgitation. Aortic Valve Structurally normal trileaflet aortic valve. No aortic valve stenosis. No aortic valve regurgitation. Tricuspid Valve Structurally normal tricuspid valve. No tricuspid valve stenosis. Mild tricuspid valve regurgitation. Pulmonic Valve Structurally normal pulmonic valve. No pulmonary valve stenosis. Trace pulmonary valve regurgitation. Pericardium No pericardial effusion. Aorta Normal size aortic root and proximal ascending aorta. IVC Normal IVC dimension with >50% respiratory change of the inferior vena cava. CONCLUSIONS 1. Normal left ventricular size, systolic function and wall thickness, with no regional wall motion abnormalities. Left ventricular ejection fraction is estimated at 65-70 %. Grade II diastolic dysfunction, moderately elevated filling pressures. 2. Normal right ventricular size and systolic function. 3. Mild tricuspid valve regurgitation. 4. Pulmonary artery pressure estimated at 29 mmHg. 5. No significant change when compared to study dated 06/10/2023. Gilma Whipple MD (Electronically Signed) Final Date: 08 September 2023 12:45 S
== END 2023-09-02 13:14 | disposition home or self-care (01) ==
LOC: RAD 13:13
PROVIDERS: PCP Registered Nurse; Visit Provider Internal Medicine Cardiovascular Disease
DX: R06.09 Other forms of dyspnea (principal); I07.1 Rheumatic tricuspid insufficiency
CPT/HCPCS: 93306

== ENCOUNTER 2024-04-27 08:00 | Outpatient (CLI) | payer MEDICARE, SELFPAY ==
--- NOTE | 2024-04-27 08:04 | MM_ITS ---
WS: [id number] VIEWS: MLO and CC views both breasts. 3D digital tomosynthesis is also included in this exam. Comparison made with prior exam of 04/03/2023.. Findings: There was no sign of mass, architectural distortion or suspicious calcification in either breast. Jose Raul ign appearing calcifications in both breasts. The breasts are almost entirely fatty. MM/[place] [id number] Impression: BI-RADS: 2-Benign finding. FOLLOW-UP: 1 Year Follow-up This mammogram was also analyzed by the Computer Aided Detection System R2 Imag e Nail Cutter.
== END 2024-04-27 08:01 | disposition home or self-care (01) ==
LOC: RAD 08:00
PROVIDERS: PCP Registered Nurse; Visit Provider Registered Nurse
DX: Z12.31 Encounter for screening mammogram for malignant neoplasm of breast (principal)
CPT/HCPCS: 77063; 77067

== ENCOUNTER → 2024-08-29 11:13 | Outpatient (BNVA) | payer MEDICARE, SELFPAY | PROVIDERS: PCP Registered Nurse; Visit Provider Internal Medicine Cardiovascular Disease | DX: R07.9 Chest pain, unspecified (principal) | CPT/HCPCS: 93005; 99214 ==

== ENCOUNTER 2025-02-23 09:10 | Emergency (ER) | payer MEDICARE, SELFPAY ==
[2025-02-23 09:26] VITALS: BP 151/82; PULSE 73; RESP 16; TEMP 36.9; O2SAT 99; BMI 25.7
[2025-02-23 10:47] LABS: Basophils % 0.4 %; Eosinophils % 0.1 %; Hematocrit 44.2 % (36-47); Lymphocytes # 1.4 10^3/uL (0.8-4.8); Lymphocytes % 17.5 %; Mean Corpuscular HGB Conc 31.2 g/dL (30-55); Mean Corpuscular Hemoglobin 28.7 pg (27-33); Mean Corpuscular Volume 91.9 fl (85-98); Monocytes # 0.6 10^3/uL (0.2-0.9); Monocytes % 7.9 %; Neutrophils % 73.7 %; Nucleated Red Blood Cells % 0 %; Platelet Count 147 10^3/cmm (157-399); Red Blood Count 4.81 10^6/uL (3.85-5.65); Red Cell Distribution Width 13.7 % (12.1-15.1)
[2025-02-23 11:02] LABS: Alanine Aminotransferase 25 U/L (0-33); Albumin Level 4.5 g/dL (3.5-5.2); Alkaline Phosphatase 89 U/L (35-105); Anion Gap 15.7 (5-19); Aspartate Amino Transferase 25 U/L (0-32); Blood Urea Nitrogen 18 mg/dL (8-23); Carbon Dioxide 29 mmol/L (22-29); Chloride 97 mmol/L (98-107); Creatinine Clr Calc Pharmacy 62.9019; Globulin 2.8 g/dL (1.3-4.6); Glucose 178 mg/dL (65-115); Osmolality Calculated 292 mOsm/kg (285-295); Potassium 3.7 mmol/L (3.5-5.1); Sodium 138 mmol/L (136-145); Total Bilirubin 0.4 mg/dL (0.15-1.2); Total Protein 7.3 g/dL (6.6-8.7)
[2025-02-23 11:03] LABS: Lactic Sepsis W/Reflex 1.4 mmol/L (0.5-2.2)
[2025-02-23 11:49] LABS: Bilirubin Urine Negative (Negative); Blood Urine 3+ (Negative); Glucose Urine UA Trace (Normal); Ketones Urine 1+ (Negative); Leukocyte Esterase Urine 2+ (Negative); Nitrate Urine Negative (Negative); Protein Urine 2+ (Negative); Urine Appearance Cloudy (CLEAR); Urine Color Yellow (Yellow); pH Urine 5.5 (5-7)
[2025-02-23 11:54] LABS: Bacteria Urine None Seen /hpf; RBC Urine >100 /hpf (0-2); Squamous Epithelial Cell Urine 0-5 /hpf (0-5); WBC Urine >100 /hpf (0-5)
[2025-02-23 12:00] LABS: Add Urine Culture? Yes
--- NOTE | 2025-02-23 12:06 | ED_ITS ---
HPI - Female Genitourinary 2 General: Chief complaint: Urogenital-Female Stated complaint: extreme back pain/n/v Time Seen by Provider: 02/23/25 12:05 History of Present Illness: 69-year-old female with a history of rec urrent UTIs, chronic hydronephrosis, bladder outlet obstructions, chronic cystitis, coronary artery disease, hypothyroidism and hypertension who presents to the emergency room with urinary symptoms. She is having left flank pain. Dysuria. She was started on Bactrim but apparently has vomited every time she is taken it. No altered mental status. No focal motor deficits. No fevers. No chest pain. No shortness of breath. Related Data Home Medications ?Medication ?Instructions ?Recorded ?Confirmed metformin 1,000 mg tablet 1,000 mg PO BID@02/23/25 montelukast 10 mg tablet 10 mg PO DAILY@10/20/20 0 02/23/25 multivitamin 1 tab PO DAILY@10/20/20 0 02/23/25 omeprazole 40 mg capsule,delayed 40 mg PO DAILY@10/2802/23/25 release levothyroxine 88 mcg tablet 88 mcg PO DAILY 02/06/23 0 02/23/25 potassium chloride 20 mEq 20 meq PO DAILY 02/06/23 tablet,extended release(part/cryst) (Klor-Con M) atorvastatin 80 mg tablet 80 mg PO DAILY 02/23/2502/07 furosemide 20 mg tablet 20 mg PO DAILY 02/23/2502/07 lisinopril 20 mg tablet 20 mg PO DAILY 02/23/2502/07 nitrofurantoin 100 mg PO BID 02/23/2502/23 monohydrate/macrocrystals 100 mg capsule ondansetron 4 mg disintegrating 4 mg PO Q6H 02/23/25 0 02/23/25 tablet Previous Rx's ?Medication ?Instructions ?Recorded aspirin 81 mg tablet,delayed 81 mg PO DAILY #30 tabs 0 05/08/21 release amlodipine 5 mg tablet 5 mg PO DAILY #90 tabs 10/02 metoprolol succinate 25 mg 25 mg PO DAILY #90 tabs tablet,extended release 24 hr cefdinir 300 mg capsule 300 mg PO BID 10 days #20 ca ps 02/23/25 hydrocodone 5 mg-acetaminophen 325 1 tab PO Q8H PRN pa in #14 tabs 02/23/25 mg tablet phenazopyridine 100 mg tablet 100 mg PO Q8H 6 doses #6 tabs 02/23/25 (Pyridium) promethazine 25 mg [address] Q6H PRN nausea and 02/23/25 suppository vomiting #12 ea Allergies Allergy/AdvReac Type Severity Reaction Status Date / Time Penicillins Allergy Severe ALGY-Hives Verified 08/29/24 10:12 levofloxacin (From Levaquin) Allergy ALGY-Rash Verified 08/29/24 10:12 Review of Systems 2 Narrative: Constitutional symptoms: Negative except as documented in HPI. Skin symptoms: Negative except as documented in HPI. Eye symptoms: Negative except as documented in HPI. ENMT symptoms: Negative except as documented in HPI. Respiratory symptoms: Negative except as documented in HPI. Cardiovascular symptoms: Negative except as documented in HPI. Gastrointestinal symptoms: Negative except as documented in HPI. Genitourinary symptoms: Negative except as documented in HPI. Musculoskeletal symptoms: Negative except as documented in HPI. Neurologic symptoms: Negative except as documented in HPI. Psychiatric symptoms: Negative except as documented in HPI. Endocrine symptoms: Negative except as documented in HPI. 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 Bladder outlet obstruction Secondary to severe cystocele; persistent even after repair Chronic cystitis Atherosclerosis of coronary artery Presence of stent in LAD coronary artery Gross hematuria history of recurrent gross hematuria, usually associated with infections Tricuspid regurgitation Mitral valve regurgitation Hypothyroidism GERD (gastroesophageal reflux disease) Hypertension COVID-19 (10/2020) Had associated PE (completed 6 months of anticoagulation post COVID), myocarditis; systolic heart failure and NSTEMI also noted for first time during this hospital stay Diabetes Surgical History Hx of appendectomy Hx of hysterectomy Hx of tubal ligation History of bladder suspension procedure (01/28/22) mid urethral sling History of colpocleisis (01/28/22) with perineorrhaphy Hx of heart artery stent LAD and 1st diagonal, both placed 01/2021 H/O cataract removal with insertion of prosthetic lens H/O cystoscopy History of anterior repair with culdoplasty Family History Brother Thyroid disease Diabetes Mother CAD (coronary artery disease) of [place] at 61, problems started mid 50s Diabetes Sister Chronic kidney disease (CKD) Diabetes Family/Other Diabetes Brother Diabetes Family/Other Diabetes Denies family history of Ovarian cyst Clotting disorder Dementia Hyperlipidemia Suicide Anesthesia complication Bleeding disorder Lung disease Cancer Hypertension Stroke Social History Smoking and tobacco/nicotine status: former use of tobacco/nicotine Alcohol intake: never Substance/Drug Use: never Lives independently: Yes Marital status: / Current occupational status: employed Do you think of yourself as: Straight/Heterosexual Physical Exam 2 Narrative: EXAM NARRATIVE: General: Alert, no acute distress. Skin: Warm, dry. Head: Normocephalic, atraumatic. Neck: Supple, trachea midline. Eye: Extraocular movements are intact. Ears, nose, mouth and throat: Tacky oral mucosa Cardiovascular: Regular, Normal peripheral perfusion. Respiratory: Lungs are clear to auscultation, respirations are non-labored, breath sounds are equal, Symmetrical chest wall expansion. Gastrointestinal: Soft, left flank pain, Non distended Musculoskeletal: Normal ROM, no deformity. Neurological: Alert and oriented, No focal neurological deficit observed. Psychiatric: Cooperative, appropriate mood & affect. Course 2 Vital Signs: Vital signs: Vital Signs Temperature 98.4 F 02/23/25 09:26 Pulse Rate 71 02/23/25 12:51 Respiratory Rate 16 02/23/25 09:26 Blood Pressure 145/82 02/23/25 12:51 Pulse Oximetry 97 02/23/25 12:51 Oxygen Delivery Me thod Room Air 02/23/25 12:51 MDM - Female Medical Decision Making Medical decision making: Differential diagnosis including but not limited to and based on the above HPI, review of systems and physical exam: Ureterolithiasis. Urinary tract infection. Appendicitis. Cholecystis. Musculoskeletal / back pain. Pyelonephritis Orders placed to evaluate differential diagnosis based on the above differential, HPI and physical exam Lab Review: Laboratory results were reviewed and interpreted by myself the emergency room physician. No leukocytosis. No anemia. No renal failure. Urine does show significant signs of infection with hematuria, greater 900 leukocytes. However no bacteria are seen. CT of the abdomen pelvis with renal protocol: Diffused urinary bladder wall thickening. Chronic cystitis versus neoplasm. Patient has not seen urology in several years because there is none here. History of appendectomy and hysterectomy. She has some cholelithiasis without cholecystitis. This was reviewed and interpreted by myself the emergency room physician. I also reviewed the radiology report. I reviewed the patient's medical record. Reexamination: Patient remained stable. No increased work of breathing. No altered mental status. No focal motor deficits. Patient says she is feeling somewhat better now. She has been sleeping. We discussed the CT findings and she will call Dr. Rodriguez's clinic for an appointment. Consultation: I spoke with Dr. Rodriguez with urology at [facility] who will see the patient in follow-up. Assessment and plan: Urinary tract infection Hemorrhagic cystitis Flank pain Dehydration ? IV Rocephin and IV fluids in the emergency room. -I discussed the patient with the hospitalist on-call who is admitting the patient. - Discussed findings and plan with patient. Answered any questions. - All laboratory values were reviewed and interpreted personally by myself, the ER physician - All imaging was reviewed and interpreted personally by myself, the ER physician. - Evaluation and treatment of this problem were appropriate in the emergency setting Lab Data 02/23/25 10:31 02/23/25 10:31 Radiology Impressions Abdomen/Pelvis CT 02/23/25 12:09 IMPRESSION: 1. No renal obstruction or calcification. 2. Diffuse marked urinary bladder wall thickening. Chronic cystitis versus infiltrating neoplasm. Neoplasm would be difficult to exclude. Consider evaluation by urology. 3. Prior appendectomy and hysterectomy. 4. Cholelithiasis without acute cholecystitis. Laboratory Results WBC 8.00 10^3/uL (3.29-11.43) 02/23/25 10:31 RBC 4.81 10^6/uL (3.85-5.65) 02/23/25 10:31 Hgb 13.80 g/dL (11.27-16.99) 02/23/25 10:31 Hct 44.2 % (36-47) 02/23/25 10:31 MCV 91.9 fl (85-98) 02/23/25 10:31 MCH 28.7 pg (27-33) 02/23/25 10:31 MCHC 31.2 g/dL (30-55) 02/23/25 10:31 RDW 13.7 % (12.1-15.1) 02/23/25 10:31 Plt Count 147 10^3/cmm (157-399) L 02/23/25 10:31 MPV 11.0 fL (7.4-10.4) H 02/23/25 10:31 Neut % (Auto) 73.7 % 02/23/25 10:31 Lymph % (Auto) 17.5 % 02/23/25 10:31 [place] % (Auto) 7.9 % 02/23/25 10:31 Eos % (Auto) 0.1 % 02/23/25 10:31 Baso % (Auto) 0.4 % 02/23/25 10:31 Neut # (Auto) 5.90 10^3/uL (1.8-7.7) 02/23/25 10:31 Lymph # (Auto) 1.4 10^3/uL (0.8-4.8) 02/23/25 10:31 [place] # (Auto) 0.6 10^3/uL (0.2-0.9) 02/23/25 10:31 Eos # (Auto) 0.0 10^3/uL (0.0-0.8) 02/23/25 10:31 Baso # (Auto) 0.0 10^3/uL (0.0-0.1) 02/23/25 10:31 Nucleated RBC % (auto) 0 % 02/23/25 10:31 Nucleated RBCs # 0.0 /100WBC 02/23/25 10:31 Sodium 138 mmol/L (136-145) 02/23/25 10:31 Potassium 3.7 mmol/L (3.5-5.1) 02/23/25 10:31 Chloride 97 mmol/L (98-107) L 02/23/25 10:31 Carbon Dioxide 29 mmol/L (22-29) 02/23/25 10:31 Anion Gap 15.7 (5-19) 02/23/25 10:31 BUN 18 mg/dL (8-23) 02/23/25 10:31 Creatinine 0.7 mg/dL (0.5-0.9) 02/23/25 10:31 GFR Calculation 83.0 mL/min (90-130) L 02/23/25 10:31 Glucose 178 mg/dL (65-115) H 02/23/25 10:31 Calculated Osmolality 292 mOsm/kg (285-295) 02/23/25 10:31 Lactic Acid 1.4 mmol/L (0.5-2.2) 02/23/25 10:35 Calcium 10.0 mg/dL (8.5-10.5) 02/23/25 10:31 Total Bilirubin 0.4 mg/dL (0.15-1.2) 02/23/25 10:31 AST 25 U/L (0-32) 02/23/25 10:31 ALT 25 U/L (0-33) 02/23/25 10:31 Alkaline Phosphatase 89 U/L (35-105) 02/23/25 10:31 Total Protein 7.3 g/dL (6.6-8.7) 02/23/25 10:31 Albumin 4.5 g/dL (3.5-5.2) 02/23/25 10:31 Globulin 2.8 g/dL (1.3-4.6) 02/23/25 10:31 Urine Color Yellow (Yellow) 02/23/25 10:26 Urine Appearance Cloudy (CLEAR) A 02/23/25 10:26 Urine pH 5.5 (5-7) 02/23/25 10:26 Ur Specific [place] 1.020 (1.005-1.030) 02/23/25 10:26 Urine Protein 2+ (Negative) A 02/23/25 10:26 Urine Glucose (UA) Trace (Normal) H 02/23/25 10:26 Urine Ketones 1+ (Negative) H 02/23/25 10: Urine Blood 3+ (Negative) A 02/23/25 10: Urine Nitrate Negative (Negative) 02/23/25 10: Urine Bilirubin Negative (Negative) 02/23/25 10: Urine Urobilinogen 1.0 mg/dL (Negative) 02/23/25 10:26 Ur Leukocyte Esterase 2+ (Negative) A 02/23/25 10:26 Urine RBC >100 /hpf (0-2) H 02/23/25 10:26 Urine WBC >100 /hpf (0-5) H 02/23/25 10:26 Ur Squamous Epith Cells 0-5 /hpf (0-5) 02/23/25 10:26 Amorphous Sediment Not Reportable 02/23/25 10:26 Urine Bacteria None seen /hpf (NONE) 02/23/25 10:26 Hyaline Casts 0.40 /lpf 02/23/25 10:26 All radiology interpretation(s) finalized by discharge Discharge Plan Discharge Patient Disposition: Home Clinical Impression: Urinary tract infection, Thick muscular wall of urinary bladder present on ultrasound Condition: Stable Prescriptions: New hydrocodone-acetaminophen 5-325 mg tablet 1 tab PO Q8H PRN (Reason: pain) Qty: 14 0RF Rx Instructions: Take 1/2 to 1 tab every 8 hours as needed for pain promethazine 25 mg suppository [address] Q6H PRN (Reason: nausea and vomiting) Qty: 12 0RF phenazopyridine [Pyridium] 100 mg tablet 100 mg PO Q8H Qty: 6 0RF cefdinir 300 mg capsule 300 mg PO BID 10 Days Qty: 20 0RF No Action aspirin 81 mg tablet,delayed release (DR/EC) 81 mg PO DAILY Qty: 30 3RF Klor-Con M20 20 mEq tablet,ER particles/crystals 20 meq PO DAILY levothyroxine 88 mcg tablet 88 mcg PO DAILY amlodipine 5 mg tablet 5 mg PO DAILY Qty: 90 3RF metoprolol succinate 25 mg tablet extended release 24 hr 25 mg PO DAILY Qty: 90 3RF multivitamin Tablet 1 tab PO DAILY@07 omeprazole 40 mg capsule,delayed release(DR/EC) 40 mg PO DAILY@07 metformin 1,000 mg tablet 1,000 mg PO BID@, montelukast 10 mg tablet 10 mg PO DAILY@ atorvastatin 80 mg tablet 80 mg PO DAILY furosemide 20 mg tablet 20 mg PO DAILY lisinopril 20 mg tablet 20 mg PO DAILY ondansetron 4 mg tablet,disintegrating 4 mg PO Q6H nitrofurantoin monohyd/m-cryst 100 mg capsule 100 mg PO BID Discharge Orders: Discharge ED (Routine); Ordered 02/23/25 Ordered By: Karin Galindo Referrals: Rene Rodriguez [Referring] - (Please call Dr. Rodriguez's clinic for an appointment. There is concern about the thickness of your bladder.) Charissa Archibald FNP [Primary Care Provider] - Discharge Diet: Usual diet Discharge Activity: Increase activity as tolerated Patient Instructions: Urinary Tract Infection in Older Adults (ED), Opioid Safety, Pain Management Activity Restrictions/Additional Instructions: Thank you for choosing [facility] for your healthcare needs today. Please realize this is an emergency room and that we are providing you with a medical screening exam and this may not be complete and all inclusive of all the testing and or work up that you may need to determine your ailment or severity of your illness. You have been screened and evaluated and felt safe for discharge. Health conditions do change or evolve sometimes and as such it is important that you follow up with your Primary Doctor to be re checked, 3-5 days is a general good time frame for follow up. You are always welcome to return to the ED for re assessment if your symptoms are worsening or you have new concerns Print Language: South African Coding Level of Care Code ED [employer]
--- NOTE | 2025-02-23 12:09 | CT_ITS ---
WS: [id number] CT ABDOMEN AND PELVIS NONCONTRAST HISTORY: flank pain, LEFT TECHNIQUE: Imaging performed through the abdomen and pelvis. Coronal and sagittal reformats are submitted. All CT scans at [facility] use at least one of these dose optimization techniques: automated exposure control; mA and/or kV adjustment per patient size (includes targeted exams where dose is matched to clinical indication); or iterative reconstruction. DLP: 476.88 mGy.cm COMPARISON: 06/10/2022 Lower thorax: Lung bases are clear. LEFT lower lobe granuloma. Visualized heart is normal. Large hiatal hernia. Liver: Negative. Gallbladder: Cholelithiasis. No evidence for acute cholecystitis. Pancreas: Normal size and attenuation. Normal pancreatic duct. No pancreatitis or mass. Spleen: Normal. Adrenal glands: Normal. No mass. Right kidney: Normal size kidney with no mass or hydronephrosis. Left kidney: Normal size kidney with no mass or hydronephrosis. Aorta: Mild atherosclerosis abdominal aorta with no aneurysm. No free fluid, intraperitoneal air or significant lymphadenopathy. GI tract: Large hiatal hernia. No stomach obstruction. No small bowel obstruction. Tortuous colon with constipation. Prior appendectomy. No evidence for diverticulosis or diverticulitis. Abdominal wall: Negative. No hernia. Pelvis: Prior hysterectomy. Urinary bladder is minimally distended with diffuse bladder wall thickening and irregularity. Bladder wall measures up to 1.4 cm. Suspect rectocele. Osseous structures: Marked RIGHT curvature lumbar spine. Advanced degenerative disc disease. CT/CT kidney stone [id number] IMPRESSION: 1. No renal obstruction or calcification. 2. Diffuse marked urinary bladder wall thickening. Chronic cystitis versus inf iltrating neoplasm. Neoplasm would be difficult to exclude. Consider evaluation by urology. 3. Prior appendectomy and hysterectomy. 4. Cholelithiasis without acute cholecystitis.
[2025-02-23] MEDS: sodium chloride 0.9% 1,000 ML 999 ML IV (12:43)
[2025-02-23] MEDS: cefTRIAXone 1,000 mg SDV 1000 MG IVP (12:44)
[2025-02-23 12:51] VITALS: BP 145/82; PULSE 71; O2SAT 97
[2025-02-23 13:17] VITALS: RESP 16; O2SAT 95
[2025-02-23] MEDS: ondansetron 2 mg/ML SDV 2 mL 4 MG IVP (13:17)
[2025-02-23] MEDS: morphine 4 mg/mL SDV 1 mL IVP (13:17)
[2025-02-23 14:12] VITALS: BP 156/94; PULSE 70; O2SAT 96
== END 2025-02-23 14:13 | disposition home or self-care (01) ==
PROVIDERS: Emergency Provider Emergency Medicine; PCP Registered Nurse
DX: N39.0 Urinary tract infection, site not specified (principal); N32.89 Other specified disorders of bladder; Z79.82 Long term (current) use of aspirin; Z87.891 Personal history of nicotine dependence; E78.5 Hyperlipidemia, unspecified; I25.10 Atherosclerotic heart disease of native coronary artery without angina pectoris; E11.9 Type 2 diabetes mellitus without complications; I10 Essential (primary) hypertension
CPT/HCPCS: 36415; 74176; 80053; 81001; 83605; 85025; 87040; 87077; 87086; 87186; 96361; 96374; 96375; 99285; J0696; J2270; J2405; J7030

== ENCOUNTER 2025-04-28 08:53 | Outpatient (CLI) | payer MEDICARE, SELFPAY ==
--- NOTE | 2025-04-28 08:55 | MM_ITS ---
WS: [id number] BILATERAL SCREENING DIGITAL TOMOSYNTHESIS MAMMOGRAM WITH CAD HISTORY: SCREENING COMPARISON: 04/03/2023 and 04/27/2024 Bilateral CC and MLO views with tomosynthesis and synthetic mammography submitted. Computer aided detection analyzed. Breast composition: There are scattered areas of fibroglandular density. No suspicious masses, microcalcifications or architectural distortion. Stable bilateral scattered calcifications and arterial calcifications in each breast. Stable 5 mm mass anterior LEFT breast. MM/MM scr BI tomosynthesis [id number] IMPRESSION: BI-RADS: 2 - Benign. FOLLOW UP: 1 Year Follow-up
== END 2025-04-28 08:54 | disposition home or self-care (01) ==
LOC: RAD 08:54
PROVIDERS: PCP Registered Nurse; Visit Provider Registered Nurse
DX: Z12.31 Encounter for screening mammogram for malignant neoplasm of breast (principal)
CPT/HCPCS: 77063; 77067

== ENCOUNTER → 2025-08-29 10:07 | Outpatient (BNVA) | payer MEDICARE, SELFPAY | PROVIDERS: PCP Registered Nurse; Visit Provider Internal Medicine Cardiovascular Disease | DX: I25.10 Atherosclerotic heart disease of native coronary artery without angina pectoris (principal); E78.5 Hyperlipidemia, unspecified; I10 Essential (primary) hypertension; E11.9 Type 2 diabetes mellitus without complications; Z79.84 Long term (current) use of oral hypoglycemic drugs; Z95.5 Presence of coronary angioplasty implant and graft; Z87.891 Personal history of nicotine dependence; R07.9 Chest pain, unspecified | CPT/HCPCS: 93005; 99214 ==